=== PATIENT | female | born 1975 | race Caucasian/White ===

== ENCOUNTER → 2018-06-18 12:01 | Outpatient (CLI) | payer OTHER, MEDICAID, SELFPAY ==
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
== END ==
PROVIDERS: Family Provider Physician Assistant; PCP Physician Assistant; Visit Provider Nurse Practitioner Family
DX: M25.562 Pain in left knee (principal)
CPT/HCPCS: 73562

== ENCOUNTER → 2018-08-28 08:26 | Outpatient (CLI) | payer OTHER, MEDICAID, SELFPAY | PROVIDERS: Family Provider Physician Assistant; PCP Physician Assistant; Visit Provider Physician Assistant | DX: N39.0 Urinary tract infection, site not specified (principal) | CPT/HCPCS: 87086 ==

== ENCOUNTER 2018-09-29 14:11 | Emergency (ER) | payer OTHER, MEDICAID, SELFPAY ==
[2018-09-29 14:16] VITALS: BP 139/82; PULSE 80; RESP 14; TEMP 36.8; O2SAT 98; BMI 32.5
--- NOTE | 2018-09-29 15:41 | ED.NECK ---
HPI - Neck Pain/Injury <Camelia Cadena PA-C - Last Filed: 09/29/18 21:26> General Chief Complaint: Neck Pain/Injury Stated Complaint: NECK PAIN Time Seen by Provider: 09/29/18 15:41 Source: patient Mode of arrival: ambulatory Limitations: no limitations History of Present Illness HPI Narrative: This 43-year-old female states that she always sleeps on her left side, when she woke up this morning and rolled onto her right side she had severe pain on that side of her neck and states that she can't turn it due to the pain. She states that also her with going over bumps in the car on the way here. She states that she has had some ongoing neck tightness for the last month but denies any specific injury. She took some ibuprofen and methocarbamol earlier as well as using ice, and those helped a little bit. She states that heat seemed to make it worse. She denies any weakness or paresthesia in her extremities or any other new symptoms such as fever or rash. No specific injury. She does have methocarbamol at home as well as meloxicam she has use for arthritis and muscle pain. Related Data Home Medications Medication Instructions Recorded Confirmed albuterol sulfate [Ventolin HFA] 2 puff INH SEE INSTRUCTIONS PRN 09/29/18 09/29/18 ibuprofen 800 mg PO TID-QID PRN 09/29/18 09/29/18 Previous Rx's Medication Instructions Recorded imiquimod [Zyclara] 1 melany TOPICAL HS #7.5 gm 09/14/16 methocarbamol 750 - 1,500 mg PO HS #45 tab 10/24/16 ranitidine HCl 150 mg PO BID #60 tab 02/22/17 lorazepam 1 mg tablet 0.5 - 1 mg PO QDAY PRN #30 tab 06/09/18 promethazine 25 mg tablet See Label Instructions PO Q6HP PRN 06/09/18 #20 tab meloxicam 15 mg tablet 15 mg PO DAILY #90 tab 06/18/18 bupropion HCl XL 300 mg 24 hr 300 mg PO QAM #30 tab 08/20/18 tablet, extended release lidocaine 2 patch TOP DAILY #30 each 09/29/18 Allergies Allergy/AdvReac Type Severity Reaction Status Date / Time cat dander [CAT DANDER] Allergy Mild SNEEZING Verified 09/29/18 14:19 AND HIVES morphine AdvReac Severe VOMITING Verified 09/29/18 14:19 codeine AdvReac Mild NAUSEA Verified 09/29/18 14:19 Review of Systems <RAMNO Stephens Last Filed: 09/29/18 21:26> Review of Systems ROS Unobtainable: All systems reviewed & are unremarkable except as noted in HPI and below Exam <RAMON Stephens Last Filed: 09/29/18 21:26> Narrative Exam Narrative: GENERAL APPEARANCE: Patient sitting comfortably, in no distress. LUNGS: Clear to auscultation bilaterally. HEART: Rate and rhythm regular without murmur, normal S1 and S2, no S3 or S4. MUSCULOSKELETAL: No tenderness over the cervical spine. No tenderness over the paraspinal musculature. She is tender over the entirety of the right posterior SCM, exquisitely from the midpoint to the suboccipital/mastoid insertion. She is able to flex and extend with some tenderness at endpoints. She has reduced bilateral rotation and lateral bend secondary to tenderness. 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 NEUROVASCULAR: Hands and fingers warm and pink with sensation grossly intact Initial Vital Signs Initial Vital Signs: Vital Signs Temperature 98.2 F 09/29/18 14:16 Pulse Rate 80 09/29/18 14:16 Respiratory Rate 14 09/29/18 14:16 Blood Pressure 139/82 09/29/18 14:16 Pulse Oximetry 98 09/29/18 14:16 <Leon Ann DO - Last Filed: 10/02/18 07:17> Initial Vital Signs Initial Vital Signs: Vital Signs Temperature 98.2 F 09/29/18 14:16 Pulse Rate 80 09/29/18 14:16 Respiratory Rate 14 09/29/18 14:16 Blood Pressure 139/82 09/29/18 14:16 Pulse Oximetry 98 09/29/18 14:16 Course <RAMON Stephens Last Filed: 09/29/18 21:26> Orders Ordered: Discontinued Medications Lidocaine (Lidoderm) 1 each TOP NOW ONE Stop: 09/29/18 15:54 Last Admin: 09/29/18 16:45 Dose: 1 each Vital Signs - 8 hr 09/29/18 14:16 09/29/18 16:14 Temperature 98.2 F Pulse Rate 80 67 Respiratory Rate 14 18 Blood Pressure 139/82 Blood Pressure [Left Arm] 142/87 H Pulse Oximetry 98 97 <Leon Longeloy, DO - Last Filed: 10/02/18 07:17> Orders Ordered: Discontinued Medications Lidocaine (Lidoderm) 1 each TOP NOW ONE Stop: 09/29/18 15:54 Last Admin: 09/29/18 16:45 Dose: 1 each Vital Signs - 8 hr 09/29/18 14:16 09/29/18 16:14 Temperature 98.2 F Pulse Rate 80 67 Respiratory Rate 14 18 Blood Pressure 139/82 Blood Pressure [Left Arm] 142/87 H Pulse Oximetry 98 97 Discharge Plan Departure Patient Disposition: Home Clinical Impression: Muscular torticollis Discharge Date/Time: 09/29/18 16:50 Interventions: ED Discharge Assessment Last Done: 09/29/18 16:50 Instructions: DI for Torticollis Activity Restrictions/Additional Instructions: I think that you have strained the muscle on the side of your neck due to an awkward sleeping position. This is a common problem, and probably worse as your neck was a bit sore to begin with. This is likely to take some time to improve. Please continue ice as needed. We have applied a pain patch to your neck, and you can use these for up to 12 hr daily as needed. I have sent a prescription for these to your pharmacy. If not covered, you can get a similar, 4% lidocaine patch [id number] that is less expensive. Please change from ibuprofen to your meloxicam, 15 mg once daily. Please increase your Robaxin (methocarbamol) to 1500 mg per dose, and you can take that up to every 6 hr as needed (do not drive as it may make you sleepy). Be sure to sleep on a supportive pillow, i.e. a foam neck pillow that will keep your neck aligned. Please return if any acutely worsening symptoms, or new symptoms such as numbness or weakness in your extremities. Otherwise, follow up with your PCP next week for recheck and please discuss whether a therapy referral might be helpful given your chronic pain. Prescriptions: New lidocaine 5 % adhesive patch,medicated 2 patch TOP DAILY Qty: 30 RF: 0 No Action meloxicam 15 mg tablet 15 mg PO DAILY Qty: 90 RF: 1 imiquimod [Zyclara] 3.75 % cream in packet 1 melany Topical HS Qty: 7.5 RF: 3 methocarbamol 750 MG tablet 750 - 1,500 mg PO HS Qty: 45 RF: 3 ranitidine HCl 150 MG tablet 150 mg PO BID Qty: 60 RF: 6 promethazine 25 mg tablet See Label Instructions PO Q6HP PRN (Reason: nausea and vomiting) Qty: 20 RF: 0 lorazepam 1 mg tablet 0.5 - 1 mg PO QDAY PRN (Reason: anxiety) Qty: 30 RF: 0 bupropion HCl 300 mg tablet extended release 24 hr 300 mg PO QAM Qty: 30 RF: 3 ibuprofen 800 mg Tablet 800 mg PO TID-QID PRN (Reason: Pain (Scale Score 4-6)) RF: 0 albuterol sulfate [Ventolin HFA] 90 MCG/PUFF HFA aerosol inhaler 2 puff INH SEE INSTRUCTIONS PRN (Reason: Wheezing) RF: 0 Referrals: Carisa Donaldson PA-C [Primary Care Provider] - <Leon Ann DO - Last Filed: 10/02/18 07:17> Cosign ED Attending Lindyature Attestation: I was available for consultation during this patient's emergency department encounter
--- NOTE | 2018-09-29 15:43 | PC.NURSE ---
Holding neck, denies trauma. Was outside smoking cigarette when called from waiting area. No focal weakness. Moving all extremities equally well. Denies numbness and tinging.
--- NOTE | 2018-09-29 15:45 | ED_ITS ---
HPI - Neck Pain/Injury <Camelia Caedna PA-C - Last Filed: 09/29/18 21:26> General Chief Complaint: Neck Pain/Injury Stated Complaint: NECK PAIN Time Seen by Provider: 09/29/18 15:41 Source: patient Mode of arrival: ambulatory Limitations: no limitations History of Present Illness HPI Narrative: This 43-year-old female states that she always sleeps on her left side, when she woke up this morning and rolled onto her right side she had severe pain on that side of her neck and states that she can't turn it due to the pain. She states that also her with going over bumps in the car on the way here. She states that she has had some ongoing neck tightness for the last month but denies any specific injury. She took some ibuprofen and methocarbamol earlier as well as using ice, and those helped a little bit. She states that heat seemed to make it worse. She denies any weakness or paresthesia in her extremities or any other new symptoms such as fever or rash. No specific injury. She does have methocarbamol at home as well as meloxicam she has use for arthritis and muscle pain. Related Data Home Medications Medication Instructions Recorded Confirmed albuterol sulfate [Ventolin HFA] 2 puff INH SEE INSTRUCTIONS PRN 09/29/18 ibuprofen 800 mg PO TID-QID PRN 09/29/18 09/29/18 Previous Rx's Medication Instructions Recorded imiquimod [Zyclara] 1 melany TOPICAL HS #7.5 gm 09/14/16 methocarbamol 750 - 1,500 mg PO HS #45 tab 10/24/16 ranitidine HCl 150 mg PO BID #60 tab 02/22/17 lorazepam 1 mg tablet 0.5 - 1 mg PO QDAY PRN #30 tab 06/09/18 promethazine 25 mg tablet See Label Instructions PO Q6HP PRN 06/09/18 #20 tab meloxicam 15 mg tablet 15 mg PO DAILY #90 tab 06/18/18 bupropion HCl XL 300 mg 24 hr 300 mg PO QAM #30 tab 08/20/18 tablet, extended release lidocaine 2 patch TOP DAILY #30 each 09/29/18 Allergies Allergy/AdvReac Type Severity Reaction Status Date / Time cat dander [CAT DANDER] Allergy Mild SNEEZING Verified 09/29/18 14:19 AND HIVES morphine AdvReac Severe VOMITING Verified 09/29/18 14:19 codeine AdvReac Mild NAUSEA Verified 09/29/18 14:19 Review of Systems <RAMON Stephens Last Filed: 09/29/18 21:26> Review of Systems ROS Unobtainable: All systems reviewed & are unremarkable except as noted in HPI and below Exam <RAMON Stephens Last Filed: 09/29/18 21:26> Narrative Exam Narrative: GENERAL APPEARANCE: Patient sitting comfortably, in no distress. LUNGS: Clear to auscultation bilaterally. HEART: Rate and rhythm regular without murmur, normal S1 and S2, no S3 or S4. MUSCULOSKELETAL: No tenderness over the cervical spine. No tenderness over the paraspinal musculature. She is tender over the entirety of the right posterior SCM, exquisitely from the midpoint to the suboccipital/mastoid insertion. She is able to flex and extend with some tenderness at endpoints. She has reduced bilateral rotation and lateral bend secondary to tenderness. 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 NEUROVASCULAR: Hands and fingers warm and pink with sensation grossly intact Initial Vital Signs Initial Vital Signs: Vital Signs Temperature 98.2 F 09/29/18 14:16 Pulse Rate 80 09/29/18 14:16 Respiratory Rate 14 09/29/18 14:16 Blood Pressure 139/82 09/29/18 14:16 Pulse Oximetry 98 09/29/18 14:16 <Leon Ann DO - Last Filed: 10/02/18 07:17> Initial Vital Signs Initial Vital Signs: Vital Signs Temperature 98.2 F 09/29/18 14:16 Pulse Rate 80 09/29/18 14:16 Respiratory Rate 14 09/29/18 14:16 Blood Pressure 139/82 09/29/18 14:16 Pulse Oximetry 98 09/29/18 14:16 Course <RAMON Stephens Last Filed: 09/29/18 21:26> Orders Ordered: Discontinued Medications Lidocaine (Lidoderm) 1 each TOP NOW ONE Stop: 09/29/18 15:54 Last Admin: 09/29/18 16:45 Dose: 1 each Vital Signs - 8 hr 09/29/18 14:16 09/29/18 16:14 Temperature 98.2 F Pulse Rate 80 67 Respiratory Rate 14 18 Blood Pressure 139/82 Blood Pressure [Left Arm] 142/87 H Pulse Oximetry 98 97 <Leon Longeloy, DO - Last Filed: 10/02/18 07:17> Orders Ordered: Discontinued Medications Lidocaine (Lidoderm) 1 each TOP NOW ONE Stop: 09/29/18 15:54 Last Admin: 09/29/18 16:45 Dose: 1 each Vital Signs - 8 hr 09/29/18 14:16 09/29/18 16:14 Temperature 98.2 F Pulse Rate 80 67 Respiratory Rate 14 18 Blood Pressure 139/82 Blood Pressure [Left Arm] 142/87 H Pulse Oximetry 98 97 Discharge Plan Departure Patient Disposition: Home Clinical Impression: Muscular torticollis Discharge Date/Time: 09/29/18 16:50 Interventions: ED Discharge Assessment Last Done: 09/29/18 16:50 Instructions: DI for Torticollis Activity Restrictions/Additional Instructions: I think that you have strained the muscle on the side of your neck due to an awkward sleeping position. This is a common problem, and probably worse as your neck was a bit sore to begin with. This is likely to take some time to improve. Please continue ice as needed. We have applied a pain patch to your neck, and you can use these for up to 12 hr daily as needed. I have sent a prescription for these to your pharmacy. If not covered, you can get a similar , 4% lidocaine patch [id number] that is less expensive. Please change from ibuprofen to your meloxicam, 15 mg once daily. Please increase your Robaxin (methocarbamol) to 1500 mg per dose, and you can take that up to every 6 hr as needed (do not drive as it may make you sleepy). Be sure to sleep on a supportive pillow, i.e. a foam neck pillow that will keep your neck aligned. Please return if any acutely worsening symptoms, or new symptoms such as numbness or weakness in your extremities. Otherwise, follow up with your PCP next week for recheck and please discuss whether a therapy referral might be helpful given your chronic pain. Prescriptions: New lidocaine 5 % adhesive patch,medicated 2 patch TOP DAILY Qty: 30 RF: 0 No Action meloxicam 15 mg tablet 15 mg PO DAILY Qty: 90 RF: 1 imiquimod [Zyclara] 3.75 % cream in packet 1 melany Topical HS Qty: 7.5 RF: 3 methocarbamol 750 MG tablet 750 - 1,500 mg PO HS Qty: 45 RF: 3 ranitidine HCl 150 MG tablet 150 mg PO BID Qty: 60 RF: 6 promethazine 25 mg tablet See Label Instructions PO Q6HP PRN (Reason: nausea and vomiting) Qty: 20 RF : 0 lorazepam 1 mg tablet 0.5 - 1 mg PO QDAY PRN (Reason: anxiety) Qty: 30 RF: 0 bupropion HCl 300 mg tablet extended release 24 hr 300 mg PO QAM Qty: 30 RF: 3 ibuprofen 800 mg Tablet 800 mg PO TID-QID PRN (Reason: Pain (Scale Score 4-6)) RF: 0 albuterol sulfate [Ventolin HFA] 90 MCG/PUFF HFA aerosol inhaler 2 puff INH SEE INSTRUCTIONS PRN (Reason: Wheezing) RF: 0 Referrals: Carisa Donaldson PA-C [Primary Care Provider] - <Leon Ann DO - Last Filed: 10/02/18 07:17> Cosign ED Attending Lindyature Attestation: I was available for consultation during this patient's emergency department encounter
[2018-09-29 16:14] VITALS: BP 142/87; PULSE 67; RESP 18; O2SAT 97
[2018-09-29] MEDS: LIDOCAINE PATCH 1 EACH ADH..PATCH TOP (16:45)
== END 2018-09-29 16:50 | disposition home or self-care (01) ==
PROVIDERS: Emergency Provider Internal Medicine; Family Provider Physician Assistant; PCP Physician Assistant
DX: M43.6 Torticollis (principal)
CPT/HCPCS: 99282

== ENCOUNTER → 2018-10-08 10:35 | Outpatient (CLI) | payer OTHER, MEDICAID, SELFPAY | PROVIDERS: Family Provider Physician Assistant; PCP Physician Assistant; Visit Provider Physician Assistant | DX: R35.0 Frequency of micturition (principal) | CPT/HCPCS: 87086 ==

== ENCOUNTER 2018-10-20 17:04 | Emergency (ER) | payer OTHER, MEDICAID, SELFPAY ==
[2018-10-20 17:11] VITALS: BP 128/82; PULSE 88; RESP 18; O2SAT 97
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
--- NOTE | 2018-10-20 19:08 | ED.LOWEXIN ---
HPI - Extremity Injury (Lower) General Chief Complaint: Extremity Injury, Lower Stated Complaint: RT FOOT HIT DOOR JAM Time Seen by Provider: 10/20/18 17:46 Source: patient Mode of arrival: ambulatory Limitations: no limitations History of Present Illness HPI Narrative: 43-year-old female here for evaluation of right little toe injury. She states she was walking down the steps in her house yesterday evening when she hit her toe. Has had pain in the toe since then. Has iced it but has had no other interventions. Related Data Home Medications Medication Instructions Recorded Confirmed albuterol sulfate [Ventolin HFA] 2 puff INH SEE INSTRUCTIONS PRN 09/29/18 10/08/18 Previous Rx's Medication Instructions Recorded imiquimod [Zyclara] 1 melany TOPICAL HS #7.5 gm 09/14/16 ranitidine HCl 150 mg PO BID #60 tab 02/22/17 lorazepam 1 mg tablet 0.5 - 1 mg PO QDAY PRN #30 tab 06/09/18 meloxicam 15 mg tablet 15 mg PO DAILY #90 tab 06/18/18 bupropion HCl XL 300 mg 24 hr 300 mg PO QAM #30 tab 08/20/18 tablet, extended release methocarbamol 750 mg tablet 750 - 1,500 mg PO HS #45 tab 10/08/18 tramadol 50 mg tablet See Rx Instructions PO QID #60 tab 10/08/18 triamcinolone acetonide 0.1 % 1 applictn TOP BID #30 gram 10/08/18 topical ointment promethazine 25 mg tablet See Rx Instructions PO Q6HP PRN 10/15/18 #20 tab acetaminophen-codeine 1 tab PO Q4-6H PRN #10 tab 10/20/18 [Tylenol-Codeine #3] Allergies Allergy/AdvReac Type Severity Reaction Status Date / Time cat dander [CAT DANDER] Allergy Mild SNEEZING Verified 10/08/18 10:23 AND HIVES morphine AdvReac Severe VOMITING Verified 10/08/18 10:23 codeine AdvReac Mild NAUSEA Verified 10/08/18 10:23 Review of Systems Musculoskeletal Comments: Right little toe injury Integumentary/Breasts Comments: Bruising around the right little toe Neurologic Comments: No sensation changes right foot Hematologic/Lymphatic Denies easy bleeding and Denies easy bruising PFS Social History Smoking Status: Current every day smoker Tobacco: How many years used: 30 quit status: not considering quitting second hand exposure: No alcohol intake: never substance use type: marijuana Exam Initial Vital Signs Initial Vital Signs: Vital Signs Pulse Rate 88 10/20/18 17:11 Respiratory Rate 18 10/20/18 17:11 Blood Pressure 128/82 10/20/18 17:11 Pulse Oximetry 97 10/20/18 17:11 Const General: cooperative, healthy appearing, comfortable, well developed, well groomed and No acute distress Orientation: alert, awake and oriented x3 Cardio Pulses: dorsalis pedis present on the right Skin Other: Bruising around the base of the right little toe Neuro Other: Patient to light touch right lower extremity Extrem General: normal to inspection and capillary refill normal Psych Appearance: grossly normal and well kempt Course Orders Ordered: ED Orders 10/20/18 17:27 XR foot RT min 3V Stat Vital Signs - 8 hr 10/20/18 17:11 10/20/18 19:17 Temperature 98.3 F Pulse Rate 88 73 Respiratory Rate 18 16 Blood Pressure 128/82 Blood Pressure [Right Arm] 130/76 Pulse Oximetry 97 96 MDM - Extremity Injury (Lower) Imaging Data X-ray right foot: Radiologist's impression: [address] [address] XRay Report Signed Patient: Kelly Ling HMR#: [id number] : 1975Acct:[id number] Age/Sex: 43 / FDate of Service: 10/20/18 Loc: ED Accession Number: [id number] Procedure: XR foot RT min 3V Ordering Provider: Christen Lou D.O. PROCEDURE: XR FOOT RT MIN 3V INDICATIONS: injury TECHNIQUE: 3 views of the foot were acquired. COMPARISON: [facility], FOOT 2V LEFT, 11/28/2011, 13:02. [facility], FOOT 3V LEFT, 04/22/2011, 10:17. [facility], FOOT 3V LEFT, 04/28/2010, 18:34. FINDINGS: Bones: There is an oblique fracture through the mid-diaphysis of the right fifth proximal phalanx which appears only minimally displaced and is without significant angulation of the distal fracture fragment Soft tissues: No tibiotalar joint effusion. There is soft tissue edema of the forefoot. IMPRESSION: Acute oblique mid-diaphyseal fracture of the right fifth proximal phalanx. Dictated by: Devin Morris M.D. on 10/20/2018 at 18:06 Approved by: Devin Morris M.D. on 10/20/2018 at 18:09 [facility] Narrative Medical decision making narrative: Patient neurovascularly intact. Does have a proximal right little toe fracture. Renny taped the little toe with the next 1. She was also given a walking shoe. She states that she can take codeine despite allergy history will send home with Tylenol number threes. She is given return precautions. She is given expected course. She expressed understanding and agreement with plan. Discharge Plan Departure Patient Disposition: Home Clinical Impression: Fracture of toe of right foot Qualifiers: Encounter type: initial encounter Toe: lesser toe Fracture type: closed Phalanx: proximal Fracture alignment: nondisplaced Qualified Code(s): S92.514A - Nondisplaced fracture of proximal phalanx of right lesser toe(s), initial encounter for closed fracture Instructions: DI for Toe Fracture Activity Restrictions/Additional Instructions: Renny-tape your little toe with the toe next to it like I showed you here in the emergency department. Take the pain medication as needed. Use the ortho shoe as needed. You have no restrictions on your activity. You can shower like normal. Ice your foot as much as possible. Return to the emergency department for any new or worsening symptoms Prescriptions: New acetaminophen-codeine [Tylenol-Codeine #3] 300-30 mg tablet 1 tab PO Q4-6H PRN (Reason: pain) Qty: 10 RF: 0 No Action meloxicam 15 mg tablet 15 mg PO DAILY Qty: 90 RF: 1 Hold Instructions: causing stomach upset methocarbamol 750 mg tablet 750 - 1,500 mg PO HS Qty: 45 RF: 3 tramadol 50 mg tablet See Rx Instructions PO QID Qty: 60 RF: 0 triamcinolone acetonide 0.1 % ointment 1 applictn TOP BID Qty: 30 RF: 3 imiquimod [Zyclara] 3.75 % cream in packet 1 melany Topical HS Qty: 7.5 RF: 3 ranitidine HCl 150 MG tablet 150 mg PO BID Qty: 60 RF: 6 lorazepam 1 mg tablet 0.5 - 1 mg PO QDAY PRN (Reason: anxiety) Qty: 30 RF: 0 bupropion HCl 300 mg tablet extended release 24 hr 300 mg PO QAM Qty: 30 RF: 3 promethazine 25 mg tablet See Rx Instructions PO Q6HP PRN (Reason: nausea and vomiting) Qty: 20 RF: 0 albuterol sulfate [Ventolin HFA] 90 MCG/PUFF HFA aerosol inhaler 2 puff INH SEE INSTRUCTIONS PRN (Reason: Wheezing) RF: 0 Referrals: Carisa Donaldson PA-C [Primary Care Provider] -
[2018-10-20 19:17] VITALS: BP 130/76; PULSE 73; RESP 16; TEMP 36.8; O2SAT 96
[2018-10-20] MEDS: CODEINE/APAP 30/300 PREPACK 1 BOTTLE MISC (19:46)
== END 2018-10-20 19:57 | disposition home or self-care (01) ==
PROVIDERS: Emergency Provider Emergency Medicine; Family Provider Physician Assistant; PCP Physician Assistant
DX: S92.514A Nondisplaced fracture of proximal phalanx of right lesser toe(s), initial encounter for closed fracture (principal); W22.8XXA Striking against or struck by other objects, initial encounter
CPT/HCPCS: 73630; 99282; 99283

== ENCOUNTER → 2018-11-15 14:58 | Outpatient (CLI) | payer OTHER, MEDICAID, SELFPAY ==
--- NOTE | 2018-11-15 15:02 | DI.RAD.S_ITS ---
PROCEDURE: XR SACRUM COCCYX MIN 2V INDICATIONS: Pain coccyx TECHNIQUE: 3 views of the sacrum and coccyx acquired. COMPARISON: [facility], , -SPINE 2-3 VIEWS, 10/26/2010, 15:35. FINDINGS: Bones: No fractures or dislocations. No suspicious bony lesions. Soft tissues: Visualized bowel gas pattern is normal. No suspicious soft tissue densities. IMPRESSION: No fractures. Dictated by: Senait Gomes M.D. on 11/15/2018 at 17:12 Approved by: Senait Gomes M.D. on 11/15/2018 at 17:13
== END ==
PROVIDERS: PCP Physician Assistant; Visit Provider Physician Assistant
DX: M53.3 Sacrococcygeal disorders, not elsewhere classified (principal)
CPT/HCPCS: 72220

== ENCOUNTER → 2019-04-24 15:40 | Outpatient (CLI) | payer OTHER, MEDICAID, SELFPAY ==
--- NOTE | 2019-04-24 15:45 | DI.MRI.S_ITS ---
PROCEDURE: MR LUMBAR SPINE WO CON INDICATIONS: Sacral and coccygeal pain and pressure x 10 months TECHNIQUE: Noncontrast sagittal T1 spin echo and T2 fast echo, sagittal STIR, axial T1 and T2 fast spin echo through the lumbar spine. In cases with scoliosis, additional coronal T2 fast spin echo may be performed. COMPARISON: None. FINDINGS: Image quality: Excellent. Alignment and Curvature: There is normal bony alignment. Bone Marrow: Diffuse loss of the normal marrow fat signal intensity raising possibility of chronic anemia. Normal appearance of the sacroiliac joints bilaterally without evidence of erosions or ankylosis No acute vertebral body compression fractures. Spinal Cord: Conus medullaris terminates at the L1-L2 level. Visualized cord demonstrates normal signal and size. Paraspinous Soft Tissues: Possible T2 hyperintense renal cysts, technically non-specific. Presumed right adnexal follicle L1-L2: Normal appearance. L2-L3: Normal appearance. L3-L4: Normal appearance. L4-L5: Normal appearance. L5-S1: Normal appearance. IMPRESSION: No canal or foraminal stenosis. Incidentally noted diffuse marrow signal changes raising possibility of chronic anemia, versus statistically much less likely other marrow infiltrative processes. Normal appearance of the sacroiliac joints and sacral marrow signal. Dictated by: Zane Peng M.D. on 04/25/2019 at 10:27 Approved by: Zane Peng M.D. on 04/25/2019 at 10:31
--- NOTE | 2019-04-24 16:12 | DI.US.S_ITS ---
PROCEDURE: US PELVIC COMPLETE INDICATIONS: HX OF TILTED UTERUS; CHRONIC COCCYGEAL PAIN/RECTAL PRESSURE TECHNIQUE: Real-time scanning was performed of the pelvic organs, with image documentation. Additional endovaginal scanning was necessary due to incomplete visualization of the adnexal and endometrial structures by transabdominal scanning. COMPARISON: [facility], , PELVIC COMPLETE, 08/21/2017, 19:05. FINDINGS: Transabdominal scanning: Limited scanning through the kidneys shows no hydronephrosis. No pathologic free abdominal or pelvic fluid. Endovaginal scanning: Uterus: Uterus is normal in size at 8.8 x 4.5 x 6.2 cm. The endometrium measures 6.0 mm in combined thickness. Small punctate echogenic foci seen along the superior margin of the endometrium which may represent retained blood products. Ovaries: Ovary normal in size measuring 3.5 x 2.8 x 2.7 cm right and 3.1 x 1.8 x 1.9 cm on the left. Simple, unilocular right ovarian cyst measuring 2.9 x 2.4 x 2.0 cm IMPRESSION: Simple right ovarian cyst. Dictated by: Lefty Nava [facility] Interpreted: Zane Peng MD on 04/24/2019 at 17:03 Approved by: Zane Peng M.D. on 04/24/2019 at 17:19
== END ==
PROVIDERS: PCP Physician Assistant; Visit Provider Physician Assistant
DX: M53.3 Sacrococcygeal disorders, not elsewhere classified (principal); N83.291 Other ovarian cyst, right side; G89.29 Other chronic pain; R19.8 Other specified symptoms and signs involving the digestive system and abdomen
CPT/HCPCS: 72148; 76830; 76856

== ENCOUNTER → 2019-07-11 15:41 | Outpatient (CLI) | payer OTHER, MEDICAID, SELFPAY ==
[2019-07-11 18:55] LABS: Appearance Urine UA CLEAR; Bilirubin Urine UA NEGATIVE (NEGATIVE); Color Urine UA YELLOW; Glucose Urine UA NEGATIVE (Negative); Ketones Urine UA NEGATIVE (NEGATIVE); Leukocyte Esterase Urine UA NEGATIVE (NEGATIVE); Nitrite Urine UA NEGATIVE (Negative); Occult Blood Urine UA NEGATIVE (Negative); Protein Urine UA NEGATIVE (Negative); Urobilinogen Urine UA 0.2 E.U./dL (0.2)
[2019-07-11 19:13] LABS: Amorphous Sediment Urine 3+; Bacteria Urine Few (2-10); Calcium Oxalate Crystals Urine Few; Culture Indicated Urine Cult Not Indicated; RBC Urine 1-5/HPF (0-5/HPF); Squamous Epithelial Cell Urine 5-10 /HPF (0-5/HPF); WBC Urine 1-5/HPF (0-5/HPF)
[2019-07-11 19:14] LABS: Transitional Epi Cells Urine 1-5/HPF (0-5/HPF)
== END ==
PROVIDERS: PCP Physician Assistant; Visit Provider Nurse Practitioner Family
DX: R30.0 Dysuria (principal)
CPT/HCPCS: 81001

== ENCOUNTER 2019-11-26 12:42 | Emergency (ER) | payer OTHER, MEDICAID, SELFPAY ==
[2019-11-26 12:51] VITALS: BP 156/79; PULSE 107; RESP 24; TEMP 36.7; O2SAT 97
--- NOTE | 2019-11-26 12:56 | ED.DENTAL ---
HPI - Dental/Oral <An UrbinaSIRENA - Last Filed: 11/26/19 21:15> General Chief complaint: Recheck/Abnormal Lab/Rx Stated complaint: Infection in eye Time Seen by Provider: 11/26/19 12:44 Source: patient Mode of arrival: Ambulatory Limitations: no limitations History of Present Illness HPI Narrative: 44yo female presents to the emergency department complaining of pain to the right side of her face for the past 4 weeks. She states it woke her up in the middle the night and started on her right upper teeth, it then radiated up her cheek in above her right eye. She states it is a 9/10 pressure and pain that is worse when she touches her face. Patient states she has been to 2 different dentist who states there is nothing wrong with her tooth. She has taken amoxicillin, she started to feel a little bit better at the end of the treatment. After the treatment, the pain significantly return within less than 24 hours. She has been on clindamycin, she stated toward the end of the treatment she started to feel slightly better but then the pain returned. Patient has taken 100 mg of ibuprofen this morning which has helped. Patient states ?I have had the hots and colds for deandre past 4 weeks. She denies any other symptoms such as vision changes, headaches, sore throat, cough, fevers, abdominal pain, nausea, vomiting, diarrhea, chest pain, or any other concerns. Related Data Home Medications Medication Instructions Recorded Confirmed albuterol sulfate [Ventolin HFA] 2 puff INH SEE INSTRUCTIONS PRN 09/29/18 07/11/19 Previous Rx's Medication Instructions Recorded methocarbamol 750 mg tablet 750 - 1,500 mg PO HS #45 tab 10/08/18 bupropion HCl 300 mg 24 hr tablet, 300 mg PO QAM #30 tab 03/25/19 extended release promethazine 25 mg tablet See Rx Instructions PO Q6HP PRN 04/25/19 #20 tab diclofenac sodium 1 % topical gel 2 gram TOPICAL QID PRN #100 gram 08/23/19 lorazepam 1 mg tablet 0.5 - 1 mg PO QDAY PRN #30 tab 08/23/19 naproxen 500 mg tablet 500 mg PO BID PRN #60 tab 08/23/19 carbamazepine 100 mg PO BID 14 Days #28 cap 03/17/20 Allergies Allergy/AdvReac Type Severity Reaction Status Date / Time cat dander [CAT DANDER] Allergy Mild SNEEZING Verified 07/11/19 15:10 AND HIVES morphine AdvReac Severe VOMITING Verified 07/11/19 15:10 codeine AdvReac Mild NAUSEA Verified 07/11/19 15:10 Review of Systems <SIRENA Hart - Last Filed: 11/26/19 21:15> Review of Systems Narrative: REVIEW OF SYSTEMS: GENERAL: Denies fever or chills. HENT: Complains of right-sided upper tooth pain, maxillary and right-sided forehead pain, see HPI. EYES: No loss of vision, double vision, eye pain, or irritation. CARDIOVASCULAR: No chest pain or syncope. RESPIRATORY: No shortness of breath or cough. GASTROINTESTINAL: No nausea, vomiting, diarrhea, or constipation. GENITOURINARY: No flank pain or dysuria. MUSCULOSKELETAL: No pain, weakness, or deformities. INTEGUMENTARY: No rash, lesions, or pruritus. NEURO: No numbness, tingling, memory loss, or confusion. PSYCH: No behavior or mood changes. Patient History <SIRENA Hart - Last Filed: 11/26/19 21:15> Medical History Anxiety (Chronic) Asthma (Chronic) Chlamydia (Resolved) Depression (Chronic) HPV (human papilloma virus) infection (Resolved) Mixed anxiety depressive disorder (Chronic 08/20/02) Oral herpes (Resolved) Family History Brother Age: 39 Depression Drug abuse Father Depression Overdose Grandfather Suicide Grandmother No problems noted. Grandfather No problems noted. Grandmother No problems noted. Brother No problems noted. Mother No problems noted. Social History Smoking Status: Current every day smoker Tobacco: How many years used: 30 quit status: not considering quitting second hand exposure: No alcohol intake: never substance use type: marijuana Smoking Status: Current every day smoker alcohol intake frequency: 0-2 drinks per day Substance Use Type: does not use Exam <SIRENA Hart - Last Filed: 11/26/19 21:15> Initial Vital Signs Initial Vital Signs: Vital Signs Temperature 98.1 F 11/26/19 12:51 Pulse Rate 107 H 11/26/19 12:51 Respiratory Rate 24 11/26/19 12:51 Blood Pressure 156/79 H 11/26/19 12:51 Pulse Oximetry 97 11/26/19 12:51 PHYSICAL EXAMINATION: GENERAL: Well groomed, alert, and cooperative. Answers questions promptly and appropriately. Vital signs noted. Patient tearful during initial examination. HENT: Normocephalic, atraumatic. Ear canals patent. TMs intact with crisp light reflex, no rash to face. Multiple caries noted, no sensitive or loose teeth. Oral mucosa is pink and moist. Oropharynx without erythema. No tenderness to palpation of temporal or mastoid area. EYES: PERRLA, EOMI without pain, Conjunctiva pink, sclera white, no periorbital swelling. CHEST: Normal to inspection and without deformities. CARDIOVASCULAR: S1 and S2 sounds normal, no murmurs, clicks, or bruits. No pedal edema. RESPIRATORY: Normal respiratory rate, trachea midline, airway patent. No stridor, nasal flaring or accessory muscle use. Lungs are clear in all fox without wheeze, rhonchi, or crackles. GASTROINTESTINAL: Bowel sounds normoactive. Abdomen is soft and non-tender. No organomegaly. MUSCULOSKELETAL: Normal gait and coordination. Equal tone and mass bilaterally. EXTREMITIES: CMS intact. Moves all extremities. SKIN: Warm, dry, soft, appropriate color for ethnicity. No lesions, rashes, or wounds. NEURO: Alert and Oriented X 3. Good coordination. No ataxia, or sensory deficits, or cognitive issues. PSYCH: Patient tearful. <Jass Marley DO - Last Filed: 11/29/19 11:34> Initial Vital Signs Initial Vital Signs: Vital Signs Temperature 98.1 F 11/26/19 12:51 Pulse Rate 107 H 11/26/19 12:51 Respiratory Rate 24 11/26/19 12:51 Blood Pressure 156/79 H 11/26/19 12:51 Pulse Oximetry 97 11/26/19 12:51 Course <SIRENA Hart - Last Filed: 11/26/19 21:15> Course Course Narrative: Labs were drawn, fluid was started as patient is receiving a CT with contrast. Patient reported improved pain without intervention throughout the emergency department stay. Orders Ordered: Discontinued Medications Sodium Chloride (Normal Saline 0.9%) 1,000 mls @ 1,000 mls/hr IV BOLUS ONE Stop: 11/26/19 14:52 Last Infusion: 11/26/19 15:20 Dose: 0 mls/hr Documented by: Admin: 11/26/19 14:15 Dose: 1,000 mls/hr Documented by: MARÍA Consultations Consultation #1: Patient staffed with Dr. Marley. Vital Signs Vital signs: Vital Signs - 8 hr 11/26/19 14:46 11/26/19 15:19 Pulse Rate 73 70 Respiratory Rate 16 18 Blood Pressure [Right Arm] 128/78 143/83 H Pulse Oximetry 99 99 <Jass Marley DO - Last Filed: 11/29/19 11:34> Orders Ordered: Discontinued Medications Sodium Chloride (Normal Saline 0.9%) 1,000 mls @ 1,000 mls/hr IV BOLUS ONE Stop: 11/26/19 14:52 Last Infusion: 11/26/19 15:20 Dose: 0 mls/hr Documented by: Admin: 11/26/19 14:15 Dose: 1,000 mls/hr Documented by: MARÍA Vital Signs Vital signs: Vital Signs - 8 hr 11/26/19 14:46 11/26/19 15:19 Pulse Rate 73 70 Respiratory Rate 16 18 Blood Pressure [Right Arm] 128/78 143/83 H Pulse Oximetry 99 99 MDM - Dental/Oral <SIRENA Hart - Last Filed: 11/26/19 21:15> Medical Records Attestation: I reviewed the patient's medical records. Lab Data Attestation: I reviewed the patient's lab results. Result diagrams: 11/26/19 13:36 11/26/19 13:36 Labs: Lab Results 11/26/19 11/26/19 Range/Units 13:36 13:36 WBC 9.9 (4.5-11.0) X10^3/uL RBC 5.00 (4.0-5.2) X10^6/uL Hgb 16.0 (12.0-16.0) g/dL Hct 45.6 (36-46) % MCV 91.1 (80-100) fL MCH 31.9 (26-34) PG MCHC 35.1 (30-36) % RDW 13.6 (11.6-14.8) % Plt Count 377 (150-400) X10^3/uL Neut % (Auto) 66.2 (50-75) % Lymph % (Auto) 25.6 (25-40) % Potter % (Auto) 4.9 (3-14) % Eos % (Auto) 2.5 (2-4) % Baso % (Auto) 0.8 (0-2) % Neut # (Auto) 6500 (0789-0840) /uL Lymph # (Auto) 2500 (6851-1663) /uL Potter # (Auto) 500 (0-900) /uL Eos # (Auto) 200 (0-450) /uL Baso # (Auto) 100 (0-100) /uL ESR 4 (0-20) MM/HR Sodium 140 (137-145) mmol/L Potassium 4.1 (3.4-5.1) mmol/L Chloride 107 (98-107) mmol/L Carbon Dioxide 24 (22-32) mmol/L BUN 15 (7-17) mg/dL Creatinine 0.65 (0.52-1.04) mg/dL Estimated GFR > 60.0 (>60) mL/min BUN/Creatinine Ratio 23.1 H (6-22) Glucose 111 H (70-100) mg/dL Calcium 9.6 (8.4-10.2) mg/dL Total Bilirubin 0.5 (0.2-1.3) mg/dL AST 34 (14-36) IU/L ALT 44 H (<35) IU/L Alkaline Phosphatase 71 (38-126) U/L C-Reactive Protein < 0.5 (<1.0) mg/dL Total Protein 8.4 H (6.3-8.2) g/dL Albumin 4.8 (3.5-5.0) g/dL Globulin 3.6 (1.7-4.1) g/dL Albumin/Globulin Ratio 1.3 (1.0-2.8) Imaging Data Soft Tissue Neck: Radiologist's Impression: [address] [address] [address] Scan Report Signed Patient: Kelly Ling HMR#: [id number] : 1975Acct:[id number] Age/Sex: 44 / FDate of Service: 11/26/19 Loc: ED Accession Number: [id number] Procedure: CT soft tissue neck w con Ordering Provider: An Urbina PROCEDURE: CT SOFT TISSUE NECK W CON INDICATIONS: Right facial/sinus/tooth pain, pressure, r/o abscess, etc TECHNIQUE: After the administration of intravenous contrast, 3.0 mm axial sections acquired from the sella to the aortic arch. Additional oblique axial 3.0 mm sections acquired through the pharynx. 3 mm thick coronal and sagittal reformats were generated. For radiation dose reduction, the following was used: automated exposure control. COMPARISON: [facility], CT, SOFT TISSUE NECK W CONTRAST, 07/09/2014, 9:48. FINDINGS: Image quality: Excellent. Lymph nodes: No enlarged lymph nodes seen throughout the neck. Vessels: Visualized vasculature appears patent. Neck spaces: The oropharynx, nasopharynx, and pharynx demonstrate no mucosal lesions. The vocal cords, false vocal cords, pyriform sinuses, epiglottis, vallecula, and tongue base all appear normal. Extramucosal spaces appear unremarkable. Glands: The parotid and submandibular glands appear normal. Thyroid gland demonstrate stable punctate low attenuation foci predominantly within the right lobe.. Miscellaneous: Visualized brain and orbits appear normal. Lung apices appear clear. No abscess is identified. There are areas of persistent lucency surrounding the right upper tooth #2 minimally progressive compared to 2014. No associated abscess is identified. There is an unchanged appearance of subcutaneous nodule within the anterior chest which has increased in size currently measuring 23 mm transverse compared to 11 mm on prior exam. Thousand units measure 11. In addition, there is a posterior left breast focus measuring approximately 8 mm compared to 7 mm on prior exam. The Bones: No suspicious bony lesions. Visualized sinuses and mastoids appear unremarkable. IMPRESSION: 1. No visualized abscess. 2. Enlarged focus of subcutaneous nodularity within the anterior chest as above. Given Hounsfield units, appearance is suggestive of a cystic type structure possibly sebaceous cyst. As clinically indicated, focal ultrasound is recommended for further evaluation. 3. Stable appearance of nodularity within the posterior right breast, likely benign. However, followup with mammogram is recommended as indicated. Dictated by: Jody Travis M.D. on 11/26/2019 at 13:26 Approved by: Jody Travis M.D. on 11/26/2019 at 13:51 MDM Narrative Medical decision making narrative: 44-year-old female presents emergency department for right-sided to, cheek, and above the eye pain. Patient had been on 2 different antibiotics with a slightly decreased pain. She has also seen 2 dentist to states that her tooth is without infection and is not because of pain, no sign of gingivitis or tooth abscess on examination, less likely dental etiology. I suspect her symptoms are most likely caused by trigeminal neuralgia given the location of symptoms and the failed antibiotic therapies. CT soft tissue with contrast was ordered, images were negative for any source of pain, thus less likely abscess or sinus involvement. Less likely temporal arteritis as CRP and ESR are within normal limits. Less likely infectious process due to normal white count and lack of inflammation or erythema. Patient was started on come back to bring, she was caused extensively that there will be side effects with this medication. She was encouraged to follow up with her primary care provider in the next 1-2 weeks for further discussion about the incidental breast mass found on her examination. She was referred to Neurology for continue evaluation and management of trigeminal neuralgia. Strict ED return precautions given for new or worsening symptoms such as facial droop, high fevers, chest pain, difficulty swelling, or any other concerns. <Jass Marley, DO - Last Filed: 11/29/19 11:34> Lab Data Labs: Lab Results 11/26/19 11/26/19 Range/Units 13:36 13:36 WBC 9.9 (4.5-11.0) X10^3/uL RBC 5.00 (4.0-5.2) X10^6/uL Hgb 16.0 (12.0-16.0) g/dL Hct 45.6 (36-46) % MCV 91.1 (80-100) fL MCH 31.9 (26-34) PG MCHC 35.1 (30-36) % RDW 13.6 (11.6-14.8) % Plt Count 377 (150-400) X10^3/uL Neut % (Auto) 66.2 (50-75) % Lymph % (Auto) 25.6 (25-40) % Potter % (Auto) 4.9 (3-14) % Eos % (Auto) 2.5 (2-4) % Baso % (Auto) 0.8 (0-2) % Neut # (Auto) 6500 (7995-5225) /uL Lymph # (Auto) 2500 (0775-1339) /uL Potter # (Auto) 500 (0-900) /uL Eos # (Auto) 200 (0-450) /uL Baso # (Auto) 100 (0-100) /uL ESR 4 (0-20) MM/HR Sodium 140 (137-145) mmol/L Potassium 4.1 (3.4-5.1) mmol/L Chloride 107 (98-107) mmol/L Carbon Dioxide 24 (22-32) mmol/L BUN 15 (7-17) mg/dL Creatinine 0.65 (0.52-1.04) mg/dL Estimated GFR > 60.0 (>60) mL/min BUN/Creatinine Ratio 23.1 H (6-22) Glucose 111 H (70-100) mg/dL Calcium 9.6 (8.4-10.2) mg/dL Total Bilirubin 0.5 (0.2-1.3) mg/dL AST 34 (14-36) IU/L ALT 44 H (<35) IU/L Alkaline Phosphatase 71 (38-126) U/L C-Reactive Protein < 0.5 (<1.0) mg/dL Total Protein 8.4 H (6.3-8.2) g/dL Albumin 4.8 (3.5-5.0) g/dL Globulin 3.6 (1.7-4.1) g/dL Albumin/Globulin Ratio 1.3 (1.0-2.8) Discharge Plan Departure Patient Disposition: Home Clinical Impression: Right trigeminal neuralgia Discharge Date/Time: 11/26/19 15:24 Instructions: DI for Trigeminal Neuralgia Activity Restrictions/Additional Instructions: Thank you for entrusting me with your care today. As discussed, your CT scan did not reveal a source of pain, your labs are non-remarkable. However, there was an incidental finding of the posterior right breast, most likely benign, however, a mammogram is recommended to examine this further. Follow up with her primary care provider in the next few weeks to months to discuss this. I have started you on a medication that is commonly use for seizures to help with this pain. Take 100 mg twice a day, you can increase your dosage to 200 mg twice a day but only increased her dose by 1 pill a day. Please follow-up with a neurologist as well as her primary care provider for further management as this can last a long time, from weeks to months. Return emergency department for any new or worsening symptoms such as chest pain, facial droop, high fevers, uncontrollable vomiting, or any other concerns. Prescriptions: New carbamazepine 100 mg capsule, ER multiphase 12 hr 100 mg PO BID 14 Days Qty: 28 RF: 0 No Action methocarbamol 750 mg tablet 750 - 1,500 mg PO HS Qty: 45 RF: 3 promethazine 25 mg tablet See Rx Instructions PO Q6HP PRN (Reason: nausea and vomiting) Qty: 20 RF: 6 lorazepam 1 mg tablet 0.5 - 1 mg PO QDAY PRN (Reason: anxiety) Qty: 30 RF: 0 naproxen 500 mg tablet 500 mg PO BID PRN (Reason: pain) Qty: 60 RF: 0 diclofenac sodium 1 % gel 2 gram topical QID PRN (Reason: pain) Qty: 100 RF: 0 bupropion HCl 300 mg tablet extended release 24 hr 300 mg PO QAM Qty: 30 RF: 6 albuterol sulfate [Ventolin HFA] 90 MCG/PUFF HFA aerosol inhaler 2 puff INH SEE INSTRUCTIONS PRN (Reason: Wheezing) RF: 0 Referrals: Garland Marin MD [Non-Staff] - <Jass Marley DO - Last Filed: 11/29/19 11:34> Sign Out Provider Sign Out Attestation: I was immediately available in the department for consultation. This documentation has been reviewed and I agree with assessment and plan. Supervised by Jass Marley DO
--- NOTE | 2019-11-26 13:22 | DI.CT.S_ITS ---
PROCEDURE: CT SOFT TISSUE NECK W CON INDICATIONS: Right facial/sinus/tooth pain, pressure, r/o abscess, etc TECHNIQUE: After the administration of intravenous contrast, 3.0 mm axial sections acquired from the sella to the aortic arch. Additional oblique axial 3.0 mm sections acquired through the pharynx. 3 mm thick coronal and sagittal reformats were generated. For radiation dose reduction, the following was used: automated exposure control. COMPARISON: [facility], CT, SOFT TISSUE NECK W CONTRAST, 07/09/2014, 9:48. FINDINGS: Image quality: Excellent. Lymph nodes: No enlarged lymph nodes seen throughout the neck. Vessels: Visualized vasculature appears patent. Neck spaces: The oropharynx, nasopharynx, and pharynx demonstrate no mucosal lesions. The vocal cords, false vocal cords, pyriform sinuses, epiglottis, vallecula, and tongue base all appear normal. Extramucosal spaces appear unremarkable. Glands: The parotid and submandibular glands appear normal. Thyroid gland demonstrate stable punctate low attenuation foci predominantly within the right lobe.. Miscellaneous: Visualized brain and orbits appear normal. Lung apices appear clear. No abscess is identified. There are areas of persistent lucency surrounding the right upper tooth #2 minimally progressive compared to 2013. No associated abscess is identified. There is an unchanged appearance of subcutaneous nodule within the anterior chest which has increased in size currently measuring 23 mm transverse compared to 11 mm on prior exam. Thousand units measure 11. In addition, there is a posterior left breast focus measuring approximately 8 mm compared to 7 mm on prior exam. The Bones: No suspicious bony lesions. Visualized sinuses and mastoids appear unremarkable. IMPRESSION: 1. No visualized abscess. 2. Enlarged focus of subcutaneous nodularity within the anterior chest as above. Given Hounsfield units, appearance is suggestive of a cystic type structure possibly sebaceous cyst. As clinically indicated, focal ultrasound is recommended for further evaluation. 3. Stable appearance of nodularity within the posterior right breast, likely benign. However, followup with mammogram is recommended as indicated. Dictated by: Jody Travis M.D. on 11/26/2019 at 13:26 Approved by: Jody Travis M.D. on 11/26/2019 at 13:51
[2019-11-26 13:42] LABS: Add Manual Diff / Slide Review NO; Basophils Absolute Auto 100 /uL (0-100); Basophils Percent Auto 0.8 % (0-2); Eosinophils Absolute Auto 200 /uL (0-450); Eosinophils Percent Auto 2.5 % (2-4); Hematocrit 45.6 % (36-46); Lymphocytes Absolute Auto 2500 /uL (1100-4500); Lymphocytes Percent Auto 25.6 % (25-40); Mean Corpuscular HGB Conc 35.1 % (30-36); Mean Corpuscular Hemoglobin 31.9 PG (26-34); Mean Corpuscular Volume 91.1 fL (80-100); Monocytes Absolute Auto 500 /uL (0-900); Monocytes Percent Auto 4.9 % (3-14); Neutrophils Absolute Auto 6500 /uL (1500-7000); Neutrophils Percent Auto 66.2 % (50-75); Platelet Count 377 X10^3/uL (150-400); Red Cell Distribution Width 13.6 % (11.6-14.8); White Blood Cell Count 9.9 X10^3/uL (4.5-11.0)
[2019-11-26 14:00] LABS: Alanine Aminotransferase 44 IU/L (<35); Albumin 4.8 g/dL (3.5-5.0); Albumin Globulin Ratio 1.3 (1.0-2.8); Alkaline Phosphatase 71 U/L (38-126); Aspartate Aminotransferase 34 IU/L (14-36); BUN Creatinine Ratio 23.1 (6-22); Bilirubin Total 0.5 mg/dL (0.2-1.3); Blood Urea Nitrogen 15 mg/dL (7-17); Calcium 9.6 mg/dL (8.4-10.2); Carbon Dioxide 24 mmol/L (22-32); Chloride 107 mmol/L (98-107); Estimated Glomerular Filt Rate > 60.0 mL/min (>60); Globulin 3.6 g/dL (1.7-4.1); Glucose 111 mg/dL (70-100); HEMOLYSIS 18 (0-50); Potassium 4.1 mmol/L (3.4-5.1); Sodium 140 mmol/L (137-145); Total Protein 8.4 g/dL (6.3-8.2)
[2019-11-26 14:01] LABS: C-Reactive Protein Quant < 0.5 mg/dL (<1.0)
[2019-11-26 14:04] LABS: Erythrocyte Sedimentation Rate 4 MM/HR (0-20)
[2019-11-26] MEDS: SODIUM CHLORIDE 0.9% 1,000 ML 1000 ML IV (14:15)
[2019-11-26 14:46] VITALS: BP 128/78; PULSE 73; RESP 16; O2SAT 99
[2019-11-26 15:19] VITALS: BP 143/83; PULSE 70; RESP 18; O2SAT 99
== END 2019-11-26 15:24 | disposition home or self-care (01) ==
PROVIDERS: Emergency Provider Nurse Practitioner
DX: G50.0 Trigeminal neuralgia (principal)
CPT/HCPCS: 36415; 70491; 80053; 85025; 85651; 86140; 96360; 99284; Q9967

== ENCOUNTER → 2020-01-03 14:24 | Outpatient (CLI) | payer OTHER, MEDICAID, SELFPAY ==
[2020-01-03 15:29] LABS: Add Manual Diff / Slide Review NO; Basophils Absolute Auto 100 /uL (0-100); Basophils Percent Auto 0.5 % (0-2); Eosinophils Absolute Auto 1200 /uL (0-450); Eosinophils Percent Auto 10.6 % (2-4); Hematocrit 43.3 % (36-46); Hemoglobin 15.2 g/dL (12.0-16.0); Lymphocytes Absolute Auto 2200 /uL (1100-4500); Lymphocytes Percent Auto 19.8 % (25-40); Mean Corpuscular Hemoglobin 31.9 PG (26-34); Mean Corpuscular Volume 91.2 fL (80-100); Monocytes Absolute Auto 500 /uL (0-900); Monocytes Percent Auto 4.9 % (3-14); Neutrophils Absolute Auto 7100 /uL (1500-7000); Neutrophils Percent Auto 64.2 % (50-75); Platelet Count 335 X10^3/uL (150-400); Red Blood Cell Count 4.75 X10^6/uL (4.0-5.2); Red Cell Distribution Width 13.3 % (11.6-14.8)
[2020-01-03 16:04] LABS: Alanine Aminotransferase 33 IU/L (<35); Albumin 4.7 g/dL (3.5-5.0); Albumin Globulin Ratio 1.5 (1.0-2.8); Alkaline Phosphatase 74 U/L (38-126); Aspartate Aminotransferase 25 IU/L (14-36); BUN Creatinine Ratio 22.7 (6-22); Bilirubin Total 0.4 mg/dL (0.2-1.3); Blood Urea Nitrogen 15 mg/dL (7-17); Calcium 9.9 mg/dL (8.4-10.2); Carbon Dioxide 25 mmol/L (22-32); Chloride 103 mmol/L (98-107); Estimated Glomerular Filt Rate > 60.0 mL/min (>60); Globulin 3.2 g/dL (1.7-4.1); Glucose 100 mg/dL (70-100); HEMOLYSIS < 15 (0-50); Potassium 4.3 mmol/L (3.4-5.1); Sodium 138 mmol/L (137-145); Total Protein 7.9 g/dL (6.3-8.2)
== END ==
PROVIDERS: Referring Provider Family Medicine; Visit Provider Family Medicine
DX: K81.9 Cholecystitis, unspecified (principal)
CPT/HCPCS: 36415; 80053; 85025

== ENCOUNTER → 2020-01-08 15:39 | Outpatient (CLI) | payer OTHER, MEDICAID, SELFPAY ==
--- NOTE | 2020-01-08 15:40 | DI.US.S_ITS ---
PROCEDURE: US ABDOMEN LIMITED INDICATIONS: PROGRESSIVE POSTPRANDIAL RUQ PAIN TECHNIQUE: Real-time focused scanning was performed of the abdomen, with image documentation. COMPARISON: [facility], CT, ABDOMEN/PELVIS WITH CONTRAST, 12/30/2010, 17:46. [facility], US, ABDOMEN COMPLETE, 10/04/2012, 8:31. FINDINGS: The liver demonstrates normal size. The liver demonstrates generalized increased echogenicity. This decreases ultrasound sensitivity for detection of hepatic masses. No findings of gallstones or sludge are seen. The gallbladder wall is not thickened, measuring 3 mm or less. No specific pericholecystic fluid is seen. The sonographic Tobar sign is negative. The biliary tree is mildly dilated at 8 mm. The visualized pancreas is unremarkable. IMPRESSION: Unremarkable ultrasound of the gallbladder. Mild biliary dilatation is seen, measuring 8 mm. This is similar to prior examinations. For example, in 2012, the common bile duct measures 7 mm. If clinically appropriate, an MRCP could be considered for further evaluation (assuming that there is no contraindication to MRI). The liver demonstrates increased echogenicity. This finding is nonspecific, yet it is most commonly attributed to fatty infiltration. Dictated by: Abrahan Santana M.D. on 01/08/2020 at 16:47 Approved by: Abrahan Santana M.D. on 01/08/2020 at 16:49
--- NOTE | 2020-01-08 15:40 | DI.CT.S_ITS ---
PROCEDURE: CT SINUS SCREEN WO CON INDICATIONS: Progressive symptoms of chronic sinusitis right-sided facial TECHNIQUE: Noncontrast 3.0 mm axial images acquired from the frontal sinuses to the mid-sella, with coronal and sagittal reformats. For radiation dose reduction, the following was used: automated exposure control, adjustment of mA and/or kV according to patient size. COMPARISON: [facility], CT, SOFT TISSUE NECK W CONTRAST, 07/09/2014, 9:48. [facility], CT, CT SOFT TISSUE NECK W CON, 11/26/2019, 13:57. FINDINGS: Image quality: Excellent. Maxillary Sinuses: No bony remodeling or destruction. Sinuses are clear. Ethmoid Air Cells: No bony remodeling or destruction. Sinuses are clear. Sphenoid Sinuses: No bony remodeling or destruction. Sinuses are clear. Frontal Sinuses: No bony remodeling or destruction. Sinuses are clear. Ostiomeatal Complexes: Ostiomeatal complexes are patent. No Jarod cells. Miscellaneous: Visualized intra-orbital contents are normal. No darius bullosa or paradoxical turbinate curvature. There is moderate leftward nasal septal deviation. IMPRESSION: Moderate leftward nasal septal deviation. No active paranasal sinus disease is seen. Dictated by: Abrahan Santana M.D. on 01/08/2020 at 15:05 Approved by: Abrahan Santana M.D. on 01/08/2020 at 15:07
== END ==
PROVIDERS: PCP Family Medicine; Referring Provider Family Medicine; Visit Provider Family Medicine
DX: J32.9 Chronic sinusitis, unspecified (principal); J34.2 Deviated nasal septum; R10.11 Right upper quadrant pain; K83.8 Other specified diseases of biliary tract; K81.9 Cholecystitis, unspecified; E66.9 Obesity, unspecified; R12 Heartburn; F17.210 Nicotine dependence, cigarettes, uncomplicated
CPT/HCPCS: 70486; 76705; 99214

== ENCOUNTER → 2020-01-15 08:56 | Outpatient (CLI) | payer OTHER, MEDICAID, SELFPAY ==
--- NOTE | 2020-01-15 08:59 | DI.NM.S_ITS ---
PROCEDURE: NM HIDA WITH CCK PHARMACEUTICAL: 5.1 mCi Tc-99m mebrofenin IV; 1.8 mcg CCK IV. INDICATIONS: biliary colic, no gallstones TECHNIQUE: Following intravenous administration of Tc-99m mebrofenin, sequential anterior abdominal images were obtained. To evaluate the contractile response of the gallbladder in response to Cholecystokinin (CCK), sincalide (0.02 ?g/kg) was administered by slow intravenous infusion approximately 60 minutes after the administration of the radiopharmaceutical. Sequential imaging was continued for 30 minutes after the start of CCK infusion. Gallbladder ejection fraction was calculated. COMPARISON: [facility], ABDOMEN LIMITED, 01/08/2020, 16:12. FINDINGS: Biliary scan: There is normal tracer uptake and excretion by the liver. There is normal visualization of the intrahepatic ducts, common bile duct, and gallbladder. There is normal tracer transit into the duodenum. CCK stimulation: There is minimal contractile response of the gallbladder to CCK infusion. The calculated gallbladder ejection fraction is 19%; normal values are above 35%. It has been shown that any patient abdominal pain after CCK administration is related to the rate of CCK injection, rather than to any underlying gallbladder disease (Clinical Nuclear Medicine 2012; 37: 63-70. Journal of Nuclear Medicine 2014; 55: 1-9). IMPRESSION: 1. Minimal gallbladder contractility following CCK infusion compatible with gallbladder dysfunction and suggestive of chronic acalculous cholecystitis. Dictated by: Solo Tran M.D. on 01/15/2020 at 12:12 Approved by: Solo Tran M.D. on 01/15/2020 at 12:16
== END ==
PROVIDERS: PCP Family Medicine; Referring Provider Surgery; Visit Provider Surgery
DX: R10.11 Right upper quadrant pain (principal)
CPT/HCPCS: 78227; A9537; J2805

== ENCOUNTER → 2020-01-27 13:33 | Outpatient (CLI) | payer OTHER, MEDICAID, SELFPAY ==
--- NOTE | 2020-01-27 | DI.US.S_ITS ---
ULTRASOUND OF RIGHT BREAST: 01/27/2020 CLINICAL: Palpable right breast lump + additional finding on mammo. Comparison is made to exam dated: 01/27/2020 [facility]. Color flow ultrasound of the right breast was performed on the areas of interest. Moses scale images of the real-time examination were reviewed. There is a 1 cm x 0.9 cm x 0.9 cm irregular mass in the right breast at 2 o'clock middle depth. This irregular mass is hypoechoic. This correlates as palpated and with mammography findings. There also is a 0.4 cm x 0.3 cm x 0.4 cm cyst in the right breast at 2 o'clock anterior depth. This cyst displays internal echoes and posterior acoustic enhancement. The right axilla was interogated and normal appearing lymph nodes are visualized. IMPRESSION: SUSPICIOUS OF MALIGNANCY The 1 cm x 0.9 cm x 0.9 cm irregular mass in the right breast at 2 o'clock middle depth is at a moderate suspicion for malignancy. An ultrasound guided biopsy is recommended. The 0.4 cm x 0.3 cm x 0.4 cm cyst in the right breast at 2 o'clock anterior depth is consistent with a complicated cyst and is probably benign. 6 month ultrasound follow up recommended. This exam was interpreted at Station ID: [id number]. SUMMARY: This was discussed with the patient by the radiologist Dr. Melton at the time of the exam. Electronically Signed By: Mar rodrigues/:01/28/2020 14:00:21 letter sent: Biopsy Required Ultrasound BI-RADS: 4b Moderate suspicion of malignancy
--- NOTE | 2020-01-27 13:34 | DI.MG.S_ITS ---
BILATERAL DIGITAL DIAGNOSTIC MAMMOGRAM 3D/2D: 01/27/2020 CLINICAL: Right breast lump Baseline exam. No prior exams were available for comparison. There are scattered fibroglandular elements in both breasts. There is a focal asymmetry in the right breast at 2 o'clock middle depth. There also is a focal asymmetry in the right breast at 2 o'clock posterior depth. This correlates as palpated. There is a focal asymmetry in the left breast at 1 o'clock middle depth. No other significant masses or calcifications are seen in either breast. IMPRESSION: INCOMPLETE: NEEDS ADDITIONAL IMAGING EVALUATION The focal asymmetry in the right breast at 1 o'clock middle depth is indeterminate. The focal asymmetry in the right breast at 2 o'clock posterior depth is indeterminate. A targeted ultrasound of the right breast is recommended and will be performed immediately following this exam. The focal asymmetry in the left breast at 1 o'clock middle depth is indeterminate. There is no mammographic abnormality seen in the left breast to correspond with the nipple itchiness in the sub-areolar depth. Ultrasound of the left breast is recommended and will be scheduled as soon as possible. This exam was interpreted at Station ID: [id number]. NOTE: For mammograms, a report in lay terms will be sent to the patient. Approximately 15% of breast malignancies will not be visualized mammographically. In the management of a palpable breast mass, a negative mammogram must not discourage biopsy of a clinically suspicious lesion. Electronically Signed By: Mar Hart M.D. lk/:01/27/2020 14:35:34 ACR BI-RADS Category 0: Incomplete [id number]
== END ==
PROVIDERS: PCP Family Medicine; Referring Provider Family Medicine; Visit Provider Family Medicine
DX: R92.8 Other abnormal and inconclusive findings on diagnostic imaging of breast (principal); N63.12 Unspecified lump in the right breast, upper inner quadrant; N64.89 Other specified disorders of breast; N60.01 Solitary cyst of right breast
CPT/HCPCS: 76642; 77066; G0279

== ENCOUNTER → 2020-01-30 11:13 | Outpatient (CLI) | payer OTHER, MEDICAID, SELFPAY ==
--- NOTE | 2020-01-30 11:14 | DI.US.S_ITS ---
LIMITED ULTRASOUND OF LEFT BREAST: 01/30/2020 CLINICAL: Left breast mass. Comparison is made to exams dated: 01/27/2020 ultrasound and 01/27/2020 mammogram [facility]. Color flow and real-time ultrasound of the left breast 1 o'clock, and retroareolar regions were performed on the areas of interest. Moses scale images of the real-time examination were reviewed. There are multiple oval cysts in the left breast superior lateral quadrant middle depth with the largest measuring up to 0.5 cm x 0.3 cm x 0.5 cm. These oval cysts are hypoechoic with well-defined boundaries, internal echoes, and posterior acoustic enhancement. These likely correlate with mammography findings. Color flow imaging demonstrates that there is no vascularity present. IMPRESSION: PROBABLY BENIGN The multiple oval cysts in the left breast are consistent with complicated cysts and are probably benign. Follow-up mammogram and ultrasound in 6 months is recommended. There is no abnormality seen in the left breast to correspond with the area of clinical concern in the sub-areolar region, however, clinical followup is recommended. A follow-up mammogram and an ultrasound in 6 months are recommended to demonstrate stability. Patient will be scheduled for a biopsy of the mass in the contralateral right breast. This exam was interpreted at Station ID: [id number]. Electronically Signed By: Solo overton/:01/30/2020 12:43:17 letter sent: Followup Recommended Ultrasound BI-RADS: 3 Probably benign
== END ==
PROVIDERS: PCP Family Medicine; Referring Provider Family Medicine; Visit Provider Family Medicine
DX: R92.8 Other abnormal and inconclusive findings on diagnostic imaging of breast (principal); N60.02 Solitary cyst of left breast
CPT/HCPCS: 76642

== ENCOUNTER → 2020-02-04 10:01 | Outpatient (CLI) | payer OTHER, MEDICAID, SELFPAY ==
--- NOTE | 2020-02-04 10:02 | DI.US.S_ITS ---
PROCEDURE: US SOFT TISSUE HEAD AND NECK INDICATIONS: RIGHT SUBMANDIBULAR LUMP X MONTHS TECHNIQUE: Real-time scanning was performed of the neck region of interest, with image documentation. COMPARISON: None. FINDINGS: Normal appearance of the right submandibular gland. There are normal appearing lymph nodes without pathologic enlargement. Overall, no abnormal mass or focal fluid collection is seen IMPRESSION: Unremarkable examination as above. If the patient's pain or other symptoms persist, consider further evaluation with contrast-enhanced CT neck. Dictated by: Zane Peng M.D. on 02/04/2020 at 16:09 Approved by: Zane Peng M.D. on 02/04/2020 at 16:10
== END ==
PROVIDERS: PCP Family Medicine; Referring Provider Nurse Practitioner Family; Visit Provider Nurse Practitioner Family
DX: R22.1 Localized swelling, mass and lump, neck (principal)
CPT/HCPCS: 76536

== ENCOUNTER → 2020-02-09 13:52 | Outpatient (CLI) | payer OTHER, MEDICAID, SELFPAY ==
[2020-02-10 06:15] LABS: COVID19 Sendout Not Detected (Not Detect)
== END ==
PROVIDERS: PCP Family Medicine; Visit Provider Physician Assistant
DX: Z01.818 Encounter for other preprocedural examination (principal)
CPT/HCPCS: 87635

== ENCOUNTER 2020-02-12 08:42 | Day surgery (SDC) | payer OTHER, MEDICAID, SELFPAY ==
[2020-02-04 14:55] VITALS: BMI 33.3
[2020-02-12] VITALS (14 sets, daily range): BP systolic 118–140; BP diastolic 75–93; PULSE 64–98; RESP 7–18; TEMP 36.1–36.9; O2SAT 90–100; BMI 33.3
--- NOTE | 2020-02-12 | PATH_ITS ---
[facility] Accession Number: [id number] . 01 Material submitted: . gallbladder - GALLBLADDER . 02 Diagnosis: Gallbladder, Cholecystectomy: Chronic cholecystitis with cholesterolosis and adenomyomatous hyperplasia. No definite calculi identified. Negative for dysplasia and malignancy. [facility] 02/14/2020 1245 Local . 02 Electronically signed: . Joy Sage MD, Pathologist NPI- [id number] . 01 Gross description: . Received in formalin, labeled gallbladder, is an intact gallbladder (length-6.8 cm, diameter-2.0 cm) with purple-pink smooth shiny serosa and a patent cystic duct. No lymph nodes are identified. The lumen contains brown watery fluid and brown solid paste-like material (2.5 x 1.5 x 0.3 cm in aggregate). No definitive calculi are identified. The mucosa is brown and rough. The wall is up to 0.1 cm thick. An irregularly firm thickened area (0.9 x 0.7 x 0.3 cm) is identified within the fundus. Section code: (A1) cystic duct resection margin and two serial sections from the body; (A2) irregular area within the fundus, perpendicularly sectioned, entirely submitted; (A3) additional longitudinal sections from the fundus. ([id number]) /MRV 02/13/2020 1523 Local . 02 Pathologist provided ICD-10: K81.1 . 02 CPT . 940802 Performed at: 01 [facility] [address] [facility], [place], [place] [id number] MD Solo Swartz MD Phone: [phone] Performed at: 02 [facility] [place] [address] [place], [place] [id number] MD Joy Sage MD Phone: [phone]
--- NOTE | 2020-02-12 09:17 | PM.HP.1 ---
History of Present Illness History of Present Illness Date Patient Seen: 02/12/20 Time Patient Seen: 09:17 Chief complaint: [id number] Narrative: This is a 44-year-old woman who says she has had several years of gallbladder symptoms. Additionally she has a history of tobacco smoking, and is a current smoker. She also reports medical history of depression, anxiety, PTSD, agoraphobia, and ulcers. She has never had an EGD. She has had a prolonged history of intermittent RUQ pain, but more recently has had constant stabbing RUQ and right upper back pain. She denies fevers or jaundice. She feels her upper abdomen is bloated, tight and firm. She says eating generally, but specifically drinking coffee and eating macaroni and cheese makes her abdominal pain worse. She is not certain of consistent correlation with other fatty or greasy foods. She reports heartburn on a frequent basis. She takes ibuprofen TID because of recent oral surgery. She had a RUQ US last month which showed no gall stones. She then had a HIDA scan which showed biliary dyskinesia with EF of 19% (normal is >35%). ROS: Reports headache, swollen glands, anxiety, depression, enlarged lymph nodes. Thirteen system review is otherwise negative other than as mentioned below and in HPI. PE: GENERAL: Well groomed and cooperative. Appears stated age. Answers questions promptly and appropriately. Vital signs noted. HENT: Normocephalic, atraumatic. Hearing intact. EYES: Conjunctiva pink, sclera white, no periorbital swelling. CARDIOVASCULAR: Regular rate. No pedal edema. RESPIRATORY: Non-tachypneic, breathing comfortably on room air. GASTROINTESTINAL: Abdomen soft and non-distended; focal tenderness to palpation in the right upper quadrant, no masses, no scars GENITALURINARY: No flank tenderness. MUSCULOSKELETAL: Equal tone and mass bilaterally. SKIN: Warm, dry, soft, appropriate color for ethnicity. No other lesions, rashes, or wounds. NEURO: Alert and Oriented X 3. No gross sensory deficits, or cognitive issues. PSYCH: Appropriate affect and mood. Patient History Medical History Anxiety (Chronic) Asthma (Chronic) Chlamydia (Resolved) Cholecystitis (Acute) Chronic sinusitis (Acute) Depression (Chronic) HPV (human papilloma virus) infection (Resolved) Lump in neck (Acute 10/2019) Mixed anxiety depressive disorder (Chronic 08/20/02) Oral herpes (Resolved) Trigeminal neuralgia of right side of face (Acute) Surgical History Hx of oral surgery (Acute ~12/2019) Family & Social History Family History Brother Age: 39 Depression Drug abuse Father Depression Overdose Grandfather Suicide Grandmother No problems noted. Grandfather No problems noted. Grandmother No problems noted. Brother No problems noted. Mother No problems noted. Tobacco & Substance use: Smoking Status Current every day smoker Smoking packs per day 1 alcohol intake never alcohol intake frequency 0-2 drinks per day Substance Use Type marijuana Meds Home Medications and Allergies Home Medications Medication Instructions Recorded Confirmed Type albuterol sulfate [Ventolin HFA] 2 puff INH SEE INSTRUCTIONS PRN 09/29/18 02/04/20 History promethazine 25 mg tablet See Rx Instructions PO Q6HP PRN 04/25/19 02/04/20 Rx #20 tab diclofenac sodium 1 % topical gel 2 gram TOPICAL QID PRN #100 gram 08/23/19 02/04/20 Rx carbamazepine 100 mg 100 mg PO BID 14 Days #60 cap 01/03/20 02/04/20 Rx capsule,extended release [id number] ibuprofen 800 mg tablet 800 mg PO TID PRN #90 tab 01/03/20 02/04/20 Rx lorazepam 1 mg tablet 1 mg PO BID PRN #20 tab 01/31/20 02/04/20 Rx Allergies Allergy/AdvReac Type Severity Reaction Status Date / Time cat dander [CAT DANDER] Allergy Mild SNEEZING Verified 01/31/20 10:57 AND HIVES morphine AdvReac Severe VOMITING Verified 01/31/20 10:57 codeine AdvReac Mild NAUSEA Verified 01/31/20 10:57 Objective Imaging HIDA: My impression: Biliary dyskinesia Radiologist's impression: EF 19% consistent with biliary dyskinesia Assessment & Plan Assessment and plan (1) RUQ abdominal pain: Status: Acute (2) Obesity (BMI 30.0-34.9): Status: Acute (3) Cigarette smoker: Status: Acute (4) Heartburn: Status: Acute (5) Biliary dyskinesia: Status: Acute Assessment & Plan narrative: Risks and benefits of laparoscopic possible open cholecystectomy were discussed with the patient including risk of bleeding, infection, damage to nearby structures, damage to bile ducts, bile leak, liver dysfunction, need for open surgery, need for transfer to a tertiary center, non improvement of symptoms after surgery, need for additional procedures. The patient desires to proceed with surgery. COVID-19 COVID-19 status: Negative Time Spent With Patient Time with patient: 15-24 minutes Quality VTE Deep Vein Thrombosis/Pulmonary Embolism Present on Admission: No
[2020-02-12] MEDS: LACTATED RINGERS 1,000 ML 100 ML IV ×2 (09:20→12:10)
[2020-02-12] MEDS: PIPERACILLIN-TAZO 3.375 GM/50 ML FROZ.PIGGY IV (09:30)
--- NOTE | 2020-02-12 09:59 | SUR.OPER ---
Supine on padded OR bed, head on pillow, arms secured on padded arm boards at <90 degrees abduction, legs uncrossed, safety belt at thigh, tape over blanket over lower legs.
[2020-02-12] MEDS: BUPIVACAINE 0.25% W/ EPI 30 ML VIAL INJ (10:05)
--- NOTE | 2020-02-12 11:35 | P.OP_ITS ---
Operative Date/Time/Diagnoses Date of procedure: 02/12/20 Time of procedure: 11:35 Pre-op diagnosis: biliary dyskinesia Post-op diagnosis: other (biliary dyskinesia, deeply intrahepatic and hypervascular gall bladder) Procedure & Clinicians Procedure: Laparoscopic cholecystectomy Same procedure as scheduled: Yes Indications: Biliary dyskinesia, EF 19% on HIDA scan Surgeon: Trudy Diggs Click Yes if Unassisted: Yes Anesthesia Type: General Operative Notes Findings: Deeply intrahepatic flaccid gall bladder with hypervascularity Specimen(s): other (gall bladder) Estimated Blood Loss (mL): 50 Procedure in detail: The patient was brought into the operating room and placed supine on the OR table. Sequential compression devices were placed on both legs and turned on. Appropriate perioperative antibiotics were given prior to the start of surgery. General anesthesia was induced the patient was intubated. The abdomen was prepped and draped in sterile fashion. Surgical time-out was conducted. Local anesthetic was injected under the skin just superior to the umbilicus and a 5 mm vertical incision was made at this site. The umbilical stalk was grasped with a Ned and elevated. A Veress needle was passed through the fascia into proper position. The position was tested with a saline drop test which was appropriate for intra-abdominal Veress needle placement. The abdomen was then insufflated in the usual fashion. Once insufflated to 15 mm Hg the Veress needle was removed and a 5 mm optical trocar was placed under direct vision using a 5 mm 30 degree scope. Once the camera was inside the abdomen I took a look around. There was no injury from port placement. Two additional ports were placed in a similar fashion in the right upper quadrant and a 10 mm port was placed in the epigastrium. I grasped and elevated the gall bladder, and found that it was deeply intrahepatic and very flaccid. There were a few thin adhesions to the gall bladder and infundibulum. Due to the deep intrahepatic position of the gall bladder I was not able to reach below the infundibulum or reach the cystic duct. I elected to begin taking the gall bladder from the top down. I began dissected the gall bladder fundus away from the liver traveling along the gall bladder fossa. There were multiple vessels going from the liver into the gall bladder requiring prolonged tedious dissection and ongoing efforts to maintain hemostasis. The deeply intrahepatic position of the gall bladder made dissection more difficult. This required an extra hour of operative time and an increased level of skill, difficulty and risk to complete the operation safely for this patient. As I freed the gall bladder, I was gradually able to elevate it and safely identify the hilar structures as I came down to the infundibulum. At this point, the structures were carefully dissected to avoid injury to the ducts and to control bleeding. This required an additional hour of operative time to complete the procedure safely. As I carefully freed the gall bladder down to its infundibulum, after prolonged tedious dissection, I was finally able to identify the cystic artery and I placed two clips on the patient side and divided it on the gall bladder side using cautery. A modifier 22 will be included for this case because two additional hours of operative time for prolonged and tedious dissection due to patient disease. Once the cystic artery was freed, I was able to lift the gall bladder and identify an intact cystic duct just proximal to the perforated and gangrenous infundibulum. I dropped two PDS endoloops at the junction of the infundibulum and cystic duct, and secured them snuggly. I then divided the cystic duct just distal to the endoloops. The gall bladder was placed inside an Endo-Catch bag and removed through the epigastric port site. I did not have to enlarge the epigastric site in order to get the gallbladder out. Once it was out and passed off to the back table I then took another look inside the abdomen. I irrigated with one liter of saline, and suctioned clean any remaini ng blood or fluid on the lateral side of the liver and in the subhepatic space. There was no active bleeding or leaking of bile from the gallbladder fossa or from the clipped stump of the cystic artery and endolooped cystic duct. The epigastric port site was closed with O Vicryl using a Jimy Elliot device. At this point the insufflation was removed from the abdomen and the epigastric port site was closed with 3-O Vicryl in the subcutaneous layers, and 4 Monocryl in the skin. The remaining port sites were closed with 4 Monocryl in the skin. The epigastric port site was sealed with steri strips. The remaining ports were sealed with Dermabond. Local anesthetic was given at each of the port sites and in the fascia. This concluded the procedure. At this point the needle sponge and instrument counts were correct x 2. The gallbladder was passed off the table for pathology. Patient was awakened from anesthesia and extubated. She was transferred to the postanesthesia care unit in stable condition. Complications: none Post-operative Condition: stable Disposition: PACU
[2020-02-12] MEDS: fentaNYL 100 MCG/2 ML INJ IV ×2 (11:40→12:10)
[2020-02-12] MEDS: ONDANSETRON 4 MG/2 ML INJ IV (11:44)
--- NOTE | 2020-02-12 12:17 | SUR.PHASEI ---
Gave pain medication for c/o 03/20 pain. Tolerating ice chips. States nausea has abated.
[2020-02-12] MEDS: METOCLOPRAMIDE 10 MG/2 ML INJ IV (12:37)
--- NOTE | 2020-02-12 12:59 | SUR.PHASEII ---
Received patient from Phase 1 recovery. Patient AAO x 3. States that her nausea is a little better. Ice chips provided. Patient c/o mild pain but would like for her nausea to ease before taking any more pain medication. Call light in reach.
[2020-02-12] MEDS: OXYCODONE/ACETAMINOPHEN 5/325 TABLET 2 TAB PO (13:28)
[2020-02-12] MEDS: ONDANSETRON 4 MG/2 ML INJ (13:28)
--- NOTE | 2020-02-12 13:52 | SUR.PHASEII ---
Assisted patient to bathroom prior to discharge. Escorted to car and all instructions reviewed with family member. Stable at discharge.
== END 2020-02-12 13:53 | disposition home or self-care (01) ==
PROVIDERS: PCP Family Medicine; Referring Provider Surgery; Visit Provider Surgery
PROC: 0FT44ZZ Resection of Gallbladder, Percutaneous Endoscopic Approach (ICD-10-PCS; CPT 47562; principal; 2020-02-12 09:45)
DX: K81.1 Chronic cholecystitis (principal); K82.8 Other specified diseases of gallbladder; E66.9 Obesity, unspecified; R12 Heartburn; G50.0 Trigeminal neuralgia; F17.210 Nicotine dependence, cigarettes, uncomplicated; F32.9 Major depressive disorder, single episode, unspecified; F41.9 Anxiety disorder, unspecified
CPT/HCPCS: 47562; J1100; J1885; J2250; J2405; J2543; J2704; J2765; J3010

== ENCOUNTER → 2020-02-20 13:43 | Outpatient (CLI) | payer OTHER, MEDICAID, SELFPAY ==
--- NOTE | 2020-02-20 13:45 | DI.US.S_ITS ---
PROCEDURE: US ABDOMEN LIMITED INDICATIONS: PAIN 1 WEEK POST EUFEMIA TECHNIQUE: Real-time focused scanning was performed of the abdomen, with image documentation. COMPARISON: [facility], , US ABDOMEN LIMITED, 01/08/2020, 16:12. FINDINGS: Moderate fatty infiltration is noted through the liver. The the gallbladder is surgically absent. There is a simple appearing fluid collection at the gallbladder fossa measuring 2.5 x 2.9 x 4.1 cm, without elevated internal or adjacent vascularity. This likely is a postoperative seroma. IMPRESSION: Postoperative seroma or resolving hematoma at the gallbladder fossa margin, fatty infiltration throughout the liver. No biliary distention seen. Dictated by: Mehran Melton M.D. on 02/20/2020 at 14:34 Approved by: Mehran Melton M.D. on 02/20/2020 at 14:36
[2020-02-20 13:58] LABS: Add Manual Diff / Slide Review NO; Basophils Absolute Auto 100 /uL (0-100); Basophils Percent Auto 0.6 % (0-2); Eosinophils Absolute Auto 200 /uL (0-450); Eosinophils Percent Auto 2.2 % (2-4); Hematocrit 41.8 % (36-46); Hemoglobin 14.7 g/dL (12.0-16.0); Lymphocytes Absolute Auto 1700 /uL (1100-4500); Lymphocytes Percent Auto 19.3 % (25-40); Mean Corpuscular Hemoglobin 32.3 PG (26-34); Mean Corpuscular Volume 92.2 fL (80-100); Monocytes Absolute Auto 400 /uL (0-900); Neutrophils Absolute Auto 6600 /uL (1500-7000); Neutrophils Percent Auto 73.9 % (50-75); Platelet Count 355 X10^3/uL (150-400); Red Blood Cell Count 4.53 X10^6/uL (4.0-5.2); Red Cell Distribution Width 13.5 % (11.6-14.8)
[2020-02-20 14:11] LABS: Alanine Aminotransferase 30 IU/L (<35); Albumin 4.7 g/dL (3.5-5.0); Albumin Globulin Ratio 1.3 (1.0-2.8); Alkaline Phosphatase 85 U/L (38-126); Aspartate Aminotransferase 24 IU/L (14-36); BUN Creatinine Ratio 27.4 (6-22); Bilirubin Total 0.5 mg/dL (0.2-1.3); Blood Urea Nitrogen 17 mg/dL (7-17); Calcium 9.4 mg/dL (8.4-10.2); Carbon Dioxide 27 mmol/L (22-32); Chloride 103 mmol/L (98-107); Estimated Glomerular Filt Rate > 60.0 mL/min (>60); Globulin 3.6 g/dL (1.7-4.1); Glucose 148 mg/dL (70-100); HEMOLYSIS < 15 (0-50); Lipase 63 U/L (23-300); Potassium 3.8 mmol/L (3.4-5.1); Sodium 138 mmol/L (137-145); Total Protein 8.3 g/dL (6.3-8.2)
== END ==
PROVIDERS: PCP Family Medicine; Referring Provider Surgery; Visit Provider Surgery
DX: M54.9 Dorsalgia, unspecified (principal); K76.0 Fatty (change of) liver, not elsewhere classified; Z90.49 Acquired absence of other specified parts of digestive tract
CPT/HCPCS: 36415; 76705; 80053; 83690; 85025

== ENCOUNTER → 2020-02-24 12:44 | Outpatient (CLI) | payer OTHER, MEDICAID, SELFPAY ==
--- NOTE | 2020-02-24 | DI.MG.S_ITS ---
UNILATERAL RIGHT DIGITAL DIAGNOSTIC MAMMOGRAM POST-NEEDLE BIOPSY: 02/24/2020 CLINICAL: Right breast mass. Comparison is made to exams dated: 01/27/2020 ultrasound and 01/27/2020 mammogram - [facility]. There are scattered fibroglandular elements in right breast. There is a marker clip in the appropriate position in the right breast at 1 o'clock posterior depth. This marker clip placement is at the biopsy site. IMPRESSION: POST PROCEDURE MAMMOGRAM FOR MARKER PLACEMENT There was a successful marker clip placement in the right breast posterior depth. Future imaging is recommended as follows: 07/31/2020 mammogram and an ultrasound. This exam was interpreted at Station ID: [id number]. NOTE: For mammograms, a report in lay terms will be sent to the patient. Approximately 15% of breast malignancies will not be visualized mammographically. In the management of a palpable breast mass, a negative mammogram must not discourage biopsy of a clinically suspicious lesion. Electronically Signed By: Zane mathews/:02/24/2020 16:50:50 ACR BI-RADS Category Post-procedure mammogram for marker placement
--- NOTE | 2020-02-24 12:45 | DI.US.S_ITS ---
ULTRASOUND GUIDED BIOPSY RIGHT BREAST USING VACUUM DEVICE WITH MARKING DEVICE INSERTED: 02/24/2020 CLINICAL: Rt breast mass. PATIENT CONSENT: Risks (minor bleeding, infection, vasovagal reaction and repeat procedure), benefits and alternatives were explained to the patient and written informed consent was obtained. Correlation is made to exams dated: 01/27/2020 ultrasound and 01/27/2020 mammogram [facility]. An ultrasound guided biopsy using real-time ultrasound was performed for the irregular shaped mass located in the right breast at 1 o'clock posterior depth. The skin was prepped in the usual manner. Local anesthetic was administered to the access site. A small incision was made in the breast. The abnormality was approached from the medial aspect. A biopsy needle was placed adjacent to the abnormality under ultrasound guidance. Once the needle was documented to be in the correct location, multiple specimens were obtained using the Mammotome biopsy system. The patient received additional local anesthetic during the procedure. A clip was inserted into the biopsy cavity. The specimens were sent to the laboratory for pathological analysis. IMPRESSION: ULTRASOUND GUIDED BIOPSY BENIGN Ultrasound guided biopsy of the mass in the right breast at 1 o'clock posterior depth was successful. Pathology indicates benign fibroadenoma (FA). Pathology results are concordant with imaging findings. Future imaging is recommended as follows: 08/30/2020 bilateral mammogram and bilateral ultrasound to document stability of two other/different probably benign findings in the bilateral breast as described on comparison studies dated 01/27/2020. This exam was interpreted at Station ID: [id number]. Zane mathews,aty/:02/26/2020 16:41:00
--- NOTE | 2020-02-24 14:19 | PATH_ITS ---
[facility] Accession Number: [id number] . 01 Material submitted: . breast - RIGHT BREAST MASS 1:30 8 CM FN . 01 Diagnosis: Right Breast, 1:30, 8 cm from Nipple, Needle Core Biopsy: Fibroadenoma. Negative for significant atypia and malignancy. [facility] 02/25/2020 1615 Local . 01 Electronically signed: . Vicenta Mao MD, Pathologist NPI- [id number] . 01 Gross description: . Received one formalin-filled container, labeled with the patient's name and labeled RT breast 1:30, 8 cm FN. The specimen is received with a plastic filter in container, sample is loose in container and consists of multiple fragments of light yellow-robertson soft tissue which range in size from less than 0.1 cm to 0.6 x 0.5 x 0.5 cm. The specimen is filtered, wrapped, and entirely submitted in one cassette. No collection date or time on container Possible collection date and time per requisition: 02/24/20 at 1420. Total fixation time: Approximately 12 hours. ([id number]) /ROMMEL 02/25/2020 0228 Local . 01 Pathologist provided ICD-10: N60.21 . 01 CPT . 016010 [facility]formed at: [facility] [address], [place], [place] [id number] MD Solo Swartz MD Phone: [phone]
== END ==
PROVIDERS: PCP Family Medicine; Referring Provider Family Medicine; Visit Provider Family Medicine
DX: D24.1 Benign neoplasm of right breast (principal)
CPT/HCPCS: 19083; 77065

== ENCOUNTER → 2020-03-03 09:43 | Outpatient (CLI) | payer OTHER, MEDICAID, SELFPAY ==
--- NOTE | 2020-03-03 | DI.MRI.S_ITS ---
PROCEDURE: MR HEAD/BRAIN WO/W CON INDICATIONS: Atypical facial pain TECHNIQUE: Noncontrast axial T1 spin echo, axial T2 fast spin echo, sagittal and axial FLAIR, coronal T2 fast spin echo, axial gradient echo, axial diffusion and ADC through the brain. After the administration of contrast, axial and coronal 3D VIBE or T1 spin echo with fat saturation through the brain. COMPARISON: None. FINDINGS: Image quality: Excellent. CSF Spaces: Basal cisterns are patent. No extra-axial fluid collections. Ventricles are normal in size and shape. Brain: No midline shift. No intracranial bleeds or masses. No abnormal intracranial enhancement. The brainstem appears normal. Diffusion-weighted images demonstrate no acute ischemic insults. No chronic ischemic insults. Normal intravascular flow voids are present. Skull and face: Calvarial marrow is normal in signal. Orbits appear normal. Sinuses: Sinuses and mastoids appear clear. IMPRESSION: Negative examination as above. No acute intracranial signal abnormality or enhancement. Dictated by: Zane Peng M.D. on 03/03/2020 at 10:51 Approved by: Zane Peng M.D. on 03/03/2020 at 11:01
== END ==
PROVIDERS: PCP Family Medicine; Referring Provider Psychiatry & Neurology Neurology; Visit Provider Psychiatry & Neurology Neurology
DX: G50.1 Atypical facial pain (principal)
CPT/HCPCS: 70553

== ENCOUNTER → 2020-03-27 13:14 | Outpatient (CLI) | payer OTHER, MEDICAID, SELFPAY | PROVIDERS: PCP Family Medicine; Visit Provider Family Medicine | DX: N89.8 Other specified noninflammatory disorders of vagina (principal); R30.0 Dysuria | CPT/HCPCS: 87210 ==

== ENCOUNTER → 2020-04-08 09:37 | Outpatient (CLI) | payer OTHER, MEDICAID, SELFPAY ==
[2020-04-08 11:15] LABS: Free T4, Direct Thyroxine 0.82 ng/dL (0.78-2.19)
[2020-04-08 11:29] LABS: Thyroid Stimulating Hormone 2.09 uIU/mL (0.47-4.68)
== END ==
PROVIDERS: PCP Family Medicine; Referring Provider Nurse Practitioner; Visit Provider Nurse Practitioner
DX: E07.9 Disorder of thyroid, unspecified (principal); R22.1 Localized swelling, mass and lump, neck
CPT/HCPCS: 36415; 84439; 84443

== ENCOUNTER → 2020-04-09 11:28 | Outpatient (CLI) | payer OTHER, MEDICAID, SELFPAY ==
--- NOTE | 2020-04-09 11:29 | DI.US.S_ITS ---
PROCEDURE: US THYROID INDICATIONS: DYSPHAGIA, THYROID NODULE, ENLARGED LYMPH NODES TECHNIQUE: Real-time scanning was performed of the thyroid gland, with image documentation. COMPARISON: None. FINDINGS: Right: Thyroid lobe measures 5.2 x 1.7 x 1.8 cm, and is homogeneous in echotexture. Left: Thyroid lobe measures 5.1 x 1.1 x 1.3 cm, and is homogenous in echotexture. Isthmus: 3 mm thick. No discrete thyroid nodules noted. The thyroid has a heterogeneous appearance throughout. A 2.2 x 1.3 x 1.3 cm cystic avascular structure is present superior to the thyroid at midline which demonstrates internal septations and internal echoes. This lesion is palpable and painful per the patient. IMPRESSION: 1. Heterogeneous thyroid without discrete thyroid nodules. 2. Complex cystic structure at midline which does not appear to be related to the thyroid. Differential considerations include a thyroglossal duct cyst, necrotic lymph node, or lymphatic malformation. ACR TI-RADS definitions and recommendations: TI-RADS 1 (benign): 0 points. FNA not needed. TI-RADS 2 (not suspicious): 2 points. FNA not needed. TI-RADS 3 (mildly suspicious): 3 points. * FNA if 2.5 cm or larger, follow up if 1.5 cm or larger (at 1, 3, and 5 years). TI-RADS 4 (moderately suspicious): 4-6 points. * FNA if 1.5 cm or larger, follow up if 1 cm or larger (at 1, 2, 3, and 5 years). TI-RADS 5 (highly suspicious): 7 points or more. * FNA if 1 cm or larger, follow up if 0.5 cm or larger (every year for 5 years). Dictated by: Mar Hart M.D. on 04/09/2020 at 13:12 Approved by: Mar Hart M.D. on 04/09/2020 at 13:25
== END ==
PROVIDERS: PCP Family Medicine; Referring Provider Nurse Practitioner; Visit Provider Nurse Practitioner
DX: R13.10 Dysphagia, unspecified (principal); E04.1 Nontoxic single thyroid nodule; R59.0 Localized enlarged lymph nodes
CPT/HCPCS: 76536

== ENCOUNTER → 2020-07-13 11:33 | Outpatient (CLI) | payer OTHER, MEDICAID, SELFPAY | PROVIDERS: PCP Family Medicine; Visit Provider Registered Nurse | DX: R10.9 Unspecified abdominal pain (principal); R11.0 Nausea | CPT/HCPCS: 87086 ==

== ENCOUNTER → 2020-07-13 11:42 | Outpatient (CLI) | payer OTHER, MEDICAID, SELFPAY ==
--- NOTE | 2020-07-13 11:49 | DI.RAD.S_ITS ---
PROCEDURE: XR ACUTE ABDOMEN SERIES INDICATIONS: abdo pain; constipation; nausea TECHNIQUE: One view chest and two views of the abdomen were acquired. COMPARISON: None. FINDINGS: Surgical changes and devices: Right upper quadrant cholecystectomy clips Chest: Lungs are clear. Heart size is normal. No pleural effusions. No pneumoperitoneum. Abdomen: Small-bowel gas pattern is normal. No suspicious calcifications. Visualized solid organ contours appear normal. Mild right greater than left colonic obstipation. Bones: No suspicious bony lesions. IMPRESSION: Right greater than left colonic obstipation, mild in overall severity. Prior cholecystectomy. Dictated by: Mehran Melton M.D. on 07/13/2020 at 14:42 Approved by: Mehran Melton M.D. on 07/13/2020 at 14:44
[2020-07-13 13:10] LABS: Add Manual Diff / Slide Review NO; Basophils Absolute Auto 0 /uL (0-100); Basophils Percent Auto 0.4 % (0-2); Eosinophils Absolute Auto 100 /uL (0-450); Eosinophils Percent Auto 1.3 % (2-4); Hematocrit 38.5 % (36-46); Hemoglobin 13.4 g/dL (12.0-16.0); Lymphocytes Absolute Auto 1700 /uL (1100-4500); Mean Corpuscular HGB Conc 34.8 % (30-36); Mean Corpuscular Volume 94.7 fL (80-100); Monocytes Absolute Auto 700 /uL (0-900); Monocytes Percent Auto 6.3 % (3-14); Neutrophils Absolute Auto 8300 /uL (1500-7000); Platelet Count 320 X10^3/uL (150-400); Red Blood Cell Count 4.06 X10^6/uL (4.0-5.2); White Blood Cell Count 10.9 X10^3/uL (4.5-11.0)
[2020-07-13 14:13] LABS: Alanine Aminotransferase 27 IU/L (<35); Albumin 4.1 g/dL (3.5-5.0); Albumin Globulin Ratio 1.4 (1.0-2.8); Alkaline Phosphatase 93 U/L (38-126); Aspartate Aminotransferase 23 IU/L (14-36); BUN Creatinine Ratio 31.4 (6-22); Bilirubin Total 0.4 mg/dL (0.2-1.3); Blood Urea Nitrogen 16 mg/dL (7-17); Calcium 9.4 mg/dL (8.4-10.2); Carbon Dioxide 29 mmol/L (22-32); Chloride 104 mmol/L (98-107); Estimated Glomerular Filt Rate > 60.0 mL/min (>60); Globulin 2.9 g/dL (1.7-4.1); Glucose 108 mg/dL (70-100); HEMOLYSIS < 15 (0-50); Potassium 4.6 mmol/L (3.4-5.1); Sodium 140 mmol/L (137-145)
[2020-07-21 14:30] LABS: Urea Breath Test >18YRS NEGATIVE
== END ==
PROVIDERS: PCP Nurse Practitioner; Referring Provider Registered Nurse; Visit Provider Registered Nurse
DX: K59.00 Constipation, unspecified (principal); R10.9 Unspecified abdominal pain; R11.0 Nausea; R19.5 Other fecal abnormalities; Z90.49 Acquired absence of other specified parts of digestive tract
CPT/HCPCS: 36415; 74022; 80053; 83013; 85025; 87086

== ENCOUNTER 2020-07-16 14:17 | Inpatient (IN) | payer OTHER, MEDICAID, SELFPAY ==
[2020-07-16 22:29] VITALS: BMI 35.5
[2020-07-20] VITALS (8 sets, daily range): BP systolic 106–198; BP diastolic 60–93; PULSE 74–112; RESP 16–23; TEMP 36.8–37; O2SAT 95–98; BMI 32.8
--- NOTE | 2020-07-20 18:20 | ED_ITS ---
HPI - Abdominal Pain General Chief Complaint: Skin/Abscess/Foreign Body Stated Complaint: Lower Abd Pain Going Into Left Leg Time Seen by Provider: 07/20/20 17:53 Source: patient and family Mode of arrival: Ambulatory Limitations: no limitations History of Present Illness HPI narrative: Patient here with partner. Complains of left lower quadrant pain radiating down left leg. Patient seen by me last admitted for pelvic abscess. Patient did undergo sigmoidoscopy as well as pelvic exam by OBGYN as well as General surgery. Treated medically for pelvic abscess with doxycycline and Levaquin. Discharged on Monday. Was doing well until yesterday pain came back again. No fever chills. Has had nausea.. Patient denies any IV drug use or any immune suppression medications. No diabetes. No renal disease Related Data Home Medications Medication Instructions Recorded Confirmed omeprazole magnesium 10 mg oral 10 mg PO DAILY 04/22/20 07/17/20 suspension,delayed release verapamil 40 mg tablet 40 mg PO DAILY 06/11/20 07/17/20 indomethacin 50 mg capsule 50 mg PO TID 07/13/20 07/17/20 Previous Rx's Medication Instructions Recorded carbamazepine 100 mg 100 mg PO BID 14 Days #60 cap 01/03/20 capsule,extended release [id number] lorazepam 1 mg tablet 1 mg PO BID PRN #20 tab 01/31/20 hydroxyzine pamoate 25 mg capsule 25 mg PO BEDTIME #60 cap 06/04/20 atorvastatin 10 mg tablet 10 mg PO DAILY #90 tab 06/11/20 docusate sodium 100 mg capsule 100 mg PO BID 30 Days #60 cap 07/13/20 doxycycline hyclate 100 mg PO BID #24 cap 07/17/20 levofloxacin 750 mg PO DAILY #12 tab 07/17/20 ondansetron HCl 4 mg tablet 4 mg PO Q8H PRN #10 tab 07/18/20 oxycodone-acetaminophen 5 mg-325 1 tab PO Q4-6H PRN #20 tab 07/18/20 mg tablet Allergies Allergy/AdvReac Type Severity Reaction Status Date / Time cat dander [CAT DANDER] Allergy Mild SNEEZING Verified 07/13/20 11:10 AND HIVES morphine AdvReac Severe VOMITING Verified 07/13/20 11:10 codeine AdvReac Mild NAUSEA Verified 07/13/20 11:10 Review of Systems Review of Systems Narrative: GENERAL: Denies chills, fatigue, malaise, fever, sweats. HEENT: Denies sinus pain, ear pain, sore throat, difficulty swallowing RESPIRATORY: Denies dyspnea, cough CARDIOVASCULAR: Denies chest pain, palpitations, edema, GASTROINTESTINAL: Complains nausea, vomiting, abdominal pain, denies diarrhea, constipation, melena. : Denies dysuria, frequency, hematuria MUSCULOSKELETAL: denies muscle or bony pain SKIN: Denies rash, skin lesions NEUROLOGIC: Denies weakness, headache, numbness, change in speech, confusion PSYCHIATRIC: No SI or HI or hallucinations ROS Unobtainable: All systems reviewed & are unremarkable except as noted in HPI and below Patient History Medical History Anxiety (Chronic) Asthma (Chronic) Bacterial vaginosis (Resolved) Biliary dyskinesia (Inactive) Carotid artery plaque (Acute) Carotid artery stenosis (Acute) Chlamydia (Resolved) Cholecystitis (Inactive) Chronic sinusitis (Inactive) Coccygeal pain, acute (Inactive) Depression (Chronic) Difficulty swallowing (Resolved) Ear pain, right (Resolved) High risk HPV infection (Inactive) Hoarseness or changing voice (Inactive) HPV (human papilloma virus) infection (Resolved) Hyperlipidemia (Acute) Insomnia (Acute) Low grade squamous intraepith lesion on cytologic smear cervix (lgsil) (Inactive) Lump in neck (Inactive 10/2019) Lymph node disorder (Acute) Mixed anxiety depressive disorder (Chronic 08/20/02) Odynophagia (Inactive) Oral herpes (Resolved) Rash (Inactive) Rectal pressure (Inactive) Right lateral epicondylitis (Inactive 01/2018) RUQ abdominal pain (Inactive) Seasonal affective disorder (Inactive) Thyroid cyst (Acute) Thyroid mass (Ruled-out) Trigeminal neuralgia of right side of face (Acute) Upper back pain (Inactive) Surgical History Hx of oral surgery (Acute ~12/2019) S/P laparoscopic cholecystectomy (Inactive) Family History Brother Age: 40 Depression Drug abuse Father Depression Overdose Grandfather Suicide Grandmother No problems noted. Grandfather No problems noted. Grandmother No problems noted. Brother No problems noted. Mother No problems noted. Social History household members: friend(s) Smoking Status: Current every day smoker Tobacco: How many years used: 30 quit status: not considering quitting second hand exposure: No alcohol intake: never substance use type: marijuana Smoking Status: Current every day smoker alcohol intake frequency: 0-2 drinks per day Substance Use Type: marijuana Exam Narrative Exam Narrative: GENERAL: patient appears stated age. Well-nourished, well- developed patient, in no distress, not toxic not dyspneic HEAD: Normocephalic. EYES: Pupils equal round and reactive. No scleral icterus. No injection no discharge ENT: Mucous membranes moist. No drooling no tongue elevation no trismus no malocclusion NECK: Trachea midline. Non tender CARDIOVASCULAR: Regular rate and rhythm without murmurs, gallops, or rubs. RESPIRATORY: Clear to auscultation. Breath sounds equal bilaterally. No wheezes, rales, or rhonchi. GASTROINTESTINAL: Abdomen soft, reproducible left lower pelvic tenderness. Bowel sounds present. No peritoneal signs. EXTREMITIES: No gross deformities. BACK: Nontender without deformity or crepitance. No flank tenderness. NEURO: AOx4. SKIN: Warm and dry PSYCH: Tearful and anxious, is cooperative Initial Vital Signs Initial Vital Signs: Vital Signs Temperature 98.5 F 07/20/20 17:56 Pulse Rate 112 H 07/20/20 17:56 Respiratory Rate 20 07/20/20 17:56 Blood Pressure 198/93 H 07/20/20 17:56 Pulse Oximetry 95 07/20/20 17:56 Course Course Course Narrative: Time 6:[address] Ortiz does not feel that this is OBGYN related with the pelvic abscess. Likely general surgery related Time 8:31 p.m.. Spoke with radiologist. Dr. Reveles. Likely abscess off of the colon/diverticulitis Decision to Admit Date: 07/20/20 Decision to Admit time: 20:32 Orders Ordered: ED Orders 07/20/20 18:08 Complete Blood Count AUTO DIFF Stat Comprehensive Metabolic Panel Stat Lipase Stat 07/20/20 18:30 MR cervical spine wo con Stat MR lumbar spine wo con Stat MR thoracic spine wo con Stat 07/20/20 18:46 CT chest abd pel w con Stat Al Hydrox/Mg Hydrox/Simethicone (Maalox Plus) 30 ml PO QID PRN PRN Reason: Dyspepsia Hydromorphone HCl (Dilaudid) 0.5 mg IV Q2H PRN PRN Reason: Pain, Severe (7-10) Nicotine (Nicoderm) 21 mg TOP DAILY ELLIOT Ondansetron HCl (Zofran) 4 mg IV Q4HR PRN PRN Reason: Nausea And Vomiting Discontinued Medications Hydromorphone HCl (Dilaudid) 1 mg IV NOW ONE Stop: 07/20/20 18:20 Last Admin: 07/20/20 18:28 Dose: 1 mg Documented by: NICKIE Sodium Chloride (Normal Saline 0.9%) 1,000 mls @ 1,000 mls/hr IV BOLUS ONE Stop: 07/20/20 19:18 Last Infusion: 07/20/20 21:10 Dose: 0 mls/hr Documented by: Infusion: 07/20/20 19:42 Dose: 1,000 mls/hr Documented by: Infusion: 07/20/20 18:45 Dose: 0 mls/hr Documented by: Admin: 07/20/20 18:28 Dose: 1,000 mls/hr Documented by: NICKIE Piperacillin/Tazobactam/Dextrose (Zosyn) 4.5 gm in 100 mls @ 200 mls/hr IV NOW ONE Stop: 07/20/20 21:03 Last Infusion: 07/20/20 21:35 Dose: 0 mls/hr Documented by: Admin: 07/20/20 21:03 Dose: 200 mls/hr Documented by: RMARTIN Influenza Virus Vaccine (Flu Vaccine) 0.5 ml IM .ONCE ONE Stop: 07/20/20 22:20 Lorazepam (Ativan) 0.5 mg IV NOW ONE Stop: 07/20/20 20:04 Last Admin: 07/20/20 20:09 Dose: 0.5 mg Documented by: NICKIE Ondansetron HCl (Zofran) 4 mg IV NOW ONE Stop: 07/20/20 18:20 Last Admin: 07/20/20 18:28 Dose: 4 mg Documented by: NICKIE Reevaluation(s) Reevaluation #1: Spoke with patient regarding results and will need readmission Time: 20:32 Consultations Consultation #1: Spoke with OBGYN Dr. ortiz, at this time she states ultrasound of the pelvis would not be helpful as it was not helpful on last exam. Would benefit from CT scan imaging for any changes Time: 18:47 Consultation #2: Spoke with general surgery dr avalos...will admit pt..keep npo...start zosyn. Time: 20:32 Vital Signs Vital signs: Vital Signs - 8 hr 07/20/20 17:56 07/20/20 18:07 07/20/20 18:30 Temperature 98.5 F Pulse Rate 112 H 100 H 93 H Respiratory Rate 20 21 23 Blood Pressure 198/93 H 124/79 126/89 Pulse Oximetry 95 95 95 07/20/20 19:41 07/20/20 20:16 Temperature Pulse Rate 84 82 Respiratory Rate 19 16 Blood Pressure 132/74 135/80 Pulse Oximetry 98 98 MDM - Abdominal Pain Differential Diagnosis Differential diagnosis: Likely abdominal pain and diverticulitis Medical Records Attestation: I reviewed the patient's medical records. Lab Data Attestation: I reviewed the patient's lab results. Result diagrams: 07/20/20 18:08 07/20/20 18:08 Labs: Lab Results 07/20/20 07/20/20 Range/Units 18:08 18:08 WBC 15.7 H (4.5-11.0) X10^3/uL RBC 4.16 (4.0-5.2) X10^6/uL Hgb 13.7 (12.0-16.0) g/dL Hct 38.6 (36-46) % MCV 93.0 (80-100) fL MCH 32.9 (26-34) PG MCHC 35.4 (30-36) % RDW 12.7 (11.6-14.8) % Plt Count 379 (150-400) X10^3/uL Neut % (Auto) 82.3 H (50-75) % Lymph % (Auto) 11.3 L (25-40) % [place] % (Auto) 5.4 (3-14) % Eos % (Auto) 0.8 L (2-4) % Baso % (Auto) 0.2 (0-2) % Neut # (Auto) 41690 H (1251-9361) /uL Lymph # (Auto) 1800 (5605-5453) /uL [place] # (Auto) 900 (0-900) /uL Eos # (Auto) 100 (0-450) /uL Baso # (Auto) 0 (0-100) /uL Sodium 137 (137-145) mmol/L Potassium 3.6 (3.4-5.1) mmol/L Chloride 103 (98-107) mmol/L Carbon Dioxide 24 (22-32) mmol/L BUN 18 H (7-17) mg/dL Creatinine 0.68 (0.52-1.04) mg/dL Estimated GFR > 60.0 (>60) mL/min BUN/Creatinine Ratio 26.5 H (6-22) Glucose 163 H (70-100) mg/dL Calcium 9.9 (8.4-10.2) mg/dL Total Bilirubin 0.5 (0.2-1.3) mg/dL AST 25 (14-36) IU/L ALT 28 (<35) IU/L Alkaline Phosphatase 95 (38-126) U/L Total Protein 8.0 (6.3-8.2) g/dL Albumin 4.4 (3.5-5.0) g/dL Globulin 3.6 (1.7-4.1) g/dL Albumin/Globulin Ratio 1.2 (1.0-2.8) Lipase 48 (23-300) U/L Imaging Data CT scan - abdomen/pelvis: Radiologist's Impression: [place] [address] CT Scan Report Signed Patient: Kelly Ling R#: [id number] : 1975Acct:[id number] Age/Sex: 45 / FDate of Service: 07/20/20 Loc: ED Accession Number: [id number] Procedure: CT chest abd pel w con Ordering Provider: Garland Fu MD PROCEDURE: CT CHEST ABD PEL W CON INDICATIONS: iv contrast only/llq pain/pelvic abscess TECHNIQUE: After the administration of intravenous contrast, 5 mm thick sections acquired from the lung apices to the symphysis. 5 mm coronal and sagittal reformats were performed, with additional 7 mm MIP reformats through the lungs. For radiation dose reduction, the following was used: automated exposure control, adjustment of mA and/or kV according to patient size. COMPARISON: None. FINDINGS: Image quality: Excellent. CHEST: Lungs and pleura: No acute airspace opacities. No pleural effusions or pneumothorax. Central and peripheral airways appear patent and normal in caliber. Mediastinum: Heart size is normal. No pericardial effusion. No mediastinal or hilar adenopathy by size criteria. Thoracic aorta and central pulmonary arteries are normal in size. Esophagus is normal in caliber. No hiatal hernia. Chest wall: No axillary or supraclavicular adenopathy by size criteria. Thyroid gland appears normal. 2.4 x 2.1 cm subcutaneous nodule in the anterior upper chest adjacent to the skin surface is nonspecific but may represent sebaceous cyst. ABDOMEN: Solid organs: Liver is mildly enlarged with decreased attenuation, compatible with diffuse fatty infiltration.. Status post cholecystectomy. Biliary system is non dilated. Pancreas enhances normally. Spleen is normal in size and enhancement. No adrenal nodules. Kidneys demonstrate normal size and enhancement, without hydronephrosis. Bilateral renal cysts are noted. Peritoneum and bowel: Multiple diverticula are seen in the sigmoid colon. There is inflammatory fat stranding and bowel wall thickening adjacent to the mid sigmoid colon as well as a collection of fluid and gas posteriorly measuring approximately 6.7 x 4.2 x 4.7 cm, suspicious for perforated diverticulitis. There are no signs of bowel obstruction. The appendix appears normal. Nodes and vessels: Abdominal and pelvic lymph nodes are mildly increased in number, which is most likely reactive. Aorta and inferior vena cava are normal in size. Miscellaneous: No ventral hernias. PELVIS: Genitourinary: Bladder wall thickness is normal. The uterus is normal in size. A 3.1 cm right adnexal cyst is seen. Miscellaneous: No inguinal hernias or adenopathy. Bones: No suspicious bony lesions. No vertebral body compression fractures. IMPRESSION: Acute sigmoid diverticulitis with an adjacent collection of fluid and gas in the posterior pelvis measuring 6.7 x 4.2 x 4.7 cm, suspicious for perforation/contained rupture. Dictated by: Ozzy Reveles M.D. on 07/20/2020 at 20:06 Approved by: Ozzy Reveles M.D. on 07/20/2020 at 20:14 MRI cervical spine: Radiologist's Impression: [address] [address] Magnetic Resonance Report Signed Patient: Kelly Ling R#: [id number] : 1975Acct:[id number] Age/Sex: 45 / FDate of Service: 07/20/20 Loc: WX19X-4 Accession Number: [id number] Procedure: MR cervical spine wo con Ordering Provider: Garland Fu MD PROCEDURE: MR CERVICAL SPINE WO CON INDICATIONS: Back pain/left leg pain/rule out abscess TECHNIQUE: Noncontrast sagittal T1 spin echo and T2 fast spin echo, sagittal STIR, foraminal oblique sagittal T2 fast spin echo, and axial gradient echo or T2 fast spin echo through the cervical spine. COMPARISON: None. FINDINGS: Image quality: Excellent. Alignment and Curvature: There is normal bony alignment. Bone Marrow: Marrow demonstrates normal overall signal. Spinal Cord: Visualized spinal cord has normal size and signal. No cerebellar tonsillar herniation. Paraspinous Soft Tissues: No paravertebral masses. Prevertebral soft tissues are normal in thickness. C2-C3: Normal appearance. C3-C4: Normal appearance. C4-C5: Normal appearance. C5-C6: Normal appearance. C6-C7: Normal appearance. C7-T1: Normal appearance. IMPRESSION: No acute osseous abnormality. No significant spinal canal stenosis or neural foraminal narrowing at any level in the cervical spine. Dictated by: Ozzy Reveles M.D. on 07/20/2020 at 21:17 Approved by: Ozzy Reveles M.D. on 07/20/2020 at 21:20 MRI thoracic spine: Radiologist's Impression: [address] [address] Magnetic Resonance Report Signed Patient: Kelly Ling HMR#: [id number] : 1975Acct:[id number] Age/Sex: 45 / FDate of Service: 07/20/20 Loc: LH24I-2 Accession Number: [id number] Procedure: MR thoracic spine wo con Ordering Provider: Garland Fu MD PROCEDURE: MR THORACIC SPINE WO CON INDICATIONS: Back pain/left leg pain/rule out abscess TECHNIQUE: Noncontrast sagittal T1 spine echo and T2 fast spin echo, sagittal STIR, axial T1 and T2 fast spin echo through the thoracic spine. COMPARISON: None. FINDINGS: Image quality: Excellent. Alignment and Curvature: There is normal bony alignment. Bone Marrow: Marrow is of normal overall signal. No acute vertebral body compression fractures. Spinal Cord: Visualized spinal cord is normal in size and signal. Paraspinous Soft Tissues: No paravertebral masses. Miscellaneous: On axial images, central canal and foramina appear widely patent at all scanned levels. A 2.6 cm subcutaneous T2 hyperintense lesion is seen adjacent to the skin surface anterior to the sternum, possibly representing a sebaceous cyst. T2 hyperintense cysts are seen in the kidneys. IMPRESSION: No acute inflammatory changes in the thoracic spine. No significant spinal canal stenosis or neural foraminal narrowing. Dictated by: Ozzy Reveles M.D. on 07/20/2020 at 21:23 Approved by: Ozzy Reveles M.D. on 07/20/2020 at 21:25 MRI lumbar spine: Radiologist's Impression: [place] [address] Magnetic Resonance Report Signed Patient: Kelly Ling R#: [id number] : 1975Acct:[id number] Age/Sex: 45 / FDate of Service: 07/20/20 Loc: NK29D-7 Accession Number: [id number] Procedure: MR lumbar spine wo con Ordering Provider: Garland Fu MD PROCEDURE: MR LUMBAR SPINE WO CON INDICATIONS: Back pain/left leg pain/rule out abscess TECHNIQUE: Noncontrast sagittal T1 spin echo and T2 fast echo, sagittal STIR, axial T1 and T2 fast spin echo through the lumbar spine. In cases with scoliosis, additional coronal T2 fast spin echo may be performed. COMPARISON: [facility], , MR LUMBAR SPINE WO CON, 04/24/2019, 15:47. FINDINGS: Image quality: Excellent. Alignment and Curvature: There is normal bony alignment. Bone Marrow: Marrow is of normal overall signal. No acute vertebral body compression fractures. Spinal Cord: Conus medullaris terminates at the level of the L1 vertebral body. Visualized cord demonstrates normal signal and size. Paraspinous Soft Tissues: No paravertebral masses. A T2 hyperintense cyst is seen in the left kidney. L1-L2: Normal appearance. L2-L3: Normal appearance. L3-L4: Normal appearance. L4-L5: Normal appearance. L5-S1: Normal appearance. IMPRESSION: No acute inflammatory changes in the lumbar spine. No significant spinal canal or neural foraminal narrowing. Dictated by: Ozzy Reveles M.D. on 07/20/2020 at 21:20 Approved by: Ozzy Reveles M.D. on 07/20/2020 at 21:23 MDM Narrative Medical decision making narrative: Pelvic abscess size bigger now. Appropriate for admission and surgical consult again. Discharge Plan Departure Patient Disposition: Admitted As Inpatient Clinical Impression: Abscess of pelvis Discharge Date/Time: 07/20/20 21:40 Referrals: Lacie Black ARNP [Primary Care Provider] - Admit Date/Time: 07/20/20 20:31 Admit Provider: Carlos Avalos
[2020-07-20 18:28] LABS: Add Manual Diff / Slide Review NO; Basophils Absolute Auto 0 /uL (0-100); Basophils Percent Auto 0.2 % (0-2); Eosinophils Absolute Auto 100 /uL (0-450); Eosinophils Percent Auto 0.8 % (2-4); Hematocrit 38.6 % (36-46); Hemoglobin 13.7 g/dL (12.0-16.0); Lymphocytes Absolute Auto 1800 /uL (1100-4500); Lymphocytes Percent Auto 11.3 % (25-40); Mean Corpuscular HGB Conc 35.4 % (30-36); Mean Corpuscular Hemoglobin 32.9 PG (26-34); Monocytes Absolute Auto 900 /uL (0-900); Monocytes Percent Auto 5.4 % (3-14); Neutrophils Absolute Auto 12900 /uL (1500-7000); Neutrophils Percent Auto 82.3 % (50-75); Platelet Count 379 X10^3/uL (150-400); Red Blood Cell Count 4.16 X10^6/uL (4.0-5.2); Red Cell Distribution Width 12.7 % (11.6-14.8); White Blood Cell Count 15.7 X10^3/uL (4.5-11.0)
[2020-07-20] MEDS: HYDROMORPHONE 1 MG INJ IV (18:28)
[2020-07-20] MEDS: SODIUM CHLORIDE 0.9% 1,000 ML 1000 ML IV (18:28)
[2020-07-20] MEDS: ONDANSETRON 4 MG/2 ML INJ IV (18:28)
--- NOTE | 2020-07-20 18:30 | DI.MRI.S_ITS ---
PROCEDURE: MR THORACIC SPINE WO CON INDICATIONS: Back pain/left leg pain/rule out abscess TECHNIQUE: Noncontrast sagittal T1 spine echo and T2 fast spin echo, sagittal STIR, axial T1 and T2 fast spin echo through the thoracic spine. COMPARISON: None. FINDINGS: Image quality: Excellent. Alignment and Curvature: There is normal bony alignment. Bone Marrow: Marrow is of normal overall signal. No acute vertebral body compression fractures. Spinal Cord: Visualized spinal cord is normal in size and signal. Paraspinous Soft Tissues: No paravertebral masses. Miscellaneous: On axial images, central canal and foramina appear widely patent at all scanned levels. A 2.6 cm subcutaneous T2 hyperintense lesion is seen adjacent to the skin surface anterior to the sternum, possibly representing a sebaceous cyst. T2 hyperintense cysts are seen in the kidneys. IMPRESSION: No acute inflammatory changes in the thoracic spine. No significant spinal canal stenosis or neural foraminal narrowing. Dictated by: Ozzy Reveles M.D. on 07/20/2020 at 21:23 Approved by: Ozzy Reveles M.D. on 07/20/2020 at 21:25
--- NOTE | 2020-07-20 18:30 | DI.MRI.S_ITS ---
PROCEDURE: MR CERVICAL SPINE WO CON INDICATIONS: Back pain/left leg pain/rule out abscess TECHNIQUE: Noncontrast sagittal T1 spin echo and T2 fast spin echo, sagittal STIR, foraminal oblique sagittal T2 fast spin echo, and axial gradient echo or T2 fast spin echo through the cervical spine. COMPARISON: None. FINDINGS: Image quality: Excellent. Alignment and Curvature: There is normal bony alignment. Bone Marrow: Marrow demonstrates normal overall signal. Spinal Cord: Visualized spinal cord has normal size and signal. No cerebellar tonsillar herniation. Paraspinous Soft Tissues: No paravertebral masses. Prevertebral soft tissues are normal in thickness. C2-C3: Normal appearance. C3-C4: Normal appearance. C4-C5: Normal appearance. C5-C6: Normal appearance. C6-C7: Normal appearance. C7-T1: Normal appearance. IMPRESSION: No acute osseous abnormality. No significant spinal canal stenosis or neural foraminal narrowing at any level in the cervical spine. Dictated by: Ozzy Reveles M.D. on 07/20/2020 at 21:17 Approved by: Ozzy Reveles M.D. on 07/20/2020 at 21:20
--- NOTE | 2020-07-20 18:30 | DI.MRI.S_ITS ---
PROCEDURE: MR LUMBAR SPINE WO CON INDICATIONS: Back pain/left leg pain/rule out abscess TECHNIQUE: Noncontrast sagittal T1 spin echo and T2 fast echo, sagittal STIR, axial T1 and T2 fast spin echo through the lumbar spine. In cases with scoliosis, additional coronal T2 fast spin echo may be performed. COMPARISON: [facility], MR, MR LUMBAR SPINE WO CON, 04/24/2019, 15:47. FINDINGS: Image quality: Excellent. Alignment and Curvature: There is normal bony alignment. Bone Marrow: Marrow is of normal overall signal. No acute vertebral body compression fractures. Spinal Cord: Conus medullaris terminates at the level of the L1 vertebral body. Visualized cord demonstrates normal signal and size. Paraspinous Soft Tissues: No paravertebral masses. A T2 hyperintense cyst is seen in the left kidney. L1-L2: Normal appearance. L2-L3: Normal appearance. L3-L4: Normal appearance. L4-L5: Normal appearance. L5-S1: Normal appearance. IMPRESSION: No acute inflammatory changes in the lumbar spine. No significant spinal canal or neural foraminal narrowing. Dictated by: Ozzy Reveles M.D. on 07/20/2020 at 21:20 Approved by: Ozzy Reveles M.D. on 07/20/2020 at 21:23
[2020-07-20 18:34] LABS: Alanine Aminotransferase 28 IU/L (<35); Albumin 4.4 g/dL (3.5-5.0); Albumin Globulin Ratio 1.2 (1.0-2.8); Alkaline Phosphatase 95 U/L (38-126); Aspartate Aminotransferase 25 IU/L (14-36); BUN Creatinine Ratio 26.5 (6-22); Bilirubin Total 0.5 mg/dL (0.2-1.3); Blood Urea Nitrogen 18 mg/dL (7-17); Calcium 9.9 mg/dL (8.4-10.2); Carbon Dioxide 24 mmol/L (22-32); Chloride 103 mmol/L (98-107); Estimated Glomerular Filt Rate > 60.0 mL/min (>60); Globulin 3.6 g/dL (1.7-4.1); Glucose 163 mg/dL (70-100); HEMOLYSIS < 15 (0-50); Lipase 48 U/L (23-300); Potassium 3.6 mmol/L (3.4-5.1); Sodium 137 mmol/L (137-145)
--- NOTE | 2020-07-20 18:46 | DI.CT.S_ITS ---
PROCEDURE: CT CHEST ABD PEL W CON INDICATIONS: iv contrast only/llq pain/pelvic abscess TECHNIQUE: After the administration of intravenous contrast, 5 mm thick sections acquired from the lung apices to the symphysis. 5 mm coronal and sagittal reformats were performed, with additional 7 mm MIP reformats through the lungs. For radiation dose reduction, the following was used: automated exposure control, adjustment of mA and/or kV according to patient size. COMPARISON: None. FINDINGS: Image quality: Excellent. CHEST: Lungs and pleura: No acute airspace opacities. No pleural effusions or pneumothorax. Central and peripheral airways appear patent and normal in caliber. Mediastinum: Heart size is normal. No pericardial effusion. No mediastinal or hilar adenopathy by size criteria. Thoracic aorta and central pulmonary arteries are normal in size. Esophagus is normal in caliber. No hiatal hernia. Chest wall: No axillary or supraclavicular adenopathy by size criteria. Thyroid gland appears normal. 2.4 x 2.1 cm subcutaneous nodule in the anterior upper chest adjacent to the skin surface is nonspecific but may represent sebaceous cyst. ABDOMEN: Solid organs: Liver is mildly enlarged with decreased attenuation, compatible with diffuse fatty infiltration.. Status post cholecystectomy. Biliary system is non dilated. Pancreas enhances normally. Spleen is normal in size and enhancement. No adrenal nodules. Kidneys demonstrate normal size and enhancement, without hydronephrosis. Bilateral renal cysts are noted. Peritoneum and bowel: Multiple diverticula are seen in the sigmoid colon. There is inflammatory fat stranding and bowel wall thickening adjacent to the mid sigmoid colon as well as a collection of fluid and gas posteriorly measuring approximately 6.7 x 4.2 x 4.7 cm, suspicious for perforated diverticulitis. There are no signs of bowel obstruction. The appendix appears normal. Nodes and vessels: Abdominal and pelvic lymph nodes are mildly increased in number, which is most likely reactive. Aorta and inferior vena cava are normal in size. Miscellaneous: No ventral hernias. PELVIS: Genitourinary: Bladder wall thickness is normal. The uterus is normal in size. A 3.1 cm right adnexal cyst is seen. Miscellaneous: No inguinal hernias or adenopathy. Bones: No suspicious bony lesions. No vertebral body compression fractures. IMPRESSION: Acute sigmoid diverticulitis with an adjacent collection of fluid and gas in the posterior pelvis measuring 6.7 x 4.2 x 4.7 cm, suspicious for perforation/contained rupture. Dictated by: Ozzy Reveles M.D. on 07/20/2020 at 20:06 Approved by: Ozzy Reveles M.D. on 07/20/2020 at 20:14
--- NOTE | 2020-07-20 19:50 | PC.NURSE ---
Patient complaining of increased nausea and feeling claustrophobic from MRI. Provider notified. Ativan ordered and patient provided with cool compress for head.
[2020-07-20] MEDS: LORazepam 2 MG/ML INJ 0.5 MG IV (20:09)
[2020-07-20] MEDS: PIPERACILLIN-TAZO 4.5 GM/100 ML FROZ.PIGGY IV (21:03)
[2020-07-20 21:36] LABS: COVID19 -Nasal RAPID Negative (Negative)
--- NOTE | 2020-07-20 23:52 | PC.NURSE ---
Admit note: Kelly brought from ER to rm 203. She denies abdomen pain but c/o really bad heartburn. She also is requesting a Nicotine patch. I notified Dr Avalos, orders given. VS are stable, patient is Ox3 and situation. Ambulating independently in room, gait steady. Oriented to room & call button. Told me I know-I was just here. Instructed to call staff for any needs/concerns, she agrees to this plan. Full report given to Estefany SMITH.
[2020-07-21] VITALS (15 sets, daily range): BP systolic 109–151; BP diastolic 65–84; PULSE 75–106; RESP 11–21; TEMP 36.3–37.8; O2SAT 92–100
[2020-07-21] MEDS: HYDROMORPHONE 0.5 MG INJ IV ×4 (00:31→15:20)
[2020-07-21] MEDS: NICOTINE 21 MG PATCH TOP ×2 (00:32→08:21)
[2020-07-21] MEDS: ONDANSETRON 4 MG/2 ML INJ IV ×5 (00:32→22:30)
[2020-07-21] MEDS: MAG HYDROX/ALUM/SIMETH 30 ML UDC PO (00:32)
[2020-07-21] MEDS: PIPERACILLIN-TAZO 3.375 GM/50 ML FROZ.PIGGY IV ×4 (03:06→22:29)
[2020-07-21] MEDS: PROCHLORPERAZINE 10 MG/2 ML VIAL IV ×2 (03:11→12:00)
[2020-07-21] MEDS: LACTATED RINGERS 1,000 ML 150 ML IV ×4 (06:27→22:32)
--- NOTE | 2020-07-21 07:39 | P.HP_ITS ---
History of Present Illness History of Present Illness Date Patient Seen: 07/21/20 Time Patient Seen: 07:39 Chief complaint: Lower Abd Pain Going Into Left Leg Narrative: The patient is a woman who was recently discharged to continue outpatient treatment for a left pelvic abscess. Her pain however has become worse and begun to cause shooting pains down her left leg. She presented to the emergency room and was readmitted after repeat scanning showed an increase the size of her abscess. The patient has not had pain like this before. She had nausea and vomiting after being readmitted. She has been having daily bowel movements but she says that usually she has 2 or 3 in the morning and she is only having 1 a day. Appetite has been decreased. Patient History Medical History Anxiety (Chronic) Asthma (Chronic) Bacterial vaginosis (Resolved) Biliary dyskinesia (Inactive) Carotid artery plaque (Acute) Carotid artery stenosis (Acute) Chlamydia (Resolved) Cholecystitis (Inactive) Chronic sinusitis (Inactive) Coccygeal pain, acute (Inactive) Depression (Chronic) Difficulty swallowing (Resolved) Ear pain, right (Resolved) High risk HPV infection (Inactive) Hoarseness or changing voice (Inactive) HPV (human papilloma virus) infection (Resolved) Hyperlipidemia (Acute) Insomnia (Acute) Low grade squamous intraepith lesion on cytologic smear cervix (lgsil) (Inactive) Lump in neck (Inactive 10/2019) Lymph node disorder (Acute) Mixed anxiety depressive disorder (Chronic 08/20/02) Odynophagia (Inactive) Oral herpes (Resolved) Rash (Inactive) Rectal pressure (Inactive) Right lateral epicondylitis (Inactive 01/2018) RUQ abdominal pain (Inactive) Seasonal affective disorder (Inactive) Thyroid cyst (Acute) Thyroid mass (Ruled-out) Trigeminal neuralgia of right side of face (Acute) Upper back pain (Inactive) Surgical History Hx of oral surgery (Acute ~12/2019) S/P laparoscopic cholecystectomy (Inactive) Family & Social History Family History Brother Age: 40 Depression Drug abuse Father Depression Overdose Grandfather Suicide Grandmother No problems noted. Grandfather No problems noted. Grandmother No problems noted. Brother No problems noted. Mother No problems noted. Social History: household members friend(s) Prior Living Arrangements House Safety & Behavioral: Feels Safe in Current Yes Environment Been Physically Hurt or No Threatened By a Person Suicidal Ideation Description None Suicide Plan Description No Plan Tobacco & Substance use: Tobacco type cigarettes Smoking Status Current every day smoker alcohol intake never alcohol intake frequency 0-2 drinks per day Substance Use Type marijuana Meds Home Medications and Allergies Home Medications Medication Instructions Recorded Confirmed Type carbamazepine 100 mg 100 mg PO BID 14 Days #60 cap 01/03/20 07/17/20 Rx capsule,extended release [id number] lorazepam 1 mg tablet 1 mg PO BID PRN #20 tab 01/31/20 07/17/20 Rx omeprazole magnesium 10 mg oral 10 mg PO DAILY 04/22/20 07/17/20 History suspension,delayed release hydroxyzine pamoate 25 mg capsule 25 mg PO BEDTIME #60 cap 06/04/20 07/17/20 Rx atorvastatin 10 mg tablet 10 mg PO DAILY #90 tab 06/11/20 07/17/20 Rx verapamil 40 mg tablet 40 mg PO DAILY 06/11/20 07/17/20 History docusate sodium 100 mg capsule 100 mg PO BID 30 Days #60 cap 07/13/20 07/17/20 Rx indomethacin 50 mg capsule 50 mg PO TID 07/13/20 07/17/20 History doxycycline hyclate 100 mg PO BID #24 cap 07/17/20 Rx levofloxacin 750 mg PO DAILY #12 tab 07/17/20 Rx ondansetron HCl 4 mg tablet 4 mg PO Q8H PRN #10 tab 07/18/20 Rx oxycodone-acetaminophen 5 mg-325 1 tab PO Q4-6H PRN #20 tab 07/18/20 Rx mg tablet Allergies Allergy/AdvReac Type Severity Reaction Status Date / Time cat dander [CAT DANDER] Allergy Mild SNEEZING Verified 07/13/20 11:10 AND HIVES morphine AdvReac Severe VOMITING Verified 07/13/20 11:10 codeine AdvReac Mild NAUSEA Verified 07/13/20 11:10 Review of Systems Review of Systems Narrative: No chest pain. No breathing issues. No black or bloody bowel movements. No seizures or blackouts. Patient is on medication because of enlargement of the right carotid artery she said. She also takes medication for trigeminal neuritis. Exam Vital Signs (past 8 hours): - 07/21/20 03:11 07/21/20 04:40 Temperature 97.4 F L Pulse Rate 82 75 Respiratory Rate 18 Blood Pressure 132/71 111/65 Pulse Oximetry 96 Oxygen Delivery Method Room Air Oxygen Flow Rate 0 Narrative Exam Narrative: Cooperative. Seems uncomfortable. Eyes are nonicteric. Lungs are clear to auscultation without rales or rhonchi. Heart regular rate and rhythm without murmur gallop. Abdomen is protuberant soft. Bladder is full so it is difficult to examine her pelvis because any pressure in that area is causing uncomfortable sensations. No obvious guarding. Mild tenderness left lower abdomen. Objective Labs Result Diagrams: 07/20/20 18:08 07/20/20 18:08 Labs: Laboratory Results - last 24 hr 07/20/20 07/20/20 07/20/20 18:08 18:08 21:08 WBC 15.7 H RBC 4.16 Hgb 13.7 Hct 38.6 MCV 93.0 MCH 32.9 MCHC 35.4 RDW 12.7 Plt Count 379 Neut % (Auto) 82.3 H Lymph % (Auto) 11.3 L Bergen % (Auto) 5.4 Eos % (Auto) 0.8 L Baso % (Auto) 0.2 Neut # (Auto) 08106 H Lymph # (Auto) 1800 Bergen # (Auto) 900 Eos # (Auto) 100 Baso # (Auto) 0 Sodium 137 Potassium 3.6 Chloride 103 Carbon Dioxide 24 BUN 18 H Creatinine 0.68 Estimated GFR > 60.0 BUN/Creatinine Ratio 26.5 H Glucose 163 H Calcium 9.9 Total Bilirubin 0.5 AST 25 ALT 28 Alkaline Phosphatase 95 Total Protein 8.0 Albumin 4.4 Globulin 3.6 Albumin/Globulin Ratio 1.2 Lipase 48 COVID-19 PCR Negative Assessment & Plan Assessment & Plan narrative: Patient with a left pelvic abscess. Origin could be the GI tract. Consider the wind turbine installer tract as well. I think she would benefit from exploration and drainage. Cultures can be obtained at that time. I discussed this with the patient. Risks of bleeding infection hernia and the need for some other procedure or additional procedures was discussed with her. She was tearful but understood and wished to proceed.
--- NOTE | 2020-07-21 08:37 | PC.NURSE ---
Addendum entered by Payal Smith R.N. 07/21/20 12:39: Patient crying out in pain, states that she went to the bathroom to have a bowel movement and was straining. She had a small bm with hard consistency. Given 0.5mg of iv dilaudid and 10mg of compazine about 30 minutes later and this has helped her to be more comfortable and rest. Original Note: Assess- Patient is A&Ox3, she denies pain at this time but is fearful of having surgery later today. Patient calmed down after we talked about what she could expect on her way to surgery. She states that when she is having pain, it is on the left side and across her mid abdomen. Nicotine patch placed on her l.upper arm. IV antibiotic hung and she is tolerating this well. Will monitor patient for pain and check on her in an hour.
[2020-07-21] MEDS: LACTATED RINGERS 1,000 ML 42 ML IV ×3 (16:00→21:04)
--- NOTE | 2020-07-21 16:02 | SUR.HOLD ---
Patient to holding area of surgery center in bed . VSS. Patient c/o pain to left groin leg, radiating into left leg. Inpatient nurse recently medicated for discomfort. Patient denies any nausea. Awaiting surgeon and anesthesiology. Call light in reach.
--- NOTE | 2020-07-21 16:07 | CM.DANOTE ---
Discharge Planning/Care Management DCP: assessment: initiated: case received, EMR reviewed. Discussed in Team Rounds. Pt taken to surgery today by Dr. Avalos: Teodoro pelvic abscess s/p recent surgery: worsening pain DCP team to follow up tomorrow when pt has returned to her room for discussion of d/c issues and options. More will be known at that time re the POC going forward. Payer: [facility]/Medicaid Admission status: INPT: confirmed by UR SARAH Banda CM Discharge Assessment Start: 07/21/20 16:05 Freq: Status: Active Protocol: Document 07/21/20 16:06 ITV (Rec: 07/21/20 16:07 ITV [id number]) Discharge Planning Assessment Advance Directives? No Advance Directives on File No History Provided By Medical Record Has Patient been admitted in last 30 Yes days? Comment 07/16 - 07/18: surgery for intra abdominal abscess/pelvic with Dr. Jose and Dr. Ortiz Prior Living Arrangements House Household Members friend(s) Comment Garland Seats Is patient alert and oriented? Yes Discharge Plan Home Transportation Arrangement Friend Referrals Initiated None needed
--- NOTE | 2020-07-21 18:11 | SUR.OPER ---
Supine on padded OR bed, head on pillow, right arm padded and tucked at side, left arm on padded arm board <90 degrees abduction, legs uncrossed, safety belt at thigh, tape over blanket over lower legs .
[2020-07-21] MEDS: BUPIVACAINE 0.5% (PF) VIAL 30 ML INJ (18:17)
--- NOTE | 2020-07-21 21:09 | P.OP_ITS ---
Operative Date/Time/Diagnoses Date of procedure: 07/21/20 Time of procedure: 21:09 Pre-op diagnosis: Pelvic abscess Post-op diagnosis: same (Probably diverticular) Procedure & Clinicians Procedure: Laparoscopic converted open drainage of a pelvic abscess Same procedure as scheduled: Yes Indications: Patient with fever abscess too large to treat with simple antibiotics with uncertain diagnosis as to the source. Patient was taken the operating room. Surgeon: Carlos Avalos Click Yes if Unassisted: Yes Anesthesia Type: General Operative Notes Findings: Large left pelvic sidewall abscess with reaction/induration of the surrounding colon. Closure Type: primary Specimen(s): other (Cultures) Prosthetic devices, grafts, tissues, transplants, or devices: None Applied: drain(s) (10 mm Bryant-Huffman drain placed in the cavity in the pelvis) Estimated Blood Loss (mL): 150 Blood products transfused: none Procedure in detail: Patient was placed supine on the operating room table and underwent general endotracheal anesthesia. She was prepped and draped in the usual fashion. Incision was made beneath the umbilicus and carried down under direct vision in the peritoneal cavity. Stay sutures of 0 Vicryl were placed in the fascia. And the son cannula was inserted the abdomen is insufflated. Two additional ports were placed in the right lower abdomen. I a examined the pelvi s. Tube and ovary looked normal. There appeared to be small cyst on the left ovary. The colon mesentery as it came over the pelvic brim and posterior to the uterus was hard and indurated. Using the CT as a guide I made small incisions in the mesentery and probed with a blunt probe hoping to enter the abscess cavity what was unsuccessful. I flipped the colon back and forth then entered what appeared to be possible candidates as of the abscess. However it did not get any pus. I added a 4th port in the left abdomen to try to get a different exposure but still was not helpful. I made a small suprapubic incision inserted a finger in did some blunt dissection with a finger but even this was not definitive in actually entering the abscess cavity. Therefore I decided to perform an open procedure through a minimal in fit incision low in the abdominal wall. The ports were all removed and an incision was made about 4 in in length in the suprapubic area in the vertical midline. It was carried down into the peritoneal cavity. It was made just large enough to insert my hand and begin to dissect. I was able to easily feel now down along the posterior wall of the uterus and across the top of the sigmoid colon as it entered down into the pelvis. It was all indurated. Using blunt dissection along the pelvic sidewall I entered into the abscess cavity which began to pour pus up into the tissues above the opening. This was cultured and then suctioned out. Finger was inserted into the cavity to break down any pockets. I copiously irrigated and suctioned out this cavity. I then placed a Bryant-Huffman drain down into the cavity all the way to its base and brought it out through a port site which I had placed in the left abdomen prior to opening the patient. It was secured w ith a 3-0 nylon interrupted suture. The pelvis was irrigated and suctioned free of fluid. The stay sutures just below the umbilicus were tied closing the fascial defect there. A running 1. Double-stranded PDS was used to close the fascia in the lower midline incision. The wounds were all irrigated. 4-0 Vicryl interrupted sutures was used to close the skin in all areas. In the midline wound I also close some of the deep tissues with the same material. Mass on Steri-Strips were applied. Dressing was applied. Patient was awakened extubated and taken to the recovery area in good condition. Complications: none Post-operative Condition: stable Disposition: PACU Plan for aftercare: To inpatient
[2020-07-21] MEDS: fentaNYL 100 MCG/2 ML INJ IV (21:11)
[2020-07-21] MEDS: hydrOXYzine 50 MG/ML INJ 25 MG IM (21:12)
[2020-07-21] MEDS: HYDROMORPHONE 2 MG INJ IV ×2 (21:12→22:30)
[2020-07-21] MEDS: ACETAMINOPHEN 325 MG TABLET 650 MG PO (22:30)
--- NOTE | 2020-07-21 23:34 | PC.NURSE ---
Patient back to unit 21:30. Reported pain 10/10 AND nausea. Given PRN hydromorphone and Zofran IV. Pain reported 0/10 at follow up. Daughter at bedside. Became noticeably more agitated and expressed increased pain when she noticed her daughter was in the room but settled with medication and reassurance. Vitals stable. O2 @ 94 on 2L.
[2020-07-22] VITALS (11 sets, daily range): BP systolic 105–140; BP diastolic 43–77; PULSE 81–96; RESP 14–18; TEMP 35.9–37.6; O2SAT 92–98
[2020-07-22] MEDS: KETOROLAC 30 MG/ML VIAL IV ×2 (01:44→13:24)
[2020-07-22] MEDS: LORazepam 2 MG/ML INJ 1 MG IV (01:49)
[2020-07-22] MEDS: ONDANSETRON 4 MG/2 ML INJ IV ×2 (01:59→06:40)
[2020-07-22] MEDS: HYDROMORPHONE 2 MG INJ IV ×5 (01:59→22:16)
[2020-07-22] MEDS: PIPERACILLIN-TAZO 3.375 GM/50 ML FROZ.PIGGY IV ×4 (04:10→22:09)
[2020-07-22 06:21] LABS: Add Manual Diff / Slide Review NO; Basophils Absolute Auto 0 /uL (0-100); Basophils Percent Auto 0.1 % (0-2); Eosinophils Absolute Auto 0 /uL (0-450); Eosinophils Percent Auto 0.1 % (2-4); Hematocrit 33.7 % (36-46); Hemoglobin 11.6 g/dL (12.0-16.0); Lymphocytes Absolute Auto 1500 /uL (1100-4500); Lymphocytes Percent Auto 10.2 % (25-40); Mean Corpuscular HGB Conc 34.3 % (30-36); Mean Corpuscular Hemoglobin 32.2 PG (26-34); Mean Corpuscular Volume 93.7 fL (80-100); Monocytes Absolute Auto 700 /uL (0-900); Monocytes Percent Auto 5.1 % (3-14); Neutrophils Absolute Auto 12200 /uL (1500-7000); Neutrophils Percent Auto 84.5 % (50-75); Platelet Count 329 X10^3/uL (150-400); Red Blood Cell Count 3.59 X10^6/uL (4.0-5.2); Red Cell Distribution Width 12.8 % (11.6-14.8); White Blood Cell Count 14.5 X10^3/uL (4.5-11.0)
[2020-07-22 06:31] LABS: Alanine Aminotransferase 22 IU/L (<35); Albumin 3.1 g/dL (3.5-5.0); Alkaline Phosphatase 69 U/L (38-126); Aspartate Aminotransferase 23 IU/L (14-36); BUN Creatinine Ratio 17.2 (6-22); Bilirubin Total 0.6 mg/dL (0.2-1.3); Blood Urea Nitrogen 11 mg/dL (7-17); Carbon Dioxide 29 mmol/L (22-32); Chloride 104 mmol/L (98-107); Estimated Glomerular Filt Rate > 60.0 mL/min (>60); Glucose 114 mg/dL (70-100); HEMOLYSIS < 15 (0-50); Potassium 3.9 mmol/L (3.4-5.1); Sodium 134 mmol/L (137-145); Total Protein 6.1 g/dL (6.3-8.2)
[2020-07-22] MEDS: LACTATED RINGERS 1,000 ML 150 ML IV (06:36)
[2020-07-22] MEDS: NICOTINE 21 MG PATCH TOP (09:34)
[2020-07-22] MEDS: ENOXAPARIN 40 MG/0.4 ML SYRINGE SUBCUT (09:36)
[2020-07-22] MEDS: DOCUSATE 100 MG CAPSULE PO ×2 (09:37→22:08)
[2020-07-22] MEDS: GABAPENTIN 300 MG CAPSULE PO ×2 (09:37→22:08)
[2020-07-22] MEDS: carBAMazepine XR 100 MG TAB 200 MG PO ×2 (09:38→22:08)
[2020-07-22] MEDS: PANTOPRAZOLE 40 MG VIAL IV (09:39)
[2020-07-22] MEDS: PROCHLORPERAZINE 10 MG/2 ML VIAL IV ×2 (10:23→17:50)
--- NOTE | 2020-07-22 11:00 | PT.IIE ---
Current Diagnoses Female pelvic inflammatory disease, unspecified (07/20/20) Surgery Performed Operation Date: 07/21/20 16:15 Actual Procedures p Diagnostic Laparoscopy, converted to open drainage of pelvic abscess - Carlos Avalos MD Surgical History (Last Reviewed 07/21/20 @ 07:41 by Carlos Avalos MD) Hx of oral surgery (Acute ~12/2019) S/P laparoscopic cholecystectomy (Inactive) Medical History (Last Reviewed 07/21/20 @ 07:41 by Carlos Avalos MD) Anxiety (Chronic) Asthma (Chronic) Bacterial vaginosis (Resolved) Biliary dyskinesia (Inactive) Carotid artery plaque (Acute) Carotid artery stenosis (Acute) Chlamydia (Resolved) Cholecystitis (Inactive) Chronic sinusitis (Inactive) Coccygeal pain, acute (Inactive) Depression (Chronic) Difficulty swallowing (Resolved) Ear pain, right (Resolved) High risk HPV infection (Inactive) Hoarseness or changing voice (Inactive) HPV (human papilloma virus) infection (Resolved) Hyperlipidemia (Acute) Insomnia (Acute) Low grade squamous intraepith lesion on cytologic smear cervix (lgsil) (Inactive) Lump in neck (Inactive 10/2019) Lymph node disorder (Acute) Mixed anxiety depressive disorder (Chronic 08/20/02) Odynophagia (Inactive) Oral herpes (Resolved) Rash (Inactive) Rectal pressure (Inactive) Right lateral epicondylitis (Inactive 01/2018) RUQ abdominal pain (Inactive) Seasonal affective disorder (Inactive) Thyroid cyst (Acute) Thyroid mass (Ruled-out) Trigeminal neuralgia of right side of face (Acute) Upper back pain (Inactive) Physical Therapy Inpatient Evaluation/Re-Eval M1 PT/OT-IP Prior Functional Status Start: 07/22/20 12:32 Freq: NEEDED Status: Active Protocol: Document 07/22/20 11:00 AB (Rec: 07/22/20 12:47 AB [id number]) Medical Review Prior Functional Status Medical History Reviewed Yes Communication able to make needs known Mobility and Gait pt stated that she is independent with all mobilities and ambulation without AD Social History Household Members friend(s) Living Arrangements House Number of Floors (Floors) Two Floors Number of Stairs To Enter/Railing? has to steps with R rail to enter pt has 10 steps without rails to get to bedroom level but stated that she can put her bed downstairs and stay on main level of the house Home Environment Standard Height Toilet,Tub/ Shower Home Equipment Hand Held Shower Additional Social History Comment pt stated that she lives with her roommate who can assist her but he goes to work; stated that she has friends around who can help if needed when roommate is not around stated that she has access to a SPC M2 PT-IP Current Condition Start: 07/22/20 12:32 Freq: NEEDED Status: Active Protocol: Document 07/22/20 11:00 AB (Rec: 07/22/20 12:47 AB [id number]) Physical Therapy Current Condition Current Condition Evaluation Date 07/22/20 Treatment Diagnosis pelvic abscess s/p lap converted open drainage; difficulty in walking Onset Date 07/20/20 Precautions Abdominal Surgery Precautions Log Roll,Lifting Restrictions, Gait Belt above Incisional Area M3 PT-IP Subjective Start: 07/22/20 12:32 Freq: NEEDED Status: Active Protocol: Document 07/22/20 11:00 AB ([facility] Subjective Physical Therapy Visit Type Type Initial Evaluation Visit Start Time 11:00 Visit Stop Time 11:33 Total Visit Minutes 33 Number of BUSINESS APPLICATIONS DEVELOPER Visits 0 Physical Therapy Visit Comments Patient Comments pt is agreeable to do PT; c/o increase pain Therapy Pain Assessment Pain When Pain Assessed At Rest Pain Present Pain Present Pain Reported Location Abdomen Scale Used stated pain is worse that giving natural Pain Management Techniques Apply Cold,Distraction, Modification of Treatment,Re- positioning,Timing of Activity with Medications M4 PT-IP Mobility and Gait Start: 07/22/20 12:32 Freq: NEEDED Status: Active Protocol: Document 07/22/20 11:00 AB (Rec: 07/22/20 12:47 [email or web address]) PT-Bed Mobility Assessment Rolling Type of Rolling Log Rolling Level of Assist Maximal Assistance Supine to Sit Supine to Sit Maximum Assistance,1 Person Assistance,Head of Bed Elevated,Bedrails PT-Transfer Assessment Sit to and From Stand Sit to and from Stand Moderate Assistance,1 Person Assistance,Use of Upper Extremities Equipment Transfer Assistive Device Gait Belt,Front Wheeled Walker Orthotic/Prosthetic Devices or Brace: No Transfers Transfer Destination Chair Transfer Technique ambulated using FWW Transfer Ability Level of Assist Moderate Assistance,1 Person Assistance,Use of Upper Extremities Comments Mobility Comments educated pt on abdominal precautions and log roll bed mobility. completed supine to sit max A and max cues. pt was able to sit on EOB SBA. c/ o increrase pain and requires increase motivation. completed sit to stand mod A and cues and ambulated in room using FWW 40 ft min A. pt agreed to sit on chair. positioned on chair. call light and table placed within reach. Gait Assessment Gait Gait Assistance Required: Minimum Assistance Distance (Feet) 40 Able to Maintain Weight Bearing Status Yes During Gait Assistive Devices Assistive Device Gait Belt,Front Wheeled Walker Orthotic/Prosthetic Devices or Brace: No Gait Deviations General Gait Pattern Decreased Stride Length, Decreased Feet Clearance, Flexed Trunk Factors Limiting Gait Function Factors Limiting Gait Function Decreased Activity Tolerance, Decreased Strength,Limited Range of Motion,Pain,Poor Balance,Poor Safety Awareness Comments Gait Comments pls refer to mobility section for details PT-Balance Assessment Sitting Balance and Reactions Static Sitting Balance Ability Good Dynamic Sitting Balance Ability Good Standing Balance and Reactions Static Standing Balance Ability Fair Dynamic Standing Balance Ability Fair Device Used FWW M5 PT-IP Objective Assessments Start: 07/22/20 12:32 Freq: NEEDED Status: Active Protocol: Document 07/22/20 11:00 AB (Rec: 07/22/20 12:47 AB [id number]) Orientation Orientation/Cognition Level of Alertness Alert Orientation Name,Place,Situation Language Function Ability No Deficits Noted Gross Range of Motion Lower Extremity ROM Assessment Within Functional Limits Strength Lower Extremity Strength Hip 4-/5 Knee 4-/5 Coordination Assessment Gross Coordination Gross Coordination WNL Sensation Assessment Sensation Gross Sensation WNL Muscle Tone Muscle Tone WNL Yes M6 PT-IP Treatment Start: 07/22/20 12:32 Freq: NEEDED Status: Active Protocol: Document 07/22/20 11:00 AB (Rec: 07/22/20 12:47 AB [id number]) Physical Therapy Treatment Education Education Provided Precautions,Safety M7 PT-IP Assessment and Plan Start: 07/22/20 12:32 Freq: NEEDED Status: Active Protocol: Document 07/22/20 11:00 AB (Rec: 07/22/20 12:47 AB [email or web address]) PT Summary Assessment and Plan Potential Rehabilitation Potential Good Status of Condition at Evaluation Evolving Summary Impairments Pain,ROM,Strength,Balance,Bed Mobility,Transfers,Gait, Activity Tolerance Assessment Summary pt requiring max A with bed mobility and has decrease activity tolerance with pain limiting mobility. pt will likely progress during hospital stay and plans to go home but will not have consistent assistance. d/c plan depending on progress but at this time may require SNF rehab to improve strength and mobility independence. Goals Bed Mobility Goal Standby Assistance Transfer Goal Standby Assistance,Crutches Gait Goal Standby Assistance,Front Wheel Walker Gait Distance 150 Other Goals improve ambulation using SPC/ without AD SBA 250 ft up/down 2 steps with R rail SBA Days to Meet Goals 10 Frequency of Treatment Frequency Of Treatment Once a Day Treatment Plan Physical Therapy Treatment Plan Bed Mobility Training,Transfer Training,Gait Training, Therapeutic Exercise,Balance Retraining,Post Op Education, Discharge Planning,Hot or Cold Pack,Neuromuscular Re-ed, Coordination Retraining,Manual Therapy Recommendations To Nursing Amount of Assist Needed 1 Person Assist Discharge Recommendations PT Discharge Recommendations Home with Assistance,SNF Rehab Other Discharge Recommendations depending on progress: SNF vs home with assist Equipment Needed for Home Before FWW if not safe with SPC Discharge Transportation Needs at Discharge Private Vehicle,Wheelchair/ Cabulance
--- NOTE | 2020-07-22 11:03 | PC.NURSE ---
Assess- Patient seems to be feeling better today. She did complain of nausea, given compazine iv and helpful. IV antibiotic in and Protonix. Ch catheter putting out yellow urine that is clear. She has smaller lap sites dressings that are cdi, and a ml dressing that has dried shadow drainae across it about 3in in diameter. This is dried and intact. Patients bt are hypoactive, she has a caprice drain that is putting out bloody drainage. Denies pain at this time. She is working with physical therapy now.
[2020-07-22] MEDS: FLUCONAZOLE 200 MG/100 ML PIGGYBACK 100 MG IV ×2 (13:24→18:12)
--- NOTE | 2020-07-22 15:22 | CM.DPC ---
DCP cONT: Checked in with patient. She was sitting up in bed, alert and oriented, independent at baseline. She has a friend, Garland Templeton, who can assist her when she goes home. She resides in [place]. P: DCP to continue to follow. Patient should be able to go home when she is medically stable. Yaritza Briscoe RN/Plastic Welding Machine Operator
--- NOTE | 2020-07-22 17:39 | P.PN_ITS ---
Subjective Subjective Date Patient Seen: 07/22/20 Time Patient Seen: 17:39 Interval history: Patient has no leg pain. She has a cough and states that she needs to stop smoking. Complains of abdominal pain. Exam Vital Signs (past 8 hours): - 07/22/20 11:08 07/22/20 15:10 Temperature 96.7 F L 99.6 F Pulse Rate 85 88 Respiratory Rate 15 16 Blood Pressure 119/59 L 119/57 L Pulse Oximetry 96 94 Oxygen Delivery Method Room Air Oxygen Flow Rate 0 Narrative Exam Narrative: No apparent distress. Bronchi scattered throughout her lungs. Fair respiratory effort. Heart regular rate and rhythm. Abdomen protuberant. Dressings are intact. There is some drainage. Too little to change dressing however. Vital signs are noted. Objective Labs Result Diagrams: 07/22/20 06:00 07/22/20 06:00 Labs: Laboratory Results - last 24 hr 07/22/20 07/22/20 06:00 06:00 WBC 14.5 H RBC 3.59 L Hgb 11.6 L Hct 33.7 L MCV 93.7 MCH 32.2 MCHC 34.3 RDW 12.8 Plt Count 329 Neut % (Auto) 84.5 H Lymph % (Auto) 10.2 L [place] % (Auto) 5.1 Eos % (Auto) 0.1 L Baso % (Auto) 0.1 Neut # (Auto) 03323 H Lymph # (Auto) 1500 [place] # (Auto) 700 Eos # (Auto) 0 Baso # (Auto) 0 Sodium 134 L Potassium 3.9 Chloride 104 Carbon Dioxide 29 BUN 11 Creatinine 0.64 Estimated GFR > 60.0 BUN/Creatinine Ratio 17.2 Glucose 114 H Calcium 8.0 L Total Bilirubin 0.6 AST 23 ALT 22 Alkaline Phosphatase 69 Total Protein 6.1 L Albumin 3.1 L Globulin 3.0 Albumin/Globulin Ratio 1.0 Assessment & Plan Post-op Postoperative Procedures: Procedures Operation Date: 07/21/20 16:15 Actual Procedures Side Surgeon p Diagnostic Laparoscopy, converted to open drainage of pelvic abscess Carlos Avalos MD Postoperative day: 1 Postoperative status narrative: Doing about as expected. Her drainage is serosanguineous. Temp has been normal and pulse has come down. All those are good signs. She has budding yeast in her abscess Gram stain. Is growing a Gram-negative esme. Postoperative plan narrative: Continue Zosyn. Added Diflucan. Drain is in place. Check CBC in a.m.. We will remove her Ch. Give her clear liquids in the morning. Albuterol inhalers ordered. Sputum for culture. Continue incentive spirometry.
[2020-07-22] MEDS: DEXTROSE 5%-LACTATED RINGERS 1,000 ML 125 ML IV (18:07)
[2020-07-22] MEDS: ALBUTEROL 2.5 MG/3 ML NEB (ADULT) INH (18:35)
[2020-07-22] MEDS: ATORVASTATIN 20 MG TABLET 10 MG PO (22:08)
--- NOTE | 2020-07-22 23:29 | PC.NURSE ---
Day shift note: Patient refused Ch Catheter removal, discussed importance of removal as ordered. Patient refused, states will remove in the morning when awake and up OOB. Notified oncoming RN.
[2020-07-23] VITALS (11 sets, daily range): BP systolic 121–141; BP diastolic 65–88; PULSE 68–95; RESP 16–18; TEMP 36.6–37.5; O2SAT 91–98
[2020-07-23] MEDS: PIPERACILLIN-TAZO 3.375 GM/50 ML FROZ.PIGGY IV ×4 (03:23→22:24)
[2020-07-23] MEDS: DEXTROSE 5%-LACTATED RINGERS 1,000 ML 125 ML IV ×2 (03:24→17:57)
[2020-07-23] MEDS: KETOROLAC 30 MG/ML VIAL IV ×3 (03:27→20:43)
[2020-07-23] MEDS: HYDROMORPHONE 2 MG INJ IV ×6 (03:28→23:38)
[2020-07-23 06:24] LABS: Add Manual Diff / Slide Review NO; Basophils Absolute Auto 100 /uL (0-100); Basophils Percent Auto 0.8 % (0-2); Eosinophils Absolute Auto 100 /uL (0-450); Eosinophils Percent Auto 1.7 % (2-4); Hematocrit 31.2 % (36-46); Hemoglobin 10.8 g/dL (12.0-16.0); Lymphocytes Absolute Auto 2000 /uL (1100-4500); Lymphocytes Percent Auto 24.9 % (25-40); Mean Corpuscular HGB Conc 34.4 % (30-36); Mean Corpuscular Hemoglobin 31.6 PG (26-34); Mean Corpuscular Volume 91.8 fL (80-100); Monocytes Absolute Auto 700 /uL (0-900); Neutrophils Absolute Auto 5100 /uL (1500-7000); Neutrophils Percent Auto 63.6 % (50-75); Platelet Count 305 X10^3/uL (150-400); Red Blood Cell Count 3.41 X10^6/uL (4.0-5.2); White Blood Cell Count 8.1 X10^3/uL (4.5-11.0)
[2020-07-23] MEDS: ALBUTEROL 2.5 MG/3 ML NEB (ADULT) INH ×2 (07:38→19:56)
[2020-07-23] MEDS: ENOXAPARIN 40 MG/0.4 ML SYRINGE SUBCUT (08:09)
[2020-07-23] MEDS: DOCUSATE 100 MG CAPSULE PO ×2 (08:10→20:43)
[2020-07-23] MEDS: GABAPENTIN 300 MG CAPSULE PO ×2 (08:10→20:43)
[2020-07-23] MEDS: NICOTINE 21 MG PATCH TOP (08:10)
[2020-07-23] MEDS: VERAPAMIL 80 MG TABLET 40 MG PO (08:11)
[2020-07-23] MEDS: carBAMazepine XR 100 MG TAB 200 MG PO ×2 (08:12→20:44)
[2020-07-23] MEDS: ACETAMINOPHEN 325 MG TABLET 650 MG PO (08:12)
[2020-07-23] MEDS: PANTOPRAZOLE 40 MG VIAL IV (08:20)
[2020-07-23] MEDS: ONDANSETRON 4 MG/2 ML INJ IV ×3 (08:20→20:42)
--- NOTE | 2020-07-23 09:32 | PM.PNPO.1 ---
Subjective Subjective Date Patient Seen: 07/23/20 Time Patient Seen: 09:32 Interval history: Passing flatus, feels nauseous with abdominal pain. No acute overnight events Exam Vital Signs (past 8 hours): - 07/23/20 04:34 07/23/20 07:40 07/23/20 07:41 Temperature 98.5 F Pulse Rate 85 86 Respiratory Rate 16 16 Blood Pressure 134/82 Pulse Oximetry 94 93 93 Oxygen Delivery Method Room Air Oxygen Flow Rate 0 Narrative Exam Narrative: General adult female alert oriented not in distress Abdomen appropriately tender to palpation drain serosanguineous output. Objective Labs Result Diagrams: 07/23/20 05:55 07/22/20 06:00 Labs: Laboratory Results - last 24 hr 07/23/20 05:55 WBC 8.1 RBC 3.41 L Hgb 10.8 L Hct 31.2 L MCV 91.8 MCH 31.6 MCHC 34.4 RDW 13.0 Plt Count 305 Neut % (Auto) 63.6 D Lymph % (Auto) 24.9 L [place] % (Auto) 9.0 Eos % (Auto) 1.7 L Baso % (Auto) 0.8 Neut # (Auto) 5100 Lymph # (Auto) 2000 [place] # (Auto) 700 Eos # (Auto) 100 Baso # (Auto) 100 Assessment & Plan Post-op Postoperative Procedures: Procedures Operation Date: 07/21/20 16:15 Actual Procedures Side Surgeon p Diagnostic Laparoscopy, converted to open drainage of pelvic abscess Carlos Avalos MD Postoperative status narrative: 45-year-old female postoperative day 2 status post drainage of pelvic abscess. Afebrile and leukocytosis for resolved. Plan -clear liquid diet advance when nausea resolves -continue drain -follow-up cultures, so far gram negative bacilli and yeast. Receiving appropriate antifungal and antibiotic therapy -SCDs and Lovenox
--- NOTE | 2020-07-23 13:28 | PC.NURSE ---
Patient educated on need to remove murray catheter today. Patient reports she is not ready for it. Re-educated on risks, and patient agrees she will allow removal this afternoon. Patient wants her iv fluids discontinued, as she is drinking well. Will notify MD and continue to follow.
--- NOTE | 2020-07-23 16:46 | PT.IPTN ---
Current Diagnoses Female pelvic inflammatory disease, unspecified (07/20/20) Surgery Performed Operation Date: 07/21/20 16:15 Actual Procedures p Diagnostic Laparoscopy, converted to open drainage of pelvic abscess - Carlos Avalos MD Physical Therapy Treatment Note M2 PT-IP Current Condition Start: 07/22/20 12:32 Freq: NEEDED Status: Active Protocol: Document 07/22/20 11:00 AB (Rec: 07/22/20 12:47 AB [email or web address]) Physical Therapy Current Condition Current Condition Evaluation Date 07/22/20 Treatment Diagnosis pelvic abscess s/p lap converted open drainage; difficulty in walking Onset Date 07/20/20 Precautions Abdominal Surgery Precautions Log Roll,Lifting Restrictions, Gait Belt above Incisional Area M3 PT-IP Subjective Start: 07/22/20 12:32 Freq: NEEDED Status: Active Protocol: Document 07/23/20 16:22 KS (Rec: 07/23/20 17:09 KS [id number]) Subjective Physical Therapy Visit Type Type Treatment Note Visit Start Time 16:22 Visit Stop Time 16:46 Total Visit Minutes 24 Number of ENVIRONMENTAL HEALTH SPECIALIST Visits 1 Physical Therapy Visit Comments Patient Comments Pt agreeable to work w/ therapy. Therapy Pain Assessment Pain When Pain Assessed At Rest Pain Present Pain Present Pain Reported Location Abdomen Scale Used not quantified Description Sharp,Tender,Tightness Pain Behaviors Facial Grimacing,Guarding, Holding Area,Wincing Pain Management Techniques Distraction,Re-positioning, Timing of Activity with Medications M4 PT-IP Mobility and Gait Start: 07/22/20 12:32 Freq: NEEDED Status: Active Protocol: Document 07/23/20 16:22 KS (Rec: 07/23/20 17:09 KS [id number]) PT-Bed Mobility Assessment Rolling Type of Rolling Log Rolling,Roll to Right Level of Assist Contact Guard Assistance Supine to Sit Supine to Sit Contact Guard Assistance,1 Person Assistance Sit to Supine Sit to Supine Contact Guard Assistance,1 Person Assistance Scooting Scooting to Edge of Bed Standby Assistance PT-Transfer Assessment Sit to and From Stand Sit to and from Stand Contact Guard Assistance,1 Person Assistance,Use of Upper Extremities Equipment Transfer Assistive Device None,Gait Belt,Straight Cane Orthotic/Prosthetic Devices or Brace: No Transfers Transfer Destination Bed,Toilet Transfer Technique ambulated using FWW Transfer Ability Level of Assist Contact Guard Assistance,1 Person Assistance,Use of Upper Extremities Comments Mobility Comments Pt in bed upon arrival from therapy. CGA for logroll to R and sidelying<>sit. Pt sit<> Stand w/ FWW CGA. She then ambulated w/ SPC instead of FWW w/ SBA to CGA. After ~50 ft ambulation, pt ambulated additonal 70 ft w/o AD SBA to CGA. Pt has flexed posture, wide based gait, decreased stride and foot clerance d/t pain. Pt then voided in toilet SBA, RN notified. Pt then returned to bed CGA w/ cues for logroll. Pt left in bed w/ all needs in reach. Gait Assessment Gait Gait Assistance Required: Standby Assistance,Contact Guard Assist,1 Person Assist Distance (Feet) 120 Able to Maintain Weight Bearing Status Yes During Gait Assistive Devices Assistive Device None,Gait Belt,Straight Cane Orthotic/Prosthetic Devices or Brace: No Gait Deviations General Gait Pattern Decreased Stride Length, Decreased Feet Clearance, Flexed Trunk,Wide Based Gait Factors Limiting Gait Function Factors Limiting Gait Function Decreased Activity Tolerance, Decreased Strength,Limited Range of Motion,Pain Comments Gait Comments Pt ambulated ~50 ft w/ SPC and SBA to CGA, she then requested to ambulate w/o AD and ambulated additional ~70 ft w/o AD abd SBA to CGA. Pt was holding lower abdomen during ambulation, and had flexed trunk but was able to remain balanced throughout. Stair Climbing Assessment Comments Stair Climbing Comments Not assessed. PT-Balance Assessment Sitting Balance and Reactions Static Sitting Balance Ability Good Dynamic Sitting Balance Ability Good Standing Balance and Reactions Static Standing Balance Ability Fair Dynamic Standing Balance Ability Fair Device Used FWW M5 PT-IP Objective Assessments Start: 07/22/20 12:32 Freq: NEEDED Status: Active Protocol: Document 07/22/20 11:00 AB (Rec: 07/22/20 12:47 AB [email or web address]) Orientation Orientation/Cognition Level of Alertness Alert Orientation Name,Place,Situation Language Function Ability No Deficits Noted Gross Range of Motion Lower Extremity ROM Assessment Within Functional Limits Strength Lower Extremity Strength Hip 4-/5 Knee 4-/5 Coordination Assessment Gross Coordination Gross Coordination WNL Sensation Assessment Sensation Gross Sensation WNL Muscle Tone Muscle Tone WNL Yes M6 PT-IP Treatment Start: 07/22/20 12:32 Freq: NEEDED Status: Active Protocol: Document 07/23/20 16:22 KS (Rec: 07/23/20 17:09 KS [id number]) Physical Therapy Treatment Education Education Provided Precautions,Safety M7 PT-IP Assessment and Plan Start: 07/22/20 12:32 Freq: NEEDED Status: Active Protocol: Document 07/23/20 16:22 MACHO (Rec: 07/23/20 17:09 KS [id number]) PT Summary Assessment and Plan Potential Rehabilitation Potential Good Status of Condition at Evaluation Evolving Summary Impairments Pain,ROM,Strength,Balance,Bed Mobility,Transfers,Gait, Activity Tolerance Progress Towards Goals Progressing Toward Goals Assessment Summary Pt CGA and cues for bed mobility/logroll as well as sit<>stand. Pt tolerated ~120 ft total w/ SBA to CGA, 50 ft w/ SPC and 70 ft w/o AD. Pt holding lower abdomen and guarding w/ flexed posture d/t pain. D/c plan depending on progress, but pt will need to increase ambulation distance and participate in stair training prior to d/c. Goals Bed Mobility Goal Standby Assistance Transfer Goal Standby Assistance,Crutches Gait Goal Standby Assistance,Front Wheel Walker Gait Distance 150 Other Goals improve ambulation using SPC/ without AD SBA 250 ft up/down 2 steps with R rail SBA Days to Meet Goals 10 Frequency of Treatment Frequency Of Treatment Once a Day Treatment Plan Physical Therapy Treatment Plan Bed Mobility Training,Transfer Training,Gait Training, Therapeutic Exercise,Balance Retraining,Post Op Education, Discharge Planning,Hot or Cold Pack,Neuromuscular Re-ed, Coordination Retraining,Manual Therapy Recommendations To Nursing Amount of Assist Needed 1 Person Assist Discharge Recommendations PT Discharge Recommendations Home with Assistance,Home Health,SNF Rehab Other Discharge Recommendations depending on progress: SNF vs home with assist Equipment Needed for Home Before FWW if not safe with SPC Discharge Transportation Needs at Discharge Private Vehicle,Wheelchair/ Cabulance
[2020-07-23] MEDS: FLUCONAZOLE 400 MG/200 ML PIGGYBACK 100 MG IV (17:55)
[2020-07-23] MEDS: PROCHLORPERAZINE 10 MG/2 ML VIAL IV ×2 (17:55→23:37)
[2020-07-23] MEDS: ATORVASTATIN 20 MG TABLET 10 MG PO (20:43)
--- NOTE | 2020-07-23 23:28 | PC.NURSE ---
VSS. Patient's pain well controlled with 0.5 mg IV Dilaudid and Toradol. She reported having nausea and having gas pain. Zofran provided relief. She is 1 person SBA. Diet upgraded to clear liquids with juice and oral meds.
[2020-07-24] VITALS (9 sets, daily range): BP systolic 108–149; BP diastolic 58–93; PULSE 69–84; RESP 16–18; TEMP 36.4–37.1; O2SAT 94–99
[2020-07-24] MEDS: PIPERACILLIN-TAZO 3.375 GM/50 ML FROZ.PIGGY IV ×4 (02:38→20:42)
[2020-07-24 06:40] LABS: Add Manual Diff / Slide Review NO; Basophils Absolute Auto 100 /uL (0-100); Basophils Percent Auto 0.8 % (0-2); Eosinophils Absolute Auto 200 /uL (0-450); Eosinophils Percent Auto 2.5 % (2-4); Hematocrit 29.7 % (36-46); Hemoglobin 10.3 g/dL (12.0-16.0); Lymphocytes Absolute Auto 1400 /uL (1100-4500); Lymphocytes Percent Auto 18.8 % (25-40); Mean Corpuscular HGB Conc 34.7 % (30-36); Mean Corpuscular Hemoglobin 32.1 PG (26-34); Mean Corpuscular Volume 92.7 fL (80-100); Monocytes Absolute Auto 600 /uL (0-900); Monocytes Percent Auto 8.1 % (3-14); Neutrophils Absolute Auto 5300 /uL (1500-7000); Neutrophils Percent Auto 69.8 % (50-75); Platelet Count 310 X10^3/uL (150-400); Red Blood Cell Count 3.21 X10^6/uL (4.0-5.2); Red Cell Distribution Width 12.8 % (11.6-14.8); White Blood Cell Count 7.6 X10^3/uL (4.5-11.0)
[2020-07-24] MEDS: ONDANSETRON 4 MG/2 ML INJ IV ×3 (06:47→22:57)
[2020-07-24] MEDS: KETOROLAC 30 MG/ML VIAL IV ×2 (06:47→18:16)
[2020-07-24 06:48] LABS: BUN Creatinine Ratio 9.8 (6-22); Blood Urea Nitrogen 5 mg/dL (7-17); Calcium 7.8 mg/dL (8.4-10.2); Carbon Dioxide 30 mmol/L (22-32); Chloride 106 mmol/L (98-107); Estimated Glomerular Filt Rate > 60.0 mL/min (>60); Glucose 141 mg/dL (70-100); HEMOLYSIS < 15 (0-50); Potassium 3.4 mmol/L (3.4-5.1); Sodium 137 mmol/L (137-145)
[2020-07-24] MEDS: HYDROMORPHONE 2 MG INJ IV ×3 (08:04→16:19)
[2020-07-24] MEDS: ENOXAPARIN 40 MG/0.4 ML SYRINGE SUBCUT (08:04)
[2020-07-24] MEDS: PANTOPRAZOLE 40 MG TABLET PO (08:05)
[2020-07-24] MEDS: DOCUSATE 100 MG CAPSULE PO ×2 (08:05→20:43)
[2020-07-24] MEDS: ACETAMINOPHEN 325 MG TABLET 650 MG PO ×2 (08:05→18:26)
[2020-07-24] MEDS: GABAPENTIN 300 MG CAPSULE PO ×2 (08:05→20:44)
[2020-07-24] MEDS: NICOTINE 21 MG PATCH TOP (08:05)
[2020-07-24] MEDS: carBAMazepine XR 100 MG TAB 200 MG PO ×2 (08:12→20:44)
[2020-07-24] MEDS: VERAPAMIL 80 MG TABLET 40 MG PO (08:12)
[2020-07-24] MEDS: DEXTROSE 5%-LACTATED RINGERS 1,000 ML 125 ML IV (08:21)
[2020-07-24] MEDS: PROCHLORPERAZINE 10 MG/2 ML VIAL IV (10:26)
--- NOTE | 2020-07-24 11:10 | PT.IPTN ---
Current Diagnoses Female pelvic inflammatory disease, unspecified (07/20/20) Surgery Performed Operation Date: 07/21/20 16:15 Actual Procedures p Diagnostic Laparoscopy, converted to open drainage of pelvic abscess - Carlos Avalos MD Physical Therapy Treatment Note M2 PT-IP Current Condition Start: 07/22/20 12:32 Freq: NEEDED Status: Active Protocol: Document 07/22/20 11:00 AB (Rec: 07/22/20 12:47 AB [email or web address]) Physical Therapy Current Condition Current Condition Evaluation Date 07/22/20 Treatment Diagnosis pelvic abscess s/p lap converted open drainage; difficulty in walking Onset Date 07/20/20 Precautions Abdominal Surgery Precautions Log Roll,Lifting Restrictions, Gait Belt above Incisional Area M3 PT-IP Subjective Start: 07/22/20 12:32 Freq: NEEDED Status: Active Protocol: Document 07/24/20 10:57 KS (Rec: 07/24/20 11:36 KS [id number]) Subjective Physical Therapy Visit Type Type Treatment Note Visit Start Time 10:57 Visit Stop Time 11:10 Total Visit Minutes 13 Number of SENIOR LOSS CONTROL SPECIALIST Visits 2 Physical Therapy Visit Comments Patient Comments Pt agreeable to work w/ therapy. M4 PT-IP Mobility and Gait Start: 07/22/20 12:32 Freq: NEEDED Status: Active Protocol: Document 07/24/20 10:57 KS (Rec: 07/24/20 11:36 KS [id number]) PT-Bed Mobility Assessment Scooting Scooting to Edge of Bed Standby Assistance PT-Transfer Assessment Sit to and From Stand Sit to and from Stand Standby Assistance,1 Person Assistance,Use of Upper Extremities Equipment Transfer Assistive Device None,Gait Belt Orthotic/Prosthetic Devices or Brace: No Transfers Transfer Destination Chair Transfer Technique ambulated w/o AD Transfer Ability Level of Assist Standby Assistance,1 Person Assistance,Use of Upper Extremities Comments Mobility Comments Pt in chair upon arrival from therapy. SBA for sit<>stand. Pt then ambulated ~40 ft to stairs w/o AD and managed her own IV pole. She then ascended /descended 3 steps x3 w/ L hand rail and SBA. Pt then ambulated additional 220 ft w/ SBA and this SENIOR LOSS CONTROL SPECIALIST managing IV pole. Pt was holding lower abdomen when ambulating d/t pain. She returned to room and chair SBA. Pt left in chair w / all needs in reach. Gait Assessment Gait Gait Assistance Required: Standby Assistance,1 Person Assist Distance (Feet) 260 Able to Maintain Weight Bearing Status Yes During Gait Assistive Devices Assistive Device None,Gait Belt Orthotic/Prosthetic Devices or Brace: No Gait Deviations General Gait Pattern Decreased Stride Length, Decreased Feet Clearance, Flexed Trunk,Wide Based Gait Factors Limiting Gait Function Factors Limiting Gait Function Decreased Activity Tolerance, Decreased Strength,Limited Range of Motion,Pain Comments Gait Comments Pt tolerated ~260 ft ambulation w/ SBA and no AD. Pt able to manage her own IV pole for first ~40 ft. Stair Climbing Assessment Evaluation Level of Assist On Stairs Standby Assistance,1 Person Assistance Devices Stair Climbing Assistive Devices Left Railing Technique/Endurance Stair Climbing Direction Ascend and Descend Stair Climbing Technique Step Over Step Number of Steps Climbed 3 Stair Climbing Set # Repetitions (reps) 3 Comments Stair Climbing Comments Pt ascended/descended 3 steps x3 w/ L rail and SBA. No LOB throughout. PT-Balance Assessment Sitting Balance and Reactions Static Sitting Balance Ability Good Dynamic Sitting Balance Ability Good Standing Balance and Reactions Static Standing Balance Ability Good Dynamic Standing Balance Ability Good Device Used FWW M5 PT-IP Objective Assessments Start: 07/22/20 12:32 Freq: NEEDED Status: Active Protocol: Document 07/22/20 11:00 AB (Rec: 07/22/20 12:47 AB [email or web address]) Orientation Orientation/Cognition Level of Alertness Alert Orientation Name,Place,Situation Language Function Ability No Deficits Noted Gross Range of Motion Lower Extremity ROM Assessment Within Functional Limits Strength Lower Extremity Strength Hip 4-/5 Knee 4-/5 Coordination Assessment Gross Coordination Gross Coordination WNL Sensation Assessment Sensation Gross Sensation WNL Muscle Tone Muscle Tone WNL Yes M6 PT-IP Treatment Start: 07/22/20 12:32 Freq: NEEDED Status: Active Protocol: Document 07/24/20 10:57 KS (Rec: 07/24/20 11:36 KS [id number]) Physical Therapy Treatment Education Education Provided Precautions,Safety M7 PT-IP Assessment and Plan Start: 07/22/20 12:32 Freq: NEEDED Status: Active Protocol: Document 07/24/20 10:57 KS (Rec: 07/24/20 11:36 KS [id number]) PT Summary Assessment and Plan Potential Rehabilitation Potential Good Status of Condition at Evaluation Evolving Summary Impairments Pain,ROM,Strength,Balance,Bed Mobility,Transfers,Gait, Activity Tolerance Progress Towards Goals Progressing Toward Goals Assessment Summary Pt showed improvement w/ tolerance for activity today and was able to tolerate ~260 ft w/o AD and ascend/descend 9 total steps w/ L rail. She is SBA for all bed mobility, transfers, and ambulation. Goals Bed Mobility Goal Standby Assistance Transfer Goal Standby Assistance,Crutches Gait Goal Standby Assistance,Front Wheel Walker Gait Distance 150 Other Goals improve ambulation using SPC/ without AD SBA 250 ft up/down 2 steps with R rail SBA Days to Meet Goals 10 Frequency of Treatment Frequency Of Treatment Once a Day Treatment Plan Physical Therapy Treatment Plan Bed Mobility Training,Transfer Training,Gait Training, Therapeutic Exercise,Balance Retraining,Post Op Education, Discharge Planning,Hot or Cold Pack,Neuromuscular Re-ed, Coordination Retraining,Manual Therapy Recommendations To Nursing Amount of Assist Needed 1 Person Assist Discharge Recommendations PT Discharge Recommendations Home with Assistance,Home Health Other Discharge Recommendations depending on progress: SNF vs home with assist Transportation Needs at Discharge Private Vehicle,Wheelchair/ Cabulance
--- NOTE | 2020-07-24 11:10 | PM.PN.1 ---
Subjective Subjective Date Patient Seen: 07/24/20 Time Patient Seen: 08:30 Interval history: No acute events overnight. Patient is passing copious stool. Says that she has an appetite and would like to eat something more than the clear liquid diet. Exam Vital Signs (past 8 hours): - 07/24/20 04:13 07/24/20 05:57 07/24/20 08:05 Temperature 98 F 98.7 F Pulse Rate 80 79 Respiratory Rate 16 18 Blood Pressure 125/70 143/81 H Pulse Oximetry 94 95 96 07/24/20 09:00 Temperature Pulse Rate Respiratory Rate Blood Pressure Pulse Oximetry 96 Oxygen Delivery Method Room Air Oxygen Flow Rate 0 Narrative Exam Narrative: GENERAL: Alert, in mild distress due to discomfort CARDIOVASCULAR: Regular rate. No pedal edema. RESPIRATORY: Non-tachypneic, breathing comfortably on room air. GASTROINTESTINAL: Abdomen soft, obese, serosanguineous output from the left GEMA drain, incision clean dry and intact GENITALURINARY: No flank tenderness. MUSCULOSKELETAL: Equal tone and mass bilaterally. SKIN: Warm, dry, soft, appropriate color for ethnicity. No other lesions, rashes, or wounds. Objective Labs Result Diagrams: 07/24/20 06:30 07/24/20 06:30 Labs: Laboratory Results - last 24 hr 07/24/20 07/24/20 06:30 06:30 WBC 7.6 RBC 3.21 L Hgb 10.3 L Hct 29.7 L MCV 92.7 MCH 32.1 MCHC 34.7 RDW 12.8 Plt Count 310 Neut % (Auto) 69.8 Lymph % (Auto) 18.8 L [place] % (Auto) 8.1 Eos % (Auto) 2.5 Baso % (Auto) 0.8 Neut # (Auto) 5300 Lymph # (Auto) 1400 [place] # (Auto) 600 Eos # (Auto) 200 Baso # (Auto) 100 Sodium 137 Potassium 3.4 Chloride 106 Carbon Dioxide 30 BUN 5 L Creatinine 0.51 L Estimated GFR > 60.0 BUN/Creatinine Ratio 9.8 Glucose 141 H Calcium 7.8 L Assessment & Plan Assessment & Plan narrative: This is a 45-year-old woman who is postop day 2 from laparoscopic converted to open drainage of pelvic abscess. She is putting out copious stool, and minimal drainage from her GEMA drain. Her appetite is improving, although she generally does not feel well, complains of lot of pain. Plan: Continue IV antibiotics for now and narrow coverage is appropriate DVT prophylax Home med Pain in antiemetic meds as needed Ambulate as tolerated Advanced diet as tolerated Dispo planning once pain is controlled, diet is advance, and drain is removed COVID-19 COVID-19 status: Negative Time Spent With Patient Time with patient: 15-24 minutes Quality VTE Deep Vein Thrombosis/Pulmonary Embolism Present on Admission: No
--- NOTE | 2020-07-24 12:31 | PC.NURSE ---
SHIFT NOTE: PATIENT C/O INTERMITT NAUSEA AND PAIN. TEARFUL INITIALLY AT START OF SHIFT, STATING HER PAIN WAS 10/10. IV DILAUDID GIVEN. STATES SHE STARTED HER MENSES WHICH SHE STATES ISN'T HELPING THE SITUATION EITHER. LATER MORNING PATIENT C/O NAUSEA WHICH RESOLVED AFTER COMPAZINE IV. THIS AFTERNOON GIVEN ANOTHER DOSE OF IV DILAUDID PER REQUEST AND ZOFRAN FOR NAUSEA. DIET UPGRADED TO FULL LIQUIDS BY SURGEON THIS AFTERNOON. SBA TO BR FOR VOIDS.
--- NOTE | 2020-07-24 15:16 | CM.DPC ---
Addendum entered by Jade Tran LPN 07/24/20 15:47: Met now with pt and introduced self and role. She was found in room up at sink, smiling and says she is looking forward to taking a shower this evening. Asked if she felt need of cane or walker at d/c. She says that today she is doing just fine and is up independently in her room. Plan: at this point is home with [facility] when stable for same. Will be following. Original Note: DCP: continued: case received, EMR reviewed and noted the surgery of 07/22 late in evening: Laproscopic converted to Open drainage of pelvic abscess. IV antibiotics continue as well as antifunga treatment. Pt is working with PT and review of those notes show she is mobilizing well in halls limited primarily by the post surgical pain. ? of a cane or walker at d/c. Discussed with MARCUS Lopez who will be seeing pt again tomorrow as the recommentations at this point from the PT team are all options: home w assist vs HH vs SNF. At this time the documentation does not support a snf setting need that [facility] would pay for and discussed same with Jessica. Will plan to see pt tomorrow after Rounds to see if her plan for home with partner Garland has changed and to check on DME. Will also confer again with Jessica Will also see what rounding surgical team is saying.
[2020-07-24] MEDS: FLUCONAZOLE 400 MG/200 ML PIGGYBACK 100 MG IV (17:24)
[2020-07-24] MEDS: LACTOBACILLUS ACIDOPHILUS TABLET 1 EACH PO (18:16)
[2020-07-24] MEDS: INFLUENZA VACCINE 0.5 ML SYRINGE IM (18:28)
[2020-07-24] MEDS: DEXTROSE 5%-LACTATED RINGERS 1,000 ML 50 ML IV (20:32)
[2020-07-24] MEDS: ATORVASTATIN 20 MG TABLET 10 MG PO (20:43)
[2020-07-24] MEDS: SODIUM CHLORIDE 0.9% FLUSH 10 ML IV (20:51)
--- NOTE | 2020-07-24 22:20 | PC.NURSE ---
Pt denies nausea, tolerating full liquid diet; moderate to severe pain alleviated with IV dilaudid and IV toradol; steady gait and sba to bathroom; GEMA 10 mL; gauze drsg to abdomen c/d/i; BTs hypoactive
[2020-07-24] MEDS: LORazepam 2 MG/ML INJ 1 MG IV (23:41)
[2020-07-25] VITALS (8 sets, daily range): BP systolic 128–152; BP diastolic 76–84; PULSE 75–91; RESP 16–18; TEMP 36.2–37.5; O2SAT 93–99
[2020-07-25] MEDS: HYDROMORPHONE 2 MG INJ IV ×2 (01:19→06:57)
[2020-07-25] MEDS: PIPERACILLIN-TAZO 3.375 GM/50 ML FROZ.PIGGY IV (03:10)
[2020-07-25 06:06] LABS: Add Manual Diff / Slide Review NO; Basophils Absolute Auto 0 /uL (0-100); Basophils Percent Auto 0.9 % (0-2); Eosinophils Absolute Auto 200 /uL (0-450); Eosinophils Percent Auto 3.9 % (2-4); Hemoglobin 10.5 g/dL (12.0-16.0); Lymphocytes Absolute Auto 1400 /uL (1100-4500); Lymphocytes Percent Auto 26.5 % (25-40); Mean Corpuscular Hemoglobin 32.7 PG (26-34); Mean Corpuscular Volume 93.3 fL (80-100); Monocytes Absolute Auto 400 /uL (0-900); Monocytes Percent Auto 7.9 % (3-14); Neutrophils Absolute Auto 3200 /uL (1500-7000); Neutrophils Percent Auto 60.8 % (50-75); Platelet Count 333 X10^3/uL (150-400); Red Blood Cell Count 3.21 X10^6/uL (4.0-5.2); Red Cell Distribution Width 12.7 % (11.6-14.8); White Blood Cell Count 5.3 X10^3/uL (4.5-11.0)
[2020-07-25 06:16] LABS: BUN Creatinine Ratio 12.7 (6-22); Blood Urea Nitrogen 7 mg/dL (7-17); Calcium 8.4 mg/dL (8.4-10.2); Carbon Dioxide 28 mmol/L (22-32); Chloride 107 mmol/L (98-107); Estimated Glomerular Filt Rate > 60.0 mL/min (>60); Glucose 118 mg/dL (70-100); HEMOLYSIS < 15 (0-50); Magnesium 2.1 mg/dL (1.6-2.3); Phosphorous 4.4 mg/dL (2.5-4.5); Potassium 3.6 mmol/L (3.4-5.1); Sodium 138 mmol/L (137-145)
[2020-07-25] MEDS: ONDANSETRON 4 MG/2 ML INJ IV ×2 (06:57→16:36)
[2020-07-25] MEDS: LORazepam 2 MG/ML INJ 1 MG IV ×2 (09:16→20:55)
[2020-07-25] MEDS: NICOTINE 21 MG PATCH TOP (09:47)
[2020-07-25] MEDS: FLUCONAZOLE 100 MG TABLET 200 MG PO (09:49)
[2020-07-25] MEDS: VERAPAMIL 80 MG TABLET 40 MG PO (09:49)
[2020-07-25] MEDS: LACTOBACILLUS ACIDOPHILUS TABLET 1 EACH PO ×2 (09:49→16:43)
[2020-07-25] MEDS: carBAMazepine XR 100 MG TAB 200 MG PO ×2 (09:49→21:00)
[2020-07-25] MEDS: AMOXICILLIN/CLAV 875/125 MG 1 TAB PO ×2 (09:49→21:00)
[2020-07-25] MEDS: GABAPENTIN 300 MG CAPSULE PO ×2 (09:49→21:01)
[2020-07-25] MEDS: ENOXAPARIN 40 MG/0.4 ML SYRINGE SUBCUT (09:49)
[2020-07-25] MEDS: PANTOPRAZOLE 40 MG TABLET PO (09:50)
[2020-07-25] MEDS: DOCUSATE 100 MG CAPSULE PO (09:50)
[2020-07-25] MEDS: ACETAMINOPHEN 325 MG TABLET 650 MG PO (09:50)
--- NOTE | 2020-07-25 10:15 | P.PN_ITS ---
Subjective Subjective Date Patient Seen: 07/25/20 Time Patient Seen: 10:15 Interval history: No acute events overnight. Pt still passing copious stool. Reports nausea, denies vomiting. Exam Vital Signs (past 8 hours): - 07/25/20 03:25 07/25/20 05:19 07/25/20 07:40 Temperature 97.1 F L 97.6 F Pulse Rate 76 79 Respiratory Rate 16 16 Blood Pressure 128/76 152/78 H Pulse Oximetry 97 97 99 Oxygen Delivery Method Room Air Oxygen Flow Rate 0 Narrative Exam Narrative: GENERAL: Alert,tearful due to anticipation of drain removal CARDIOVASCULAR: Regular rate. No pedal edema. RESPIRATORY: Non-tachypneic, breathing comfortably on room air. GASTROINTESTINAL: Abdomen soft, obese, serosanguineous output from the left GEMA drain (18mL output), incision clean dry and intact; GEMA drain removed during exam GENITALURINARY: No flank tenderness. MUSCULOSKELETAL: Equal tone and mass bilaterally. SKIN: Warm, dry, soft, appropriate color for ethnicity. No other lesions, rashes, or wounds. Objective Labs Result Diagrams: 07/25/20 05:49 07/25/20 05:49 Labs: Laboratory Results - last 24 hr 07/25/20 07/25/20 07/25/20 05:49 05:49 05:49 WBC 5.3 RBC 3.21 L Hgb 10.5 L Hct 30.0 L MCV 93.3 MCH 32.7 MCHC 35.0 RDW 12.7 Plt Count 333 Neut % (Auto) 60.8 Lymph % (Auto) 26.5 [place] % (Auto) 7.9 Eos % (Auto) 3.9 Baso % (Auto) 0.9 Neut # (Auto) 3200 Lymph # (Auto) 1400 [place] # (Auto) 400 Eos # (Auto) 200 Baso # (Auto) 0 Sodium 138 Potassium 3.6 Chloride 107 Carbon Dioxide 28 BUN 7 Creatinine 0.55 Estimated GFR > 60.0 BUN/Creatinine Ratio 12.7 Glucose 118 H Calcium 8.4 Phosphorus 4.4 Magnesium 2.1 Assessment & Plan Assessment & Plan narrative: This is a 45-year-old woman who is postop day 4 from laparoscopic converted to open drainage of pelvic abscess. She is putting out copious stool, and minimal drainage from her GEMA drain. GEMA drain was removed today. Her appetite is improving, although she generally does not feel well, complains of lot of pain and nausea. Pain not well controlled. Will adjust pain meds, and attempt to switch her to PO meds for dispo. Plan: Switch to PO antibiotics Advance diet to general DVT prophylax Home med Pain in antiemetic meds as needed--change to PO Ambulate as tolerated COVID-19 COVID-19 status: Negative Time Spent With Patient Time with patient: 15-24 minutes Quality VTE Deep Vein Thrombosis/Pulmonary Embolism Present on Admission: No
[2020-07-25] MEDS: PROCHLORPERAZINE 10 MG/2 ML VIAL IV (10:51)
--- NOTE | 2020-07-25 10:53 | PT-IP ANOTE ---
Attempted to see pt @10:53, pt refused d/t reported nausea. Will attempt to see pt in PM.
--- NOTE | 2020-07-25 12:26 | PT-IP ANOTE ---
Attempted to see pt @12:26, pt refused PT and stated she does not want PT later this PM.
--- NOTE | 2020-07-25 13:16 | PC.NURSE ---
Addendum entered by Payal Smith R.N. 07/25/20 15:24: Patient just woken up after taking a long nap.. She is well rested and visiting with a friend. She will call to use the bathroom soon. Patient has her period and her urine is light pink in color. Denies pain or nausea at this time. Original Note: Assess- Patient anxious this morning. Given ativan for nausea and helpful. into see patient and she pulled out patients juwan drain. This was extremely uncomfortable for patient, after about 30 minutes she started to feel better. Given oral medications and still complained of nausea, given promethazine and better. Incision wnl and open to air, site of drain covered with steri strips and intact. She states that she just had diarrhea and cleaned herself up, asked for a pair of our underwear. She seems content at this time. Will monitor for pain issues.
[2020-07-25] MEDS: HYDROMORPHONE 2 MG TABLET PO ×2 (16:34→19:38)
[2020-07-25] MEDS: LORazepam 1 MG TABLET PO (17:41)
[2020-07-25] MEDS: ATORVASTATIN 20 MG TABLET 10 MG PO (21:00)
[2020-07-25] MEDS: INDOMETHACIN 25 MG CAPSULE 50 MG PO (21:01)
[2020-07-25] MEDS: SODIUM CHLORIDE 0.9% FLUSH 10 ML IV (21:01)
[2020-07-26] MEDS: HYDROMORPHONE 2 MG TABLET PO ×2 (00:04→05:54)
[2020-07-26 00:10] VITALS: BP 133/74; PULSE 86; RESP 16; TEMP 36.2; O2SAT 92
[2020-07-26 00:30] VITALS: O2SAT 92
[2020-07-26 05:28] VITALS: BP 146/85; PULSE 72; RESP 16; TEMP 36.1; O2SAT 97
[2020-07-26] MEDS: ONDANSETRON 4 MG/2 ML INJ IV (05:55)
[2020-07-26 06:03] VITALS: O2SAT 97
[2020-07-26 06:40] LABS: Add Manual Diff / Slide Review NO; Basophils Absolute Auto 0 /uL (0-100); Basophils Percent Auto 0.7 % (0-2); Eosinophils Absolute Auto 200 /uL (0-450); Eosinophils Percent Auto 3.1 % (2-4); Hematocrit 33.8 % (36-46); Hemoglobin 11.8 g/dL (12.0-16.0); Lymphocytes Absolute Auto 1300 /uL (1100-4500); Lymphocytes Percent Auto 20.4 % (25-40); Mean Corpuscular HGB Conc 34.8 % (30-36); Mean Corpuscular Hemoglobin 32.4 PG (26-34); Mean Corpuscular Volume 93.1 fL (80-100); Monocytes Absolute Auto 500 /uL (0-900); Monocytes Percent Auto 7.6 % (3-14); Neutrophils Absolute Auto 4300 /uL (1500-7000); Neutrophils Percent Auto 68.2 % (50-75); Platelet Count 401 X10^3/uL (150-400); Red Blood Cell Count 3.64 X10^6/uL (4.0-5.2); Red Cell Distribution Width 12.5 % (11.6-14.8); White Blood Cell Count 6.3 X10^3/uL (4.5-11.0)
[2020-07-26 06:50] LABS: Blood Urea Nitrogen 13 mg/dL (7-17); Calcium 9.3 mg/dL (8.4-10.2); Carbon Dioxide 28 mmol/L (22-32); Chloride 105 mmol/L (98-107); Estimated Glomerular Filt Rate > 60.0 mL/min (>60); Glucose 113 mg/dL (70-100); HEMOLYSIS < 15 (0-50); Magnesium 2.1 mg/dL (1.6-2.3); Phosphorous 4.3 mg/dL (2.5-4.5); Potassium 3.9 mmol/L (3.4-5.1); Sodium 139 mmol/L (137-145)
[2020-07-26 07:36] VITALS: BP 125/72; PULSE 85; RESP 16; TEMP 36.7; O2SAT 94
[2020-07-26 08:39] VITALS: PULSE 62; RESP 18; O2SAT 98
[2020-07-26] MEDS: GABAPENTIN 300 MG CAPSULE PO (09:15)
[2020-07-26] MEDS: NICOTINE 21 MG PATCH TOP (09:15)
[2020-07-26] MEDS: LACTOBACILLUS ACIDOPHILUS TABLET 1 EACH PO (09:16)
[2020-07-26] MEDS: FLUCONAZOLE 100 MG TABLET 200 MG PO (09:16)
[2020-07-26] MEDS: PANTOPRAZOLE 40 MG TABLET PO (09:16)
[2020-07-26] MEDS: VERAPAMIL 80 MG TABLET 40 MG PO (09:18)
[2020-07-26] MEDS: AMOXICILLIN/CLAV 875/125 MG 1 TAB PO (09:20)
[2020-07-26] MEDS: ENOXAPARIN 40 MG/0.4 ML SYRINGE SUBCUT (09:20)
[2020-07-26] MEDS: carBAMazepine XR 100 MG TAB 200 MG PO (09:20)
[2020-07-26] MEDS: INDOMETHACIN 25 MG CAPSULE 50 MG PO (09:21)
[2020-07-26] MEDS: SODIUM CHLORIDE 0.9% FLUSH 10 ML IV (09:21)
--- NOTE | 2020-07-26 09:52 | P.DS_ITS ---
History of Present Illness History of Present Illness Date Patient Seen: 07/21/20 Time Patient Seen: 07:39 Chief complaint: Lower Abd Pain Going Into Left Leg Narrative: The patient is a woman who was recently discharged to continue outpatient treatment for a left pelvic abscess. Her pain however has become worse and begun to cause shooting pains down her left leg. She presented to the emergency room and was readmitted after repeat scanning showed an increase the size of her abscess. The patient has not had pain like this before. She had nausea and vomiting after being readmitted. She has been having daily bowel movements but she says that usually she has 2 or 3 in the morning and she is only having 1 a day. Appetite has been decreased. Discharge Providers Provider Date of admission: 07/20/20 20:31 Discharge Date: 07/26/20 Primary care physician: SIRENA Barraza Consults: 07/21/20 21:59 Consult to Discharge Planning Routine Comment: Consult to Physical Therapy Evaluate & Treat Comment: Physician Instructions: Evaluate and Treat Discharge provider: Trudy Diggs MD Summary Hospital Course Discharge Diagnosis: Pelvic abscess Hospital Course: Pt admitted for pelvic abscess, taken to OR for washout and drain placement, continued on appropriate antibiotics, pain control, and drain management. Drain removed on 07/25, and pain controlled with PO pain med by 07/26 mid day. Appopriate for discharge home on PO pain meds and antibiotics. Status at Discharge Cognitive/behavioral status at discharge: oriented Functional status at discharge: independent ambulation Overall status at discharge: patient is progressing back to baseline Time Spent with Patient Time spent: Greater than 30 minutes Exam Vital Signs (past 8 hours): - 07/26/20 05:28 07/26/20 06:03 07/26/20 07:36 Temperature 96.9 F L 98.0 F Pulse Rate 72 85 Respiratory Rate 16 16 Blood Pressure 146/85 H 125/72 Pulse Oximetry 97 97 94 07/26/20 08:39 Temperature Pulse Rate 62 Respiratory Rate 18 Blood Pressure Pulse Oximetry 98 Oxygen Delivery Method Room Air Oxygen Flow Rate 0 Narrative Exam Narrative: GENERAL: Alert,tearful due to anticipation of drain removal CARDIOVASCULAR: Regular rate. No pedal edema. RESPIRATORY: Non-tachypneic, breathing comfortably on room air. GASTROINTESTINAL: Abdomen soft, obese, Incisions c/d/i/a; steri strips in place; appropriate TTP MUSCULOSKELETAL: Equal tone and mass bilaterally. SKIN: Warm, dry, soft, appropriate color for ethnicity. No other lesions, rashes, or wounds. Objective Labs Result Diagrams: 07/26/20 06:24 07/26/20 06:24 Labs: Laboratory Results - last 24 hr 07/26/20 07/26/20 07/26/20 06:24 06:24 06:24 WBC 6.3 RBC 3.64 L Hgb 11.8 L Hct 33.8 L MCV 93.1 MCH 32.4 MCHC 34.8 RDW 12.5 Plt Count 401 H Neut % (Auto) 68.2 Lymph % (Auto) 20.4 L Crockett % (Auto) 7.6 Eos % (Auto) 3.1 Baso % (Auto) 0.7 Neut # (Auto) 4300 Lymph # (Auto) 1300 Crockett # (Auto) 500 Eos # (Auto) 200 Baso # (Auto) 0 Sodium 139 Potassium 3.9 Chloride 105 Carbon Dioxide 28 BUN 13 Creatinine 0.52 Estimated GFR > 60.0 BUN/Creatinine Ratio 25.0 H Glucose 113 H Calcium 9.3 Phosphorus 4.3 Magnesium 2.1 Discharge Assessment & Plan Assessment and Plan Assessment: s/p laparoscopic drainage and drain placement for pelvic abscess Plan of Treatment: Discharge home on PO antibiotics x 10 days to complete a two week course Discharge Plan Discharge Plan Patient Disposition: Home Provider Discharge Comment: You will be prescribed a narcotic pain medication. You may also Tylenol/ Acetaminophen for pain after surgery. Make sure you do not take more than 3000 mg of Acetaminophen per day from any source. There may be Acetaminophen in your prescription pain medication, cold medications or headache remedies. You may take it along with or instead of your prescribed pain medication. Make sure to take the stool softener to prevent constipation from the narcotic pain medication. If you have loose stool, you may hold a dose of the stool softener. Avoid any straining on the toilet. Avoid heavy lifting, pulling, or pushing more than 10 lbs or doing other activities that strain the abdomen or increase the abdominal pressure such as sit-ups, core work outs, and attempt to prevent frequent coughing. If you have fevers, foul smelling drainage from your incisions, intractable nausea/vomiting, or intractable pain please call the doctor's office or if symptoms are severe come into the ER. If you call after hours please choose the option to contact the surgeon ad operations coordinator rather than leaving a message. Discharge orders & Medications Prescriptions: New hydromorphone [Dilaudid] 2 mg tablet 2 mg PO Q4-6H PRN (Reason: post operative pain) Qty: 30 RF: 0 docusate sodium 100 mg capsule 100 mg PO BID Qty: 20 RF: 0 amoxicillin-pot clavulanate [Augmentin] 875-125 mg tablet 1 tab PO Q12H Qty: 20 RF: 0 Continued lorazepam 1 mg tablet 1 mg PO BID PRN (Reason: anxiety) Qty: 20 RF: 0 docusate sodium [Colace] 100 mg capsule 100 mg PO BID 30 Days Qty: 60 RF: 0 ondansetron HCl 4 mg tablet 4 mg PO Q8H PRN (Reason: nausea and vomiting) Qty: 10 RF: 0 carbamazepine 100 mg capsule, ER multiphase 12 hr 100 mg PO BID 14 Days Qty: 60 RF: 5 indomethacin 50 mg capsule 50 mg PO TID RF: 0 verapamil 40 mg tablet 40 mg PO DAILY RF: 0 atorvastatin 10 mg tablet 10 mg PO DAILY Qty: 90 RF: 1 Prilosec 10 mg susp,delayed release for recon 10 mg PO DAILY RF: 0 Follow up/Referrals: Lacie Black ARNP [Primary Care Provider] - Carlos Avalos MD [Physician] - (Please call [facility] on Monday to make a follow up appointment to see Dr. Avalos in 1-2 weeks.) Diet/Activity/Treatments Diet: Diet as Tolerated Skin/Wound/Dressing Care Report to your healthcare provider any signs of infection, such as:: chills, fever, night sweats, increased pain, unusual drainage and unusual redness Visit Report/Discharge Packet Instructions: DI for Laparoscopy, DI for Prescription Opioid Use, Hydromorphone, [facility]: Wound Care Stand Alone Forms: Surgery Discharge Visit Report Forms: Patient Portal/API, Stroke Signs & Symptoms Discharge Data Primary Care Provider: Lacie Black Discharges patient from system. Discharge Date/Time: 07/26/20 12:30 Quality VTE Deep Vein Thrombosis/Pulmonary Embolism Present on Admission: No
--- NOTE | 2020-07-26 10:37 | CM.DPC ---
DCP: continued: Dr. Diggs is here and completing the d/c to home orders. P: home today as per pt's prior plan.
--- NOTE | 2020-07-26 11:25 | PC.NURSE ---
Assess- Patient is ready to be discharged home today. Her incision is open to air and ss all intact. She has showered and will be leaving at 1230
--- NOTE | 2020-07-26 12:38 | PT-IP ANOTE ---
Pt discharged @1230 and before PT session.
== END 2020-07-26 12:30 | disposition home or self-care (01) | DRG 744 ==
LOC: ED 07-20 18:07 → AC 07-20 20:34 → ED 08-04 14:09 → AC 08-19 15:03
PROVIDERS: Surgery; Admitting Provider Specialist; Emergency Provider Emergency Medicine; PCP Nurse Practitioner; Referring Provider Emergency Medicine; Visit Provider Specialist
PROC: 0W9J00Z Drainage of Pelvic Cavity with Drainage Device, Open Approach (ICD-10-PCS; CPT 49320; principal; 2020-07-21 16:15)
DX: N73.9 Female pelvic inflammatory disease, unspecified (principal); B37.89 Other sites of candidiasis; B96.89 Other specified bacterial agents as the cause of diseases classified elsewhere; G50.0 Trigeminal neuralgia; E78.5 Hyperlipidemia, unspecified; F17.210 Nicotine dependence, cigarettes, uncomplicated; F32.9 Major depressive disorder, single episode, unspecified; J45.909 Unspecified asthma, uncomplicated; Z11.59 Encounter for screening for other viral diseases; Z53.31 Laparoscopic surgical procedure converted to open procedure
CPT/HCPCS: 36415; 45330; 49020; 57410; 71260; 72141; 72146; 72148; 74177; 76856; 80048; 80053; 81003; 81025; 83690; 83735; 84100; 84703; 85025; 85610; 85730; 87070; 87075; 87077; 87186; 87205; 87491; 87591; 87635; 87797; 90471; 90656; 94640; 94760; 96361; 96365; 96375; 97116; 97162; 97530; 99232; 99252; 99284; 99285; C9113; J0290; J0330; J0780; J1100; J1170; J1450; J1650; J1885; J2060; J2250; J2405; J2543; J2704; J2765; J3010; J3410; J7121; J7613; Q2038; Q9967

== ENCOUNTER 2020-07-16 14:17 | Inpatient (IN) | payer OTHER, MEDICAID, SELFPAY ==
[2020-07-16 14:25] VITALS: BP 132/97; PULSE 99; RESP 18; TEMP 36.9; O2SAT 97; BMI 35.5
[2020-07-16 15:07] LABS: Add Manual Diff / Slide Review NO; Basophils Absolute Auto 200 /uL (0-100); Basophils Percent Auto 1.4 % (0-2); Eosinophils Absolute Auto 100 /uL (0-450); Hematocrit 38.2 % (36-46); Hemoglobin 13.3 g/dL (12.0-16.0); Lymphocytes Absolute Auto 1500 /uL (1100-4500); Mean Corpuscular HGB Conc 34.8 % (30-36); Mean Corpuscular Hemoglobin 31.9 PG (26-34); Mean Corpuscular Volume 91.7 fL (80-100); Monocytes Absolute Auto 700 /uL (0-900); Monocytes Percent Auto 5.2 % (3-14); Neutrophils Absolute Auto 10200 /uL (1500-7000); Neutrophils Percent Auto 80.4 % (50-75); Platelet Count 351 X10^3/uL (150-400); Red Blood Cell Count 4.17 X10^6/uL (4.0-5.2); Red Cell Distribution Width 12.9 % (11.6-14.8); White Blood Cell Count 12.7 X10^3/uL (4.5-11.0)
[2020-07-16 15:11] LABS: Prothrombin Time 11.6 SECONDS (10.1-12.7)
[2020-07-16 15:13] LABS: PTT Partial Thromboplastin Tim 39 SECONDS (26.4-36.2)
[2020-07-16 15:16] LABS: Alanine Aminotransferase 25 IU/L (<35); Albumin 4.2 g/dL (3.5-5.0); Albumin Globulin Ratio 1.3 (1.0-2.8); Alkaline Phosphatase 91 U/L (38-126); Aspartate Aminotransferase 22 IU/L (14-36); BUN Creatinine Ratio 28.1 (6-22); Bilirubin Total 0.3 mg/dL (0.2-1.3); Blood Urea Nitrogen 16 mg/dL (7-17); Calcium 9.2 mg/dL (8.4-10.2); Carbon Dioxide 28 mmol/L (22-32); Chloride 106 mmol/L (98-107); Estimated Glomerular Filt Rate > 60.0 mL/min (>60); Globulin 3.3 g/dL (1.7-4.1); Glucose 152 mg/dL (70-100); HEMOLYSIS < 15 (0-50); Potassium 3.9 mmol/L (3.4-5.1); Sodium 139 mmol/L (137-145); Total Protein 7.5 g/dL (6.3-8.2)
[2020-07-16 16:26] VITALS: BP 138/96; PULSE 96; RESP 18; TEMP 36.7; O2SAT 95
--- NOTE | 2020-07-16 16:28 | DI.CT.S_ITS ---
PROCEDURE: CT ABDOMEN PELVIS W CON INDICATIONS: IV contrast only/Lower abdominal pain/rectal pain TECHNIQUE: After the administration of intravenous contrast, 5 mm thick sections acquired from the diaphragm to the symphysis. 5 mm coronal and sagittal reformats were acquired. For radiation dose reduction, the following was used: automated exposure control, adjustment of mA and/or kV according to patient size. COMPARISON: [facility], CT, ABDOMEN/PELVIS WITH CONTRAST, 12/30/2010, 17:46. [facility], CR, XR ACUTE ABDOMEN SERIES, 07/13/2020, 13:07. FINDINGS: Image quality: Excellent. ABDOMEN: Lung bases: Lung bases are clear. Heart size is normal. Solid organs: Liver is normal in size and enhancement. Diffuse fatty liver infiltration is noted. Gallbladder has been removed. Biliary system is non dilated. Pancreas enhances normally. Spleen is normal in size and enhancement. No adrenal nodules. Kidneys demonstrate normal size and enhancement, without hydronephrosis. Peritoneum and bowel: There is a left pelvic abscess seen within the left posterior pelvis that measures 5.5 x 2.3 cm in greatest axial dimension, with a craniocaudal extent of 2.8 cm. There is mild rim enhancement. Gas and loculated fluid can be seen. Mild free fluid is also seen. There is thickening of the adjacent rectum and sigmoid. No other areas of bowel wall thickening can be seen. A normal appendix is incidentally noted. Nodes and vessels: No retroperitoneal or mesenteric adenopathy by size criteria. Aorta and inferior vena cava are normal in size. Miscellaneous: No ventral hernias. PELVIS: Genitourinary: Bladder wall thickness is normal. The uterus appears normal for age. No adnexal masses are seen. Miscellaneous: No inguinal hernias or adenopathy. Bones: No suspicious bony lesions. No vertebral body compression fractures. IMPRESSION: Left pelvic abscess seen, with a maximum dimension of 5.5 cm. Incidental note is made of: Fatty liver infiltration Cholecystectomy Normal appendix. Note: Case discussed by telephone with Dr. Fu at 4:15 p.m. [place] time on July 16, 2020. Dictated by: Abrahan Santana M.D. on 07/16/2020 at 16:09 Approved by: Abrahan Santana M.D. on 07/16/2020 at 16:17
--- NOTE | 2020-07-16 16:31 | ED.ABDPAIN ---
HPI - Abdominal Pain <Garland Fu MD - Last Filed: 07/20/20 01:14> General Chief Complaint: Abdominal Pain Stated Complaint: rectal issues Time Seen by Provider: 07/16/20 15:43 Source: patient Mode of arrival: Ambulatory Limitations: no limitations History of Present Illness HPI narrative: Patient here for rectal pain and bladder fullness sensation. Hurts to pass stool 5 has been having bowel movements. Last week had nausea vomiting diarrhea fever chills. No urinary complaints. Since then diarrhea and vomiting has resolved. Now has rectal pain and suprapubic discomfort. Had tried enema yesterday without relief. Seen by family doctor Monday as well. Patient does state her and her partner had sex last week and did have digital penetration of the anus, history of anal sex but did not do that last week. 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, Jus Related Data Home Medications Medication Instructions Recorded Confirmed omeprazole magnesium 10 mg oral 10 mg PO DAILY 04/22/20 07/17/20 suspension,delayed release verapamil 40 mg tablet 40 mg PO DAILY 06/11/20 07/17/20 indomethacin 50 mg capsule 50 mg PO TID 07/13/20 07/17/20 Previous Rx's Medication Instructions Recorded carbamazepine 100 mg 100 mg PO BID 14 Days #60 cap 01/03/20 capsule,extended release [id number] lorazepam 1 mg tablet 1 mg PO BID PRN #20 tab 01/31/20 hydroxyzine pamoate 25 mg capsule 25 mg PO BEDTIME #60 cap 06/04/20 atorvastatin 10 mg tablet 10 mg PO DAILY #90 tab 06/11/20 docusate sodium 100 mg capsule 100 mg PO BID 30 Days #60 cap 07/13/20 doxycycline hyclate 100 mg PO BID #24 cap 07/17/20 levofloxacin 750 mg PO DAILY #12 tab 07/17/20 ondansetron HCl 4 mg tablet 4 mg PO Q8H PRN #10 tab 07/18/20 oxycodone-acetaminophen 5 mg-325 1 tab PO Q4-6H PRN #20 tab 07/18/20 mg tablet Allergies Allergy/AdvReac Type Severity Reaction Status Date / Time cat dander [CAT DANDER] Allergy Mild SNEEZING Verified 07/13/20 11:10 AND HIVES morphine AdvReac Severe VOMITING Verified 07/13/20 11:10 codeine AdvReac Mild NAUSEA Verified 07/13/20 11:10 Review of Systems <Garland Fu MD - Last Filed: 07/20/20 01:14> Review of Systems Narrative: GENERAL: Denies chills, fatigue, malaise, fever, sweats. HEENT: Denies sinus pain, ear pain, sore throat, difficulty swallowing RESPIRATORY: Denies dyspnea, cough CARDIOVASCULAR: Denies chest pain, palpitations, edema, GASTROINTESTINAL: Denies nausea, vomiting, abdominal pain, diarrhea, constipation, melena. Complains of rectal pain : Denies dysuria, frequency, hematuria, complains of bladder fullness MUSCULOSKELETAL: denies muscle or bony pain SKIN: Denies rash, skin lesions NEUROLOGIC: Denies weakness, headache, numbness, change in speech, confusion PSYCHIATRIC: No SI or HI or hallucinations ROS Unobtainable: All systems reviewed & are unremarkable except as noted in HPI and below Patient History <Garland Fu MD - Last Filed: 07/20/20 01:14> Medical History Anxiety (Chronic) Asthma (Chronic) Bacterial vaginosis (Resolved) Biliary dyskinesia (Inactive) Carotid artery plaque (Acute) Carotid artery stenosis (Acute) Chlamydia (Resolved) Cholecystitis (Inactive) Chronic sinusitis (Inactive) Coccygeal pain, acute (Inactive) Depression (Chronic) Difficulty swallowing (Resolved) Ear pain, right (Resolved) High risk HPV infection (Inactive) Hoarseness or changing voice (Inactive) HPV (human papilloma virus) infection (Resolved) Hyperlipidemia (Acute) Insomnia (Acute) Low grade squamous intraepith lesion on cytologic smear cervix (lgsil) (Inactive) Lump in neck (Inactive 10/2019) Lymph node disorder (Acute) Mixed anxiety depressive disorder (Chronic 08/20/02) Odynophagia (Inactive) Oral herpes (Resolved) Rash (Inactive) Rectal pressure (Inactive) Right lateral epicondylitis (Inactive 01/2018) RUQ abdominal pain (Inactive) Seasonal affective disorder (Inactive) Thyroid cyst (Acute) Thyroid mass (Ruled-out) Trigeminal neuralgia of right side of face (Acute) Upper back pain (Inactive) Surgical History Hx of oral surgery (Acute ~12/2019) S/P laparoscopic cholecystectomy (Inactive) Family History Brother Age: 40 Depression Drug abuse Father Depression Overdose Grandfather Suicide Grandmother No problems noted. Grandfather No problems noted. Grandmother No problems noted. Brother No problems noted. Mother No problems noted. Social History household members: friend(s) Smoking Status: Current every day smoker Tobacco: How many years used: 30 quit status: not considering quitting second hand exposure: No alcohol intake: never substance use type: marijuana Smoking Status: Current every day smoker alcohol intake frequency: 0-2 drinks per day Substance Use Type: marijuana Exam <Garland Fu MD - Last Filed: 07/20/20 01:14> Narrative Exam Narrative: GENERAL: patient appears stated age. Well-nourished, well-developed patient, in no distress, not toxic not dyspneic HEAD: Normocephalic. EYES: Pupils equal round and reactive. No scleral icterus. No injection no discharge ENT: Mucous membranes moist. No drooling no tongue elevation no trismus no malocclusion NECK: Trachea midline. Non tender CARDIOVASCULAR: Regular rate and rhythm without murmurs, gallops, or rubs. RESPIRATORY: Clear to auscultation. Breath sounds equal bilaterally. No wheezes, rales, or rhonchi. GASTROINTESTINAL: Abdomen soft, non-tender, nondistended. 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 Digital rectal exam there is tenderness but no palpable abscess. Small nonbleeding internal hemorrhoid palpable. No blood on glove. No black stool on glove. No discharge, no skin tear seen no fissures. EXTREMITIES: No gross deformities. BACK: Nontender without deformity or crepitance. No flank tenderness. NEURO: AOx4. SKIN: Warm and dry PSYCH: Not anxious, is cooperative Initial Vital Signs Initial Vital Signs: Vital Signs Temperature 98.5 F 07/16/20 14:25 Pulse Rate 99 H 07/16/20 14:25 Respiratory Rate 18 07/16/20 14:25 Blood Pressure 132/97 H 07/16/20 14:25 Pulse Oximetry 97 07/16/20 14:25 <Jass Ho DO - Last Filed: 07/17/20 03:42> Initial Vital Signs Initial Vital Signs: Vital Signs Temperature 98.5 F 07/16/20 14:25 Pulse Rate 99 H 07/16/20 14:25 Respiratory Rate 18 07/16/20 14:25 Blood Pressure 132/97 H 07/16/20 14:25 Pulse Oximetry 97 07/16/20 14:25 Course <Garland Fu MD - Last Filed: 07/20/20 01:14> Course Course Narrative: Time 6:[address] ho....awaiting pelvic us....then call dr avalos and dr freed Decision to Admit Date: 07/16/20 Decision to Admit time: 18:07 Orders Ordered: Discontinued Medications Acetaminophen (Tylenol) 975 mg PO NOW ONE Stop: 07/16/20 21:31 Last Admin: 07/16/20 22:00 Dose: Not Given Documented by: MAXINE Acetaminophen (Tylenol) 650 mg PO NOW ONE Stop: 07/17/20 00:59 Last Admin: 07/17/20 01:06 Dose: 650 mg Documented by: JESSICA Acetaminophen (Tylenol) 975 mg PO PACUNOW PRN PRN Reason: Pain, Mild (1-3) Albuterol (Ventolin) 2.5 mg INH NOW PRN PRN Reason: Coughing, Wheezing, Dyspnea Benzocaine (Cepacol Lozenge) 1 each PO PRN PRN PRN Reason: Sore Throat Carbamazepine (Tegretol) 100 mg PO BID [facility] Carbamazepine (Tegretol Xr) 100 mg PO NOW ONE Stop: 07/17/20 18:46 Last Admin: 07/17/20 21:16 Dose: Not Given Documented by: KAM Carbamazepine (Tegretol Xr) 100 mg PO BID [facility] Last Admin: 07/18/20 08:38 Dose: 100 mg Documented by: Admin: 07/17/20 21:09 Dose: 100 mg Documented by: KAM Doxycycline Hyclate (Vibramycin) 100 mg PO BID [facility] Last Admin: 07/18/20 08:38 Dose: 100 mg Documented by: Admin: 07/17/20 21:09 Dose: 100 mg Documented by: KAM Fentanyl (Sublimaze) 0 mcg IV Q5M PRN PRN Reason: Pain, Moderate (4-6) Last Admin: 07/17/20 13:24 Dose: 50 mcg Documented by: Admin: 07/17/20 13:20 Dose: 50 mcg Documented by: LYNNETTE Hydromorphone HCl (Dilaudid) 0.5 mg IV NOW ONE Stop: 07/16/20 18:17 Last Admin: 07/16/20 18:22 Dose: 0.5 mg Documented by: MAXINE Hydromorphone HCl (Dilaudid) 0.5 mg IV NOW ONE Stop: 07/16/20 19:52 Last Admin: 07/16/20 19:54 Dose: 0.5 mg Documented by: MAXINE Hydromorphone HCl (Dilaudid) 0.5 mg IV Q2H PRN PRN Reason: Pain, Severe (7-10) Last Admin: 07/17/20 10:18 Dose: 0.5 mg Documented by: Admin: 07/17/20 07:57 Dose: 0.5 mg Documented by: MICHAEL Sodium Chloride (Normal Saline 0.9%) 1,000 mls @ 1,000 mls/hr IV BOLUS ONE Stop: 07/16/20 17:28 Last Infusion: 07/16/20 20:42 Dose: 0 mls/hr Documented by: Admin: 07/16/20 16:33 Dose: 1,000 mls/hr Documented by: MAXINE Metronidazole (Flagyl) 500 mg in 100 mls @ 100 mls/hr IV NOW ONE Stop: 07/16/20 18:30 Last Infusion: 07/16/20 20:42 Dose: 0 mls/hr Documented by: Admin: 07/16/20 17:55 Dose: 100 mls/hr Documented by: TJ Ceftriaxone Sodium/Dextrose (Rocephin) 1 gm in 50 mls @ 100 mls/hr IV NOW ONE Stop: 07/16/20 18:00 Last Infusion: 07/16/20 18:52 Dose: 0 mls/hr Documented by: Admin: 07/16/20 17:54 Dose: 100 mls/hr Documented by: TJ Sodium Chloride (Normal Saline 0.9%) 1,000 mls @ 125 mls/hr IV CONT [facility] Last Infusion: 07/17/20 11:30 Dose: 0 mls/hr Documented by: Admin: 07/17/20 06:32 Dose: 125 mls/hr Documented by: Infusion: 07/17/20 06:28 Dose: 125 mls/hr Documented by: Admin: 07/16/20 22:28 Dose: 125 mls/hr Documented by: DEIDRE Ampicillin Sodium 2,000 mg/ (Sodium Chloride) 100 mls @ 200 mls/hr IV Q6H [facility] Last Infusion: 07/17/20 14:31 Dose: 0 mls/hr Documented by: Admin: 07/17/20 12:23 Dose: 200 mls/hr Documented by: LYNNETTE Clindamycin Phosphate (Cleocin) 900 mg in 50 mls @ 50 mls/hr IV Q8H [facility] Last Infusion: 07/17/20 12:23 Dose: 0 mls/hr Documented by: Admin: 07/17/20 11:07 Dose: 50 mls/hr Documented by: DIANA Gentamicin Sulfate 350 mg/ (Sodium Chloride) 108.75 mls @ 108.75 mls/hr IV NOW ONE Stop: 07/17/20 08:31 Last Infusion: 07/17/20 11:00 Dose: 0 mls/hr Documented by: Admin: 07/17/20 09:57 Dose: 108.75 mls/hr Documented by: MICHAEL Piperacillin/Tazobactam/Dextrose (Zosyn) 3.375 gm in 50 mls @ 100 mls/hr IV Q6H [facility] Last Admin: 07/18/20 15:01 Dose: 100 mls/hr Documented by: Infusion: 07/18/20 13:35 Dose: 0 mls/hr Documented by: Admin: 07/18/20 08:38 Dose: 100 mls/hr Documented by: Infusion: 07/18/20 03:38 Dose: 0 mls/hr Documented by: Admin: 07/18/20 02:50 Dose: 100 mls/hr Documented by: [email or web address] Infusion: 07/17/20 21:39 Dose: 100 mls/hr Documented by: Admin: 07/17/20 21:09 Dose: 100 mls/hr Documented by: Infusion: 07/17/20 18:17 Dose: 0 mls/hr Documented by: Admin: 07/17/20 15:52 Dose: 100 mls/hr Documented by: KAM Lactated Ringer's (Lactated Ringers) 1,000 mls @ 120 mls/hr IV CONT [facility] Last Admin: 07/17/20 15:04 Dose: Not Given Documented by: MICHAEL Lactated Ringer's (Lactated Ringers) 1,000 mls @ 42 mls/hr IV CONT [facility] Last Admin: 07/17/20 12:00 Dose: 42 mls/hr Documented by: LYNNETTE Famotidine (Pepcid) 20 mg in 50 mls @ 200 mls/hr IV NOW ONE Stop: 07/17/20 15:21 Last Infusion: 07/17/20 18:17 Dose: 0 mls/hr Documented by: Admin: 07/17/20 16:09 Dose: 200 mls/hr Documented by: KAM Ibuprofen (Advil) 600 mg PO Q6HR PRN PRN Reason: Fever/Mild Pain (1-3) Indomethacin (Indocin) 50 mg PO TIDWM [facility] Last Admin: 07/18/20 13:35 Dose: 50 mg Documented by: Admin: 07/18/20 08:37 Dose: 50 mg Documented by: REX Ketorolac Tromethamine (Toradol) 15 mg INJ NOW ONE Stop: 07/16/20 16:37 Last Admin: 07/16/20 16:39 Dose: 15 mg Documented by: MAXINE Ketorolac Tromethamine (Toradol) 30 mg IV NOW PRN PRN Reason: Pain, Mild (1-3) Metoclopramide HCl (Reglan) 10 mg IV NOW ONE Stop: 07/16/20 21:39 Last Admin: 07/16/20 21:42 Dose: 10 mg Documented by: MAXINE Metoclopramide HCl (Reglan) 10 mg IV Q6HR PRN PRN Reason: Nausea And Vomiting Last Admin: 07/17/20 18:17 Dose: 10 mg Documented by: Admin: 07/17/20 11:51 Dose: 10 mg Documented by: MICHAEL Nicotine (Nicoderm) 21 mg TOP NOW ONE Stop: 07/17/20 11:27 Last Admin: 07/17/20 11:50 Dose: 21 mg Documented by: MICHAEL Ondansetron HCl (Zofran) 4 mg IV NOW ONE Stop: 07/16/20 18:17 Last Admin: 07/16/20 18:22 Dose: 4 mg Documented by: MAXINE Ondansetron HCl (Zofran) 4 mg IV NOW ONE Stop: 07/16/20 19:26 Last Admin: 07/16/20 19:42 Dose: 4 mg Documented by: MAXINE Ondansetron HCl (Zofran) 4 mg IV Q4HR PRN PRN Reason: Nausea And Vomiting Last Admin: 07/17/20 21:14 Dose: 4 mg Documented by: Admin: 07/17/20 12:27 Dose: 4 mg Documented by: Admin: 07/17/20 07:57 Dose: 4 mg Documented by: Admin: 07/16/20 22:44 Dose: 4 mg Documented by: DEIDRE Ondansetron HCl (Zofran) 4 mg IV NOW PRN PRN Reason: Nausea And Vomiting Last Admin: 07/17/20 13:55 Dose: 4 mg Documented by: LYNNETTE Oxycodone HCl (Percolone) 5 mg PO Q6H PRN PRN Reason: Pain, Severe (7-10) Oxycodone HCl (Percolone) 10 mg PO Q6H PRN PRN Reason: Pain, Severe (7-10) Pantoprazole Sodium (Protonix) 40 mg IV NOW ONE Stop: 07/16/20 19:00 Last Admin: 07/16/20 19:41 Dose: 40 mg Documented by: MAXINE Pantoprazole Sodium (Protonix) 40 mg IV DAILY [facility] Last Admin: 07/18/20 08:38 Dose: 40 mg Documented by: Admin: 07/17/20 16:08 Dose: 40 mg Documented by: KAM Sodium Chloride (Normal Saline 0.9% Flush) 10 ml IV PRN PRN PRN Reason: Flush Sodium Chloride (Normal Saline 0.9% Flush) 10 ml IV BID [facility] Last Admin: 07/18/20 08:38 Dose: 10 ml Documented by: REX Reevaluation(s) Reevaluation #1: Spoke with patient regarding diagnosis and results of CT scan Time: 17:33 Consultations Consultation #1: Spoke with general surgery dr freed... He has reviewed CT scan and is inquiring whether OBGYN needs to be involved...he s/w dr avalos... She would like to have pelvic ultrasound done and then call them back Time: 18:07 Vital Signs Vital signs: Vital Signs - 8 hr 07/16/20 14:25 07/16/20 16:26 07/16/20 17:04 Temperature 98.5 F 98.1 F Pulse Rate 99 H 96 H 94 H Respiratory Rate 18 18 16 Blood Pressure 132/97 H 138/96 H 114/92 H Pulse Oximetry 97 95 97 07/16/20 18:38 Temperature Pulse Rate 74 Respiratory Rate 18 Blood Pressure 141/87 H Pulse Oximetry 98 <Jass Ho DO - Last Filed: 07/17/20 03:42> Course Course Narrative: upon receipt of US findings I placed a call to Dr. Epperson, she was happy to accept the patient on her service and asked that patient be kept on ABX, NPO after midnight, pain meds, antiemetics and IVF Orders Ordered: Discontinued Medications Acetaminophen (Tylenol) 975 mg PO NOW ONE Stop: 07/16/20 21:31 Last Admin: 07/16/20 22:00 Dose: Not Given Documented by: MAXINE Acetaminophen (Tylenol) 650 mg PO NOW ONE Stop: 07/17/20 00:59 Last Admin: 07/17/20 01:06 Dose: 650 mg Documented by: JESSICA Acetaminophen (Tylenol) 975 mg PO PACUNOW PRN PRN Reason: Pain, Mild (1-3) Albuterol (Ventolin) 2.5 mg INH NOW PRN PRN Reason: Coughing, Wheezing, Dyspnea Benzocaine (Cepacol Lozenge) 1 each PO PRN PRN PRN Reason: Sore Throat Carbamazepine (Tegretol) 100 mg PO BID [facility] Carbamazepine (Tegretol Xr) 100 mg PO NOW ONE Stop: 07/17/20 18:46 Last Admin: 07/17/20 21:16 Dose: Not Given Documented by: KAM Carbamazepine (Tegretol Xr) 100 mg PO BID [facility] Last Admin: 07/18/20 08:38 Dose: 100 mg Documented by: Admin: 07/17/20 21:09 Dose: 100 mg Documented by: KAM Doxycycline Hyclate (Vibramycin) 100 mg PO BID [facility] Last Admin: 07/18/20 08:38 Dose: 100 mg Documented by: Admin: 07/17/20 21:09 Dose: 100 mg Documented by: KAM Fentanyl (Sublimaze) 0 mcg IV Q5M PRN PRN Reason: Pain, Moderate (4-6) Last Admin: 07/17/20 13:24 Dose: 50 mcg Documented by: Admin: 07/17/20 13:20 Dose: 50 mcg Documented by: LYNNETTE Hydromorphone HCl (Dilaudid) 0.5 mg IV NOW ONE Stop: 07/16/20 18:17 Last Admin: 07/16/20 18:22 Dose: 0.5 mg Documented by: MAXINE Hydromorphone HCl (Dilaudid) 0.5 mg IV NOW ONE Stop: 07/16/20 19:52 Last Admin: 07/16/20 19:54 Dose: 0.5 mg Documented by: MAXINE Hydromorphone HCl (Dilaudid) 0.5 mg IV Q2H PRN PRN Reason: Pain, Severe (7-10) Last Admin: 07/17/20 10:18 Dose: 0.5 mg Documented by: Admin: 07/17/20 07:57 Dose: 0.5 mg Documented by: MICHAEL Sodium Chloride (Normal Saline 0.9%) 1,000 mls @ 1,000 mls/hr IV BOLUS ONE Stop: 07/16/20 17:28 Last Infusion: 07/16/20 20:42 Dose: 0 mls/hr Documented by: Admin: 07/16/20 16:33 Dose: 1,000 mls/hr Documented by: MAXINE Metronidazole (Flagyl) 500 mg in 100 mls @ 100 mls/hr IV NOW ONE Stop: 07/16/20 18:30 Last Infusion: 07/16/20 20:42 Dose: 0 mls/hr Documented by: Admin: 07/16/20 17:55 Dose: 100 mls/hr Documented by: TJ Ceftriaxone Sodium/Dextrose (Rocephin) 1 gm in 50 mls @ 100 mls/hr IV NOW ONE Stop: 07/16/20 18:00 Last Infusion: 07/16/20 18:52 Dose: 0 mls/hr Documented by: Admin: 07/16/20 17:54 Dose: 100 mls/hr Documented by: TJ Sodium Chloride (Normal Saline 0.9%) 1,000 mls @ 125 mls/hr IV CONT [facility] Last Infusion: 07/17/20 11:30 Dose: 0 mls/hr Documented by: Admin: 07/17/20 06:32 Dose: 125 mls/hr Documented by: Infusion: 07/17/20 06:28 Dose: 125 mls/hr Documented by: Admin: 07/16/20 22:28 Dose: 125 mls/hr Documented by: DEIDRE Ampicillin Sodium 2,000 mg/ (Sodium Chloride) 100 mls @ 200 mls/hr IV Q6H [facility] Last Infusion: 07/17/20 14:31 Dose: 0 mls/hr Documented by: Admin: 07/17/20 12:23 Dose: 200 mls/hr Documented by: LYNNETTE Clindamycin Phosphate (Cleocin) 900 mg in 50 mls @ 50 mls/hr IV Q8H [facility] Last Infusion: 07/17/20 12:23 Dose: 0 mls/hr Documented by: Admin: 07/17/20 11:07 Dose: 50 mls/hr Documented by: DIANA Gentamicin Sulfate 350 mg/ (Sodium Chloride) 108.75 mls @ 108.75 mls/hr IV NOW ONE Stop: 07/17/20 08:31 Last Infusion: 07/17/20 11:00 Dose: 0 mls/hr Documented by: Admin: 07/17/20 09:57 Dose: 108.75 mls/hr Documented by: MICHAEL Piperacillin/Tazobactam/Dextrose (Zosyn) 3.375 gm in 50 mls @ 100 mls/hr IV Q6H [facility] Last Admin: 07/18/20 15:01 Dose: 100 mls/hr Documented by: Infusion: 07/18/20 13:35 Dose: 0 mls/hr Documented by: Admin: 07/18/20 08:38 Dose: 100 mls/hr Documented by: Infusion: 07/18/20 03:38 Dose: 0 mls/hr Documented by: Admin: 07/18/20 02:50 Dose: 100 mls/hr Documented by: Infusion: 07/17/20 21:39 Dose: 100 mls/hr Documented by: Admin: 07/17/20 21:09 Dose: 100 mls/hr Documented by: Infusion: 07/17/20 18:17 Dose: 0 mls/hr Documented by: Admin: 07/17/20 15:52 Dose: 100 mls/hr Documented by: KAM Lactated Ringer's (Lactated Ringers) 1,000 mls @ 120 mls/hr IV CONT [facility] Last Admin: 07/17/20 15:04 Dose: Not Given Documented by: MICHAEL Lactated Ringer's (Lactated Ringers) 1,000 mls @ 42 mls/hr IV CONT [facility] Last Admin: 07/17/20 12:00 Dose: 42 mls/hr Documented by: LYNNETTE Famotidine (Pepcid) 20 mg in 50 mls @ 200 mls/hr IV NOW ONE Stop: 07/17/20 15:21 Last Infusion: 07/17/20 18:17 Dose: 0 mls/hr Documented by: Admin: 07/17/20 16:09 Dose: 200 mls/hr Documented by: AKM Ibuprofen (Advil) 600 mg PO Q6HR PRN PRN Reason: Fever/Mild Pain (1-3) Indomethacin (Indocin) 50 mg PO TIDWM [facility] Last Admin: 07/18/20 13:35 Dose: 50 mg Documented by: Admin: 07/18/20 08:37 Dose: 50 mg Documented by: REX Ketorolac Tromethamine (Toradol) 15 mg INJ NOW ONE Stop: 07/16/20 16:37 Last Admin: 07/16/20 16:39 Dose: 15 mg Documented by: MAXINE Ketorolac Tromethamine (Toradol) 30 mg IV NOW PRN PRN Reason: Pain, Mild (1-3) Metoclopramide HCl (Reglan) 10 mg IV NOW ONE Stop: 07/16/20 21:39 Last Admin: 07/16/20 21:42 Dose: 10 mg Documented by: MAXINE Metoclopramide HCl (Reglan) 10 mg IV Q6HR PRN PRN Reason: Nausea And Vomiting Last Admin: 07/17/20 18:17 Dose: 10 mg Documented by: Admin: 07/17/20 11:51 Dose: 10 mg Documented by: MICHAEL Nicotine (Nicoderm) 21 mg TOP NOW ONE Stop: 07/17/20 11:27 Last Admin: 07/17/20 11:50 Dose: 21 mg Documented by: MICHAEL Ondansetron HCl (Zofran) 4 mg IV NOW ONE Stop: 07/16/20 18:17 Last Admin: 07/16/20 18:22 Dose: 4 mg Documented by: MAXINE Ondansetron HCl (Zofran) 4 mg IV NOW ONE Stop: 07/16/20 19:26 Last Admin: 07/16/20 19:42 Dose: 4 mg Documented by: MAXIEN Ondansetron HCl (Zofran) 4 mg IV Q4HR PRN PRN Reason: Nausea And Vomiting Last Admin: 07/17/20 21:14 Dose: 4 mg Documented by: Admin: 07/17/20 12:27 Dose: 4 mg Documented by: Admin: 07/17/20 07:57 Dose: 4 mg Documented by: Admin: 07/16/20 22:44 Dose: 4 mg Documented by: DEIDRE Ondansetron HCl (Zofran) 4 mg IV NOW PRN PRN Reason: Nausea And Vomiting Last Admin: 07/17/20 13:55 Dose: 4 mg Documented by: LYNNETTE Oxycodone HCl (Percolone) 5 mg PO Q6H PRN PRN Reason: Pain, Severe (7-10) Oxycodone HCl (Percolone) 10 mg PO Q6H PRN PRN Reason: Pain, Severe (7-10) Pantoprazole Sodium (Protonix) 40 mg IV NOW ONE Stop: 07/16/20 19:00 Last Admin: 07/16/20 19:41 Dose: 40 mg Documented by: MAXINE Pantoprazole Sodium (Protonix) 40 mg IV DAILY [facility] Last Admin: 07/18/20 08:38 Dose: 40 mg Documented by: Admin: 07/17/20 16:08 Dose: 40 mg Documented by: KAM Sodium Chloride (Normal Saline 0.9% Flush) 10 ml IV PRN PRN PRN Reason: Flush Sodium Chloride (Normal Saline 0.9% Flush) 10 ml IV BID [facility] Last Admin: 07/18/20 08:38 Dose: 10 ml Documented by: REX Vital Signs Vital signs: Vital Signs - 8 hr 07/16/20 14:25 07/16/20 16:26 07/16/20 17:04 Temperature 98.5 F 98.1 F Pulse Rate 99 H 96 H 94 H Respiratory Rate 18 18 16 Blood Pressure 132/97 H 138/96 H 114/92 H Pulse Oximetry 97 95 97 07/16/20 18:38 Temperature Pulse Rate 74 Respiratory Rate 18 Blood Pressure 141/87 H Pulse Oximetry 98 MDM - Abdominal Pain <Garland Fu MD - Last Filed: 07/20/20 01:14> Differential Diagnosis Differential diagnosis: Likely other (Rectal abscess/rectal fissure/hemorrhoid) Lab Data Attestation: I reviewed the patient's lab results. Result diagrams: 07/18/20 07:45 07/16/20 14:50 Labs: Lab Results 07/16/20 07/16/20 07/16/20 Range/Units 14:50 14:50 14:50 WBC 12.7 H (4.5-11.0) X10^3/uL RBC 4.17 (4.0-5.2) X10^6/uL Hgb 13.3 (12.0-16.0) g/dL Hct 38.2 (36-46) % MCV 91.7 D (80-100) fL MCH 31.9 (26-34) PG MCHC 34.8 (30-36) % RDW 12.9 (11.6-14.8) % Plt Count 351 (150-400) X10^3/uL Neut % (Auto) 80.4 H (50-75) % Lymph % (Auto) 12.0 L (25-40) % [place] % (Auto) 5.2 (3-14) % Eos % (Auto) 1.0 L (2-4) % Baso % (Auto) 1.4 (0-2) % Neut # (Auto) 55451 H (2987-6499) /uL Lymph # (Auto) 1500 (8430-1209) /uL [place] # (Auto) 700 (0-900) /uL Eos # (Auto) 100 (0-450) /uL Baso # (Auto) 200 H (0-100) /uL PT 11.6 (10.1-12.7) SECONDS INR 1.0 (0.9-1.3) APTT 39 H (26.4-36.2) SECONDS Sodium 139 (137-145) mmol/L Potassium 3.9 (3.4-5.1) mmol/L Chloride 106 (98-107) mmol/L Carbon Dioxide 28 (22-32) mmol/L BUN 16 (7-17) mg/dL Creatinine 0.57 (0.52-1.04) mg/dL Estimated GFR > 60.0 (>60) mL/min BUN/Creatinine Ratio 28.1 H (6-22) Glucose 152 H (70-100) mg/dL Calcium 9.2 (8.4-10.2) mg/dL Total Bilirubin 0.3 (0.2-1.3) mg/dL AST 22 (14-36) IU/L ALT 25 (<35) IU/L Alkaline Phosphatase 91 (38-126) U/L Total Protein 7.5 (6.3-8.2) g/dL Albumin 4.2 (3.5-5.0) g/dL Globulin 3.3 (1.7-4.1) g/dL Albumin/Globulin Ratio 1.3 (1.0-2.8) Serum , Qual (Negative) COVID-19 PCR (Negative) 07/16/20 07/16/20 Range/Units 14:50 18:09 WBC (4.5-11.0) X10^3/uL RBC (4.0-5.2) X10^6/uL Hgb (12.0-16.0) g/dL Hct (36-46) % MCV (80-100) fL MCH (26-34) PG MCHC (30-36) % RDW (11.6-14.8) % Plt Count (150-400) X10^3/uL Neut % (Auto) (50-75) % Lymph % (Auto) (25-40) % [place] % (Auto) (3-14) % Eos % (Auto) (2-4) % Baso % (Auto) (0-2) % Neut # (Auto) (0508-4010) /uL Lymph # (Auto) (3864-7158) /uL [place] # (Auto) (0-900) /uL Eos # (Auto) (0-450) /uL Baso # (Auto) (0-100) /uL PT (10.1-12.7) SECONDS INR (0.9-1.3) APTT (26.4-36.2) SECONDS Sodium (137-145) mmol/L Potassium (3.4-5.1) mmol/L Chloride (98-107) mmol/L Carbon Dioxide (22-32) mmol/L BUN (7-17) mg/dL Creatinine (0.52-1.04) mg/dL Estimated GFR (>60) mL/min BUN/Creatinine Ratio (6-22) Glucose (70-100) mg/dL Calcium (8.4-10.2) mg/dL Total Bilirubin (0.2-1.3) mg/dL AST (14-36) IU/L ALT (<35) IU/L Alkaline Phosphatase (38-126) U/L Total Protein (6.3-8.2) g/dL Albumin (3.5-5.0) g/dL Globulin (1.7-4.1) g/dL Albumin/Globulin Ratio (1.0-2.8) Serum , Qual Negative (Negative) COVID-19 PCR Negative (Negative) Point of care testing: Point of Care Testing Test Results Negative Urine Dip Bedside Urine Glucose Negative Bedside Urine Bilirubin - Negative Bedside Urine Ketone - Negative Urine Specific [place] 1.010 Bedside Urine Occult Blood - Negative Bedside Urine pH 7 Bedside Urine Protein - Negative Bedside Urine Urobilinogen - Negative Bedside Urine Nitrite - Negative Bedside Urine Leukocytes - Negative Esterase Imaging Data CT scan - abdomen/pelvis: Radiologist's Impression: [address] [address] [address] Scan Report Signed Patient: Kelly Ling R#: [id number] : 1975Acct:[id number] Age/Sex: 45 / FDate of Service: 07/16/20 Loc: ED Accession Number: [id number] Procedure: CT abdomen pelvis w con Ordering Provider: Garland Fu MD PROCEDURE: CT ABDOMEN PELVIS W CON INDICATIONS: IV contrast only/Lower abdominal pain/rectal pain TECHNIQUE: After the administration of intravenous contrast, 5 mm thick sections acquired from the diaphragm to the symphysis. 5 mm coronal and sagittal reformats were acquired. For radiation dose reduction, the following was used: automated exposure control, adjustment of mA and/or kV according to patient size. COMPARISON: [facility], CT, ABDOMEN/PELVIS WITH CONTRAST, 12/30/2010, 17:46. [facility], CR, XR ACUTE ABDOMEN SERIES, 07/13/2020, 13:07. FINDINGS: Image quality: Excellent. ABDOMEN: Lung bases: Lung bases are clear. Heart size is normal. Solid organs: Liver is normal in size and enhancement. Diffuse fatty liver infiltration is noted. Gallbladder has been removed. Biliary system is non dilated. Pancreas enhances normally. Spleen is normal in size and enhancement. No adrenal nodules. Kidneys demonstrate normal size and enhancement, without hydronephrosis. Peritoneum and bowel: There is a left pelvic abscess seen within the left posterior pelvis that measures 5.5 x 2.3 cm in greatest axial dimension, with a craniocaudal extent of 2.8 cm. There is mild rim enhancement. Gas and loculated fluid can be seen. Mild free fluid is also seen. There is thickening of the adjacent rectum and sigmoid. No other areas of bowel wall thickening can be seen. A normal appendix is incidentally noted. Nodes and vessels: No retroperitoneal or mesenteric adenopathy by size criteria. Aorta and inferior vena cava are normal in size. Miscellaneous: No ventral hernias. PELVIS: Genitourinary: Bladder wall thickness is normal. The uterus appears normal for age. No adnexal masses are seen. Miscellaneous: No inguinal hernias or adenopathy. Bones: No suspicious bony lesions. No vertebral body compression fractures. IMPRESSION: Left pelvic abscess seen, with a maximum dimension of 5.5 cm. Incidental note is made of: Fatty liver infiltration Cholecystectomy Normal appendix. Note: Case discussed by telephone with Dr. Fu at 4:15 p.m. [place] time on July 16, 2020. Dictated by: Abrahan Santana M.D. on 07/16/2020 at 16:09 Approved by: Abrahan Santana M.D. on 07/16/2020 at 16:17 MDM Narrative Medical decision making narrative: Sign out to Dr. Ho, ultrasound pending results and to call surgeon on-call <Jass Ho, DO - Last Filed: 07/17/20 03:42> Lab Data Labs: Lab Results 07/16/20 07/16/20 07/16/20 Range/Units 14:50 14:50 14:50 WBC 12.7 H (4.5-11.0) X10^3/uL RBC 4.17 (4.0-5.2) X10^6/uL Hgb 13.3 (12.0-16.0) g/dL Hct 38.2 (36-46) % MCV 91.7 D (80-100) fL MCH 31.9 (26-34) PG MCHC 34.8 (30-36) % RDW 12.9 (11.6-14.8) % Plt Count 351 (150-400) X10^3/uL Neut % (Auto) 80.4 H (50-75) % Lymph % (Auto) 12.0 L (25-40) % [place] % (Auto) 5.2 (3-14) % Eos % (Auto) 1.0 L (2-4) % Baso % (Auto) 1.4 (0-2) % Neut # (Auto) 98056 H (5338-9131) /uL Lymph # (Auto) 1500 (8443-0043) /uL [place] # (Auto) 700 (0-900) /uL Eos # (Auto) 100 (0-450) /uL Baso # (Auto) 200 H (0-100) /uL PT 11.6 (10.1-12.7) SECONDS INR 1.0 (0.9-1.3) APTT 39 H (26.4-36.2) SECONDS Sodium 139 (137-145) mmol/L Potassium 3.9 (3.4-5.1) mmol/L Chloride 106 (98-107) mmol/L Carbon Dioxide 28 (22-32) mmol/L BUN 16 (7-17) mg/dL Creatinine 0.57 (0.52-1.04) mg/dL Estimated GFR > 60.0 (>60) mL/min BUN/Creatinine Ratio 28.1 H (6-22) Glucose 152 H (70-100) mg/dL Calcium 9.2 (8.4-10.2) mg/dL Total Bilirubin 0.3 (0.2-1.3) mg/dL AST 22 (14-36) IU/L ALT 25 (<35) IU/L Alkaline Phosphatase 91 (38-126) U/L Total Protein 7.5 (6.3-8.2) g/dL Albumin 4.2 (3.5-5.0) g/dL Globulin 3.3 (1.7-4.1) g/dL Albumin/Globulin Ratio 1.3 (1.0-2.8) Serum , Qual (Negative) COVID-19 PCR (Negative) 07/16/20 07/16/20 Range/Units 14:50 18:09 WBC (4.5-11.0) X10^3/uL RBC (4.0-5.2) X10^6/uL Hgb (12.0-16.0) g/dL Hct (36-46) % MCV (80-100) fL MCH (26-34) PG MCHC (30-36) % RDW (11.6-14.8) % Plt Count (150-400) X10^3/uL Neut % (Auto) (50-75) % Lymph % (Auto) (25-40) % [place] % (Auto) (3-14) % Eos % (Auto) (2-4) % Baso % (Auto) (0-2) % Neut # (Auto) (8909-5868) /uL Lymph # (Auto) (6146-7272) /uL [place] # (Auto) (0-900) /uL Eos # (Auto) (0-450) /uL Baso # (Auto) (0-100) /uL PT (10.1-12.7) SECONDS INR (0.9-1.3) APTT (26.4-36.2) SECONDS Sodium (137-145) mmol/L Potassium (3.4-5.1) mmol/L Chloride (98-107) mmol/L Carbon Dioxide (22-32) mmol/L BUN (7-17) mg/dL Creatinine (0.52-1.04) mg/dL Estimated GFR (>60) mL/min BUN/Creatinine Ratio (6-22) Glucose (70-100) mg/dL Calcium (8.4-10.2) mg/dL Total Bilirubin (0.2-1.3) mg/dL AST (14-36) IU/L ALT (<35) IU/L Alkaline Phosphatase (38-126) U/L Total Protein (6.3-8.2) g/dL Albumin (3.5-5.0) g/dL Globulin (1.7-4.1) g/dL Albumin/Globulin Ratio (1.0-2.8) Serum , Qual Negative (Negative) COVID-19 PCR Negative (Negative) Point of care testing: Point of Care Testing Test Results Negative Urine Dip Bedside Urine Glucose Negative Bedside Urine Bilirubin - Negative Bedside Urine Ketone - Negative Urine Specific [place] 1.010 Bedside Urine Occult Blood - Negative Bedside Urine pH 7 Bedside Urine Protein - Negative Bedside Urine Urobilinogen - Negative Bedside Urine Nitrite - Negative Bedside Urine Leukocytes - Negative Esterase Discharge Plan Departure Patient Disposition: Admitted as Observation Clinical Impression: Abscess of female pelvis Discharge Date/Time: 07/16/20 22:01 Instructions: Doxycycline, Levofloxacin Referrals: Lacie Black ARNP [Primary Care Provider] - Jess Ortiz MD [Physician] - 2 Weeks Pantera Jose MD [Physician] - 2 Weeks Admit Date/Time: 07/16/20 20:37 Admit Provider: Shawna Epperson
[2020-07-16] MEDS: SODIUM CHLORIDE 0.9% 1,000 ML 1000 ML IV (16:33)
[2020-07-16] MEDS: KETOROLAC 60 MG/2 ML VIAL 15 MG INJ (16:39)
[2020-07-16 17:04] VITALS: BP 114/92; PULSE 94; RESP 16; O2SAT 97
--- NOTE | 2020-07-16 17:06 | PC.NURSE ---
Patient returned from CT scan in stable condition. VSS. Pain 7/10 and improved. Call light within reach and instructed to call if any needs. V/U. Lights turned down for comfort.
[2020-07-16] MEDS: CEFTRIAXONE 1 GM/50 ML FROZ.PIGGY IV (17:54)
[2020-07-16] MEDS: metroNIDAZOLE 500 MG/100 ML PIGGYBACK 100 MG IV (17:55)
--- NOTE | 2020-07-16 18:05 | DI.US.S_ITS ---
PROCEDURE: US PELVIC COMPLETE INDICATIONS: PELVIC PAIN. ABSCESS LEFT SIDE TECHNIQUE: Real-time scanning was performed of the pelvic organs, with image documentation. Additional endovaginal scanning was necessary due to incomplete visualization of the adnexal and endometrial structures by transabdominal scanning. COMPARISON: [facility], CT, CT ABDOMEN PELVIS W CON, 07/16/2020, 16:47. [facility], US, US PELVIC COMPLETE, 04/24/2019, 16:28. FINDINGS: Transabdominal scanning: Limited scanning through the kidneys shows no hydronephrosis. No pathologic free abdominal or pelvic fluid. Endovaginal scanning: Uterus: Uterus is normal in size at 9.1 x 4.1 x 5.4 cm. The endometrium measures 8.4 mm in combined thickness. Ovaries: Right ovary measures 4.8 x 2.7 x 2.8 cm. Left ovary measures 5.3 x 2.4 x 2.5 cm. Right ovarian cyst is noted measuring 2.6 x 2.4 x 2.7 cm. Ill-defined fluid is noted within the region of the left adnexa/left lower pelvis, better appreciated on CT scan of 07/16/2020. IMPRESSION: 1. Right ovarian cyst. 2. Ill-defined fluid within the region of the left adnexa/left lower pelvis. This appears to correspond to area of abscess identified on CT exam of 07/16/2020. It is better appreciated on prior CT exam. Dictated by: Jody Travis M.D. on 07/16/2020 at 19:31 Approved by: Jody Travis M.D. on 07/16/2020 at 19:34
[2020-07-16] MEDS: ONDANSETRON 4 MG/2 ML INJ IV ×3 (18:22→22:44)
[2020-07-16] MEDS: HYDROMORPHONE 1 MG INJ 0.5 MG IV (18:22)
[2020-07-16 18:34] LABS: COVID19 -Nasal RAPID Negative (Negative)
[2020-07-16 18:38] VITALS: BP 141/87; PULSE 74; RESP 18; O2SAT 98
[2020-07-16 18:45] LABS: Pregnancy Test Serum,Qual Negative (Negative)
[2020-07-16] MEDS: PANTOPRAZOLE 40 MG VIAL IV (19:41)
[2020-07-16] MEDS: HYDROMORPHONE 0.5 MG INJ IV (19:54)
[2020-07-16] MEDS: ACETAMINOPHEN 325 MG TABLET 975 MG PO (21:34)
[2020-07-16] MEDS: METOCLOPRAMIDE 10 MG/2 ML INJ IV (21:42)
[2020-07-16 21:55] VITALS: BP 156/83; PULSE 98; RESP 17; TEMP 36.7; O2SAT 96
[2020-07-16] MEDS: SODIUM CHLORIDE 0.9% 1,000 ML 125 ML IV (22:28)
[2020-07-16 22:29] VITALS: BMI 35.5
[2020-07-16 23:45] VITALS: PULSE 93; RESP 16; TEMP 36.8; O2SAT 97
[2020-07-17] VITALS (12 sets, daily range): BP systolic 102–138; BP diastolic 67–83; PULSE 75–92; RESP 14–29; TEMP 36.3–36.8; O2SAT 92–98
[2020-07-17] MEDS: ACETAMINOPHEN 325 MG TABLET 650 MG PO (01:06)
[2020-07-17 05:53] LABS: Add Manual Diff / Slide Review NO; Basophils Absolute Auto 800 /uL (0-100); Eosinophils Absolute Auto 100 /uL (0-450); Eosinophils Percent Auto 0.6 % (2-4); Hematocrit 38.2 % (36-46); Hemoglobin 12.9 g/dL (12.0-16.0); Lymphocytes Absolute Auto 2100 /uL (1100-4500); Lymphocytes Percent Auto 12.6 % (25-40); Mean Corpuscular HGB Conc 33.7 % (30-36); Mean Corpuscular Hemoglobin 31.3 PG (26-34); Mean Corpuscular Volume 92.8 fL (80-100); Monocytes Absolute Auto 1100 /uL (0-900); Monocytes Percent Auto 6.4 % (3-14); Neutrophils Absolute Auto 12600 /uL (1500-7000); Neutrophils Percent Auto 75.4 % (50-75); Platelet Count 341 X10^3/uL (150-400); Red Blood Cell Count 4.12 X10^6/uL (4.0-5.2); Red Cell Distribution Width 13.1 % (11.6-14.8); White Blood Cell Count 16.7 X10^3/uL (4.5-11.0)
[2020-07-17] MEDS: SODIUM CHLORIDE 0.9% 1,000 ML 125 ML IV (06:32)
--- NOTE | 2020-07-17 06:52 | PC.NURSE ---
0050 Patient c/o migraine headache. Declines narcotic analgesia stating it will not relieve this type of headache per her experience. Call to Dr. Ortiz - order for tylenol received and carried out with adequate relief. 0630 Entered room to find patient visibly upset and in tears. Patient reports I want to leave, I need to get out of here this is ridiculous. Patient upset about not being seen by a physician since the ED. She states I don't even know what is going on. I haven't eaten anything since 1 pm yesterday. I'm going crazy. Reassured patient. Call to Dr. Ortiz with an update. Able to calm patient enough to defer AMA. Awaiting eval from .
[2020-07-17] MEDS: HYDROMORPHONE 0.5 MG INJ IV ×2 (07:57→10:18)
[2020-07-17] MEDS: ONDANSETRON 4 MG/2 ML INJ IV ×4 (07:57→21:14)
--- NOTE | 2020-07-17 08:49 | P.HPOB_ITS ---
History of Present Illness History of Present Illness Reason for admission: other (Left lower quadrant abscess) Narrative: Kelly Ling is a 45 year old para 1 admitted overnight with the left lower quadrant abscess. The patient reports that her symptoms began 9 days ago, when she began having epigastric pain, fevers and chills, nausea, and rectal pain. She reports that the night before her symptoms began, she had ?aggressive and very rough? digital rectal penetration during intercourse. Over the next few days, she had slight LLQ pain with rectal bleeding, which she attributed to known hemorrhoids. Starting a few days later, she began having severe rectal shooting pains that begin ?just inside and shoot up inside, in the back.? She reports constipation during this time, and over the last week and had a few days of loose stools which she describes as ?not quite diarrhea, but it looked different.? She was seen by her PCP on Monday, and reports that the posterior shooting pains have worsened to the point where she presented to the emergency room last night. She received a dose of Rocephin and Flagyl, and was admitted overnight NPO and with IV fluids for further evaluation. The patient denies vaginal bleeding, abnormal vaginal discharge or odor, and is monogamous with her partner of 3 years. She reports a distant history of PID in her teens, a history of abnormal Pap smear in 2018 that normalized after colposcopy, and a history of vaginal delivery. She further reports a history of multiple early miscarriages, all of which were uncomplicated. She denies any history of obgyn hospitalist physician surgery, ovarian cysts, or uterine fibroids. She denies any other contributory medical, surgical, family, or social history. [facility] Medical History Anxiety (Chronic) Asthma (Chronic) Bacterial vaginosis (Resolved) Biliary dyskinesia (Inactive) Carotid artery plaque (Acute) Carotid artery stenosis (Acute) Chlamydia (Resolved) Cholecystitis (Inactive) Chronic sinusitis (Inactive) Coccygeal pain, acute (Inactive) Depression (Chronic) Difficulty swallowing (Resolved) Ear pain, right (Resolved) High risk HPV infection (Inactive) Hoarseness or changing voice (Inactive) HPV (human papilloma virus) infection (Resolved) Hyperlipidemia (Acute) Insomnia (Acute) Low grade squamous intraepith lesion on cytologic smear cervix (lgsil) (Inactive) Lump in neck (Inactive 10/2019) Lymph node disorder (Acute) Mixed anxiety depressive disorder (Chronic 08/20/02) Odynophagia (Inactive) Oral herpes (Resolved) Rash (Inactive) Rectal pressure (Inactive) Right lateral epicondylitis (Inactive 01/2018) RUQ abdominal pain (Inactive) Seasonal affective disorder (Inactive) Thyroid cyst (Acute) Thyroid mass (Ruled-out) Trigeminal neuralgia of right side of face (Acute) Upper back pain (Inactive) Surgical History Hx of oral surgery (Acute ~12/2019) S/P laparoscopic cholecystectomy (Inactive) Family History Brother Age: 40 Depression Drug abuse Father Depression Overdose Grandfather Suicide Grandmother No problems noted. Grandfather No problems noted. Grandmother No problems noted. Brother No problems noted. Mother No problems noted. Social History household members: friend(s) Smoking Status: Current every day smoker Tobacco: How many years used: 30 quit status: not considering quitting second hand exposure: No alcohol intake: never substance use type: marijuana Meds Home Medications and Allergies Home Medications Medication Instructions Recorded Confirmed Type carbamazepine 100 mg 100 mg PO BID 14 Days #60 cap 01/03/20 07/13/20 Rx capsule,extended release [id number] lorazepam 1 mg tablet 1 mg PO BID PRN #20 tab 01/31/20 07/13/20 Rx omeprazole magnesium 10 mg oral 10 mg PO DAILY 04/22/20 07/13/20 History suspension,delayed release hydroxyzine pamoate 25 mg capsule 25 mg PO BEDTIME #60 cap 06/04/20 07/13/20 Rx atorvastatin 10 mg tablet 10 mg PO DAILY #90 tab 06/11/20 07/13/20 Rx verapamil 40 mg tablet 40 mg PO DAILY 06/11/20 07/13/20 History docusate sodium 100 mg capsule 100 mg PO BID 30 Days #60 cap 07/13/20 Rx indomethacin 50 mg capsule 50 mg PO TID 07/13/20 07/13/20 History promethazine 12.5 mg tablet 12.5 mg PO TID PRN 7 Days #21 tab 07/13/20 Rx Allergies Allergy/AdvReac Type Severity Reaction Status Date / Time cat dander [CAT DANDER] Allergy Mild SNEEZING Verified 07/13/20 11:10 AND HIVES morphine AdvReac Severe VOMITING Verified 07/13/20 11:10 codeine AdvReac Mild NAUSEA Verified 07/13/20 11:10 Review of Systems Constitutional Constitutional: Reports system reviewed and no additional complaints, except as documented ENT Ears, Nose, Mouth, and Throat: Yes system reviewed and no additional complaints, except as documented Cardiovascular Cardiovascular: Reports system reviewed and no additional complaints, except as documented Respiratory Respiratory: Reports system reviewed and no additional complaints, except as documented Gastrointestinal Gastrointestinal: Reports as per HPI Genitourinary Genitourinary: Reports as per HPI Musculoskeletal Musculoskeletal: Reports system reviewed and no additional complaints, except as documented Neurologic Neurologic: Reports system reviewed and no additional complaints, except as documented Exam Vital Signs (past 8 hours): - 07/17/20 05:14 Temperature 98.3 F Pulse Rate 85 Respiratory Rate 16 Blood Pressure 122/73 Pulse Oximetry 98 Oxygen Delivery Method Room Air Const General: cooperative and healthy appearing Orientation: alert, awake and oriented x3 Other: Resting in bed, mobile Resp Effort & Inspection: normal respiratory effort Auscultation: clear to auscultation bilaterally Cardio Rate: regular rate Rhythm: regular rhythm GI Inspection: obesity (unclear if midlly distended or related to habitus) Palpation: soft and No tender External Female Exam: normal external appearance Other: Bimanual exam performed at bedside. On palpation of right adnexa, no masses palpated, and no tenderness elicited. Uterus mildly anteverted, normal in size and contour. Mild tenderness on palpation of fundus, especially with displacement backwards. No tracey CMT. On palpation of the left anterior adnexa, no masses palpated, minimal tenderness. Palpation of left vaginal wall and posterior vaginal wall revealed fullness and exquisite tenderness. Palpation of the right vaginal wall revealed no tenderness. Normal physiologic discharge on glove. Given patient's tender faculty of performing speculum exam and the bed, speculum exam was deferred. GC/chlamydia swab and genital culture swabs were collected prior to the exam. Objective Labs Result Diagrams: 07/17/20 04:53 07/16/20 14:50 Labs: Laboratory Results - last 24 hr 07/16/20 07/16/20 07/16/20 14:50 14:50 14:50 WBC 12.7 H RBC 4.17 Hgb 13.3 Hct 38.2 MCV 91.7 D MCH 31.9 MCHC 34.8 RDW 12.9 Plt Count 351 Neut % (Auto) 80.4 H Lymph % (Auto) 12.0 L [place] % (Auto) 5.2 Eos % (Auto) 1.0 L Baso % (Auto) 1.4 Neut # (Auto) 11078 H Lymph # (Auto) 1500 [place] # (Auto) 700 Eos # (Auto) 100 Baso # (Auto) 200 H PT 11.6 INR 1.0 APTT 39 H Sodium 139 Potassium 3.9 Chloride 106 Carbon Dioxide 28 BUN 16 Creatinine 0.57 Estimated GFR > 60.0 BUN/Creatinine Ratio 28.1 H Glucose 152 H Calcium 9.2 Total Bilirubin 0.3 AST 22 ALT 25 Alkaline Phosphatase 91 Total Protein 7.5 Albumin 4.2 Globulin 3.3 Albumin/Globulin Ratio 1.3 Serum , Qual Nasal Screen MRSA (PCR) COVID-19 PCR 07/16/20 07/16/20 07/16/20 14:50 18:09 22:07 WBC RBC Hgb Hct MCV MCH MCHC RDW Plt Count Neut % (Auto) Lymph % (Auto) [place] % (Auto) Eos % (Auto) Baso % (Auto) Neut # (Auto) Lymph # (Auto) [place] # (Auto) Eos # (Auto) Baso # (Auto) PT INR APTT Sodium Potassium Chloride Carbon Dioxide BUN Creatinine Estimated GFR BUN/Creatinine Ratio Glucose Calcium Total Bilirubin AST ALT Alkaline Phosphatase Total Protein Albumin Globulin Albumin/Globulin Ratio Serum , Qual Negative Nasal Screen MRSA (PCR) Negative for mrsa COVID-19 PCR Negative 07/17/20 04:53 WBC 16.7 H RBC 4.12 Hgb 12.9 Hct 38.2 MCV 92.8 MCH 31.3 MCHC 33.7 RDW 13.1 Plt Count 341 Neut % (Auto) 75.4 H Lymph % (Auto) 12.6 L [place] % (Auto) 6.4 Eos % (Auto) 0.6 L Baso % (Auto) 5.0 H Neut # (Auto) 77866 H Lymph # (Auto) 2100 [place] # (Auto) 1100 H Eos # (Auto) 100 Baso # (Auto) 800 H PT INR APTT Sodium Potassium Chloride Carbon Dioxide BUN Creatinine Estimated GFR BUN/Creatinine Ratio Glucose Calcium Total Bilirubin AST ALT Alkaline Phosphatase Total Protein Albumin Globulin Albumin/Globulin Ratio Serum , Qual Nasal Screen MRSA (PCR) COVID-19 PCR Assessment & Plan Assessment and plan (1) Abscess of female pelvis: Status: Acute Assessment & Plan narrative: This patient presents with at 5.5 by 2.3 x 2.8 cm left lower quadrant abscess. The patient was admitted by OBGYN overnight for presumed tubo-ovarian abscess. On imaging, there is no clear relation between abscess on either the left fallopian tube and ovary or the rectum. Given the patient's history, high concern remains that she actually has an abscess originating from the rectum rather than from the obgyn hospitalist physician organs. The patient stacie ins admitted to obgyn hospitalist physician, and was started on an alternative IV antibiotic regimen for tubo-ovarian abscess that has broader coverage to additionally cover organisms originating from the GI tract. She remains NPO and on IV fluids, and is pending a general surgery consult to further assess the origin of her abscess and ongoing care plan. If the patient is thought to have a tubo-ovarian abscess, given that she is stable and that the size of the abscess is less than 7 cm, standard care would be 48 hours of IV antibiotics followed by 14 total days of outpatient therapy, without surgical intervention. Further plan of care including diet an antibiotic choices pending general surgery consult. The case has been discussed with Dr. Jose this AM. - Ampicillin 2g IV q6hrs - clindamycin 900mg IV q 8 hrs - gentamicin 5mg/kg IV q24 hours, modified for obesity - Continue IVF - continue NPO - nicotine patch PRN - negative test, covid testing in ED prior to admission
[2020-07-17] MEDS: GENTAMICIN 350 MG in SODIUM CHLORIDE 0.9% 100 ML 108.75 ML IV (09:57)
[2020-07-17] MEDS: CLINDAMYCIN 900 MG/50 ML PIGGYBACK 50 MG IV (11:07)
[2020-07-17] MEDS: NICOTINE 21 MG PATCH TOP (11:50)
[2020-07-17] MEDS: METOCLOPRAMIDE 10 MG/2 ML INJ IV ×2 (11:51→18:17)
[2020-07-17] MEDS: LACTATED RINGERS 1,000 ML 42 ML IV (12:00)
--- NOTE | 2020-07-17 12:16 | P.CONS_ITS ---
History of Present Illness Consult details Date Patient Seen: 07/17/20 Time Patient Seen: 12:16 Chief complaint: rectal issues Narrative: 45 f seen in consultation for a left pelvic fluid collection. Developed severe LLQ and rectal pain several days ago progressive and presented to ER. No blood per rectum or diarrhea. At admission afebrile, WBC 13. CT demonstrates 5.5 cm left pelvic fluid collection unclear if involving the left tube and ovary or the rectum. No history of diverticulitis, no intestinal disease or colonoscopy. Meds Home Medications and Allergies Home Medications Medication Instructions Recorded Confirmed Type carbamazepine 100 mg 100 mg PO BID 14 Days #60 cap 01/03/20 07/13/20 Rx capsule,extended release [id number] lorazepam 1 mg tablet 1 mg PO BID PRN #20 tab 01/31/20 07/13/20 Rx omeprazole magnesium 10 mg oral 10 mg PO DAILY 04/22/20 07/13/20 History suspension,delayed release hydroxyzine pamoate 25 mg capsule 25 mg PO BEDTIME #60 cap 06/04/20 07/13/20 Rx atorvastatin 10 mg tablet 10 mg PO DAILY #90 tab 06/11/20 07/13/20 Rx verapamil 40 mg tablet 40 mg PO DAILY 06/11/20 07/13/20 History docusate sodium 100 mg capsule 100 mg PO BID 30 Days #60 cap 07/13/20 Rx indomethacin 50 mg capsule 50 mg PO TID 07/13/20 07/13/20 History promethazine 12.5 mg tablet 12.5 mg PO TID PRN 7 Days #21 tab 07/13/20 Rx Allergies Allergy/AdvReac Type Severity Reaction Status Date / Time cat dander [CAT DANDER] Allergy Mild SNEEZING Verified 07/13/20 11:10 AND HIVES morphine AdvReac Severe VOMITING Verified 07/13/20 11:10 codeine AdvReac Mild NAUSEA Verified 07/13/20 11:10 Review of Systems Review of Systems Narrative: A 10 point review of systems is negative except as noted in the HPI Exam Vital Signs (past 8 hours): - 07/17/20 05:14 07/17/20 08:00 Temperature 98.3 F 97.9 F Pulse Rate 85 87 Respiratory Rate 16 18 Blood Pressure 122/73 132/82 Pulse Oximetry 98 96 Oxygen Delivery Method Room Air Narrative Exam Narrative: General-no acute distress, obese female HEENT-moist mucous membranes, no scleral icterus Neck-supple, no lymphadenopathy Chest- non labored respirations, clear to auscultation bilaterally Cardiac-regular rate no peripheral edema Abdomen-soft, nontender, non distended Rectal -pt refused Extremities-warm, well perfused Neurological-alert and oriented, no focal deficits Objective Labs Result Diagrams: 07/17/20 04:53 07/16/20 14:50 Labs: Laboratory Results - last 24 hr 07/16/20 07/16/20 07/16/20 14:50 14:50 14:50 WBC 12.7 H RBC 4.17 Hgb 13.3 Hct 38.2 MCV 91.7 D MCH 31.9 MCHC 34.8 RDW 12.9 Plt Count 351 Neut % (Auto) 80.4 H Lymph % (Auto) 12.0 L [place] % (Auto) 5.2 Eos % (Auto) 1.0 L Baso % (Auto) 1.4 Neut # (Auto) 84815 H Lymph # (Auto) 1500 [place] # (Auto) 700 Eos # (Auto) 100 Baso # (Auto) 200 H PT 11.6 INR 1.0 APTT 39 H Sodium 139 Potassium 3.9 Chloride 106 Carbon Dioxide 28 BUN 16 Creatinine 0.57 Estimated GFR > 60.0 BUN/Creatinine Ratio 28.1 H Glucose 152 H Calcium 9.2 Total Bilirubin 0.3 AST 22 ALT 25 Alkaline Phosphatase 91 Total Protein 7.5 Albumin 4.2 Globulin 3.3 Albumin/Globulin Ratio 1.3 Serum , Qual Nasal Screen MRSA (PCR) COVID-19 PCR 07/16/20 07/16/20 07/16/20 14:50 18:09 22:07 WBC RBC Hgb Hct MCV MCH MCHC RDW Plt Count Neut % (Auto) Lymph % (Auto) [place] % (Auto) Eos % (Auto) Baso % (Auto) Neut # (Auto) Lymph # (Auto) [place] # (Auto) Eos # (Auto) Baso # (Auto) PT INR APTT Sodium Potassium Chloride Carbon Dioxide BUN Creatinine Estimated GFR BUN/Creatinine Ratio Glucose Calcium Total Bilirubin AST ALT Alkaline Phosphatase Total Protein Albumin Globulin Albumin/Globulin Ratio Serum , Qual Negative Nasal Screen MRSA (PCR) Negative for mrsa COVID-19 PCR Negative 07/17/20 04:53 WBC 16.7 H RBC 4.12 Hgb 12.9 Hct 38.2 MCV 92.8 MCH 31.3 MCHC 33.7 RDW 13.1 Plt Count 341 Neut % (Auto) 75.4 H Lymph % (Auto) 12.6 L [place] % (Auto) 6.4 Eos % (Auto) 0.6 L Baso % (Auto) 5.0 H Neut # (Auto) 64722 H Lymph # (Auto) 2100 [place] # (Auto) 1100 H Eos # (Auto) 100 Baso # (Auto) 800 H PT INR APTT Sodium Potassium Chloride Carbon Dioxide BUN Creatinine Estimated GFR BUN/Creatinine Ratio Glucose Calcium Total Bilirubin AST ALT Alkaline Phosphatase Total Protein Albumin Globulin Albumin/Globulin Ratio Serum , Qual Nasal Screen MRSA (PCR) COVID-19 PCR Assessment & Plan Assessment and plan (1) Abscess of female pelvis: Problem details: 45-year-old female with a left pelvic abscess. Imaging and laboratory studies reviewed. Unclear if abscess is originating from the tube/ovary or the rectum. Today underwent pelvic examination which was essentially normal and rectal examination. There was no external rectal abnormalities and internally the rectum was examined with endoscopy and no abnormalities were observed. Case discussed with radiology deemed unsafe to drain the abscess percutaneously. -Continue antibiotic therapy to cover both enteric and ovarian abscess bacteria. -If fails to improve with antibiotic therapy laparoscopic drainage of the abscess indicated Status: Acute
[2020-07-17] MEDS: AMPICILLIN 2,000 MG in SODIUM CHLORIDE 0.9% 100 ML 200 ML IV (12:23)
--- NOTE | 2020-07-17 13:09 | PM.OP.1 ---
Operative Date/Time/Diagnoses Date of procedure: 07/17/20 Time of procedure: 12:30 Pre-op diagnosis: Left lower quadrant abscess Post-op diagnosis: same Procedure & Clinicians Procedure: Exam under anesthesia, Pap smear Same procedure as scheduled: Yes Indications: Left lower quadrant abscess, history of LSIL Surgeon: Jess Ortiz Anesthesia Type: General Operative Notes Findings: Normal vulva and vagina, multiparous cervix with no visible lesions. No adnexal masses, uterus mildly anteverted, normal in shape and contour. Procedure in detail: After informed consent was obtained, the patient was taken to the operating room and placed in the dorsal lithotomy position. A speculum was placed in the vagina and the above findings noted, and a Pap smear was collected. The speculum was removed from the vagina and a bimanual exam performed. The rest of the case was then performed by Dr. Jose as in his note. Complications: none Post-operative Condition: stable Disposition: PACU Plan for aftercare: Patient to remain in-house for IV antibiotics.
[2020-07-17] MEDS: fentaNYL 100 MCG/2 ML INJ IV ×2 (13:20→13:24)
--- NOTE | 2020-07-17 13:26 | SUR.OPER ---
Lithotomy on padded OR bed, head on pillow, arms secured on padded arm boards at <90 degrees abduction. Legs secured in padded yellow fins stirrups.
--- NOTE | 2020-07-17 14:02 | PM.OP.1 ---
Operative Date/Time/Diagnoses Date of procedure: 07/17/20 Time of procedure: 14:03 Pre-op diagnosis: Intra-abdominal abscess Post-op diagnosis: same Procedure & Clinicians Procedure: Pelvic examination and rectal examination with sigmoidoscopy under anesthesia Same procedure as scheduled: Yes Indications: 45-year-old woman with a left pelvic abscess unable to determine whether the sources from a tubo-ovarian abscess or a rectal abscess. She is in a significant amount of rectal pain was unable tolerate an examination without anesthesia for sedation Surgeon: Pantera Jose Medical Aides Teacher: Jess Ortiz Anesthesia Type: General Operative Notes Findings: Normal external and internal rectum Specimen(s): none sent Estimated Blood Loss (mL): 0 Procedure in detail: Patient was brought to the operating room placed supine on the table. General anesthesia was induced she was intubated with an endotracheal tube. Time-out was performed. She was placed into the lithotomy position. Dr. Ortiz performed a pelvic examination results of which were grossly normal. A careful external inspection of the anus and rectum were made. There was no evidence of aditya rectal abscess. Digital examination was made this was normal as well. Placed the sigmoidoscopy scope into the rectum it was insufflated and the scope was advanced forward. The sigmoid colon was reached and the scope was carefully withdrawn examining the rectum in all directions. There was no evidence of purulence within the rectum no evidence of significant diverticular disease. There were no wall abnormalities noted to suggest a underlying abscess. Scope was retroflexed within the rectum demonstrates grade 1 internal hemorrhoids it was otherwise unremarkable. She emerged from anesthesia was transferred to recovery room in stable condition Complications: none Post-operative Condition: stable Disposition: Acute Care
[2020-07-17] MEDS: PIPERACILLIN-TAZO 3.375 GM/50 ML FROZ.PIGGY IV ×2 (15:52→21:09)
[2020-07-17] MEDS: PANTOPRAZOLE 40 MG VIAL IV (16:08)
[2020-07-17] MEDS: FAMOTIDINE 20 MG/50 ML PIGGYBACK 200 MG IV (16:09)
[2020-07-17] MEDS: DOXYCYCLINE HYCLATE 100 MG TABLET PO (21:09)
[2020-07-17] MEDS: carBAMazepine XR 100 MG TAB PO (21:09)
[2020-07-18] VITALS: BP 129/78; PULSE 90; RESP 18; TEMP 37.2; O2SAT 95
[2020-07-18] MEDS: PIPERACILLIN-TAZO 3.375 GM/50 ML FROZ.PIGGY IV ×3 (02:50→15:01)
[2020-07-18 03:54] VITALS: BP 132/81; PULSE 86; RESP 16; TEMP 36.6; O2SAT 97
[2020-07-18 07:52] LABS: Add Manual Diff / Slide Review NO; Basophils Absolute Auto 100 /uL (0-100); Basophils Percent Auto 0.6 % (0-2); Eosinophils Absolute Auto 100 /uL (0-450); Eosinophils Percent Auto 0.4 % (2-4); Hemoglobin 13.5 g/dL (12.0-16.0); Lymphocytes Absolute Auto 2300 /uL (1100-4500); Lymphocytes Percent Auto 15.2 % (25-40); Mean Corpuscular HGB Conc 34.5 % (30-36); Mean Corpuscular Hemoglobin 32.1 PG (26-34); Monocytes Absolute Auto 800 /uL (0-900); Monocytes Percent Auto 5.5 % (3-14); Neutrophils Absolute Auto 11900 /uL (1500-7000); Neutrophils Percent Auto 78.3 % (50-75); Platelet Count 329 X10^3/uL (150-400); White Blood Cell Count 15.2 X10^3/uL (4.5-11.0)
[2020-07-18 08:00] VITALS: BP 121/75; PULSE 80; RESP 16; TEMP 36.8; O2SAT 98
[2020-07-18] MEDS: INDOMETHACIN 25 MG CAPSULE 50 MG PO ×2 (08:37→13:35)
[2020-07-18] MEDS: carBAMazepine XR 100 MG TAB PO (08:38)
[2020-07-18] MEDS: DOXYCYCLINE HYCLATE 100 MG TABLET PO (08:38)
[2020-07-18] MEDS: PANTOPRAZOLE 40 MG VIAL IV (08:38)
[2020-07-18] MEDS: SODIUM CHLORIDE 0.9% FLUSH 10 ML IV (08:38)
--- NOTE | 2020-07-18 08:42 | PM.DS.1 ---
History of Present Illness History of Present Illness Date Patient Seen: 07/18/20 Time Patient Seen: 08:42 Date of Onset of Symptoms: 07/15/20 Chief complaint: rectal issues Narrative: Patient was admitted for evaluation and treatment of left lower quadrant pain with pelvic abscess Discharge Providers Provider Date of admission: 07/16/20 20:37 Discharge Date: 07/18/20 Primary care physician: SIRENA Barraza Consults: 07/17/20 09:51 Consult to General Surgery Routine Comment: Consulting Provider: Pantera Jose Reason for consultation: left lower quadrant Has provider been notified: Yes Discharge provider: Cris Morel MD Summary Hospital Course Discharge Diagnosis: Pelvic abscess unclear etiology Hospital Course: Patient was admitted for evaluation left lower quadrant pain and pelvic abscess seen on CT scan. Patient underwent an exam under anesthesia with no obvious cause for the abscess found. Patient's pain improved significantly during her hospitalization. She remained afebrile. She had an elevated white count that is slightly decreased today. She is urinating and ambulating well. Status at Discharge Cognitive/behavioral status at discharge: oriented Functional status at discharge: independent ambulation Overall status at discharge: patient is progressing back to baseline Time Spent with Patient Time spent: Less than 30 minutes Exam Vital Signs (past 8 hours): - 07/18/20 03:54 Temperature 97.9 F Pulse Rate 86 Respiratory Rate 16 Blood Pressure 132/81 Pulse Oximetry 97 Oxygen Delivery Method Room Air Oxygen Flow Rate 2 Narrative Exam Narrative: HEENT exam within normal limits. Lungs are clear to auscultation percussion. Heart is regular rate and rhythm no S3-S4 murmurs. Patient's abdomen is soft, nontender, with no organomegaly. Extremities without edema and nontender. Objective Labs Result Diagrams: 07/18/20 07:45 07/16/20 14:50 Labs: Laboratory Results - last 24 hr 07/18/20 07:45 WBC 15.2 H RBC 4.20 Hgb 13.5 Hct 39.0 MCV 93.0 MCH 32.1 MCHC 34.5 RDW 13.0 Plt Count 329 Neut % (Auto) 78.3 H Lymph % (Auto) 15.2 L Calloway % (Auto) 5.5 Eos % (Auto) 0.4 L Baso % (Auto) 0.6 Neut # (Auto) 42984 H Lymph # (Auto) 2300 Calloway # (Auto) 800 Eos # (Auto) 100 Baso # (Auto) 100 Discharge Assessment & Plan Assessment and Plan Assessment: Pelvic abscess of unclear etiology Plan of Treatment: Patient's symptoms are improving and she will be discharged home after 48 hours of IV antibiotics on oral antibiotics. She will be followed up for continued improvement of the abscess or further evaluation if needed. Discharge Plan Discharge Plan Patient Disposition: Home Provider Discharge Comment: Home after 1500 antibiotics Discharge orders & Medications Prescriptions: New doxycycline hyclate 100 mg capsule 100 mg PO BID Qty: 24 RF: 0 levofloxacin 750 mg tablet 750 mg PO DAILY Qty: 12 RF: 0 Continued lorazepam 1 mg tablet 1 mg PO BID PRN (Reason: anxiety) Qty: 20 RF: 0 docusate sodium [Colace] 100 mg capsule 100 mg PO BID 30 Days Qty: 60 RF: 0 promethazine 12.5 mg tablet 12.5 mg PO TID PRN (Reason: for nausea) 7 Days Qty: 21 RF: 0 carbamazepine 100 mg capsule, ER multiphase 12 hr 100 mg PO BID 14 Days Qty: 60 RF: 5 indomethacin 50 mg capsule 50 mg PO TID RF: 0 hydroxyzine pamoate 25 mg capsule 25 mg PO BEDTIME Qty: 60 RF: 1 verapamil 40 mg tablet 40 mg PO DAILY RF: 0 atorvastatin 10 mg tablet 10 mg PO DAILY Qty: 90 RF: 1 Prilosec 10 mg susp,delayed release for recon 10 mg PO DAILY RF: 0 Follow up/Referrals: Lacie Black ARNP [Primary Care Provider] - Jess Ortiz MD [Physician] - 2 Weeks Pantera Joes MD [Physician] - 2 Weeks Diet/Activity/Treatments Diet: Regular Activity: No restrictions Skin/Wound/Dressing Care Report to your healthcare provider any signs of infection, such as:: chills, fever, night sweats, increased pain, unusual drainage and unusual redness Discharge Data Primary Care Provider: Lacie Black
--- NOTE | 2020-07-18 09:25 | CM.DANOTE ---
DCP; Case received, EMR reviewed and met with patient. Introduced self and role. Was able to obtain information from patient regarding her baseline activity status prior to hospitalization, and living situation. DCP assessment completed with information currently available. Patient is a 45 year old female who admitted on 07/16 to the care of the hospitalist team. PCP: SIRENA Barraza at [facility]. Payer: confirmed: [facility] [employer]. Patient came to the hospital via private vehicle secondary to left lower quadrant pain, and rectal pain. Patient had diagnosis of left lower quadrant abscess. Met with patient in her room. She is alert and oriented. She resides in [place] with her friend, Garland Templeton. She is independent at baseline. P: Patient is to be discharged home today with no needs. Yaritza Briscoe RN/Public Health Technologist
[2020-07-18 12:26] VITALS: BP 130/77; PULSE 77; RESP 16; TEMP 37.3; O2SAT 97
--- NOTE | 2020-07-18 13:45 | PC.NURSE ---
Dayshift Note: Pt is A and O x4, RA, VSS, afebrile. Pt denies abdominal pain, states that she is having mild aching in lower abdomen, but feels that it is related to imminent menstruation. Pt otherwise with no complaints. Dr. Morel to bedside this am with discharge orders pending last IV antibiotic infusion at 1500. Pt aware. Will continue to monitor, notify MD with changes.
--- NOTE | 2020-07-18 16:15 | PC.NURSE ---
Patient recieved 1500 dose of IV abx, discharge packet was given and discussed. IV removed with no problems. Patient was instructed to follow prescribed abx, follow up with PCP, and to seek medical attention if she has any signs of infection. Patient had no questions and was eager to go home. She dressed herself and gathered her own belongings and was escorted to the ER entrance by [employer].
[2020-07-22 07:44] LABS: Chlamydia trachomatis Negative (Negative); Mycoplasma genitalium Negative (Negative); Neisseria gonorrhoeae Negative (Negative)
== END 2020-07-18 16:15 | disposition home or self-care (01) | DRG 518 ==
LOC: ED 18:26 → ICU 07-17 08:51
PROVIDERS: Emergency Medicine; Obstetrics & Gynecology; Surgery; Admitting Provider Obstetrics & Gynecology; Emergency Provider Emergency Medicine; PCP Nurse Practitioner; Referring Provider Emergency Medicine; Visit Provider Obstetrics & Gynecology
PROC: 0DJD8ZZ Inspection of Lower Intestinal Tract, Via Natural or Artificial Opening Endoscopic (ICD-10-PCS; CPT 45990; principal; 2020-07-17 12:15)
PROC: 0DJD8ZZ Inspection of Lower Intestinal Tract, Via Natural or Artificial Opening Endoscopic (ICD-10-PCS; CPT 45378; 2020-07-17 12:15)
PROC: 0WJR7ZZ Inspection of Genitourinary Tract, Via Natural or Artificial Opening Approach (ICD-10-PCS; CPT 57410; 2020-07-17 12:15)
DX: N73.9 Female pelvic inflammatory disease, unspecified (principal); F32.9 Major depressive disorder, single episode, unspecified; F17.210 Nicotine dependence, cigarettes, uncomplicated
CPT/HCPCS: 36415; 45330; 57410; 74177; 76856; 80053; 81003; 81025; 84703; 85025; 85610; 85730; 87070; 87205; 87491; 87591; 87635; 87797; 99232; 99252; 99284; C9113; J0290; J0330; J1170; J1885; J2250; J2405; J2543; J2704; J2765; J3010; Q9967

== ENCOUNTER → 2020-08-07 09:19 | Outpatient (CLI) | payer OTHER, MEDICAID, SELFPAY ==
[2020-07-27 15:31] VITALS: BMI 32.8
[2020-08-07 09:55] LABS: Add Manual Diff / Slide Review NO; Basophils Absolute Auto 100 /uL (0-100); Basophils Percent Auto 1.2 % (0-2); Eosinophils Absolute Auto 100 /uL (0-450); Eosinophils Percent Auto 1.2 % (2-4); Hematocrit 40.8 % (36-46); Lymphocytes Absolute Auto 1600 /uL (1100-4500); Lymphocytes Percent Auto 21.4 % (25-40); Mean Corpuscular HGB Conc 34.3 % (30-36); Mean Corpuscular Hemoglobin 31.9 PG (26-34); Monocytes Absolute Auto 300 /uL (0-900); Monocytes Percent Auto 4.5 % (3-14); Neutrophils Absolute Auto 5400 /uL (1500-7000); Neutrophils Percent Auto 71.7 % (50-75); Platelet Count 388 X10^3/uL (150-400); Red Blood Cell Count 4.39 X10^6/uL (4.0-5.2); Red Cell Distribution Width 13.4 % (11.6-14.8); White Blood Cell Count 7.5 X10^3/uL (4.5-11.0)
== END ==
PROVIDERS: PCP Nurse Practitioner; Referring Provider Specialist; Visit Provider Specialist
DX: K65.1 Peritoneal abscess (principal)
CPT/HCPCS: 36415; 85025

== ENCOUNTER → 2020-08-13 11:21 | Outpatient (CLI) | payer OTHER, MEDICAID, SELFPAY ==
[2020-07-27 15:31] VITALS: BMI 32.8
--- NOTE | 2020-08-13 12:13 | DI.CT.S_ITS ---
PROCEDURE: CT ABDOMEN PELVIS W CON INDICATIONS: f/u pelvic abscess post drainage TECHNIQUE: After the administration of oral and intravenous contrast, 5 mm thick sections acquired from the diaphragms to the symphysis. 5 mm thick coronal and sagittal reformats were performed. For radiation dose reduction, the following was used: automated exposure control, adjustment of mA and/or kV according to patient size. COMPARISON: [facility], CT, CT ABDOMEN PELVIS W CON, 07/16/2020, 16:47. [facility], CT, CT CHEST ABD PEL W CON, 07/20/2020, 19:24. FINDINGS: Image quality: Excellent. ABDOMEN: Lung bases: Lung bases are clear. Heart size is normal. Hepatic steatosis. Gallbladder is surgically absent. Pancreas enhances normally. Spleen is normal in size and enhancement. No adrenal nodules. Kidneys are normal in size and enhancement, without hydronephrosis. In the left pelvis, there is a residual fluid collection measuring 3.2 x 2.2 cm containing small bubbles of gas and surrounding inflammatory stranding presumably residual abscess. Previously this measured 6.0 x 3.9 cm. Additional, nearby fluid attenuation focus measuring 3.7 x 3.3 cm in the left adnexal region could be ovarian cyst/follicle Elsewhere, no free air Nodes and vessels: No retroperitoneal or mesenteric adenopathy. Aorta and inferior vena cava are normal in caliber. Miscellaneous: No ventral hernias. PELVIS: Genitourinary: Bladder wall thickness is normal. Miscellaneous: No inguinal hernias or adenopathy. Bones: No suspicious bony lesions. No vertebral body compression fractures. IMPRESSION: Small fluid and gas collection in the left pelvis presumably residual abscess, which appears decreased in size since 07/20/20. Additional round fluid collection more anteriorly could be related to ovarian cyst. Additional chronic and incidental findings as above. Dictated by: Zane Peng M.D. on 08/13/2020 at 13:20 Approved by: Zane Peng M.D. on 08/13/2020 at 13:28
== END ==
PROVIDERS: PCP Nurse Practitioner; Referring Provider Specialist; Visit Provider Specialist
DX: K65.1 Peritoneal abscess (principal); K76.0 Fatty (change of) liver, not elsewhere classified; Z90.49 Acquired absence of other specified parts of digestive tract
CPT/HCPCS: 74177; Q9967

== ENCOUNTER → 2020-08-26 09:41 | Outpatient (CLI) | payer OTHER, MEDICAID, SELFPAY ==
[2020-07-27 15:31] VITALS: BMI 32.8
[2020-08-26 12:16] LABS: COVID19 -Nasal RAPID Negative (Negative)
== END ==
PROVIDERS: PCP Nurse Practitioner; Visit Provider Physician Assistant
DX: Z20.828 Contact with and (suspected) exposure to other viral communicable diseases (principal)
CPT/HCPCS: 87635

== ENCOUNTER → 2020-09-21 12:35 | Outpatient (CLI) | payer OTHER, MEDICAID, SELFPAY ==
[2020-07-27 15:31] VITALS: BMI 32.8
--- NOTE | 2020-09-21 13:42 | DI.CT.S_ITS ---
PROCEDURE: CT PELVIS W CON INDICATIONS: hx L pelvic abscess.Pain with sex.R/O residual abscess TECHNIQUE: After the administration of oral contrast and intravenous contrast, 5 mm thick sections acquired from the iliac crests to the symphysis. 5 mm thick coronal and sagittal reformats were acquired. For radiation dose reduction, the following was used: automated exposure control, adjustment of mA and/or kV according to patient size. COMPARISON: [facility], CT, CT CHEST ABD PEL W CON, 07/20/2020, 19:24. [facility], CT, CT ABDOMEN PELVIS W CON, 08/13/2020, 12:37. FINDINGS: Image quality: Excellent. Peritoneum and bowel: There is a residual ovoid gas and fluid collection with mild surrounding fat stranding in the left posterior pelvis measuring 3.1 x 2.1 x 2.1 cm, demonstrating a close association to the left margin of the sigmoid colon laterally, the anterior serosal surface of the rectum posteriorly, and probably tethering the left ovary anteriorly. This has decreased in size compared to the prior study there has been interval resolution of the anterior rounded fluid collection, probably a left ovarian cyst. Normal appendix. No acute colitis. Small bowel is within normal limits. No free fluid or free air. Genitourinary: Bladder wall thickness is normal. Uterus and ovaries are normal. Nodes and vessels: No iliac, pelvic, or inguinal adenopathy. Iliac vessels demonstrate normal size and enhancement. Bones: No suspicious bony lesions. Miscellaneous: No inguinal hernias. IMPRESSION: 1. Decreased size of left posterior pelvic abscess which now measures 3.1 cm, previously approximately 4.3 cm. 2. Abscess has close association with sigmoid and rectal serosal surfaces. Fistula is not excluded. Further evaluation with rectal contrast may be useful to exclude communication with this abscess pocket. 3. Resolution of prior probable left ovarian cyst. Dictated by: Cee De Jesus M.D. on 09/21/2020 at 15:39 Approved by: Cee De Jesus M.D. on 09/21/2020 at 15:53
== END ==
PROVIDERS: PCP Nurse Practitioner; Referring Provider Specialist; Visit Provider Specialist
DX: N94.10 Unspecified dyspareunia (principal); N73.9 Female pelvic inflammatory disease, unspecified
CPT/HCPCS: 72193; Q9967

== ENCOUNTER → 2020-10-06 15:08 | Outpatient (CLI) | payer OTHER, MEDICAID, SELFPAY ==
[2020-07-27 15:31] VITALS: BMI 32.8
== END ==
PROVIDERS: PCP Nurse Practitioner; Visit Provider Nurse Practitioner
DX: N89.8 Other specified noninflammatory disorders of vagina (principal)
CPT/HCPCS: 87070; 87077; 87205

== ENCOUNTER → 2020-11-04 08:42 | Outpatient (CLI) | payer OTHER, MEDICAID, SELFPAY ==
[2020-10-22 14:27] VITALS: BMI 32.8
--- NOTE | 2020-11-04 09:30 | DI.CT.S_ITS ---
PROCEDURE: CT PELVIS W CON INDICATIONS: hx pelvic abscess. New Increasing L pelvic pain r/o abscess TECHNIQUE: After the administration of oral contrast and intravenous contrast, 5 mm thick sections acquired from the iliac crests to the symphysis. 5 mm thick coronal and sagittal reformats were acquired. For radiation dose reduction, the following was used: automated exposure control, adjustment of mA and/or kV according to patient size. COMPARISON: [facility], CT, CT PELVIS W CON, 09/21/2020, 13:21. FINDINGS: Image quality: Excellent. Peritoneum and bowel: Contrast enhanced bowel loops demonstrate normal wall thickness and caliber. The posterior left pelvic abscess is now nearly completely resolved. It measures 2.4 x 1.5 cm, and has an appearance suggesting developing residual scar.. Genitourinary: Bladder wall thickness is normal. Nodes and vessels: No iliac, pelvic, or inguinal adenopathy. Iliac vessels demonstrate normal size and enhancement. Bones: No suspicious bony lesions. Miscellaneous: No inguinal hernias. A cystic lesion of the left adnexa has developed, measuring 5.1 in maximum diameter. There is probable hemorrhage within the cystic lesion. IMPRESSION: 1. Near complete resolution of previous posterior left pelvic abscess, possibly developing into a residual scar. 2. Development of a 5.1 cm hemorrhagic cyst of the left ovary. Dictated by: Everton Gonzalez M.D. on 11/04/2020 at 9:53 Approved by: Everton Gonzalez M.D. on 11/04/2020 at 9:59
== END ==
PROVIDERS: PCP Nurse Practitioner; Referring Provider Specialist; Visit Provider Specialist
DX: K65.1 Peritoneal abscess (principal); R10.2 Pelvic and perineal pain; N83.292 Other ovarian cyst, left side
CPT/HCPCS: 72193; Q9967

== ENCOUNTER → 2021-01-29 09:28 | Outpatient (CLI) | payer OTHER, MEDICAID, SELFPAY ==
[2020-10-22 14:27] VITALS: BMI 32.8
--- NOTE | 2021-01-29 09:30 | DI.US.S_ITS ---
PROCEDURE: US BREAST RT LIMITED COMPARISON: [facility], BREAST LT LIMITED, 01/30/2020, 11:49. [facility], BREAST RT LIMITED, 01/27/2020, 14:17. INDICATIONS: 6mo F/u, abnormal breast imaging FINDINGS: The right breast findings are benign, however please note that on the prior left ultrasound on 01/30/2020, six-month follow-up ultrasound of the left breast was recommended. Therefore recommend left breast ultrasound as previously recommended. IMPRESSION: Dictated by: Khanh Chaudhary M.D. on 01/29/2021 at 17:38 Approved by: Khanh Chaudhary M.D. on 01/29/2021 at 17:58
--- NOTE | 2021-01-29 09:30 | DI.MG.S_ITS ---
BILATERAL DIGITAL DIAGNOSTIC MAMMOGRAM 3D/2D SHORT-TERM FOLLOW-UP: 01/29/2021 CLINICAL: Short term follow up for bilateral breasts. Comparison is made to exams dated: 02/24/2020 ultrasound biopsy, 02/24/2020 mammogram, and 01/27/2020 mammogram - [facility]. There are scattered fibroglandular elements in both breasts. There is an oval mass with a circumscribed margin in the right breast at 2 o'clock posterior depth. There is a biopsy clip associated with the mass. There is a focal asymmetry in the left breast at 2 o'clock middle depth. No other significant masses or calcifications are seen in either breast. IMPRESSION: INCOMPLETE: NEEDS ADDITIONAL IMAGING EVALUATION The oval mass in the right breast at 2 o'clock posterior depth is stable by mammogram. An ultrasound is recommended. The focal asymmetry in the left breast at 2 o'clock middle depth is stable by mammogram. An ultrasound is recommended. This exam was interpreted at Station ID: [id number]. NOTE: For mammograms, a report in lay terms will be sent to the patient. Approximately 15% of breast malignancies will not be visualized mammographically. In the management of a palpable breast mass, a negative mammogram must not discourage biopsy of a clinically suspicious lesion. Electronically Signed By: Khanh Chaudhary acr/:01/29/2021 10:18:36 Entry: concepcion - 02/01/2021 10:08:34 ACR BI-RADS Category 0: Incomplete [id number]
== END ==
PROVIDERS: Family Provider Nurse Practitioner; PCP Nurse Practitioner; Referring Provider Nurse Practitioner; Visit Provider Nurse Practitioner
DX: R92.8 Other abnormal and inconclusive findings on diagnostic imaging of breast (principal); D24.1 Benign neoplasm of right breast; N64.89 Other specified disorders of breast
CPT/HCPCS: 76642; 77066; G0279

== ENCOUNTER → 2021-02-04 08:31 | Outpatient (CLI) | payer OTHER, MEDICAID, SELFPAY ==
[2020-10-22 14:27] VITALS: BMI 32.8
[2021-02-04 09:51] LABS: Alanine Aminotransferase 22 IU/L (<35); Albumin 4.4 g/dL (3.5-5.0); Albumin Globulin Ratio 1.3 (1.0-2.8); Alkaline Phosphatase 88 U/L (38-126); Aspartate Aminotransferase 26 IU/L (14-36); BUN Creatinine Ratio 39.6 (6-22); Bilirubin Total 0.4 mg/dL (0.2-1.3); Blood Urea Nitrogen 19 mg/dL (7-17); Carbon Dioxide 25 mmol/L (22-32); Chloride 106 mmol/L (98-107); Cholesterol 209 mg/dL (140-199); Estimated Glomerular Filt Rate > 60.0 mL/min (>60); Globulin 3.3 g/dL (1.7-4.1); Glucose 128 mg/dL (70-100); HDL Cholesterol 38 mg/dL (40-60); HEMOLYSIS 34 (0-50); LDL Cholesterol Calculated 94 mg/dL (<100); Sodium 139 mmol/L (137-145); Total Protein 7.7 g/dL (6.3-8.2); Triglycerides 383 mg/dL (35-150)
== END ==
PROVIDERS: Family Provider Nurse Practitioner; PCP Nurse Practitioner; Referring Provider Nurse Practitioner; Visit Provider Nurse Practitioner
DX: E78.5 Hyperlipidemia, unspecified (principal); I65.29 Occlusion and stenosis of unspecified carotid artery
CPT/HCPCS: 36415; 80053; 80061

== ENCOUNTER → 2021-06-17 12:25 | Outpatient (CLI) | payer OTHER, MEDICAID, SELFPAY ==
[2020-10-22 14:27] VITALS: BMI 32.8
[2021-06-17 13:29] LABS: Add Manual Diff / Slide Review NO; Basophils Absolute Auto 0 /uL (0-100); Basophils Percent Auto 0.5 % (0-2); Eosinophils Absolute Auto 200 /uL (0-450); Eosinophils Percent Auto 2.1 % (2-4); Hematocrit 39.4 % (36-46); Hemoglobin 13.5 g/dL (12.0-16.0); Lymphocytes Absolute Auto 1800 /uL (1100-4500); Mean Corpuscular HGB Conc 34.3 % (30-36); Mean Corpuscular Hemoglobin 32.9 PG (26-34); Monocytes Absolute Auto 400 /uL (0-900); Monocytes Percent Auto 4.5 % (3-14); Neutrophils Absolute Auto 7000 /uL (1500-7000); Neutrophils Percent Auto 73.9 % (50-75); Platelet Count 292 X10^3/uL (150-400); Red Blood Cell Count 4.11 X10^6/uL (4.0-5.2); Red Cell Distribution Width 13.4 % (11.6-14.8); White Blood Cell Count 9.5 X10^3/uL (4.5-11.0)
[2021-06-17 15:58] LABS: Hepatitis B Surface Antigen NEGATIVE s/c (NEGATIVE)
[2021-06-17 16:15] LABS: Hep C Virus Ab w/Reflex Quant NEGATIVE s/c (NEGATIVE)
[2021-06-18 03:36] LABS: Hepatitis B Core AB w/Reflex Negative (Negative)
[2021-06-18 07:28] LABS: Hepatitis B Surf AB Quant <3.1 mIU/mL (Immunity>9.9)
[2021-06-23 12:09] LABS: QuantiFERON Mitogen Value >10.00 IU/mL (.); QuantiFERON Nil Value 0.05 IU/mL (.); QuantiFERON TB Gold Plus Negative (Negative); QuantiFERON TB1 Ag Value 0.09 IU/mL (.); QuantiFERON TB2 Ag Value 0.06 IU/mL (.)
== END ==
PROVIDERS: Family Provider Nurse Practitioner; PCP Nurse Practitioner; Referring Provider Nurse Practitioner Adult Health; Visit Provider Nurse Practitioner Adult Health
DX: L30.1 Dyshidrosis [pompholyx] (principal)
CPT/HCPCS: 36415; 85025; 86480; 86704; 86706; 86803; 87340

== ENCOUNTER → 2021-07-07 09:02 | Outpatient (CLI) | payer OTHER, MEDICAID, SELFPAY ==
[2020-10-22 14:27] VITALS: BMI 32.8
[2021-07-07 10:18] LABS: Hemoglobin A1C% w Est Avg Glu 7.1 % (4.0-6.0)
[2021-07-07 10:22] LABS: Alanine Aminotransferase 38 IU/L (<35); Albumin 4.5 g/dL (3.5-5.0); Albumin Globulin Ratio 1.6 (1.0-2.8); Alkaline Phosphatase 77 U/L (38-126); Aspartate Aminotransferase 33 IU/L (14-36); BUN Creatinine Ratio 34.6 (6-22); Bilirubin Total 0.3 mg/dL (0.2-1.3); Blood Urea Nitrogen 18 mg/dL (7-17); Calcium 9.1 mg/dL (8.4-10.2); Carbon Dioxide 27 mmol/L (22-32); Chloride 104 mmol/L (98-107); Cholesterol 186 mg/dL (140-199); Estimated Glomerular Filt Rate > 60.0 mL/min (>60); Globulin 2.9 g/dL (1.7-4.1); Glucose 144 mg/dL (70-100); HDL Cholesterol 37 mg/dL (40-60); HEMOLYSIS < 15 (0-50); LDL Cholesterol Calculated 99 mg/dL (<100); Potassium 4.2 mmol/L (3.4-5.1); Sodium 139 mmol/L (137-145); Total Protein 7.4 g/dL (6.3-8.2); Triglycerides 249 mg/dL (35-150)
== END ==
PROVIDERS: Family Provider Nurse Practitioner; PCP Nurse Practitioner; Referring Provider Nurse Practitioner; Visit Provider Nurse Practitioner
DX: E78.5 Hyperlipidemia, unspecified (principal); L40.9 Psoriasis, unspecified; R73.01 Impaired fasting glucose; R73.03 Prediabetes
CPT/HCPCS: 36415; 80053; 80061; 83036

== ENCOUNTER → 2021-08-16 12:47 | Outpatient (CLI) | payer OTHER, MEDICAID, SELFPAY ==
[2020-10-22 14:27] VITALS: BMI 32.8
--- NOTE | 2021-08-16 12:48 | DI.US.S_ITS ---
ULTRASOUND OF LEFT BREAST: 08/16/2021 CLINICAL: 6 month follow-up of cysts. Comparison is made to exams dated: 01/29/2021 mammogram, 01/30/2020 ultrasound, and 01/27/2020 mammogram - [facility]. Color flow and real-time ultrasound of the left breast were performed. Moses scale images of the real-time examination were reviewed. Redemonstration of previously described multiple oval cysts in the left breast superior lateral quadrant middle depth. Largest measures up to 0.6cm in size. These oval cysts are hypoechoic with well-defined boundaries, internal echoes, and posterior acoustic enhancement. These abnormalities are not significantly changed and correlate with stable mammography findings. Color flow imaging demonstrates that there is no vascularity present. IMPRESSION: PROBABLY BENIGN The multiple oval cysts in the left breast are consistent with complicated cysts/cluster of cysts and are probably benign. A follow-up bilateral mammogram and a left ultrasound in 6 months is recommended to demonstrate varnish thinner stability. Findings and recommendations were conveyed to the patient during today's evaluation. This exam was interpreted at Station ID: [id number]. Electronically Signed By: Antoni García M.D. aty/:08/16/2021 13:52:10 letter sent: Followup Recommended Ultrasound BI-RADS: 3 Probably benign
== END ==
PROVIDERS: Family Provider Nurse Practitioner; PCP Nurse Practitioner; Referring Provider Nurse Practitioner; Visit Provider Nurse Practitioner
DX: R92.8 Other abnormal and inconclusive findings on diagnostic imaging of breast (principal); N60.02 Solitary cyst of left breast
CPT/HCPCS: 76642

== ENCOUNTER → 2021-10-19 08:06 | Outpatient (CLI) | payer OTHER, MEDICAID, SELFPAY ==
[2020-10-22 14:27] VITALS: BMI 32.8
[2021-10-19 08:36] LABS: Hemoglobin A1C% w Est Avg Glu 7.1 % (4.0-6.0)
[2021-10-19 08:39] LABS: Alanine Aminotransferase 75 IU/L (<35); Albumin 4.3 g/dL (3.5-5.0); Albumin Globulin Ratio 1.4 (1.0-2.8); Alkaline Phosphatase 79 U/L (38-126); Aspartate Aminotransferase 53 IU/L (14-36); BUN Creatinine Ratio 26.2 (6-22); Bilirubin Total 0.6 mg/dL (0.2-1.3); Blood Urea Nitrogen 17 mg/dL (7-17); Calcium 8.6 mg/dL (8.4-10.2); Carbon Dioxide 25 mmol/L (22-32); Chloride 107 mmol/L (98-107); Cholesterol 146 mg/dL (140-199); Estimated Glomerular Filt Rate > 60.0 mL/min (>60); Glucose 125 mg/dL (70-100); HDL Cholesterol 26 mg/dL (40-60); HEMOLYSIS < 15 (0-50); LDL Cholesterol Calculated 83 mg/dL (<100); Potassium 3.7 mmol/L (3.4-5.1); Sodium 141 mmol/L (137-145); Total Protein 7.3 g/dL (6.3-8.2); Triglycerides 187 mg/dL (35-150)
[2021-10-19 11:07] LABS: Creatinine Urine Random 372.7 mg/dL; Microalbumi Creatinin Ratio Ur 17.7 ug/mg CR (<30); Microalbumin Urine Random 6.6 mg/dL (0-1.6)
== END ==
PROVIDERS: Family Provider Nurse Practitioner; PCP Nurse Practitioner; Referring Provider Nurse Practitioner; Visit Provider Nurse Practitioner
DX: E11.69 Type 2 diabetes mellitus with other specified complication (principal); E11.9 Type 2 diabetes mellitus without complications; E78.5 Hyperlipidemia, unspecified
CPT/HCPCS: 36415; 80053; 80061; 82043; 82570; 83036

== ENCOUNTER 2021-10-25 13:44 | Emergency (ER) | payer OTHER, MEDICAID, SELFPAY ==
[2020-10-22 14:27] VITALS: BMI 32.8
[2021-10-25 13:46] VITALS: BP 148/86; PULSE 75; RESP 16; TEMP 37; O2SAT 97; BMI 34.3
--- NOTE | 2021-10-25 13:51 | DI.RAD.S_ITS ---
PROCEDURE: XR CHEST 1V INDICATIONS: chest pain TECHNIQUE: One view of the chest was acquired. COMPARISON: [facility], , CHEST 2 VIEW, 06/27/2011, 15:18. FINDINGS: Surgical changes and devices: None. Lungs and pleura: Coarsened interstitial markings. Lungs are clear. No pleural effusions or pneumothorax. Mediastinum: Mediastinal contours appear normal. Heart size is normal. Bones and chest wall: No suspicious bony lesions. Overlying soft tissues appear unremarkable. IMPRESSION: No acute cardiopulmonary abnormality. Dictated by: Eugene Felipe M.D. on 10/25/2021 at 14:32 Approved by: Eugene Felipe M.D. on 10/25/2021 at 14:33
[2021-10-25 14:30] LABS: Add Manual Diff / Slide Review NO; Basophils Absolute Auto 100 /uL (0-100); Basophils Percent Auto 0.9 % (0-2); Eosinophils Absolute Auto 100 /uL (0-450); Eosinophils Percent Auto 1.6 % (2-4); Hematocrit 40.7 % (36-46); Hemoglobin 14.5 g/dL (12.0-16.0); Lymphocytes Absolute Auto 2300 /uL (1100-4500); Lymphocytes Percent Auto 26.1 % (25-40); Mean Corpuscular HGB Conc 35.6 % (30-36); Mean Corpuscular Hemoglobin 32.2 PG (26-34); Mean Corpuscular Volume 90.6 fL (80-100); Monocytes Absolute Auto 300 /uL (0-900); Monocytes Percent Auto 3.9 % (3-14); Neutrophils Absolute Auto 6000 /uL (1500-7000); Neutrophils Percent Auto 67.5 % (50-75); Platelet Count 332 X10^3/uL (150-400); Red Blood Cell Count 4.49 X10^6/uL (4.0-5.2); Red Cell Distribution Width 12.8 % (11.6-14.8); White Blood Cell Count 8.8 X10^3/uL (4.5-11.0)
[2021-10-25 14:41] LABS: Alanine Aminotransferase 59 IU/L (<35); Albumin 4.7 g/dL (3.5-5.0); Albumin Globulin Ratio 1.4 (1.0-2.8); Alkaline Phosphatase 84 U/L (38-126); Aspartate Aminotransferase 55 IU/L (14-36); BUN Creatinine Ratio 23.3 (6-22); Bilirubin Total 0.6 mg/dL (0.2-1.3); Blood Urea Nitrogen 14 mg/dL (7-17); Calcium 9.4 mg/dL (8.4-10.2); Carbon Dioxide 24 mmol/L (22-32); Chloride 106 mmol/L (98-107); Creatine Kinase 90 U/L (30-135); Estimated Glomerular Filt Rate > 60.0 mL/min (>60); Globulin 3.3 g/dL (1.7-4.1); Glucose 184 mg/dL (70-100); HEMOLYSIS < 15 (0-50); Lipase 48 U/L (23-300); Potassium 3.7 mmol/L (3.4-5.1); Sodium 139 mmol/L (137-145)
[2021-10-25 14:53] LABS: Troponin I < 0.012 ng/mL (0.01-0.034)
[2021-10-25 17:54] VITALS: BP 126/59; PULSE 79; RESP 22; O2SAT 95
[2021-10-25 18:17] LABS: COVID19 -Nasal RAPID POSITIVE (Negative)
== END 2021-10-25 18:12 | disposition left against medical advice (07) ==
PROVIDERS: Emergency Medicine; Emergency Provider Emergency Medicine; Family Provider Nurse Practitioner; PCP Nurse Practitioner
DX: R07.9 Chest pain, unspecified (principal); Z20.822 Contact with and (suspected) exposure to COVID-19
CPT/HCPCS: 36415; 71045; 80053; 82550; 83690; 83735; 84484; 85025; 87635; 93005; 93010; 99284; C9803

== ENCOUNTER → 2021-12-28 11:03 | Outpatient (CLI) | payer OTHER, MEDICAID, SELFPAY ==
[2020-10-22 14:27] VITALS: BMI 32.8
[2021-12-28 12:16] LABS: Creatinine Urine Random 108.7 mg/dL
[2021-12-28 12:21] LABS: Microalbumi Creatinin Ratio Ur 15.6 ug/mg CR (<30); Microalbumin Urine Random 1.7 mg/dL (0-1.6)
== END ==
PROVIDERS: Family Provider Nurse Practitioner; PCP Nurse Practitioner; Referring Provider Nurse Practitioner; Visit Provider Nurse Practitioner
DX: E11.69 Type 2 diabetes mellitus with other specified complication (principal); E78.5 Hyperlipidemia, unspecified; E11.65 Type 2 diabetes mellitus with hyperglycemia; F41.0 Panic disorder [episodic paroxysmal anxiety]; F41.9 Anxiety disorder, unspecified
CPT/HCPCS: 36415; 82043; 82570

== ENCOUNTER → 2022-01-07 08:08 | Outpatient (CLI) | payer OTHER, MEDICAID, SELFPAY ==
[2020-10-22 14:27] VITALS: BMI 32.8
[2022-01-07 10:57] LABS: Alanine Aminotransferase 46 IU/L (<35); Albumin 4.5 g/dL (3.5-5.0); Albumin Globulin Ratio 1.7 (1.0-2.8); Alkaline Phosphatase 83 U/L (38-126); Aspartate Aminotransferase 31 IU/L (14-36); BUN Creatinine Ratio 29.1 (6-22); Bilirubin Total 0.6 mg/dL (0.2-1.3); Blood Urea Nitrogen 16 mg/dL (7-17); Calcium 9.4 mg/dL (8.4-10.2); Carbon Dioxide 24 mmol/L (22-32); Chloride 106 mmol/L (98-107); Cholesterol 181 mg/dL (140-199); Estimated Glomerular Filt Rate > 60 mL/min (>60); Globulin 2.7 g/dL (1.7-4.1); Glucose 118 mg/dL (70-100); HDL Cholesterol 33 mg/dL (40-60); HEMOLYSIS < 15 (0-50); LDL Cholesterol Calculated 111 mg/dL (<100); Potassium 4.3 mmol/L (3.4-5.1); Sodium 140 mmol/L (137-145); Total Protein 7.2 g/dL (6.3-8.2); Triglycerides 187 mg/dL (35-150)
== END ==
PROVIDERS: Family Provider Nurse Practitioner; PCP Nurse Practitioner; Referring Provider Nurse Practitioner; Visit Provider Nurse Practitioner
DX: E11.65 Type 2 diabetes mellitus with hyperglycemia (principal); E78.5 Hyperlipidemia, unspecified
CPT/HCPCS: 36415; 80053; 80061

== ENCOUNTER → 2022-02-08 12:40 | Outpatient (CLI) | payer OTHER, MEDICAID, SELFPAY ==
[2020-10-22 14:27] VITALS: BMI 32.8
--- NOTE | 2022-02-08 12:41 | DI.US.S_ITS ---
PROCEDURE: US SOFT TISSUE HEAD AND NECK INDICATIONS: PULSATILE RIGHT NECK MASS TECHNIQUE: Real-time scanning was performed of the neck region of interest, with image documentation. COMPARISON: [facility], US, US SOFT TISSUE HEAD AND NECK, 02/04/2020, 10:26. FINDINGS: No mass, fluid collection or lymphadenopathy seen with right neck. IMPRESSION: No sonographic abnormality visualized within the right neck. Dictated by: Lefty Nava RRMireya Interpreted: Juan Pablo Marques MD on 02/08/2022 at 13:43 Transcribed by: [place] on 02/08/2022 at 13:43 Approved by: Juan Pablo Marques M.D. on 02/08/2022 at 15:49
== END ==
PROVIDERS: Family Provider Nurse Practitioner; PCP Nurse Practitioner; Referring Provider Nurse Practitioner; Visit Provider Nurse Practitioner
DX: R22.1 Localized swelling, mass and lump, neck (principal)
CPT/HCPCS: 76536

== ENCOUNTER → 2022-05-05 08:08 | Outpatient (CLI) | payer OTHER, MEDICAID, SELFPAY ==
[2020-10-22 14:27] VITALS: BMI 32.8
--- NOTE | 2022-05-05 08:12 | DI.US.S_ITS ---
PROCEDURE: US PELVIC COMPLETE INDICATIONS: pelvic pain TECHNIQUE: Real-time scanning was performed of the pelvic organs, with image documentation. Additional endovaginal scanning was necessary due to incomplete visualization of the adnexal and endometrial structures by transabdominal scanning. COMPARISON: [facility], CT, CT PELVIS W CON, 11/04/2020, 9:30. [facility], US, US PELVIC COMPLETE, 07/16/2020, 18:42. FINDINGS: Uterus: Uterus is anteverted and normal in size at 7.1 x 3.8 x 5.3 cm. The myometrium is homogeneous. The endometrium measures 3 mm combined thickness. A few areas of apparent calcification can be seen along the endometrial stripe. Along the right anterior uterus, there is a 1.5 cm subserosal fibroid. Abnormal vascularity can be seen. Ovaries: The right ovary measures 1.7 x 1.7 x 1.7 cm. The left ovary measures 1.7 x 2 x 1 point cm. There are few calcifications seen within the right ovary. The ovaries otherwise have a normal sonographic appearance. No adnexal masses are seen. Normal appearing arterial and venous waveforms are confirmed to each ovary. Other: No pathologic free abdominal or pelvic fluid. IMPRESSION: 1.5 cm right anterior uterine fibroid seen. No ovarian cysts are now seen. No abnormal pelvic fluid collections can now be seen. We strive to produce accurate, complete, and clear reports of imaging services. To assist us in improving patient care, this report was composed using standard report templates and voice recognition software. Therefore, it may contain abnormal punctuation, insertions and/or omissions. Occasional wrong-word or sound-alike substitutions may occur. Though we review the report and make efforts to correct it, we do recommend that the report be read carefully in proper context to recognize any text inaccuracies. Dictated by: Abrahan Santana M.D. on 05/05/2022 at 13:56 Approved by: Abrahan Santana M.D. on 05/05/2022 at 13:58
[2022-05-05 11:33] LABS: Hemoglobin A1C% w Est Avg Glu 6.5 % (4.0-6.0)
[2022-05-05 11:47] LABS: Alanine Aminotransferase 57 IU/L (<35); Albumin 4.3 g/dL (3.5-5.0); Albumin Globulin Ratio 1.6 (1.0-2.8); Alkaline Phosphatase 89 U/L (38-126); Aspartate Aminotransferase 35 IU/L (14-36); BUN Creatinine Ratio 24.1 (6-22); Bilirubin Total 0.9 mg/dL (0.2-1.3); Blood Urea Nitrogen 14 mg/dL (7-17); Carbon Dioxide 25 mmol/L (22-32); Chloride 106 mmol/L (98-107); Cholesterol 157 mg/dL (140-199); Estimated Glomerular Filt Rate > 60 mL/min (>60); Globulin 2.7 g/dL (1.7-4.1); Glucose 106 mg/dL (70-100); HDL Cholesterol 31 mg/dL (40-60); HEMOLYSIS < 15 (0-50); LDL Cholesterol Calculated 95 mg/dL (<100); Potassium 4.4 mmol/L (3.4-5.1); Sodium 140 mmol/L (137-145); Triglycerides 153 mg/dL (35-150)
== END ==
PROVIDERS: Family Provider Nurse Practitioner; PCP Nurse Practitioner; Referring Provider Nurse Practitioner; Visit Provider Nurse Practitioner
DX: D25.2 Subserosal leiomyoma of uterus (principal); N94.89 Other specified conditions associated with female genital organs and menstrual cycle; E11.65 Type 2 diabetes mellitus with hyperglycemia; E11.69 Type 2 diabetes mellitus with other specified complication; E78.2 Mixed hyperlipidemia; E78.5 Hyperlipidemia, unspecified; I65.29 Occlusion and stenosis of unspecified carotid artery; K76.0 Fatty (change of) liver, not elsewhere classified; R79.89 Other specified abnormal findings of blood chemistry
CPT/HCPCS: 36415; 76830; 76856; 80053; 80061; 83036

== ENCOUNTER → 2022-05-09 11:54 | Outpatient (CLI) | payer OTHER, MEDICAID, SELFPAY ==
[2020-10-22 14:27] VITALS: BMI 32.8
[2022-05-09 14:13] LABS: Free T3, Triiodothyronine Free 3.29 pg/mL (2.77-5.27); Free T4, Direct Thyroxine 0.94 ng/dL (0.78-2.19)
[2022-05-09 14:26] LABS: Thyroid Stimulating Hormone 1.74 uIU/mL (0.47-4.68)
== END ==
PROVIDERS: Family Provider Nurse Practitioner; PCP Nurse Practitioner; Referring Provider Nurse Practitioner; Visit Provider Nurse Practitioner
DX: F41.9 Anxiety disorder, unspecified (principal); L65.9 Nonscarring hair loss, unspecified
CPT/HCPCS: 36415; 84439; 84443; 84481

== ENCOUNTER → 2022-05-17 13:11 | Outpatient (CLI) | payer OTHER, MEDICAID, SELFPAY ==
[2020-10-22 14:27] VITALS: BMI 32.8
== END ==
PROVIDERS: Family Provider Nurse Practitioner; PCP Nurse Practitioner; Visit Provider Registered Nurse
DX: R30.0 Dysuria (principal)
CPT/HCPCS: 81002; 87086

== ENCOUNTER → 2022-07-07 15:15 | Outpatient (CLI) | payer OTHER, MEDICAID, SELFPAY ==
[2020-10-22 14:27] VITALS: BMI 32.8
--- NOTE | 2022-07-07 15:16 | DI.MRI.S_ITS ---
PROCEDURE: MR PELVIS WO CON INDICATIONS: Sacral pain x 1 1/2 years TECHNIQUE: Noncontrast axial and oblique coronal T1 spin echo and STIR through the sacroiliac joints. COMPARISON: None. FINDINGS: Image quality: Excellent. Bones: The sacroiliac joints appear intact. No adjacent bone marrow edema to suggest active sacroiliitis. No bony ankylosis. No suspicious marrow space occupying lesions. Soft tissues: No presacral masses. Rectum appears normal in caliber and wall thickness. No pathologic free pelvic fluid. IMPRESSION: Unremarkable MRI examination of bilateral sacroiliac joints. No evidence of active sacroiliitis. No ankylosis or bony erosion. No fracture or dislocation no gross presacral soft tissue abnormalities. Dictated by: Juan Pablo Marques M.D. on 07/07/2022 at 16:11 Approved by: Juan Pablo Marques M.D. on 07/07/2022 at 16:42
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
== END ==
PROVIDERS: Family Provider Nurse Practitioner; PCP Nurse Practitioner; Referring Provider Nurse Practitioner; Visit Provider Nurse Practitioner
DX: M54.18 Radiculopathy, sacral and sacrococcygeal region (principal); R20.0 Anesthesia of skin; R20.2 Paresthesia of skin; Z87.828 Personal history of other (healed) physical injury and trauma
CPT/HCPCS: 72195; 73718

== ENCOUNTER → 2022-12-06 08:37 | Outpatient (CLI) | payer OTHER, MEDICAID, SELFPAY ==
[2020-10-22 14:27] VITALS: BMI 32.8
[2022-12-06 10:11] LABS: Microalbumi Creatinin Ratio Ur 7.4 ug/mg CR (<30)
[2022-12-06 10:12] LABS: Alanine Aminotransferase 41 IU/L (<35); Albumin 4.2 g/dL (3.5-5.0); Albumin Globulin Ratio 1.4 (1.0-2.8); Alkaline Phosphatase 87 U/L (38-126); Aspartate Aminotransferase 32 IU/L (14-36); BUN Creatinine Ratio 20.7 (6-22); Bilirubin Total 0.7 mg/dL (0.2-1.3); Blood Urea Nitrogen 12 mg/dL (7-17); Calcium 8.8 mg/dL (8.4-10.2); Carbon Dioxide 26 mmol/L (22-32); Chloride 103 mmol/L (98-107); Cholesterol 170 mg/dL (140-199); Estimated Glomerular Filt Rate > 60 mL/min (>60); Globulin 3.1 g/dL (1.7-4.1); Glucose 113 mg/dL (70-100); HDL Cholesterol 37 mg/dL (40-60); HEMOLYSIS < 15 (0-50); LDL Cholesterol Calculated 97 mg/dL (<100); Potassium 4.2 mmol/L (3.4-5.1); Sodium 136 mmol/L (137-145); Total Protein 7.3 g/dL (6.3-8.2); Triglycerides 182 mg/dL (35-150)
[2022-12-06 10:29] LABS: Free T3, Triiodothyronine Free 3.82 pg/mL (2.77-5.27)
[2022-12-06 10:43] LABS: Thyroid Stimulating Hormone 1.46 uIU/mL (0.47-4.68)
[2022-12-07 06:11] LABS: Labcorp Hemoglobin (Hb) A1c 6.1 % (4.8-5.6)
== END ==
PROVIDERS: Family Provider Nurse Practitioner; PCP Nurse Practitioner; Referring Provider Nurse Practitioner; Visit Provider Nurse Practitioner
DX: E11.65 Type 2 diabetes mellitus with hyperglycemia (principal); E11.69 Type 2 diabetes mellitus with other specified complication; E78.5 Hyperlipidemia, unspecified; F41.9 Anxiety disorder, unspecified
CPT/HCPCS: 36415; 80053; 80061; 82043; 82570; 83036; 84439; 84443; 84481

== ENCOUNTER → 2022-12-16 10:19 | Outpatient (CLI) | payer OTHER, MEDICAID, SELFPAY ==
[2020-10-22 14:27] VITALS: BMI 32.8
== END ==
PROVIDERS: Family Provider Nurse Practitioner; PCP Nurse Practitioner; Visit Provider Nurse Practitioner Family
DX: R30.0 Dysuria (principal)
CPT/HCPCS: 81002; 87086; 87210

== ENCOUNTER → 2023-03-02 08:15 | Outpatient (CLI) | payer OTHER, MEDICAID, SELFPAY ==
[2020-10-22 14:27] VITALS: BMI 32.8
[2023-03-02 09:34] LABS: Add Manual Diff / Slide Review NO; Basophils Absolute Auto 100 /uL (0-100); Basophils Percent Auto 0.9 % (0-2); Eosinophils Absolute Auto 200 /uL (0-450); Eosinophils Percent Auto 1.9 % (2-4); Hematocrit 40.9 % (36-46); Hemoglobin 14.1 g/dL (12.0-16.0); Lymphocytes Absolute Auto 2200 /uL (1100-4500); Lymphocytes Percent Auto 21.3 % (25-40); Mean Corpuscular HGB Conc 34.6 % (30-36); Mean Corpuscular Hemoglobin 31.5 PG (26-34); Monocytes Absolute Auto 500 /uL (0-900); Monocytes Percent Auto 5.2 % (3-14); Neutrophils Absolute Auto 7500 /uL (1500-7000); Neutrophils Percent Auto 70.7 % (50-75); Platelet Count 323 X10^3/uL (150-400); Red Blood Cell Count 4.49 X10^6/uL (4.0-5.2); Red Cell Distribution Width 13.5 % (11.6-14.8); White Blood Cell Count 10.6 X10^3/uL (4.5-11.0)
[2023-03-02 09:38] LABS: Alanine Aminotransferase 43 IU/L (<35); Albumin 4.5 g/dL (3.5-5.0); Albumin Globulin Ratio 1.5 (1.0-2.8); Alkaline Phosphatase 78 U/L (38-126); Aspartate Aminotransferase 35 IU/L (14-36); BUN Creatinine Ratio 24.1 (6-22); Bilirubin Total 0.8 mg/dL (0.2-1.3); Blood Urea Nitrogen 13 mg/dL (7-17); Calcium 9.3 mg/dL (8.4-10.2); Carbon Dioxide 25 mmol/L (22-32); Chloride 103 mmol/L (98-107); Cholesterol 144 mg/dL (140-199); Estimated Glomerular Filt Rate > 60 mL/min (>60); Globulin 3.1 g/dL (1.7-4.1); Glucose 113 mg/dL (70-100); HDL Cholesterol 42 mg/dL (40-60); HEMOLYSIS < 15 (0-50); LDL Cholesterol Calculated 71 mg/dL (<100); Potassium 4.3 mmol/L (3.4-5.1); Sodium 137 mmol/L (137-145); Total Protein 7.6 g/dL (6.3-8.2); Triglycerides 153 mg/dL (35-150)
[2023-03-02 10:09] LABS: Thyroid Stimulating Hormone 1.63 uIU/mL (0.47-4.68)
[2023-03-02 10:26] LABS: HIV 1 & 2 Ab/Ag 4th Gen Combo NEGATIVE (NEGATIVE)
[2023-03-02 10:32] LABS: Free T3, Triiodothyronine Free 4.42 pg/mL (2.77-5.27); Free T4, Direct Thyroxine 1.03 ng/dL (0.78-2.19)
[2023-03-02 10:54] LABS: Creatinine Urine Random 67.6 mg/dL
[2023-03-02 10:59] LABS: Microalbumi Creatinin Ratio Ur 8.8 ug/mg CR (<30); Microalbumin Urine Random 0.6 mg/dL (0-1.6)
[2023-03-03 03:05] LABS: Labcorp Hemoglobin (Hb) A1c 6.4 % (4.8-5.6)
== END ==
PROVIDERS: Family Provider Nurse Practitioner; PCP Nurse Practitioner; Referring Provider Nurse Practitioner; Visit Provider Nurse Practitioner
DX: E11.69 Type 2 diabetes mellitus with other specified complication (principal); E78.5 Hyperlipidemia, unspecified; F41.8 Other specified anxiety disorders; G47.00 Insomnia, unspecified; K76.0 Fatty (change of) liver, not elsewhere classified; Z00.00 Encounter for general adult medical examination without abnormal findings; Z79.899 Other long term (current) drug therapy; Z11.4 Encounter for screening for human immunodeficiency virus [HIV]
CPT/HCPCS: 36415; 80053; 80061; 82043; 82570; 83036; 84439; 84443; 84481; 85025; 87389

== ENCOUNTER → 2023-04-14 16:00 | Outpatient (CLI) | payer OTHER, MEDICAID, SELFPAY ==
[2023-04-12 17:17] VITALS: BMI 32.8
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
[2023-04-14 16:57] LABS: Add Manual Diff / Slide Review NO; Basophils Absolute Auto 0 /uL (0-100); Basophils Percent Auto 0.6 % (0-2); Eosinophils Absolute Auto 200 /uL (0-450); Eosinophils Percent Auto 2.4 % (2-4); Hematocrit 36.3 % (36-46); Hemoglobin 12.9 g/dL (12.0-16.0); Lymphocytes Absolute Auto 2300 /uL (1100-4500); Lymphocytes Percent Auto 28.6 % (25-40); Mean Corpuscular HGB Conc 35.6 % (30-36); Mean Corpuscular Hemoglobin 33.2 PG (26-34); Mean Corpuscular Volume 93.3 fL (80-100); Monocytes Absolute Auto 400 /uL (0-900); Monocytes Percent Auto 5.6 % (3-14); Neutrophils Absolute Auto 5000 /uL (1500-7000); Neutrophils Percent Auto 62.8 % (50-75); Platelet Count 312 X10^3/uL (150-400); Red Blood Cell Count 3.89 X10^6/uL (4.0-5.2); Red Cell Distribution Width 13.5 % (11.6-14.8); White Blood Cell Count 7.9 X10^3/uL (4.5-11.0)
[2023-04-14 17:18] LABS: Rheumatoid Factor < 8.6 IU/mL (<12.0)
[2023-04-14 17:22] LABS: C-Reactive Protein Quant < 0.5 mg/dL (<1.0)
[2023-04-14 18:02] LABS: Erythrocyte Sedimentation Rate 9 MM/HR (0-20)
[2023-04-17 17:08] LABS: ANA Screen, IFA Negative (.)
== END ==
PROVIDERS: Family Provider Nurse Practitioner; PCP Nurse Practitioner; Referring Provider Nurse Practitioner; Visit Provider Nurse Practitioner
DX: S73.005A Unspecified dislocation of left hip, initial encounter (principal); M47.816 Spondylosis without myelopathy or radiculopathy, lumbar region; M51.36 Other intervertebral disc degeneration, lumbar region; R20.0 Anesthesia of skin; R20.2 Paresthesia of skin; D89.89 Other specified disorders involving the immune mechanism, not elsewhere classified; M25.50 Pain in unspecified joint; Z87.81 Personal history of (healed) traumatic fracture; Z87.828 Personal history of other (healed) physical injury and trauma
CPT/HCPCS: 36415; 72100; 73522; 85025; 85651; 86038; 86140; 86430

== ENCOUNTER → 2023-04-19 13:19 | Outpatient (CLI) | payer OTHER, MEDICAID, SELFPAY ==
[2023-04-12 17:17] VITALS: BMI 32.8
== END ==
PROVIDERS: Family Provider Nurse Practitioner; PCP Nurse Practitioner; Visit Provider Nurse Practitioner Family
DX: R30.0 Dysuria (principal)
CPT/HCPCS: 81002; 87086; 87210

== ENCOUNTER → 2023-04-22 11:54 | Outpatient (CLI) | payer OTHER, MEDICAID, SELFPAY ==
[2023-04-12 17:17] VITALS: BMI 32.8
[2023-04-24 10:23] LABS: Fecal Immunochemical Test Negative (Negative)
== END ==
PROVIDERS: Family Provider Nurse Practitioner; PCP Nurse Practitioner; Referring Provider Nurse Practitioner; Visit Provider Nurse Practitioner
DX: Z12.11 Encounter for screening for malignant neoplasm of colon (principal)
CPT/HCPCS: 82274

== ENCOUNTER → 2023-05-02 15:59 | Outpatient (CLI) | payer OTHER, MEDICAID, SELFPAY ==
[2023-04-12 17:17] VITALS: BMI 32.8
[2023-05-03 06:36] LABS: HSV 2 IGG AB < 0.91 index (0.00-0.90)
[2023-05-07 08:28] LABS: Chlamydia trachomatis Negative (Negative); Mycoplasma genitalium Negative (Negative); Neisseria gonorrhoeae Negative (Negative)
== END ==
PROVIDERS: Family Provider Nurse Practitioner; PCP Nurse Practitioner; Referring Provider Family Medicine; Visit Provider Family Medicine
DX: N94.9 Unspecified condition associated with female genital organs and menstrual cycle (principal); N39.3 Stress incontinence (female) (male); N39.41 Urge incontinence; R10.2 Pelvic and perineal pain
CPT/HCPCS: 36415; 86695; 86696; 87086; 87210; 87491; 87563; 87591

== ENCOUNTER → 2023-05-04 14:53 | Outpatient (CLI) | payer OTHER, MEDICAID, SELFPAY ==
[2023-04-12 17:17] VITALS: BMI 32.8
== END ==
PROVIDERS: Family Provider Nurse Practitioner; PCP Nurse Practitioner; Visit Provider Family Medicine
DX: N39.0 Urinary tract infection, site not specified (principal)
CPT/HCPCS: 87086

== ENCOUNTER → 2023-05-04 16:28 | Outpatient (CLI) | payer OTHER, MEDICAID, SELFPAY ==
[2023-04-12 17:17] VITALS: BMI 32.8
[2023-05-04 17:31] LABS: Bacteria Urine Occasional (0-1); Culture Indicated Urine Cult Not Indicated; RBC Urine 0-1/HPF (0-5/HPF); Squamous Epithelial Cell Urine 0-1 /HPF (0-5/HPF); WBC Urine 1-5/HPF (0-5/HPF)
== END ==
PROVIDERS: Family Provider Nurse Practitioner; PCP Nurse Practitioner; Referring Provider Family Medicine; Visit Provider Family Medicine
DX: N39.0 Urinary tract infection, site not specified (principal)
CPT/HCPCS: 81015; 87086

== ENCOUNTER 2023-05-05 14:52 | Emergency (ER) | payer OTHER, MEDICAID, SELFPAY ==
[2023-04-12 17:17] VITALS: BMI 32.8
[2023-05-05 14:54] VITALS: BP 136/72; PULSE 84; RESP 17; TEMP 37.1; O2SAT 98; BMI 34.3
--- NOTE | 2023-05-05 15:29 | ED_ITS ---
HPI - Female Genitourinary General Chief complaint: Urogenital-Female Stated complaint: Bladder problems Time Seen by Provider: 05/05/23 15:06 Source: patient Mode of arrival: Ambulatory History of Present Illness HPI Narrative: 45-year-old female with history of diabetes, hyperlipidemia, anxiety, LFTs, known prolapse, known HPV, known HSV 1 presents with a chief complaint of at least 3-4 weeks of a fullness and pressure sensation in her vagina. Additionally she is had relatively frequent burning, frequency and urgency with negative workups for UTIs. She saw her primary care provider 2 days ago and had pelvic exam with swabs and has confirmed the diagnosis of prolapse and was given referral to Gynecology in June. She denies chest pain or shortness of breath. She denies any abdominal pain. She denies vaginal bleeding or d ischarge. She denies any back pain. Related Data Home Medications Medication Instructions Recorded Confirmed omega-3 fatty acids 1,000 mg 1,000 mg PO BID 02/22/21 05/02/23 capsule (Fish Oil Concentrate) Previous Rx's Medication Instructions Recorded Lancette #1 ea 07/13/21 glucometer #1 ea 07/13/21 lancette needles #100 ea 07/13/21 lorazepam 1 mg tablet 1 mg PO BID PRN anxiety #20 tabs 10/20/21 imiquimod 3.75 % topical cream See Rx Instructions topical HS PRN 12/27/21 packet (Zyclara) painful breakout ##7.5 ibuprofen 800 mg tablet See Rx Instructions .Route 03/16/22 .COMPLEX #90 tabs glucometer test strips #100 ea 07/06/22 ondansetron HCl 4 mg tablet 4 mg PO Q8H PRN nausea and 07/06/22 vomiting #30 tabs hydroxyzine pamoate 100 mg capsule See Rx Instructions .Route 12/08/22 .COMPLEX #90 caps metformin 500 mg tablet See Rx Instructions .Route 12/08/22 .COMPLEX #180 tabs terbinafine HCl 250 mg tablet 250 mg PO DAILY #90 tabs 12/08/22 rosuvastatin 40 mg tablet 40 mg PO DAILY #90 tabs 03/16/23 gabapentin 100 mg capsule 100 mg PO BEDTIME #270 caps 04/14/23 gabapentin 300 mg capsule 300 mg PO BEDTIME #90 caps 04/14/23 phenazopyridine 200 mg tablet 200 mg PO TID 6 doses #6 tabs 05/02/23 triamcinolone acetonide 0.5 % 1 applic topical BID #30 grams 05/04/23 topical cream cephalexin 500 mg capsule 500 mg PO Q6H 7 days #28 caps 05/05/23 fluconazole 150 mg tablet 150 mg PO Q3D 2 doses #2 tabs 05/05/23 Allergies Allergy/AdvReac Type Severity Reaction Status Date / Time cat dander [CAT DANDER] Allergy Mild SNEEZING Verified 05/05/23 14:54 AND HIVES morphine AdvReac Severe VOMITING Verified 05/05/23 14:54 codeine AdvReac Mild NAUSEA Verified 05/05/23 14:54 Review of Systems Review of Systems Narrative: GENERAL: Denies chills, fatigue, malaise, fever, sweats. HEENT: Denies sinus pain, ear pain, sore throat, difficulty swallowing, dizziness. RESPIRATORY: Denies dyspnea, cough, wheezing, hemoptysis, sputum. CARDIOVASCULAR: Denies chest pain, palpitations, orthopnea, edema, GASTROINTESTINAL: Denies nausea, vomiting, abdominal pain, diarrhea, constipation, melena. : See HPI MUSCULOSKELETAL: denies weakness, joint pain, or bony pain SKIN: Denies rash, skin lesions, or other NEUROLOGIC: Denies weakness, headache, numbness, change in speech, confusion, seizures, incoordination. PSYCHIATRIC: No concerning psychosocial issues. 12 point review of systems is negative except for those stated above Patient History Medical History Abscess of female pelvis Abscess of pelvis Acute left lower quadrant pain Anxiety Anxiety Asthma Bacterial vaginosis Biliary dyskinesia Carotid artery plaque Carotid artery stenosis Chlamydia Cholecystitis Chronic sinusitis Coccygeal pain, acute Depression Difficulty swallowing Dyshidrotic eczema Dyspareunia due to non-psychogenic cause in female Ear pain, right Elevated fasting glucose Elevated LFTs Gastroenteritis Genital warts due to HPV (human papillomavirus) Heartburn Hepatic steatosis High risk HPV infection History of pelvic infection Hoarseness or changing voice HPV (human papilloma virus) infection Hyperlipidemia Hyperlipidemia associated with type 2 diabetes mellitus Insomnia Intra-abdominal abscess Itching of vulva Loose stools Low grade squamous intraepith lesion on cytologic smear cervix (lgsil) Lump in neck (10/2019) Lymph node disorder Mixed anxiety depressive disorder (08/20/02) Numbness and tingling of both lower extremities Odynophagia Oral herpes Panic disorder Postoperative nausea Psoriasis Rash Rectal pressure Right lateral epicondylitis (01/2018) RUQ abdominal pain Seasonal affective disorder Thyroid cyst Thyroid mass Trigeminal neuralgia of right side of face Type 2 diabetes mellitus Upper back pain Urinary tract infection Surgical History History of cholecystectomy Hx of oral surgery (~12/2019) S/P laparoscopic cholecystectomy Family History Brother Age: 42 Depression Drug abuse Father Depression Overdose Grandfather Suicide Grandmother No problems noted. Grandfather No problems noted. Grandmother No problems noted. Brother No problems noted. Mother No problems noted. alcohol intake frequency: 0-2 drinks per day Substance Use Type: marijuana Exam Narrative Exam Narrative: GEN: AOx3 and in mild distress, tearful, visibly upset EYES: Pupils are equal, round, and reactive to light and accommodation. Extraoccular muscles are intact bilaterally. There is no subconjunctival hemorrhage or exudate. CHEST: Lungs are clear to auscultation bilaterally and free of wheezes, rales, or rhonchi. Heart rate is regular rhythm, there are no murmurs, clicks, rubs, or gallops. There is no chest wall tenderness. ABD: Abdomen is soft and nontender. There is no guarding or rebound. Bowel sounds are normal in all 4 quadrants. There is no mass or organomegaly. PELVIC: discussed but deferred given exam 2 days ago EXT: Full painless ROM of all extremities with no loss of sensation or strength. SKIN: Warm, pink, and dry. No erythema or rash Initial Vital Signs Initial Vital Signs: Vital Signs Temperature 98.8 F 05/05/23 14:54 Pulse Rate 84 05/05/23 14:54 Respiratory Rate 17 05/05/23 14:54 Blood Pressure 136/72 05/05/23 14:54 Pulse Oximetry 98 05/05/23 14:54 Oxygen Delivery Method Room Air 05/05/23 14:54 Course Orders Ordered: ED Orders 05/05/23 15:13 Ictotest Urine Stat Urine Microscopic Stat Vital Signs Vital signs: Vital Signs - 8 hr 05/05/23 14:54 Temperature 98.8 F Pulse Rate 84 Respiratory Rate 17 Blood Pressure 136/72 Pulse Oximetry 98 Oxygen Delivery Method Room Air MDM - Female Genitourinary Lab Data Labs: Lab Results 05/05/23 05/05/23 Range/Units 15:13 15:13 Ur Bilirubin Confirm Negative (Negative) Urine RBC 0-1/hpf (0-5/HPF) Urine WBC 0-1/hpf (0-5/HPF) Ur Squamous Epith Cells 0-1 /hpf (0-5/HPF) Urine Bacteria Occasional (0-1) (None) Ur Culture Indicated? Cult not indicated Micro UA Comment Point of Care Testing Test Results Negative Urine Dip Bedside Urine Glucose Negative Bedside Urine Bilirubin + 1 Bedside Urine Ketone - Negative Urine Specific [place] 1.010 Bedside Urine Occult Blood - Negative Bedside Urine pH 7.0 Bedside Urine Protein - Negative Bedside Urine Urobilinogen 1+ 2mg Bedside Urine Nitrite + Positive Bedside Urine Leukocytes + 70 Esterase MDM Narrative Medical decision making narrative: [48] year old patient presents with vaginal burning and fullness along with dysuria Multiple etiologies for patient's symptoms considered including, but not limited to: [UTI versus vaginal infection versus prolapse versus other] Prior Charts reviewed in our EMR Primary Historian: patient Labs reviewed and interpreted by myself: HSV antibody is positive, patient states she has known HSV. Other swabs still pending such as gonorrhea and chlamydia. Urine POC with leukocyte esterase, otherwise normal Patient's history and physical exam are reassuring. She is had symptoms for quite some time and no new symptoms since her recent evaluation 2 days ago. We did discuss the utility of repeat imaging or pelvic exam but agree that it is unlikely to change the course and that her symptoms have been chronic and largely unchanged. Today's urine does show leukocyte esterase which is new from prior, we did discuss the utility in treating for UTI and agree that it is worth potential risk. 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 Findings and discharge diagnosis discussed with patient/family followed by verbalization of understanding Return precautions discussed with patient/family whom verbalize understanding of diagnosis and plan Discharge Plan Departure Patient Disposition: Home Clinical Impression: Dysuria, UTI (urinary tract infection) Instructions: DI for Urinary Tract Infection (UTI), DI for Dysuria -- Adult Activity Restrictions/Additional Instructions: *You have been diagnosed with [dysuria, likely early urinary tract infection and bladder prolapse] *What to do: *Please continue to take your regular medications as directed. [x] New medication prescriptions sent to your pharmacy: [[facility] in [place]] [ ] New medication written as a paper prescription [ ] No new medications given *Please follow up with Dr. Epperson (rn clinical documentation). Please call the office later today, let them know you were seen in the Emergency Department and that we would like you seen in follow up. I will electronically transmit a copy of today's note to their office. *Return to Emergency Department if you should have any new, worsening or concerning symptoms, such as [fever greater than 101 F, shaking chills, worsening pain, persistent vomiting or other bothersome symptoms] Prescriptions: New fluconazole 150 mg tablet 150 mg PO Q3D Qty: 2 0RF Rx Instructions: may repeat second dose 72 hrs after first dose if symptoms persist cephalexin 500 mg capsule 500 mg PO Q6H 7 Days Qty: 28 0RF No Action ibuprofen 800 mg tablet See Rx Instructions .ROUTE .COMPLEX Qty: 90 3RF Dose Instruction: TAKE 1 TABLET BY MOUTH EVERY 8 HOURS NEEDED FOR PAIN. ABSTAIN FROM ALL OTHER NSAIDS DURING TREATMENT Rx Instructions: TAKE 1 TABLET BY MOUTH EVERY 8 HOURS NEEDED FOR PAIN. ABSTAIN FROM ALL OTHER NSAIDS DURING TREATMENT ondansetron HCl 4 mg tablet 4 mg PO Q8H PRN (Reason: nausea and vomiting) Qty: 30 2RF Rx Instructions: Take 1 tab by mouth every 8 hours as needed for nausea. (DME) glucometer test strips See Rx Instructions .Route .MEDSUPPLY Qty: 100 3RF Rx Instructions: Check blood sugars daily triamcinolone acetonide 0.5 % cream 1 applic topical BID Qty: 30 0RF lorazepam 1 mg tablet 1 mg PO BID PRN (Reason: anxiety) Qty: 20 0RF Rx Instructions: half to 1 tablet twice daily as needed anxiety imiquimod [Zyclara] 3.75 % cream in packet See Rx Instructions Topical HS PRN (Reason: painful breakout) Qty: 7.5 3RF Rx Instructions: Apply 1 packet topical once daily at bedtime PRN; gabapentin 100 mg capsule 100 mg PO BEDTIME Qty: 270 3RF Rx Instructions: Take 100mg by mouth 1-3 times per day as needed, in addition to 300mg at bedtime daily gabapentin 300 mg capsule 300 mg PO BEDTIME Qty: 90 3RF Rx Instructions: Take 300mg at bedtime daily in addition to 100mg doses TID PRN phenazopyridine 200 mg tablet 200 mg PO TID 0 Days Qty: 6 0RF omega-3 fatty acids [Fish Oil Concentrate] 1,000 mg capsule 1,000 mg PO BID (DME) glucometer See Rx Instructions .Route .MEDSUPPLY Qty: 1 0RF Rx Instructions: Check blood sugars daily and record (DME) Lancette See Rx Instructions .Route .MEDSUPPLY Qty: 1 0RF Rx Instructions: Check finger stick fasting daily (DME) lancette needles See Rx Instructions .Route .MEDSUPPLY Qty: 100 2RF Rx Instructions: Check blood sugars fasting daily metformin 500 mg tablet See Rx Instructions .ROUTE .COMPLEX Qty: 180 3RF Dose Instruction: TAKE 2 TABLETS BY MOUTH TWICE DAILY WITH MEALS (BREAKFAST AND DINNER TIME) Rx Instructions: TAKE 2 TABLETS BY MOUTH TWICE DAILY WITH MEALS (BREAKFAST AND DINNER TIME) hydroxyzine pamoate 100 mg capsule See Rx Instructions .ROUTE .COMPLEX Qty: 90 3RF Dose Instruction: Take 1 capsule by mouth at bedtime Rx Instructions: Take 1 capsule by mouth at bedtime terbinafine HCl 250 mg tablet 250 mg PO DAILY Qty: 90 0RF Rx Instructions: Labs due prior to next refill. rosuvastatin 40 mg tablet 40 mg PO DAILY Qty: 90 3RF Rx Instructions: Take 1 tab daily Referrals: Lacie Black ARNP [Primary Care Provider] - Stand Alone Forms: Patient Portal/API
[2023-05-05 15:54] LABS: Bacteria Urine Occasional (0-1); Culture Indicated Urine Cult Not Indicated; RBC Urine 0-1/HPF (0-5/HPF); Squamous Epithelial Cell Urine 0-1 /HPF (0-5/HPF); WBC Urine 0-1/HPF (0-5/HPF)
[2023-05-05 15:55] LABS: Ictotest Urine Negative (Negative)
== END 2023-05-05 15:53 | disposition home or self-care (01) ==
PROVIDERS: Emergency Provider Emergency Medicine; Family Provider Nurse Practitioner; PCP Nurse Practitioner
DX: N39.0 Urinary tract infection, site not specified (principal)
CPT/HCPCS: 81003; 81015; 81025; 99282; 99283

== ENCOUNTER → 2023-05-25 09:29 | Outpatient (CLI) | payer OTHER, MEDICAID, SELFPAY ==
[2023-04-12 17:17] VITALS: BMI 32.8
[2023-05-26 15:16] LABS: Candida species Negative (Negative); Gardnerella vaginalis Positive (Negative); Trichomoas vaginalis Negative (Negative)
== END ==
PROVIDERS: Family Provider Nurse Practitioner; PCP Nurse Practitioner; Visit Provider Specialist
DX: N89.8 Other specified noninflammatory disorders of vagina (principal)
CPT/HCPCS: 87480; 87510; 87660

== ENCOUNTER → 2023-07-31 16:33 | Outpatient (CLI) | payer OTHER, MEDICAID, SELFPAY ==
[2023-07-27 10:04] VITALS: BMI 32.8
[2023-08-02 14:39] LABS: Candida species Negative (Negative); Gardnerella vaginalis Positive (Negative); Trichomoas vaginalis Negative (Negative)
== END ==
PROVIDERS: Family Provider Nurse Practitioner; PCP Nurse Practitioner; Visit Provider Obstetrics & Gynecology
DX: N89.8 Other specified noninflammatory disorders of vagina (principal)
CPT/HCPCS: 87480; 87510; 87660

== ENCOUNTER → 2023-08-28 15:28 | Outpatient (CLI) | payer OTHER, MEDICAID, SELFPAY ==
[2023-07-27 10:04] VITALS: BMI 32.8
[2023-08-28 19:53] LABS: Urine N gonorrhoeae NOT DETECTED
[2023-08-28 20:05] LABS: Urine Chlamydia NOT DETECTED
[2023-08-30 15:57] LABS: Candida species Negative (Negative); Gardnerella vaginalis Positive (Negative); Trichomoas vaginalis Negative (Negative)
== END ==
PROVIDERS: Family Provider Nurse Practitioner; PCP Nurse Practitioner; Visit Provider Obstetrics & Gynecology
DX: N89.8 Other specified noninflammatory disorders of vagina (principal)
CPT/HCPCS: 81002; 87077; 87086; 87147; 87480; 87491; 87510; 87591; 87660

== ENCOUNTER → 2023-09-22 13:35 | Outpatient (CLI) | payer OTHER, MEDICAID, SELFPAY ==
[2023-09-12 14:50] VITALS: BMI 32.8
[2023-09-25 11:51] LABS: Candida species Negative (Negative); Gardnerella vaginalis Negative (Negative); Trichomoas vaginalis Negative (Negative)
== END ==
PROVIDERS: Family Provider Nurse Practitioner; PCP Nurse Practitioner; Visit Provider Specialist
DX: N89.8 Other specified noninflammatory disorders of vagina (principal)
CPT/HCPCS: 87480; 87510; 87660

== ENCOUNTER 2023-10-11 13:59 | Emergency (ER) | payer OTHER, MEDICAID, SELFPAY ==
[2023-09-12 14:50] VITALS: BMI 32.8
[2023-10-11 14:09] VITALS: BP 165/102; PULSE 102; RESP 16; TEMP 37.2; O2SAT 97; BMI 34.3
[2023-10-11 14:58] LABS: Bacteria Urine None Seen; RBC Urine None Seen (0-5/HPF); Urine Volume 10mL (spun); WBC Urine None Seen (0-5/HPF)
[2023-10-11 14:59] LABS: Culture Indicated Urine Cult Not Indicated; Renal Epithelial Cells Urine 0-1/HPF (0-1/HPF); Squamous Epithelial Cell Urine 5-10 /HPF (0-5/HPF); Transitional Epi Cells Urine 1-5/HPF (0-5/HPF)
[2023-10-11 16:25] VITALS: BP 135/96; PULSE 84; RESP 14; O2SAT 98
--- NOTE | 2023-10-11 18:08 | ED.FEMALEGU ---
HPI - Female Genitourinary <Sherron Dow PA-C - Last Filed: 10/11/23 18:23> General Chief complaint: Urogenital-Female Stated complaint: uti Source: patient Mode of arrival: Family Vehicle History of Present Illness HPI Narrative: Patient is a 48-year-old female with diabetes who presents to the emergency room with chief complaint of vulvar pain and concern for UTI. Chart review shows an extensive history of visits with the sales representative livestock providers for similar symptoms. They have tried multiple different antibiotics as well as topical and systemic steroids to treat her pain. Patient reports the pain is located near the urethra and possibly due to inflammation of the [place]yrock's gland. She has also had bacterial vaginosis over the past 7 months. A recent urine culture grew group B strep in August. Patient feels like the symptoms are worse over the past several days. The burning is constant and feels like a hot continuous vulcanizing machine operator my vagina 24 hours a day. She reports her symptoms have improved intermittently in the past after antibiotics but then worsened. She wonders if her UTIs have not been fully treated in the past, which is why they recur so quickly. She has most recently been using a topical steroid cream twice daily which does not seem to improve her symptoms. Patient has an appointment with urogynecology specialist on October 16. Patient feels that the gynecology providers have not fully investigated her problems and that she has not received the compassion that she deserves. Related Data Home Medications Medication Instructions Recorded Confirmed omega-3 fatty acids 1,000 mg 1,000 mg PO BID 02/22/21 09/14/23 capsule (Fish Oil Concentrate) Previous Rx's Medication Instructions Recorded Lancette #1 ea 07/13/21 glucometer #1 ea 07/13/21 lancette needles #100 ea 07/13/21 lorazepam 1 mg tablet 1 mg PO BID PRN anxiety #20 tabs 10/20/21 imiquimod 3.75 % topical cream See Rx Instructions topical HS PRN 12/27/21 packet (Zyclara) painful breakout ##7.5 glucometer test strips #100 ea 07/06/22 metformin 500 mg tablet See Rx Instructions .Route 12/08/22 .COMPLEX #180 tabs terbinafine HCl 250 mg tablet 250 mg PO DAILY #90 tabs 12/08/22 rosuvastatin 40 mg tablet 40 mg PO DAILY #90 tabs 03/16/23 gabapentin 100 mg capsule 100 mg PO BEDTIME #270 caps 04/14/23 gabapentin 300 mg capsule 300 mg PO BEDTIME #90 caps 04/14/23 phenazopyridine 200 mg tablet 200 mg PO TID Inflammation of 05/25/23 [place]'s gland 6 doses #21 tabs oxybutynin chloride 5 mg tablet 5 mg PO TID #90 tabs 06/28/23 CMP Boric Acid 600mg vaginal See Rx Instructions .Route 08/07/23 suppository .COMPLEX #30 tabs ibuprofen 800 mg tablet See Rx Instructions .Route 08/09/23 .COMPLEX #90 tabs hydroxyzine pamoate 100 mg capsule 100 mg PO QID PRN anxiety, 08/28/23 sleeplessness #360 caps azithromycin 1 gram oral packet 1 g PO DAILY #1 ea 08/29/23 lidocaine 4 % topical gel 1 applic topical BID-QID PRN pain 08/29/23 #30 grams amoxicillin 500 mg capsule 500 mg PO QID #28 caps 08/30/23 fluconazole 150 mg tablet 150 mg PO DAILY #2 tabs 08/30/23 azithromycin 250 mg tablet See Rx Instructions PO .COMPLEX 09/14/23 skene gland infection #6 tabs estradiol 0.01% (0.1 mg/gram) 1 g vaginal 2XW vaginitis #42.5 09/14/23 vaginal cream grams methylprednisolone 4 mg tablet 4 mg PO .COMPLEX #7 tabs 09/19/23 ondansetron HCl 4 mg tablet 4 mg PO Q8H PRN for 10/16/23 nausea/vomiting #30 tabs Allergies Allergy/AdvReac Type Severity Reaction Status Date / Time cat dander [CAT DANDER] Allergy Mild SNEEZING Verified 09/14/23 09:20 AND HIVES morphine AdvReac Severe VOMITING Verified 09/14/23 09:20 codeine AdvReac Mild NAUSEA Verified 09/14/23 09:20 Review of Systems <Sherron Dow PA-C - Last Filed: 10/11/23 18:23> Review of Systems ROS Unobtainable: All systems reviewed & are unremarkable except as noted in HPI and below Patient History <Sherron Dow PA-C - Last Filed: 10/11/23 18:23> Medical History Abscess of female pelvis Abscess of pelvis Acute left lower quadrant pain Anxiety Anxiety Asthma Bacterial vaginosis Biliary dyskinesia Carotid artery plaque Carotid artery stenosis Chlamydia Cholecystitis Chronic sinusitis Coccygeal pain, acute Depression Difficulty swallowing Dyshidrotic eczema Dyspareunia due to non-psychogenic cause in female Ear pain, right Elevated fasting glucose Elevated LFTs Gastroenteritis Genital warts due to HPV (human papillomavirus) Heartburn Hepatic steatosis High risk HPV infection History of pelvic infection Hoarseness or changing voice HPV (human papilloma virus) infection Hyperlipidemia Hyperlipidemia associated with type 2 diabetes mellitus Insomnia Intra-abdominal abscess Itching of vulva Loose stools Low grade squamous intraepith lesion on cytologic smear cervix (lgsil) Lump in neck (10/2019) Lymph node disorder Mixed anxiety depressive disorder (08/20/02) Numbness and tingling of both lower extremities Odynophagia Oral herpes Panic disorder Postoperative nausea Psoriasis Rash Rectal pressure Right lateral epicondylitis (01/2018) RUQ abdominal pain Seasonal affective disorder Thyroid cyst Thyroid mass Trigeminal neuralgia of right side of face Type 2 diabetes mellitus Upper back pain Urinary tract infection Surgical History History of cholecystectomy Hx of oral surgery (~12/2019) S/P laparoscopic cholecystectomy Family History Brother Age: 43 Depression Drug abuse Father Depression Overdose Grandfather Suicide Grandmother No problems noted. Grandfather No problems noted. Grandmother No problems noted. Brother No problems noted. Mother No problems noted. alcohol intake frequency: 0-2 drinks per day Substance Use Type: marijuana Exam <Sherron Dwo PA-C - Last Filed: 10/11/23 18:23> Narrative Exam Narrative: GENERAL: 48 year old patient appears stated age. Well-developed patient, in significant emotional distress NEURO: AOx3. HEAD: Atraumatic. Normocephalic. EYES: Pupils equal round and reactive. Extraocular motions intact. No scleral icterus. No injection or drainage. ENT: Nose without bleeding or purulent drainage. Airway patent. RESPIRATORY: No increased work of breathing while at rest : Deferred, see MDM EXTREMITIES: No edema or joint tenderness. SKIN: No rash or erythema of visible areas Initial Vital Signs Initial Vital Signs: Vital Signs Temperature 98.9 F 10/11/23 14:09 Pulse Rate 102 H 10/11/23 14:09 Respiratory Rate 16 10/11/23 14:09 Blood Pressure 165/102 H 10/11/23 14:09 Pulse Oximetry 97 10/11/23 14:09 Oxygen Delivery Method Room Air 10/11/23 14:09 <Christen Lou DO - Last Filed: 10/17/23 09:43> Initial Vital Signs Initial Vital Signs: Vital Signs Temperature 98.9 F 10/11/23 14:09 Pulse Rate 102 H 10/11/23 14:09 Respiratory Rate 16 10/11/23 14:09 Blood Pressure 165/102 H 10/11/23 14:09 Pulse Oximetry 97 10/11/23 14:09 Oxygen Delivery Method Room Air 10/11/23 14:09 Course <Sherron Dow PA-C - Last Filed: 10/11/23 18:23> Orders Ordered: ED Orders 10/11/23 14:52 Urine Microscopic Stat Vital Signs Vital signs: Vital Signs - 8 hr 10/11/23 14:09 10/11/23 16:25 Temperature 98.9 F Pulse Rate 102 H 84 Respiratory Rate 16 14 Blood Pressure 165/102 H 135/96 H Pulse Oximetry 97 98 Oxygen Delivery Method Room Air Room Air <Christen Lou DO - Last Filed: 10/17/23 09:43> Orders Ordered: ED Orders 10/11/23 14:52 Urine Microscopic Stat Vital Signs Vital signs: Vital Signs - 8 hr 10/11/23 14:09 10/11/23 16:25 Temperature 98.9 F Pulse Rate 102 H 84 Respiratory Rate 16 14 Blood Pressure 165/102 H 135/96 H Pulse Oximetry 97 98 Oxygen Delivery Method Room Air Room Air MDM - Female Genitourinary <RAMON Martins Last Filed: 10/11/23 18:23> Lab Data Labs: Lab Results 10/11/23 Range/Units 14:52 Urine RBC None seen (0-5/HPF) Urine WBC None seen (0-5/HPF) Ur Squamous Epith Cells 5-10 /hpf H (0-5/HPF) Ur Transition Epith Cell 1-5/hpf (0-5/HPF) Ur Renal Epithelial Cell 0-1/hpf (0-1/HPF) Urine Bacteria None seen (None) Ur Culture Indicated? Cult not indicated Vol Urine Centrifuged 10ml (spun) Point of Care Testing Test Results Negative Urine Dip Bedside Urine Glucose Negative Bedside Urine Bilirubin - Negative Bedside Urine Ketone - Negative Urine Specific [place] 1.030 Bedside Urine Occult Blood - Negative Bedside Urine pH 6.0 Bedside Urine Protein + 30 Bedside Urine Urobilinogen - Negative Bedside Urine Nitrite - Negative Bedside Urine Leukocytes - Negative Esterase MDM Narrative Medical decision making narrative: Multiple etiologies for patient's symptoms considered including, but not limited to: Urinary tract infection, pyelonephritis, sexually transmitted infection, skin lesion, skin infection, abscess Long discussion with the patient regarding her experience working with the Gynecology Department, the symptoms she is having and her desire to find the root of the problem. She describes feeling at the absolute end of her rope, like everyone has given up on trying to help her and that it is hopeless. She is in pain 24 hours a day and her symptoms have caused her relationship to fall apart. She is also under significant stress because her daughter is and currently using opiates and she wonders if she will need to raise the grand baby which she does not feel prepared to do, especially with her current symptoms. I spoke with a triage nurse from the OBGYN clinic to gain further information about patient's course and previous treatments. We had a tracey discussion regarding what we could hope to achieve during emergency room visit. Her UA is not consistent with a UTI. We will send the urine to the lab and watch for bacterial growth and notify her of the results if there is an infection. I can do a pelvic exam and check a wet prep today in the emergency room, although it sounds as though her symptoms are very similar to past symptoms and I do not know that I will find anything. I am not a specialist and I do not want to cause her further pain or trauma by performing this exam. Patient initially very tearful and angry after our conversation, but after some time, patient is able to calm herself and discuss how exhausting and emotionally unsupported she has felt through this process. She agrees that doing further examinations in the emergency room is probably not going to be helpful. Offered additional support including referral to counseling or medication for anxiety or depression, patient states she has been through a lot harder things than this in her life and she will make it through. Provided supportive listening and attempted to normalize some of what she is feeling as she seems to be experiencing multiple stressors as well as these painful and distressing symptoms. Encouraged her to hold onto hope that the specialist will be able to offer her something or provide additional referral to a specialist who maybe able to help her. Patient in agreement that no further exam or testing is indicated today in the emergency room and is discharged. Patient's symptoms improved over duration of stay with above-stated therapies. Findings and discharge diagnosis discussed with patient/family followed by verbalization of understanding Return precautions discussed with patient/family whom verbalize understanding of diagnosis and plan <Christen Lou, DO - Last Filed: 10/17/23 09:43> Lab Data Labs: Lab Results 10/11/23 Range/Units 14:52 Urine RBC None seen (0-5/HPF) Urine WBC None seen (0-5/HPF) Ur Squamous Epith Cells 5-10 /hpf H (0-5/HPF) Ur Transition Epith Cell 1-5/hpf (0-5/HPF) Ur Renal Epithelial Cell 0-1/hpf (0-1/HPF) Urine Bacteria None seen (None) Ur Culture Indicated? Cult not indicated Vol Urine Centrifuged 10ml (spun) Point of Care Testing Test Results Negative Urine Dip Bedside Urine Glucose Negative Bedside Urine Bilirubin - Negative Bedside Urine Ketone - Negative Urine Specific [place] 1.030 Bedside Urine Occult Blood - Negative Bedside Urine pH 6.0 Bedside Urine Protein + 30 Bedside Urine Urobilinogen - Negative Bedside Urine Nitrite - Negative Bedside Urine Leukocytes - Negative Esterase Discharge Plan Departure Patient Disposition: Home Clinical Impression: Vulvar irritation Instructions: Vulvodynia Activity Restrictions/Additional Instructions: * Kelly, it was a pleasure meeting today. I am sorry that you are having such a terribly hard time right now. It sounds like there is a lot of stress going on in addition to your pain. I am really hopeful that the specialists will be able to help you and I hope that you can hold onto this hope too. We will definitely call you if your urine culture grows any bacteria consistent with infection. I am here tomorrow and I will personally check your chart and call you if there is anything. In the meantime, please take care of yourself. *What to do: *Please continue to take your regular medications as directed. [ ] New medication prescriptions sent to your pharmacy: [ ] [ ] New medication written as a paper prescription [x] No new medications given *Please follow up with your primary care provider in 2-3 days, call for an appointment. Let them know you were seen in the Emergency Department and that we ask that you be seen in follow up. We will electronically transmit a record of today's note if your PCP is in our system *If you do not have a primary care provider please contact the [facility] Resource line at [phone]. They will ask some questions about your medical history and help get you set up with a doctor in the community. *Return to Emergency Department if you should have any new, worsening or concerning symptoms, such as [fever greater than 101 F, shaking chills, worsening pain, persistent vomiting or other concerning symptoms]. Prescriptions: No Action (DME) glucometer test strips See Rx Instructions .Route .MEDSUPPLY Qty: 100 3RF Rx Instructions: Check blood sugars daily oxybutynin chloride 5 mg tablet 5 mg PO TID Qty: 90 1RF CMP Boric Acid 600mg vaginal suppository See Rx Instructions .ROUTE .COMPLEX Qty: 30 1RF Rx Instructions: 1 tablet vaginally once weekly; Makers ibuprofen 800 mg tablet See Rx Instructions .ROUTE .COMPLEX Qty: 90 3RF Dose Instruction: TAKE 1 TABLET BY MOUTH EVERY 8 HOURS NEEDED FOR PAIN. ABSTAIN FROM ALL OTHER NSAIDS DURING TREATMENT Rx Instructions: TAKE 1 TABLET BY MOUTH EVERY 8 HOURS NEEDED FOR PAIN. ABSTAIN FROM ALL OTHER NSAIDS DURING TREATMENT hydroxyzine pamoate 100 mg capsule 100 mg PO QID PRN (Reason: anxiety, sleeplessness) Qty: 360 3RF Rx Instructions: Max caps per day amoxicillin 500 mg capsule 500 mg PO QID Qty: 28 0RF fluconazole 150 mg tablet 150 mg PO DAILY Qty: 2 0RF Rx Instructions: Take one tab at onset of symptoms of yeast, repeat in 5 days if still symptoms methylprednisolone 4 mg tablet 4 mg PO .COMPLEX Qty: 7 0RF Rx Instructions: Take 2 a day for 1 day, take 1-1/2 for 1 day, take 1 for 1 day, take 1/2 for 4 days ondansetron HCl 4 mg tablet 4 mg PO Q8H PRN (Reason: for nausea/vomiting) Qty: 30 0RF lorazepam 1 mg tablet 1 mg PO BID PRN (Reason: anxiety) Qty: 20 0RF Rx Instructions: half to 1 tablet twice daily as needed anxiety imiquimod [Zyclara] 3.75 % cream in packet See Rx Instructions Topical HS PRN (Reason: painful breakout) Qty: 7.5 3RF Rx Instructions: Apply 1 packet topical once daily at bedtime PRN; gabapentin 100 mg capsule 100 mg PO BEDTIME Qty: 270 3RF Rx Instructions: Take 100mg by mouth 1-3 times per day as needed, in addition to 300mg at bedtime daily gabapentin 300 mg capsule 300 mg PO BEDTIME Qty: 90 3RF Rx Instructions: Take 300mg at bedtime daily in addition to 100mg doses TID PRN phenazopyridine 200 mg tablet 200 mg PO TID 0 Days Qty: 21 0RF omega-3 fatty acids [Fish Oil Concentrate] 1,000 mg capsule 1,000 mg PO BID (DME) glucometer See Rx Instructions .Route .MEDSUPPLY Qty: 1 0RF Rx Instructions: Check blood sugars daily and record (DME) Lancette See Rx Instructions .Route .MEDSUPPLY Qty: 1 0RF Rx Instructions: Check finger stick fasting daily (DME) lancette needles See Rx Instructions .Route .MEDSUPPLY Qty: 100 2RF Rx Instructions: Check blood sugars fasting daily metformin 500 mg tablet See Rx Instructions .ROUTE .COMPLEX Qty: 180 3RF Dose Instruction: TAKE 2 TABLETS BY MOUTH TWICE DAILY WITH MEALS (BREAKFAST AND DINNER TIME) Rx Instructions: TAKE 2 TABLETS BY MOUTH TWICE DAILY WITH MEALS (BREAKFAST AND DINNER TIME) terbinafine HCl 250 mg tablet 250 mg PO DAILY Qty: 90 0RF Rx Instructions: Labs due prior to next refill. rosuvastatin 40 mg tablet 40 mg PO DAILY Qty: 90 3RF Rx Instructions: Take 1 tab daily lidocaine 4 % gel 1 applic topical BID-QID PRN (Reason: pain) Qty: 30 0RF azithromycin 1 gram packet 1 g PO DAILY Qty: 1 2RF Rx Instructions: 1 g by mouth x 1 azithromycin 250 mg tablet See Rx Instructions PO .COMPLEX Qty: 6 0RF Rx Instructions: For 250 mg dose pack: take 500 mg today (day 1), then 250 mg for 4 days (days 2-5) PO estradiol 0.01 % (0.1 mg/gram) cream 1 g vaginal 2XW Qty: 42.5 0RF Referrals: Lacie Black ARNP [Primary Care Provider] - Stand Alone Forms: Patient Portal/API ED Sign-out <Christen Lou DO - Last Filed: 10/17/23 09:43> Cosign ED Attending Cosignature Attestation: I was immediately available in the department for consultation.
== END 2023-10-11 16:28 | disposition home or self-care (01) ==
PROVIDERS: Emergency Provider Physician Assistant; Family Provider Nurse Practitioner; PCP Nurse Practitioner
DX: R10.2 Pelvic and perineal pain (principal); Z79.899 Other long term (current) drug therapy
CPT/HCPCS: 81003; 81015; 81025; 99282

== ENCOUNTER 2024-01-01 15:45 | Emergency (ER) | payer OTHER, MEDICAID, SELFPAY ==
[2023-09-12 14:50] VITALS: BMI 32.8
[2024-01-01 15:52] VITALS: BP 152/87; PULSE 104; RESP 16; TEMP 36.3; O2SAT 94; BMI 34.3
--- NOTE | 2024-01-01 15:58 | DI.RAD.S_ITS ---
PROCEDURE: XR CLAVICLE LT INDICATIONS: injury pain TECHNIQUE: 2 views of the clavicle were acquired. COMPARISON: None. FINDINGS: Bones: No fractures or dislocations. No suspicious bony lesions. Soft tissues: No suspicious soft tissue calcifications. IMPRESSION: No acute clavicular fracture or dislocation. Dictated by: Juan Pablo Marques M.D. on 01/01/2024 at 16:52 Approved by: Juan Pablo Marques M.D. on 01/01/2024 at 16:53
--- NOTE | 2024-01-01 18:35 | PC.NURSE ---
assessment done by provider
[2024-01-01 18:38] VITALS: BP 131/86; PULSE 88; RESP 18; O2SAT 98
[2024-01-01] MEDS: KETOROLAC 30 MG/ML VIAL IM (18:39)
--- NOTE | 2024-01-02 16:24 | ED.UPPEXIN ---
HPI - Extremity Injury (Upper) <Trenton Siddiqi PA-C - Last Filed: 01/02/24 16:28> General Chief Complaint: Extremity Injury, Upper Stated Complaint: collar bone pain T-1 Time Seen by Provider: 01/01/24 16:19 Source: patient Mode of arrival: Ambulatory History of Present Illness HPI narrative: 48-year-old female presents to the ED with 2 days of left-sided collarbone pain. Patient states that she sharply twisted when trying to get out of her truck yesterday, when she started experiencing pain to the medial left collarbone area. Patient states that she feels sporadic tingling in the left arm. Denies numbness, weakness. Related Data Home Medications Medication Instructions Recorded Confirmed omega-3 fatty acids 1,000 mg 1,000 mg PO BID 02/22/21 11/09/23 capsule (Fish Oil Concentrate) Ketamine 0.5% with Amitriptyline See Rx Instructions .Route 10/19/23 11/09/23 2% .COMPLEX vaginal pain Previous Rx's Medication Instructions Recorded Lancette #1 ea 07/13/21 glucometer #1 ea 07/13/21 lancette needles #100 ea 07/13/21 glucometer test strips #100 ea 07/06/22 metformin 500 mg tablet See Rx Instructions .Route 12/08/22 .COMPLEX #180 tabs rosuvastatin 40 mg tablet 40 mg PO DAILY #90 tabs 03/16/23 gabapentin 100 mg capsule 100 mg PO BEDTIME #270 caps 04/14/23 gabapentin 300 mg capsule 300 mg PO BEDTIME #90 caps 04/14/23 ibuprofen 800 mg tablet See Rx Instructions .Route 08/09/23 .COMPLEX #90 tabs hydroxyzine pamoate 100 mg capsule 100 mg PO QID PRN anxiety, 08/28/23 sleeplessness #360 caps lidocaine 4 % topical gel 1 applic topical BID-QID PRN pain 08/29/23 #30 grams ondansetron HCl 4 mg tablet 4 mg PO Q8H PRN for 10/16/23 nausea/vomiting #30 tabs lorazepam 1 mg tablet 1 mg PO BID PRN anxiety #30 tabs 11/09/23 nortriptyline 50 mg capsule 50 mg PO BEDTIME #90 caps 12/21/23 nystatin 100,000 unit/mL oral 1 ml PO DAILY #60 mL 12/21/23 suspension cyclobenzaprine 10 mg tablet 10 mg PO TID PRN muscle spasm 3 01/01/24 days #10 tabs Allergies Allergy/AdvReac Type Severity Reaction Status Date / Time cat dander [CAT DANDER] Allergy Mild SNEEZING Verified 11/07/23 08:56 AND HIVES morphine AdvReac Severe VOMITING Verified 11/07/23 08:56 codeine AdvReac Mild NAUSEA Verified 11/07/23 08:56 Review of Systems <Trenton Siddiqi PA-C - Last Filed: 01/02/24 16:28> Constitutional Constitutional: Denies chills, Denies fatigue, Denies fever(s), Denies frequent falls, Denies lethargy and Denies weakness Eyes Eyes: Denies change in vision, Denies eye discharge, Denies irritation and Denies loss of vision ENT Ears, Nose, Mouth, and Throat: Denies change in voice, Denies dizziness, Denies neck pain, Denies sore throat and Denies throat swelling Cardiovascular Cardiovascular: Denies chest pain, Denies irregular heart rhythm, Denies lightheadedness, Denies palpitations, Denies dyspnea, Denies dyspnea on exertion and Denies orthopnea Respiratory Respiratory: Denies cough, Denies dyspnea, Denies dyspnea on exertion and Denies wheezing Gastrointestinal Gastrointestinal: Denies abdominal pain, Denies change in bowel habits, Denies diarrhea, Denies nausea and Denies vomiting Musculoskeletal Musculoskeletal: Denies neck pain and Denies numbness Comments: Left collarbone pain Integumentary/Breasts Skin/Breast: Denies pruritus, Denies erythema, Denies rash and Denies wounds Neurologic Neurologic: Denies behavioral changes, Denies confusion, Denies dizziness, Denies frequent falls, Denies loss of vision, Denies numbness and Denies weakness Psychiatric Psychiatric: Denies anxiety, Denies behavioral changes, Denies confusion, Denies depression, Denies homicidal ideation and Denies suicidal ideation Endocrine Endocrine: Denies fatigue, Denies flushing and Denies palpitations Hematologic/Lymphatic Hematologic/Lymphatic: Denies easy bruising Allergic/Immunologic Allergic/Immunologic: Denies urticaria, Denies throat swelling and Denies wheezing Patient History <Trenton Siddiqi PA-C - Last Filed: 01/02/24 16:28> Medical History Perineal pain Vaginal pain Pudendal neuralgia Coccydynia Anxiety about health Pressure injury of sacral region, unstageable Numbness and tingling of both lower extremities Genital warts due to HPV (human papillomavirus) Hepatic steatosis Elevated LFTs Anxiety Hyperlipidemia associated with type 2 diabetes mellitus Type 2 diabetes mellitus Dyshidrotic eczema Elevated fasting glucose Psoriasis Acute left lower quadrant pain Itching of vulva Dyspareunia due to non-psychogenic cause in female History of pelvic infection Panic disorder Intra-abdominal abscess Postoperative nausea Abscess of pelvis Abscess of female pelvis Gastroenteritis Urinary tract infection Loose stools Carotid artery plaque Hyperlipidemia Carotid artery stenosis Lymph node disorder Thyroid cyst Insomnia Hoarseness or changing voice Odynophagia Difficulty swallowing Ear pain, right Thyroid mass Bacterial vaginosis Upper back pain Biliary dyskinesia Lump in neck (10/2019) Heartburn RUQ abdominal pain Chronic sinusitis Trigeminal neuralgia of right side of face Cholecystitis Right lateral epicondylitis (01/2018) Seasonal affective disorder Rectal pressure Coccygeal pain, acute Rash Oral herpes HPV (human papilloma virus) infection Chlamydia Anxiety Depression Asthma High risk HPV infection Low grade squamous intraepith lesion on cytologic smear cervix (lgsil) Mixed anxiety depressive disorder (08/20/02) Surgical History History of cholecystectomy S/P laparoscopic cholecystectomy Hx of oral surgery (~12/2019) Family History Brother Age: 43 Depression Drug abuse Father Depression Overdose Grandfather Suicide Grandmother No problems noted. Grandfather No problems noted. Grandmother No problems noted. Brother No problems noted. Mother No problems noted. Social History household members: friend(s) Smoking Status: Current every day smoker Tobacco: How many years used: 30 quit status: not considering quitting second hand exposure: No alcohol intake: never substance use type: marijuana Smoking Status: Current every day smoker alcohol intake frequency: 0-2 drinks per day Substance Use Type: marijuana Exam <Trenton Siddiqi PA-C - Last Filed: 01/02/24 16:28> Narrative Exam Narrative: Const General:?cooperative, healthy appearing and comfortable [facility] Head:?normal to inspection Ears:?hearing grossly normal bilaterally Nose:?external nose normal Face and sinus:?normal facial exam and sinuses nontender Mouth:?oral mucosae normal Throat:?posterior oropharynx normal Eyes General:?appearance normal, both eyes and all related structures Neck Neck:?normal visual inspection and no lymphadenopathy noted Resp Effort & Inspection:?normal respiratory effort Auscultation:?clear to auscultation bilaterally Cardio Rate:?regular rate Rhythm:?regular rhythm Musculoskeletal There is tenderness to palpation in the right medial aspect of the collarbone. There is full range of motion. Strength and sensation is intact. Patient is neurovascularly intact. Neuro General:?patient alert, patient awake and patient oriented x3 Initial Vital Signs Initial Vital Signs: Vital Signs Temperature 97.4 F L 01/01/24 15:52 Pulse Rate 104 H 01/01/24 15:52 Respiratory Rate 16 01/01/24 15:52 Blood Pressure 152/87 H 01/01/24 15:52 Pulse Oximetry 94 01/01/24 15:52 Oxygen Delivery Method Room Air 01/01/24 15:52 <Amy Solis MD - Last Filed: 01/03/24 18:22> Initial Vital Signs Initial Vital Signs: Vital Signs Temperature 97.4 F L 01/01/24 15:52 Pulse Rate 104 H 01/01/24 15:52 Respiratory Rate 16 01/01/24 15:52 Blood Pressure 152/87 H 01/01/24 15:52 Pulse Oximetry 94 01/01/24 15:52 Oxygen Delivery Method Room Air 01/01/24 15:52 Course <Trenton Siddiqi PA-C - Last Filed: 01/02/24 16:28> Orders Ordered: Discontinued Medications Ketorolac Tromethamine (Ketorolac 30 Mg/Ml Vial) 30 mg IM NOW ONE Stop: 01/01/24 18:23 Last Admin: 01/01/24 18:39 Dose: 30 mg Documented By: NL <Amy Solis MD - Last Filed: 01/03/24 18:22> Orders Ordered: Discontinued Medications Ketorolac Tromethamine (Ketorolac 30 Mg/Ml Vial) 30 mg IM NOW ONE Stop: 01/01/24 18:23 Last Admin: 01/01/24 18:39 Dose: 30 mg Documented By: ALEKSANDR ALICEA - Extremity Injury (Upper) <Trenton Siddiqi PA-C - Last Filed: 01/02/24 16:28> NIX[place] Narrative Medical decision making narrative: 48-year-old female presents to the ED with 2 days of left-sided collarbone pain. Concern for fracture/dislocation versus musculoskeletal sprain/strain versus other. X-ray was obtained which was without acute findings. Discussed findings with patient. Recommend ibuprofen, Tylenol, muscle relaxants. Prescribe Flexeril. Patient was also given a shot of ketorolac in the ED. ED return precautions discussed with patient. Patient verbalized understanding. Medical records reviewed: Yes Discharge Plan Departure Patient Disposition: Home Clinical Impression: Collar bone pain Instructions: Sprain Activity Restrictions/Additional Instructions: You were evaluated in the ED today for left-sided collarbone pain. Your x-ray did not show any fractures or dislocations. Your symptoms are most consistent with a musculoskeletal sprain/strain. You were given a shot of Toradol in the ED today. Please continue taking 800 mg of ibuprofen every 8 hours with food for pain. You may also add on 1000 mg of Tylenol every 8 hours. You were also being prescribed a muscle relaxant. Please follow-up with your PCP as soon as possible. Return to the ED if you have worsening symptoms, numbness, tingling, weakness. Prescriptions: New cyclobenzaprine 10 mg tablet 10 mg PO TID PRN (Reason: muscle spasm) 3 Days Qty: 10 0RF No Action (DME) glucometer test strips See Rx Instructions .Route .MEDSUPPLY Qty: 100 3RF Rx Instructions: Check blood sugars daily ibuprofen 800 mg tablet See Rx Instructions .ROUTE .COMPLEX Qty: 90 3RF Dose Instruction: TAKE 1 TABLET BY MOUTH EVERY 8 HOURS NEEDED FOR PAIN. ABSTAIN FROM ALL OTHER NSAIDS DURING TREATMENT Rx Instructions: TAKE 1 TABLET BY MOUTH EVERY 8 HOURS NEEDED FOR PAIN. ABSTAIN FROM ALL OTHER NSAIDS DURING TREATMENT hydroxyzine pamoate 100 mg capsule 100 mg PO QID PRN (Reason: anxiety, sleeplessness) Qty: 360 3RF Rx Instructions: Max caps per day ondansetron HCl 4 mg tablet 4 mg PO Q8H PRN (Reason: for nausea/vomiting) Qty: 30 0RF nortriptyline 50 mg capsule 50 mg PO BEDTIME Qty: 90 3RF nystatin 100,000 unit/mL suspension 1 ml PO DAILY Qty: 60 2RF Rx Instructions: swish and swallow gabapentin 100 mg capsule 100 mg PO BEDTIME Qty: 270 3RF Rx Instructions: Take 100mg by mouth 1-3 times per day as needed, in addition to 300mg at bedtime daily gabapentin 300 mg capsule 300 mg PO BEDTIME Qty: 90 3RF Rx Instructions: Take 300mg at bedtime daily in addition to 100mg doses TID PRN Ketamine 0.5% with Amitriptyline 2% See Rx Instructions .ROUTE .COMPLEX Rx Instructions: Compounded Apply 1 ACT topically daily #30; lorazepam 1 mg tablet 1 mg PO BID PRN (Reason: anxiety) Qty: 30 2RF Rx Instructions: 1-2 tablet twice daily as needed anxiety omega-3 fatty acids [Fish Oil Concentrate] 1,000 mg capsule 1,000 mg PO BID (DME) glucometer See Rx Instructions .Route .MEDSUPPLY Qty: 1 0RF Rx Instructions: Check blood sugars daily and record (DME) Lancette See Rx Instructions .Route .MEDSUPPLY Qty: 1 0RF Rx Instructions: Check finger stick fasting daily (DME) lancette needles See Rx Instructions .Route .MEDSUPPLY Qty: 100 2RF Rx Instructions: Check blood sugars fasting daily metformin 500 mg tablet See Rx Instructions .ROUTE .COMPLEX Qty: 180 3RF Dose Instruction: TAKE 2 TABLETS BY MOUTH TWICE DAILY WITH MEALS (BREAKFAST AND DINNER TIME) Rx Instructions: TAKE 2 TABLETS BY MOUTH TWICE DAILY WITH MEALS (BREAKFAST AND DINNER TIME) rosuvastatin 40 mg tablet 40 mg PO DAILY Qty: 90 3RF Rx Instructions: Take 1 tab daily lidocaine 4 % gel 1 applic topical BID-QID PRN (Reason: pain) Qty: 30 0RF Referrals: Lacie Black ARNP [Primary Care Provider] - Stand Alone Forms: Patient Portal/API ED Sign-out <Amy Solis MD - Last Filed: 01/03/24 18:22> Cosign ED Attending Costruongature Attestation: I was immediately available in the department for consultation throughout this patient's visit. Amy Solis MD
== END 2024-01-01 18:51 | disposition home or self-care (01) ==
PROVIDERS: Emergency Provider Student in an Organized Health Care Education/Training Program; Family Provider Nurse Practitioner; PCP Nurse Practitioner
DX: S43.492A Other sprain of left shoulder joint, initial encounter (principal); X50.1XXA Overexertion from prolonged static or awkward postures, initial encounter
CPT/HCPCS: 73000; 96372; 99283; J1885

== ENCOUNTER → 2024-02-06 14:37 | Outpatient (CLI) | payer OTHER, MEDICAID, SELFPAY ==
[2023-09-12 14:50] VITALS: BMI 32.8
[2024-02-06 16:08] LABS: Influenza A - CEPHEID Flu A NEGATIVE (NEGATIVE); Influenza B - CEPHEID Flu B NEGATIVE (NEGATIVE); Respiratory Syncytial Virus Negative (Negative)
[2024-02-06 16:10] LABS: COVID-19 CEPHEID 4-PLEX PCR Negative (Negative)
== END ==
PROVIDERS: Family Provider Nurse Practitioner; PCP Nurse Practitioner; Visit Provider Physician Assistant Surgical
DX: R05.1 Acute cough (principal)
CPT/HCPCS: 0241U

== ENCOUNTER → 2024-02-06 14:45 | Outpatient (CLI) | payer OTHER, MEDICAID, SELFPAY ==
[2023-09-12 14:50] VITALS: BMI 32.8
--- NOTE | 2024-02-06 14:46 | DI.RAD.S_ITS ---
PROCEDURE: XR CHEST 2V INDICATIONS: Cough, dyspnea TECHNIQUE: 2 views of the chest were acquired. COMPARISON: [facility], [facility], XR CHEST 1V, 10/25/2021, 13:58. [facility], [facility]JI, CHEST 2 VIEW, 06/27/2011, 15:18. FINDINGS: Surgical changes and devices: None. Lungs and pleura: Lungs are clear. No pleural effusions or pneumothorax. Mediastinum: Mediastinal contours are normal. Heart size is normal. Bones and chest wall: No suspicious bony abnormalities. Soft tissues appear unremarkable. IMPRESSION: No acute cardiopulmonary abnormality is seen. Dictated by: Nathan Rivera M.D. on 02/06/2024 at 15:39 Approved by: Nathan Rivera M.D. on 02/06/2024 at 15:40
== END ==
PROVIDERS: Family Provider Nurse Practitioner; PCP Nurse Practitioner; Referring Provider Physician Assistant Surgical; Visit Provider Physician Assistant Surgical
DX: R05.1 Acute cough (principal)
CPT/HCPCS: 0241U; 71046

== ENCOUNTER 2024-07-29 12:55 | Emergency (ER) | payer OTHER, MEDICAID, SELFPAY ==
[2023-09-12 14:50] VITALS: BMI 32.8
[2024-07-29 13:08] VITALS: BMI 34.3
--- NOTE | 2024-07-29 13:14 | DI.RAD.S_ITS ---
PROCEDURE: XR WRIST RT MIN 3V INDICATIONS: pain TECHNIQUE: 4 views of the wrist were acquired. COMPARISON: None. FINDINGS: Bones: No fractures or dislocations. No suspicious bony lesions. Soft tissues: No suspicious soft tissue calcifications. IMPRESSION: No acute bony abnormality. Dictated by: Nathan Rivera M.D. on 07/29/2024 at 13:41 Approved by: Nathan Rivera M.D. on 07/29/2024 at 13:42
[2024-07-29 13:17] VITALS: BP 130/82; PULSE 94; RESP 16; TEMP 36.6; O2SAT 97
--- NOTE | 2024-07-29 14:08 | ED.UPPEXIN ---
HPI - Extremity Injury (Upper) <Trenton Siddiqi PA-C - Last Filed: 07/29/24 14:17> General Chief Complaint: Extremity Injury, Upper Stated Complaint: wrist px x7 days Time Seen by Provider: 07/29/24 13:27 Source: patient Mode of arrival: Ambulatory History of Present Illness HPI narrative: 49-year-old female presents to the ED with right-sided wrist pain for about a week. Patient denies any specific trauma or incident that caused the onset of symptoms. Patient has been wearing a wrist brace for comfort, however states that it is not very comfortable. Patient has been carrying her grandson around since she takes care of him, which could have contributed to her symptoms. No numbness, tingling, weakness. Patient sometimes notes shooting pain to her elbow. Related Data Home Medications Medication Instructions Recorded Confirmed omega-3 fatty acids 1,000 mg 1,000 mg PO BID 02/22/21 04/29/24 capsule (Fish Oil Concentrate) Ketamine 0.5% with Amitriptyline See Rx Instructions .Route 10/19/23 04/29/24 2% .COMPLEX vaginal pain Previous Rx's Medication Instructions Recorded Lancette #1 ea 07/13/21 glucometer #1 ea 07/13/21 lancette needles #100 ea 07/13/21 glucometer test strips #100 ea 07/06/22 gabapentin 100 mg capsule 100 mg PO BEDTIME #270 caps 04/14/23 ibuprofen 800 mg tablet See Rx Instructions .Route 08/09/23 .COMPLEX #90 tabs hydroxyzine pamoate 100 mg capsule 100 mg PO QID PRN anxiety, 08/28/23 sleeplessness #360 caps lidocaine 4 % topical gel 1 applic topical BID-QID PRN pain 08/29/23 #30 grams lorazepam 1 mg tablet 1 mg PO BID PRN anxiety #30 tabs 11/09/23 nortriptyline 50 mg capsule 50 mg PO BEDTIME #90 caps 12/21/23 nystatin 100,000 unit/mL oral 1 ml PO DAILY #60 mL 12/21/23 suspension albuterol sulfate 90 mcg/actuation 2 puff inhalation Q6H PRN 02/06/24 aerosol inhaler shortness of breath or wheezing #8.5 grams benzonatate 200 mg capsule 200 mg PO BID PRN cough #30 caps 02/06/24 inhalational spacing device #1 ea 02/06/24 (Aerochamber MV spacer) ipratropium bromide 21 mcg (0.03 2 spray intranasal BID PRN nasal 02/06/24 %) nasal spray congestion #30 mL amoxicillin 875 mg-potassium 1 tab PO BID #20 tabs 02/11/24 clavulanate 125 mg tablet fluconazole 150 mg tablet 150 mg PO ONCE #1 tab 02/11/24 ondansetron HCl 4 mg tablet 4 mg PO Q8H PRN for 02/12/24 nausea/vomiting #30 tabs metformin 500 mg tablet See Rx Instructions .Route 03/08/24 .COMPLEX #180 tabs rosuvastatin 40 mg tablet 40 mg PO DAILY #90 tabs 03/08/24 estradiol 0.0375 mg/24 hr 1 patch transdermal 2XW #24 ea 03/21/24 semiweekly transdermal patch progesterone micronized 100 mg 100 mg PO BEDTIME #90 caps 03/21/24 capsule gabapentin 300 mg capsule 300 mg PO BEDTIME #90 caps 04/19/24 amoxicillin 500 mg tablet 500 mg PO BID #20 tabs 04/29/24 Allergies Allergy/AdvReac Type Severity Reaction Status Date / Time cat dander [CAT DANDER] Allergy Mild SNEEZING Verified 04/29/24 14:19 AND HIVES morphine AdvReac Severe VOMITING Verified 04/29/24 14:19 codeine AdvReac Mild NAUSEA Verified 04/29/24 14:19 Review of Systems <Trenton Siddiqi PA-C - Last Filed: 07/29/24 14:17> Constitutional Constitutional: Denies chills, Denies fatigue, Denies fever(s), Denies frequent falls, Denies lethargy and Denies weakness Eyes Eyes: Denies change in vision, Denies eye discharge, Denies irritation and Denies loss of vision ENT Ears, Nose, Mouth, and Throat: Denies change in voice, Denies dizziness, Denies neck pain, Denies sore throat and Denies throat swelling Cardiovascular Cardiovascular: Denies chest pain, Denies irregular heart rhythm, Denies lightheadedness, Denies palpitations, Denies dyspnea, Denies dyspnea on exertion and Denies orthopnea Respiratory Respiratory: Denies cough, Denies dyspnea, Denies dyspnea on exertion and Denies wheezing Gastrointestinal Gastrointestinal: Denies abdominal pain, Denies change in bowel habits, Denies diarrhea, Denies nausea and Denies vomiting Musculoskeletal Musculoskeletal: Denies neck pain and Denies numbness Comments: Right wrist pain Integumentary/Breasts Skin/Breast: Denies pruritus, Denies erythema, Denies rash and Denies wounds Neurologic Neurologic: Denies behavioral changes, Denies confusion, Denies dizziness, Denies frequent falls, Denies loss of vision, Denies numbness and Denies weakness Psychiatric Psychiatric: Denies anxiety, Denies behavioral changes, Denies confusion, Denies depression, Denies homicidal ideation and Denies suicidal ideation Endocrine Endocrine: Denies fatigue, Denies flushing and Denies palpitations Hematologic/Lymphatic Hematologic/Lymphatic: Denies easy bruising Allergic/Immunologic Allergic/Immunologic: Denies urticaria, Denies throat swelling and Denies wheezing Patient History <Trenton Siddiqi PA-C - Last Filed: 07/29/24 14:17> Medical History (Updated 07/29/24 @ 14:00 by Trenton Siddiqi PA-C) Postmenopausal HRT (hormone replacement therapy) Memory change Brain fog Night sweats Hot flashes due to menopause Perimenopausal Perineal pain Vaginal pain Pudendal neuralgia Coccydynia Anxiety about health Pressure injury of sacral region, unstageable Numbness and tingling of both lower extremities Genital warts due to HPV (human papillomavirus) Hepatic steatosis Elevated LFTs Anxiety Hyperlipidemia associated with type 2 diabetes mellitus Type 2 diabetes mellitus Dyshidrotic eczema Elevated fasting glucose Psoriasis Acute left lower quadrant pain Itching of vulva Dyspareunia due to non-psychogenic cause in female History of pelvic infection Panic disorder Intra-abdominal abscess Postoperative nausea Abscess of pelvis Abscess of female pelvis Gastroenteritis Urinary tract infection Loose stools Carotid artery plaque Hyperlipidemia Carotid artery stenosis Lymph node disorder Thyroid cyst Insomnia Hoarseness or changing voice Odynophagia Difficulty swallowing Ear pain, right Thyroid mass Bacterial vaginosis Upper back pain Biliary dyskinesia Lump in neck (10/2019) Heartburn RUQ abdominal pain Chronic sinusitis Trigeminal neuralgia of right side of face Cholecystitis Right lateral epicondylitis (01/2018) Seasonal affective disorder Rectal pressure Coccygeal pain, acute Rash Oral herpes HPV (human papilloma virus) infection Chlamydia Anxiety Depression Asthma High risk HPV infection Low grade squamous intraepith lesion on cytologic smear cervix (lgsil) Mixed anxiety depressive disorder (08/20/02) Surgical History History of cholecystectomy S/P laparoscopic cholecystectomy Hx of oral surgery (~12/2019) Family History Brother Age: 44 Depression Drug abuse Father Depression Overdose Grandfather Suicide Grandmother No problems noted. Grandfather No problems noted. Grandmother No problems noted. Brother No problems noted. Mother No problems noted. Social History household members: friend(s) Smoking Status: Current every day smoker Tobacco: How many years used: 30 quit status: not considering quitting second hand exposure: No alcohol intake: never substance use type: marijuana Smoking Status: Current every day smoker alcohol intake frequency: 0-2 drinks per day Substance Use Type: marijuana Exam <Trenton Siddiqi PA-C - Last Filed: 07/29/24 14:17> Narrative Exam Narrative: Const General:?cooperative, healthy appearing and comfortable [facility] Head:?normal to inspection Ears:?hearing grossly normal bilaterally Nose:?external nose normal Face and sinus:?normal facial exam and sinuses nontender Mouth:?oral mucosae normal Throat:?posterior oropharynx normal Eyes General:?appearance normal, both eyes and all related structures Neck Neck:?normal visual inspection and no lymphadenopathy noted Resp Effort & Inspection:?normal respiratory effort Auscultation:?clear to auscultation bilaterally Cardio Rate:?regular rate Rhythm:?regular rhythm Musculoskeletal No swelling, bruising, erythema, bony tenderness to palpation. There is full range of motion. Strength and sensation is intact. Patient is neurovascularly intact. Neuro General:?patient alert, patient awake and patient oriented x3 Initial Vital Signs Initial Vital Signs: Vital Signs Temperature 98 F 07/29/24 13:17 Pulse Rate 94 H 07/29/24 13:17 Respiratory Rate 16 07/29/24 13:17 Blood Pressure 130/82 07/29/24 13:17 Pulse Oximetry 97 07/29/24 13:17 Oxygen Delivery Method Room Air 07/29/24 13:17 <Christen Lou DO - Last Filed: 07/30/24 19:48> Initial Vital Signs Initial Vital Signs: Vital Signs Temperature 98 F 07/29/24 13:17 Pulse Rate 94 H 07/29/24 13:17 Respiratory Rate 16 07/29/24 13:17 Blood Pressure 130/82 07/29/24 13:17 Pulse Oximetry 97 07/29/24 13:17 Oxygen Delivery Method Room Air 07/29/24 13:17 Course <Trenton Siddiqi PA-C - Last Filed: 07/29/24 14:17> Orders Ordered: ED Orders 07/29/24 13:14 XR wrist RT min 3V Stat Vital Signs Vital signs: Vital Signs - 8 hr 07/29/24 13:17 Temperature 98 F Pulse Rate 94 H Respiratory Rate 16 Blood Pressure 130/82 Pulse Oximetry 97 Oxygen Delivery Method Room Air <Christen Lou DO - Last Filed: 07/30/24 19:48> Orders Ordered: ED Orders 07/29/24 13:14 XR wrist RT min 3V Stat Vital Signs Vital signs: Vital Signs - 8 hr 07/29/24 13:17 Temperature 98 F Pulse Rate 94 H Respiratory Rate 16 Blood Pressure 130/82 Pulse Oximetry 97 Oxygen Delivery Method Room Air MDM - Extremity Injury (Upper) <Trenton Siddiqi PA-C - Last Filed: 07/29/24 14:17> MDM Narrative Medical decision making narrative: 49-year-old female presents to the ED with right-sided wrist pain for about a week. Concern for fracture/dislocation versus musculoskeletal sprain/strain versus carpal tunnel syndrome versus other. X-ray was obtained which shows no bony abnormalities. Discussed findings with patient that she could have a musculoskeletal sprain/strain versus carpal tunnel syndrome. Patient has been fitted with a new wrist brace for comfort. Recommend follow-up with PCP for further evaluation. Recommend ibuprofen for pain control. ED return precautions were discussed with patient. Patient verbalized understanding. Medical records reviewed: Yes Discharge Plan Departure Patient Disposition: Home Clinical Impression: Right wrist pain Instructions: DI for Wrist Sprain Activity Restrictions/Additional Instructions: You were evaluated in the ED today for right wrist pain. The x-ray was normal. Your symptoms are most consistent with a sprain/strain of the wrist versus carpal tunnel syndrome. Please keep the wrist brace on for the next month and monitor for symptom improvement. You may also take 800 mg of ibuprofen with food every 8 hours for pain. Please also follow-up with your PCP as soon as possible for further evaluation. Return to the ED if you have worsening symptoms, numbness, tingling, weakness. Prescriptions: No Action albuterol sulfate 90 mcg/actuation HFA aerosol inhaler 2 puff inhalation Q6H PRN (Reason: shortness of breath or wheezing) Qty: 8.5 0RF (DME) Aerochamber MV Spacer See Rx Instructions .ROUTE .MEDSUPPLY Qty: 1 0RF Rx Instructions: As directed benzonatate 200 mg capsule 200 mg PO BID PRN (Reason: cough) Qty: 30 0RF ipratropium bromide 21 mcg (0.03 %) spray,non-aerosol 2 spray intranasal BID PRN (Reason: nasal congestion) Qty: 30 0RF Rx Instructions: administer into each nostril amoxicillin 500 mg tablet 500 mg PO BID Qty: 20 0RF amoxicillin-pot clavulanate 875-125 mg tablet 1 tab PO BID Qty: 20 0RF fluconazole 150 mg tablet 150 mg PO ONCE Qty: 1 0RF Rx Instructions: as a single dose (DME) glucometer test strips See Rx Instructions .Route .MEDSUPPLY Qty: 100 3RF Rx Instructions: Check blood sugars daily ibuprofen 800 mg tablet See Rx Instructions .ROUTE .COMPLEX Qty: 90 3RF Dose Instruction: TAKE 1 TABLET BY MOUTH EVERY 8 HOURS NEEDED FOR PAIN. ABSTAIN FROM ALL OTHER NSAIDS DURING TREATMENT Rx Instructions: TAKE 1 TABLET BY MOUTH EVERY 8 HOURS NEEDED FOR PAIN. ABSTAIN FROM ALL OTHER NSAIDS DURING TREATMENT hydroxyzine pamoate 100 mg capsule 100 mg PO QID PRN (Reason: anxiety, sleeplessness) Qty: 360 3RF Rx Instructions: Max caps per day nortriptyline 50 mg capsule 50 mg PO BEDTIME Qty: 90 3RF nystatin 100,000 unit/mL suspension 1 ml PO DAILY Qty: 60 2RF Rx Instructions: swish and swallow ondansetron HCl 4 mg tablet 4 mg PO Q8H PRN (Reason: for nausea/vomiting) Qty: 30 0RF metformin 500 mg tablet See Rx Instructions .ROUTE .COMPLEX Qty: 180 3RF Dose Instruction: TAKE 2 TABLETS BY MOUTH TWICE DAILY WITH MEALS (BREAKFAST AND DINNER TIME) Rx Instructions: TAKE 2 TABLETS BY MOUTH TWICE DAILY WITH MEALS (BREAKFAST AND DINNER TIME) rosuvastatin 40 mg tablet 40 mg PO DAILY Qty: 90 3RF Rx Instructions: Take 1 tab daily gabapentin 300 mg capsule 300 mg PO BEDTIME Qty: 90 3RF Rx Instructions: Take 300mg at bedtime daily in addition to 100mg doses TID PRN gabapentin 100 mg capsule 100 mg PO BEDTIME Qty: 270 3RF Rx Instructions: Take 100mg by mouth 1-3 times per day as needed, in addition to 300mg at bedtime daily Ketamine 0.5% with Amitriptyline 2% See Rx Instructions .ROUTE .COMPLEX Rx Instructions: Compounded Apply 1 ACT topically daily #30; lorazepam 1 mg tablet 1 mg PO BID PRN (Reason: anxiety) Qty: 30 2RF Rx Instructions: 1-2 tablet twice daily as needed anxiety estradiol 0.0375 mg/24 hr patch semiweekly 1 patch transdermal 2XW Qty: 24 3RF Rx Instructions: apply 1 patch for 3 days alternating with 1 patch for 4 days each week for 3 wks per 4-wk cycle progesterone micronized 100 mg capsule 100 mg PO BEDTIME Qty: 90 3RF Rx Instructions: take while on estradiol omega-3 fatty acids [Fish Oil Concentrate] 1,000 mg capsule 1,000 mg PO BID (DME) glucometer See Rx Instructions .Route .MEDSUPPLY Qty: 1 0RF Rx Instructions: Check blood sugars daily and record (DME) Lancette See Rx Instructions .Route .MEDSUPPLY Qty: 1 0RF Rx Instructions: Check finger stick fasting daily (DME) lancette needles See Rx Instructions .Route .MEDSUPPLY Qty: 100 2RF Rx Instructions: Check blood sugars fasting daily lidocaine 4 % gel 1 applic topical BID-QID PRN (Reason: pain) Qty: 30 0RF Referrals: Lacie Black ARNP [Primary Care Provider] - Stand Alone Forms: Patient Portal/API/Survey ED Sign-out <Christen Lou DO - Last Filed: 07/30/24 19:48> Cosign ED Attending Eva Attestation: I was immediately available in the department for consultation.
--- NOTE | 2024-07-29 14:20 | PC.NURSE ---
Patient evaluated, treated, and discharged by provider prior to nursing assessment.
== END 2024-07-29 14:10 | disposition home or self-care (01) ==
PROVIDERS: Emergency Provider Student in an Organized Health Care Education/Training Program; Family Provider Nurse Practitioner; PCP Nurse Practitioner
DX: M25.531 Pain in right wrist (principal)
CPT/HCPCS: 29260; 73110; 99283

== ENCOUNTER → 2024-10-10 15:07 | Outpatient (CLI) | payer OTHER, SELFPAY ==
[2023-09-12 14:50] VITALS: BMI 32.8
[2024-10-10 15:54] LABS: Hemoglobin A1C% w Est Avg Glu 8.1 % (4.0-6.0)
[2024-10-10 15:55] LABS: Alanine Aminotransferase 60 IU/L (<35); Albumin 4.8 g/dL (3.5-5.0); Albumin Globulin Ratio 1.8 (1.0-2.8); Alkaline Phosphatase 95 U/L (38-126); Aspartate Aminotransferase 49 IU/L (14-36); BUN Creatinine Ratio 13.9 (6-22); Bilirubin Total 0.6 mg/dL (0.2-1.3); Blood Urea Nitrogen 10 mg/dL (7-17); Calcium 9.5 mg/dL (8.4-10.2); Carbon Dioxide 25 mmol/L (22-32); Chloride 103 mmol/L (98-107); Cholesterol 131 mg/dL (140-199); Estimated Glomerular Filt Rate > 60 mL/min (>60); Globulin 2.6 g/dL (1.7-4.1); Glucose 235 mg/dL (70-100); HDL Cholesterol 48 mg/dL (40-60); HEMOLYSIS < 15 (0-50); LDL Cholesterol Calculated 37 mg/dL (<100); Potassium 4.4 mmol/L (3.4-5.1); Sodium 137 mmol/L (137-145); Total Protein 7.4 g/dL (6.3-8.2); Triglycerides 229 mg/dL (35-150)
[2024-10-12 03:36] LABS: CRP, High Sensitivity 0.92 mg/L (0.00-3.00)
== END ==
PROVIDERS: Family Provider Nurse Practitioner; PCP Family Medicine; Referring Provider Family Medicine; Visit Provider Family Medicine
DX: E11.69 Type 2 diabetes mellitus with other specified complication (principal); E78.5 Hyperlipidemia, unspecified; E66.9 Obesity, unspecified; E88.810 Metabolic syndrome
CPT/HCPCS: 36415; 80053; 80061; 83036; 86140

== ENCOUNTER → 2024-11-21 14:28 | Outpatient (CLI) | payer OTHER, SELFPAY ==
[2023-09-12 14:50] VITALS: BMI 32.8
== END ==
PROVIDERS: PCP Family Medicine; Visit Provider Student in an Organized Health Care Education/Training Program
DX: R30.0 Dysuria (principal); N94.9 Unspecified condition associated with female genital organs and menstrual cycle
CPT/HCPCS: 87086; 87210

== ENCOUNTER → 2025-03-11 14:53 | Outpatient (CLI) | payer OTHER, SELFPAY ==
[2023-09-12 14:50] VITALS: BMI 32.8
[2025-03-13 15:10] LABS: Trichomoas vaginalis Negative (Negative)
== END ==
PROVIDERS: PCP Family Medicine; Visit Provider Family Medicine
DX: N89.8 Other specified noninflammatory disorders of vagina (principal); Z11.3 Encounter for screening for infections with a predominantly sexual mode of transmission; Z11.8 Encounter for screening for other infectious and parasitic diseases
CPT/HCPCS: 87480; 87491; 87510; 87563; 87591; 87660